=== PATIENT | female | born 1965 | race Caucasian/White ===

== ENCOUNTER 2017-03-14 16:16 | Emergency (ER) | payer MEDICAID ==
[2017-03-14 16:21] VITALS: BP 149/85; PULSE 74; RESP 20; TEMP 97.7
[2017-03-14] MEDS ORDERED: ORPHENADRINE 30 MG/ML 2 ML VIAL IM STA (16:26)
[2017-03-14] MEDS ORDERED: KETOROLAC 60 MG/2 ML VIAL IM STA (16:27)
[2017-03-14] MEDS ORDERED: HYDROcodone/APAP 10-325MG 1 EACH TAB PO ONE (16:28)
--- NOTE | 2017-03-14 16:48 | ED ---
Neck Injury/Pain HPI - General Chief Complaint: Neck Pain/Injury Stated Complaint: NECK AND ARM PAIN Time Seen by Provider: 03/14/17 16:18 Source: RN notes reviewed, old records reviewed Mode of arrival: ambulatory Limitations: no limitations - History of Present Illness Initial Comments: This is a pleasant 51-year-old female with chief complaint of neck and arm pain for the past 2 days. She denies any chest pain or shortness of breath. Patient reports that she has a history of surgical repair of C3 through C5 Dr. Oseguera. She reports that she called them 2 days ago and does have an appointment tomorrow. Patient reports that she was at work that she's having severe muscle spasm and is unable to continue to work at this time. Patient reports that the pain starts in the upper part of her neck and radiates down to her left arm. Patient reports that she is very tender to palpation over her trapezius muscle. Patient states that she's been taking Motrin and muscle relaxers without any relief of her pain. Patient states that she does not take any narcotic. She reports that this symptom happened 2 months ago she was placed on a steroid taper by her neurologist. Patient reports that she was told by her neurologist to hold off on the steroid taper, because she is recently had one. - Related Data Home Medications Medication Instructions Recorded Confirmed Furosemide [Lasix] 40 mg PO DAILY PRN 03/30/14 05/19/14 Omeprazole [PriLOSEC] 20 mg PO DAILY 03/30/14 05/19/14 Potassium Chloride [K-Tab ER] 10 meq PO DAILY PRN 03/30/14 05/19/14 Hydrocodone/Acetaminophen 1 each PO QID PRN 05/13/14 05/19/14 [Hydrocodone/Acetaminophen 5-325] Ibuprofen [Motrin] 800 mg PO Q6HR PRN 05/13/14 05/19/14 Previous Rx's Medication Instructions Recorded HYDROcodone/APAP 5-325MG [Divide 1 - 2 each PO Q6HR PRN #90 tab 05/20/14 5-325] Diazepam [Valium] 5 mg PO TID #10 tab 03/14/17 HYDROcodone/APAP 5-325MG [Divide 1 tab PO Q6HR PRN #10 tab 03/14/17 5-325] Allergies Allergy/AdvReac Type Severity Reaction Status Date / Time codeine Allergy Chest Pain Verified 05/13/14 15:25 BEE STINGS Allergy Anaphylaxis Uncoded 05/13/14 15:25 Review of Systems ROS Statement: Those systems with pertinent positive or pertinent negative responses have been documented in the HPI. ROS Other: All systems not noted in ROS Statement are negative. Past Medical History Past Medical History: Chest Pain / Angina, GERD/Reflux, Musculoskeletal Disorder , Osteoarthritis (OA), Thyroid Disorder Additional Past Medical History / Comment(s): GLASSES,CAPS CROWNS,MISSING UPPER TOOTH,HYPERTHYROID,ANXIERTY-CHEST PAIN,EARS AND BELLY BUTTON PIERCED, REFLUX, BACK PAIN-NECK History of Any Multi-Drug Resistant Organisms: C-DIFF Date of last positivie culture/infection: 2009 MDRO Source:: stool Past Surgical History: Cholecystectomy, Heart Catheterization, Orthopedic Surgery Additional Past Surgical History / Comment(s): NODULES REMOVED FROM VOCAL CORDS, HEART CATH 06/06, pain clinic procedures, anterior cervical decompression and fusion C4-5, C5-6 on 05/19/[address] Oseguera Past Anesthesia/Blood Transfusion Reactions: Motion Sickness, Postoperative Nausea & Vomiting (PONV) Past Psychological History: Anxiety Smoking Status: Former smoker Past Alcohol Use History: Occasional Past Drug Use History: None Reported - Past Family History Father Family Medical History: Musculoskeletal Disorder General Exam - General Exam Comments Initial Comments: Pleasant 51-year-old female. No acute distress. Limitations: no limitations General appearance: alert, in no apparent distress Head exam: Present: atraumatic, normocephalic, normal inspection Eye exam: Present: normal appearance, PERRL, EOMI. Absent: scleral icterus, conjunctival injection, periorbital swelling ENT exam: Present: normal exam, normal oropharynx, mucous membranes moist Neck exam: Present: normal inspection, other (Patient is tender to palpation over the right side of the posterior neck. Tender scapula radiating towards her right shoulder. Patient thinks that she pinched a nerve. ). Absent: tenderness, meningismus, lymphadenopathy Respiratory exam: Present: normal lung sounds bilaterally. Absent: respiratory distress, wheezes, rales, rhonchi, stridor Cardiovascular Exam: Present: regular rate, normal rhythm, normal heart sounds. Absent: systolic murmur, diastolic murmur, rubs, gallop, clicks GI/Abdominal exam: Present: soft, normal bowel sounds. Absent: distended, tenderness, guarding, rebound, rigid Extremities exam: Present: normal inspection, full ROM, normal capillary refill. Absent: tenderness, pedal edema, joint swelling, calf tenderness Back exam: Present: normal inspection Neurological exam: Present: alert, oriented X3, CN II-XII intact Psychiatric exam: Present: normal affect, normal mood Skin exam: Present: warm, dry, intact, normal color. Absent: rash Course Vital Signs 03/14/17 16:19 Temperature 97.7 F Pulse Rate 74 Respiratory 20 Rate Blood Pressure 149/85 O2 Sat by Pulse 99 Oximetry Medical Decision Making - Medical Decision Making Is a 51-year-old female presents emergency department with neck and arm pain for the past 2 days. Patient reports she is extremely tender over the ear. She 's had a history of surgical repair of C3 C3 through C5. She reports that 2 days that she she moved and pinched nerve and is not helped. Patient isn't taking Motrin Tylenol and muscle relaxers with little relief. Cervical and thoracic spine were completed today. Patient given IM Toradol and Norflex. Patient's x-rays reviewed. Negative for any significant acute process. Evidence of previous surgical repair. Patient reports some improvement with the IM injections. Patient will also be given one Divide to take when she goes home with. Patient will be written off of work for today and tomorrow. Discussed following up tomorrow with her neurologist appointment. Patient agrees with treatment plan will comply. Return parameters were discussed. She also be discharged with a prescription for Divide and Valium. Discussed case with Dr. Garcia. - Radiology Data Radiology results: report reviewed Present denies any for any acute process. No fracture and no malalignment. Gentle reversal of normal lordotic curvature noted. Anterior C4 through 6 fusion hardware intact. No focal bony findings. No incisional soft tissue findings. Mild C5-C6 and bilateral neural foraminal bony narrowing noted. Neural foramen are otherwise unremarkable. No acute process. Disposition Clinical Impression: Muscle spasms of neck Disposition: HOME SELF-CARE Condition: Good Instructions: Cervical Strain (ED), Muscle Spasm (ED) Additional Instructions: Patient advised to apply heat and ice over the area. Take anti-inflammatory medications as she previously had been taking. Follow-up tomorrow with your orthopedic physician. Return to emergency department if any alarming signs or symptoms occur. Prescriptions: Diazepam [Valium] 5 mg PO TID #10 tab HYDROcodone/APAP 5-325MG [Divide 5-325] 1 tab PO Q6HR PRN #10 tab PRN Reason: Pain Referrals: Zahira Gage MD [Primary Care Provider] - 1-2 days Time of Disposition: 16:55
--- NOTE | 2017-03-14 17:19 | XR ---
EXAMINATION TYPE: XR cervical spine comp 5 views DATE OF EXAM: 03/14/2017 5:16 PM COMPARISON: 05/19/2014 HISTORY: Pain, shooting pain down left arm TECHNIQUE: 5 views FINDINGS: There is no fracture and no malalignment. Gentle reversal of the normal lordotic curvature noted. Anterior C4-C6 fusion hardware is intact. No focal bony findings. No incidental soft tissue fi ndings. Mild C5-6 and bilateral neural foraminal bony narrowing noted. The neuroforamen are otherwise unremarkable. IMPRESSION: NO ACUTE PROCESS.
--- NOTE | 2017-03-14 17:22 | XR ---
EXAMINATION TYPE: XR thoracic spine complete 4 views DATE OF EXAM: 03/14/2017 5:16 PM COMPARISON: NONE HISTORY: Pain TECHNIQUE: 4 views FINDINGS: There is no spinal malalignment. No evident fracture. No focal bony finding or incidental p araspinal soft tissue findings. IMPRESSION: NO ACUTE PROCESS.
== END 2017-03-14 17:40 | disposition home or self-care (01) ==
LOC: EC 16:16
DX: M99.71 Connective tissue and disc stenosis of intervertebral foramina of cervical region (principal); M79.602 Pain in left arm; K21.9 Gastro-esophageal reflux disease without esophagitis; Z87.891 Personal history of nicotine dependence; Z79.899 Other long term (current) drug therapy; Z88.5 Allergy status to narcotic agent; Z91.030 Bee allergy status; Z98.1 Arthrodesis status
CPT/HCPCS: 72072; 72050; 99284; 96372 ×2; J2360; J1885

== ENCOUNTER → 2017-03-29 | Outpatient (CLI) | payer MEDICAID ==
--- NOTE | 2017-03-30 10:00 | MR ---
EXAMINATION TYPE: MR cervical spine wo/w con DATE OF EXAM: 03/29/2017 10:37 PM COMPARISON: The operative study of 05/13/2013 HISTORY: Cervical and lt arm pain CONTRAST: The patient was injected with 19 mL intravenous MultiHance gadolinium contrast. Multiplanar MultiSpin echo imaging of the cervical spine was performed. C2-C3: No evidence for degenerative disc disease. No disc bulge/herniation or protrusion. No Canal stenosis. Degenerative change cervical apophyseal joints. Moderate narrowing of the left neural valeria en at this level. C3-C4: No evidence for degenerative disc disease. No disc bulge/herniation or protrusion. No Canal stenosis. Foramina are patent bilaterally. C4-C5: Interval changes of ACDF. There is solid fusion with anterior fixation plate. Alignment is zhang tomic. Posterior hypertrophic changes effaces the ventral thecal sac with minimal ventral CORD contac t to the right of midline. No central stenosis. Increased signal within the cervical spinal cord at t his level may reflect a degree of myelopathy. Foramina are patent bilaterally. Enhancing granulation tissue noted. C5-C6: Interval changes of ACDF. There is solid fusion with anterior fixation plate. Alignment is zhang tomic. Posterior hypertrophic changes effaces the ventral thecal sac with minimal ventral CORD contac t to the right of midline. No central stenosis. Increased signal within the cervical spinal cord at t his level may reflect a degree of myelopathy. Foramina are patent bilaterally. Enhancing granulation tissue noted. C6-C7: There is mild disc desiccation. Posterocentral disc bulge with minimal effacement ventral thec al sac. No evidence for herniation, stenosis or spinal cord contact. Foramina are patent. C7-T1: No evidence for degenerative disc disease. No disc bulge/herniation or protrusion. No Canal stenosis. Foramina are patent bilaterally. No cervical spine fracture. Anatomic postoperative alignment. Cervical spinal cord is of normal signa l. Craniovertebral junction relationships are within normal limits. No pathologic enhancement. IMPRESSION: 1. Changes of ACDF at C4-5 and C5-6 with a normal alignment. As noted there is posterior hypertrophic change with enhancing granulation tissue and spinal cord contact to the right of midline H level. In creased signal within the cervical spinal cord may reflect myelopathy. No definite central stenosis a t this time. 2. Left foraminal encroachment at C2-3. 3. Disc bulging at C6-7
== END | disposition home or self-care (01) ==
LOC: RADMRIMAIN 21:45
PROVIDERS: ATTEND Orthopaedic Surgery Orthopaedic Surgery of the Spine
DX: M50.123 Cervical disc disorder at C6-C7 level with radiculopathy (principal)
CPT/HCPCS: 72156; A9577

== ENCOUNTER → 2017-05-01 | Outpatient (CLI) | payer MEDICAID ==
[2017-04-29 13:48] VITALS: BMI 29.5
[2017-05-01 11:54] VITALS: BP 113/75; PULSE 71; RESP 16; TEMP 98.5
--- NOTE | 2017-05-01 12:32 | P.HPIM ---
History of Present Illness H&P Date: 05/01/17 Chief Complaint: neck pain and left arm pain This is a 51-year-old patient referred by Dr. Oseguera for chronic pain in neck and left arm; patient underwent MARTHA x 3 with our facility in 2013 and then underwent ACDF with Dr. Oseguera which helped her significantly and she was off all medications. Recently, she tripped and she felt a pop in her neck and began to have pain going down her left arm to her fingers, and is now having radiation of throbbing pain down to her left forearm but not into the hand. Patient has been taking medications from primary care physician including Bethel and Neurontin with some relief. Patient denies adverse drug effects from medications. Patient also denies new-onset weakness, bowel/bladder incontinence , or any other signs or symptoms of cauda equina syndrome. There are no signs of acute intoxication, and no indications of medication diversion or overuse. Patient notes that pain worsens significantly with sitting and driving, and improves with rest, muscle relaxants, opioids, and ice. Patient has used several types of medications for pain, including NSAIDS, OPIOIDS, TRAMADOL. Patient HAS had surgery (ACDF). Patient HAS had injections previously (CESIs). Patient HAS NOT had physical therapy recently but Dr. Oseguera has ordered it for her. In addition to above, 13-point review of systems is also negative for chest pain , shortness of breath, changes in vision, changes in hearing, new onset weakness , abdominal pain, diarrhea, extreme fatigue, malaise, fever, skin changes, homicidal or suicidal ideation, or bowel or bladder incontinence. Vital Signs: Reviewed in EMR Gen: WDWN, AAOx3, NAD HEENT: NCAT, EOMI, hearing grossly normal Pulm: resp unlabored Abd: soft, NT, ND Neck: supple, trachea midline ROM in flexion cervical spine: reduced ROM in extension cervical spine: severely reduced Cervical paravertebral tenderness: + L side Cervical Facet tenderness: + L side Spurling's: + LUE Upper extremity: decreased bolt threader strength LUE 4/5 Neuro: CN II-XII grossly intact, muscle strength lower extremities PRESERVED Past Medical History Past Medical History: Chest Pain / Angina, GERD/Reflux, Musculoskeletal Disorder , Osteoarthritis (OA), Thyroid Disorder Additional Past Medical History / Comment(s): HYPERTHYROID. REFLUX RESOLVED. BACK, NECK PAIN; OCC NT IN LT ARM & RADIATES UP TO CHIN. History of Any Multi-Drug Resistant Organisms: C-DIFF Date of last positivie culture/infection: 2009 MDRO Source:: stool Past Surgical History: Cholecystectomy, Heart Catheterization, Orthopedic Surgery Additional Past Surgical History / Comment(s): NODULES REMOVED FROM VOCAL CORDS , HEART CATH 06/06, Pain clinic procedures, Anterior Cervical Decompression and Fusion C4-5, C5-6 on 05/19/[address] Oseguera. PLANTAR FASCITIS SURG STONE. Past Anesthesia/Blood Transfusion Reactions: Motion Sickness, Postoperative Nausea & Vomiting (PONV) Past Psychological History: Anxiety Additional Psychological History / Comment(s): MINOR Smoking Status: Former smoker Past Alcohol Use History: Daily Past Drug Use History: None Reported - Past Family History Father Family Medical History: Musculoskeletal Disorder Medications and Allergies Home Medications Medication Instructions Recorded Confirmed Type Potassium Chloride [K-Tab ER] 10 meq PO DAILY PRN 03/30/14 05/01/17 History Ibuprofen [Motrin] 800 mg PO Q6HR PRN 05/13/14 05/01/17 History Cyclobenzaprine [Flexeril] 10 mg PO TID 04/29/17 05/01/17 History Diazepam [Valium] 5 mg PO TID PRN 04/29/17 05/01/17 History Furosemide [Lasix] 40 mg PO DAILY PRN 04/29/17 05/01/17 History Gabapentin [Neurontin] 300 mg PO TID 04/29/17 05/01/17 History HYDROcodone/APAP 5-325MG [Bethel 1 tab PO Q8HR PRN 04/29/17 05/01/17 History 5-325] Methimazole [Methimazole] 10 mg PO BID 04/29/17 05/01/17 History Multivit with Calcium,Iron,Min 1 each PO DAILY 04/29/17 05/01/17 History [Women's Multivitamin] Vitamin C/Biotin [Hair, Skin and 1 tab PO DAILY 04/29/17 05/01/17 History Nails] Allergies Allergy/AdvReac Type Severity Reaction Status Date / Time codeine Allergy Chest Pain Verified 05/01/17 11:40 BEE STINGS Allergy Anaphylaxis Uncoded 05/01/17 11:40 Physical Exam Vitals: Vital Signs Temp Pulse Resp BP Pulse Ox 05/01/17 11:45 98.5 F 71 16 113/75 100 Results Comments: MRI cervical spine dated 03/29/2017 demonstrates ACDF changes of the C4-C5 and C5- C6 level with a normal alignment. There is posterior hypertrophic facet changes with enhancing granulation tissue and spinal cord contact to the right of the midline at each level. There is increased signal within the cervical spinal cord that may possibly reflect myelopathy. There is no definite central canal stenosis at this time. There is also disc bulging the C6-C7 level with foraminal encroachment at C2-C3. Assessment and Plan (1) Cervical postlaminectomy syndrome Status: Chronic (2) Cervical spondylosis without myelopathy Status: Chronic (3) Chronic pain syndrome Status: Chronic Plan: 1. Explanation: Opioid and psychological risk scores were reviewed. Diagnoses , prognoses, and multiple treatment options including but not limited to physical therapy, interventional therapies, adjuvant medical therapies, narcotic medication therapies, and surgery were discussed with the patient and all questions were answered to the patient's satisfaction. 2. Opioid agreement: no opioids prescribed today 3. Counseling: The patient was counseled extensively on BODY MASS INDEX, EXERCISE. Specifically, the patient was instructed regarding the importance of weight control and exercise in the context of both chronic pain and overall health. 4. Procedures: MARTHA series starting in six weeks after PT 5. Consultations: none 6. Investigations: none 7. Medications: none prescribed, advised pt to take Neurontin 300 mg QPM and 600 mg QHS 8. Disposition: f/u for procedure as scheduled; if pain is significantly improved by PT, patient can cancel procedure PQRS measures: 1-Patient's medications are documented in the chart. 2-Tobacco use is negative, counseling given 3-Patient has not had a pneumococcal vaccine. 4-Advanced care planning discussed, patient unable to give. 5-Opioid contract signed with the patient. 6-Pain positive, follow-up visit or procedure scheduled 7-Patient's blood pressure measured and documented, and WNL. 8-Patient's weight was measured, and body mass index ABOVE the normal limits, and counseling was done. Patient instructed to follow up with PCP. 9-Patient WAS NOT identified as an unhealthy alcohol user. Time with Patient: Greater than 30
== END | disposition home or self-care (01) ==
LOC: PNWHC3 11:35
PROVIDERS: ATTEND Anesthesiology
DX: M47.812 Spondylosis without myelopathy or radiculopathy, cervical region (principal); M96.1 Postlaminectomy syndrome, not elsewhere classified; G89.4 Chronic pain syndrome
CPT/HCPCS: 99211

== ENCOUNTER 2017-05-30 06:38 | Day surgery (SDC) | payer MEDICAID ==
[2017-05-27 15:51] VITALS: BMI 31.0
[2017-05-30] MEDS ORDERED: LACTATED RINGERS 1,000 ML IV SCH (07:30)
[2017-05-30 07:32] VITALS: RESP 16; TEMP 98
[2017-05-30] MEDS ORDERED: LIDOCAINE 1% 20 ML VIAL (10MG/ML) FOR IV START INTRADERMA ONE (07:46)
[2017-05-30] MEDS ORDERED: LACTATED RINGERS 1,000 ML IV ONE (07:49)
--- NOTE | 2017-05-30 08:09 | P.PCN ---
Date of Procedure: 05/30/17 Preoperative Diagnosis: Postoperative Diagnosis: Procedure(s) Performed: Implants: Surgeon: Kirill Hurtado Pathology: none sent Condition: stable Disposition: PACU Indications for Procedure: Operative Findings: Description of Procedure: PREOPERATIVE DIAGNOSIS: Cervical radiculopathy. POSTOPERATIVE DIAGNOSIS: Cervical radiculopathy. PROCEDURE 1. Cervical epidural steroid injection under fluoroscopic guidance, C7-T1 level. 2. Cervical epidurogram. ANESTHESIA: Local anesthesia with 1% lidocaine and IV sedation with versed/ fentanyl. EBL: Minimal PROCEDURE INDICATION: The patient with neck pain and radiculitis unresponsive to conservative treatment consents for procedure. No use of blood thinners. PROCEDURE DESCRIPTION / TECHNIQUE: The patient was seen and identified in the preoperative area. Risks, benefits, complications, and alternatives were discussed with the patient (including but not limited to incomplete pain relief, bleeding, infection, nerve damage, and allergies to medications), the patient agreed to proceed with the procedure and signed the consent after all questions were answered. Patient was taken to the OR and time out was completed to verify proper patient , position, laterality of pain, and allergies. Pt was placed in the prone position. A pillow was placed under the patients chest to increase the cervical interlaminar space. The cervical area was prepped and draped in the usual sterile fashion. Critical pause was taken. Vital signs were closely monitored during the procedure. Conscious sedation was used during the procedure to decrease patients anxiety. Using anterior-posterior fluoroscopy, the C7-T1 interlaminar space was identified and the skin over this site was marked and then infiltrated with 1% lidocaine subcutaneously in a paramedian fashion. Subsequently, a 20-gauge 3-1/2 -inch Tuohy epidural needle was inserted and advanced toward the epidural space by means of the loss of resistance technique and guided by AP and lateral fluoroscopy. After negative aspiration for blood or CSF and in the absence of paresthesias, the correct needle position in the epidural space was verified with the injection of 1 mL of the water soluble contrast dye Omnipaque-180 and observing an excellent epidurogram with the epidural spread of the dye, after negative aspiration for blood and CSF and in the absence of paresthesias. Again after negative aspiration, a 4 ml mixture containing 20 mg of Decadron and 2 ml of preservative free Normal Saline solution was injected and a washout of epidurogram was seen. Needle was withdrawn intact, skin was cleansed, and bandages were applied. COMPLICATIONS: None COMMENTS: DISPOSITION / PLANS: The patient was placed in a supine position and transferred to the recovery area in a stable condition for observation. There was no evidence of upper extremity motor or sensory deficit after the procedure. Patient was discharged from the recovery room after meeting discharge criteria. Home discharge instructions were given to the patient by the staff. The patient was reexamined prior to discharge and had no numbness/ tingling feeling in her left arm as she had when she came in prior to the procedure. The patient will schedule a repeat MARTHA in 4-6 weeks.
[2017-05-30] MEDS ORDERED: IV FLUID CONTINUATION 1,000 ML IV ONE (08:11)
--- NOTE | 2017-05-30 08:28 | FL ---
Fluoroscopy HISTORY: Pain 11 seconds fluoroscopy time supplied to the referring clinician. 3 intraoperative C-arm images docum ent the procedure. See dictated report from anesthesia.
[2017-05-30 08:36] VITALS: BP 117/72; PULSE 80
[2017-05-30] MEDS ORDERED: ONDANSETRON 4 MG/2 ML VIAL IVP STA (08:40)
== END 2017-05-30 09:19 | disposition home or self-care (01) ==
LOC: ORPAIN 06:38
PROVIDERS: ATTEND Anesthesiology
DX: G89.4 Chronic pain syndrome (principal); M47.22 Other spondylosis with radiculopathy, cervical region; M96.1 Postlaminectomy syndrome, not elsewhere classified; M19.90 Unspecified osteoarthritis, unspecified site; E05.90 Thyrotoxicosis, unspecified without thyrotoxic crisis or storm; Z88.5 Allergy status to narcotic agent; Z91.030 Bee allergy status; Z79.899 Other long term (current) drug therapy; Z87.891 Personal history of nicotine dependence; Z98.1 Arthrodesis status
CPT/HCPCS: 62321; 81025; J2250; J1100; Q9965; J2405; J3010; 99152

== ENCOUNTER 2017-06-13 10:34 | Day surgery (SDC) | payer MEDICAID ==
[~2017-06-13 10:34] MED LIST: LACTATED RINGERS 1,000 ML IV SCH
[2017-06-13 10:44] VITALS: RESP 16; TEMP 98.3
[2017-06-13] MEDS ORDERED: LIDOCAINE 1% 20 ML VIAL (10MG/ML) FOR IV START INTRADERMA ONE (11:02)
[2017-06-13] MEDS ORDERED: ONDANSETRON 4 MG/2 ML VIAL IVP ONE (11:02)
--- NOTE | 2017-06-13 11:27 | P.PCN ---
Date of Procedure: 06/13/17 Preoperative Diagnosis: Cervical radiculopathy Postoperative Diagnosis: Same as above Procedure(s) Performed: Cervical epidural steroid injection under fluoroscopic guidance Implants: Anesthesia: other (Moderate conscious sedation with IV fentanyl and Versed) Surgeon: Ronel Hurd Pathology: none sent Condition: stable Disposition: PACU Indications for Procedure: Operative Findings: Description of Procedure: The patient was seen in preop holding area consent was obtained then she was brought into the procedure room and placed in prone position. Skin was prepped with ChloraPrep and draped in a sterile manner. Lidocaine 1% was used to numb the skin up at the target point that was at the C7-T1 level in the left paramedian approach. I used 22-gauge 3-1/2 inch Touhy epidural needle with loss -of-resistance to air to identify the epidural space. First the needle tip contacted the lamina of T1 and then it walked off the bone and into the epidural space between C7 and T1. Was positive [id number] to air negative aspiration for any CSF or blood and negative paresthesia I then injected 1 mL of Omnipaque which showed typical epidurogram on the AP view of fluoroscopy after that I injected 20 mg of dexamethasone with 3 MLS of preservative free normal saline to a total volume of 5 MLS in the epidural space. Muscle strength exam and the upper extremities supposed procedure showed no changes from baseline. Patient denies any new paresthesia post procedure. Patient tolerated procedure well.
[2017-06-13] MEDS ORDERED: IV FLUID CONTINUATION 1,000 ML IV ONE (11:35)
[2017-06-13 11:48] VITALS: BP 113/76; PULSE 72
--- NOTE | 2017-06-13 11:55 | FL ---
EXAMINATION TYPE: FL guided pain mgmt statistic DATE OF EXAM: 06/13/2017 COMPARISON: NONE HISTORY: Cervical epidural injection TECHNIQUE: Fluoroscopy. FINDINGS/IMPRESSION: Fluoroscopic guidance was provided during procedure performed by Dr. Hurd. A total of 5 seconds of fluoroscopic time was utilized during the procedure and 1 spot images was acq uired.
== END 2017-06-13 12:21 | disposition home or self-care (01) ==
LOC: ORPAIN 10:34
PROVIDERS: ATTEND Anesthesiology
DX: M54.12 Radiculopathy, cervical region (principal); Z88.5 Allergy status to narcotic agent
CPT/HCPCS: 81025; 62321; J2250; J1100; Q9965; J2405; J3010; 99152

== ENCOUNTER 2017-07-16 07:43 | Day surgery (SDC) | payer MEDICAID ==
[2017-07-12 15:45] VITALS: BMI 28.0
[~2017-07-16 07:43] MED LIST changes: +LIDOCAINE 1% 20 ML VIAL (10MG/ML) FOR IV START INTRADERMA PRN
[2017-07-16 08:00] VITALS: TEMP 97.9
[2017-07-16] MEDS ORDERED: LACTATED RINGERS 1,000 ML IV ONE (08:15)
[2017-07-16] MEDS ORDERED: PROPOFOL 10 MG/ML 20 ML VIAL IV ONE (08:29)
[2017-07-16 09:42] VITALS: BP 132/64; PULSE 70; RESP 18
--- NOTE | 2017-07-16 21:01 | P.PCN ---
Date of Procedure: 07/16/17 Procedure(s) Performed: Procedure: Total colonoscopy. Preoperative diagnosis: Screening for neoplasia. Postoperative diagnosis: Diverticulosis with no evidence of acute diverticulitis , strictures, polyps or cancer. Preparation: HalfLytely prep. Sedation: Was provided by anesthesia. Brief clinical history: The patient is a 51-year-old female who is scheduled for this evaluation for screening for neoplasia. She had a prior exam back in December 2009 at the time of the an episode of C. difficile colitis. She has been doing well since. Procedure: With the patient on her left lateral decubitus position and after informed consent and adequate sedation, the perianal area was inspected and it did not show any fissures or fistulas. There were no masses felt on digital rectal examination. The Olympus CFQ 160L was used and was inserted in the rectum in the usual fashion and advanced. There was significant diverticular disease in the sigmoid that prompted me to exchange the endoscope and restart the exam using the pediatric scope. The Olympus PCFQ 180AL videocolonoscope was used and was advanced without difficulty to the cecum. There was multiple diverticular orifices seen scattered in the sigmoid and left side with no evidence of acute diverticulitis or strictures. There was a rare diverticular orifice around the hepatic flexure. The mucosa appeared healthy. No polyps or tumors were seen. I retroflexed the endoscope in the rectum before the endoscope was withdrawn. The patient tolerated the procedure well. Plan: The patient was reassured. Discussed dietary measures. She will follow- up with you as planned and I recommended repeat exam in 10 years.
== END 2017-07-16 09:56 | disposition home or self-care (01) ==
LOC: ORWHC2ENDO 07:43
DX: Z12.11 Encounter for screening for malignant neoplasm of colon (principal); K57.30 Diverticulosis of large intestine without perforation or abscess without bleeding; Z88.5 Allergy status to narcotic agent; E05.90 Thyrotoxicosis, unspecified without thyrotoxic crisis or storm; Z79.899 Other long term (current) drug therapy
CPT/HCPCS: 81025; J2704; G0121

== ENCOUNTER 2017-07-23 09:30 | Day surgery (SDC) | payer MEDICAID ==
[2017-07-23] MEDS ORDERED: LACTATED RINGERS 1,000 ML IV SCH (10:00)
[2017-07-23] MEDS ORDERED: LIDOCAINE 1% 20 ML VIAL (10MG/ML) FOR IV START INTRADERMA ONE (10:32)
[2017-07-23 10:34] VITALS: RESP 16; TEMP 98.3
--- NOTE | 2017-07-23 11:32 | P.PCN ---
Date of Procedure: 07/23/17 Procedure(s) Performed: . PROCEDURE 1. Cervical epidural steroid injection under fluoroscopic guidance, C7-T1 2. Cervical epidurogram. PREOPERATIVE DIAGNOSIS: 1- Cervical radiculopathy., POSTOPERATIVE DIAGNOSIS: : 1- Cervical radiculopathy. ANESTHESIA: Local anesthesia with 1% lidocaine and IV sedation with Versed 2 mg and Fentanyl 100 mcg. EBL 0 PROCEDURE INDICATION: The patient with neck pain and radiculitis unresponsive to conservative treatment consents for procedure. PROCEDURE DESCRIPTION / TECHNIQUE: The patient was seen and identified in the preoperative area. Risks, benefits, complications, including but not limited to infections ,bleeding , allergic reactions to the medications ,and not complete pain releife, and alternatives were discussed with the patient, the patient agreed to proceed with the procedure and signed the consent. Patient was taken to the OR and time out was completed. The patient was placed in the prone position on the procedure table. A pillow was placed under the patients chest to increase the cervical interlaminar space. The cervical area was prepped and draped in the usual sterile fashion. Vital signs were closely monitored during the procedure. Conscious sedation was used during the procedure to decrease patients anxiety. Using anterior-posterior fluoroscopy, the C7-T1 interlaminar space was identified and the skin over this site was marked and then infiltrated with 1% lidocaine subcutaneously. Subsequently, a 20-gauge 3-1/2-inch Tuohy epidural needle was inserted and advanced toward the epidural space by means of the `` hanging-drop technique and guided by AP and lateral fluoroscopy. The correct needle position in the epidural space was verified with the injection of 2 mL of the water soluble contrast dye Isovue-180 and observing an excellent epidurogram with the epidural spread of the dye, after negative aspiration for blood and CSF and in the absence of paresthesias. Again after negative aspiration, mixture containing 20 mg Dexamethasone and 2 ml of preservative- free normal saline injected and a washout of epidurogram was seen. Needle was withdrawn intact, skin was cleansed, and bandages were applied. Complications= none. Disposition= patient was placed in supine position and transferred to the recovery room area in stable condition and there was no evidence of upper or lower extremity motor or sensory deficit after the procedure patient was discharged from recovery room after discharge criteria met and home discharge instructions was given by the staff and patient will follow with the pain clinic in 2-4 weeks
[2017-07-23] MEDS ORDERED: IV FLUID CONTINUATION 500 ML IV ONE (11:38)
--- NOTE | 2017-07-23 11:58 | FL ---
EXAMINATION TYPE: FL guided pain mgmt statistic DATE OF EXAM: 07/23/2017 HISTORY: Flouroscopy time 2 seconds of fluoroscopy provided. IMPRESSION: 1. Fluoroscopy time.
[2017-07-23 12:03] VITALS: BP 135/71; PULSE 68
== END 2017-07-23 12:16 | disposition home or self-care (01) ==
LOC: ORPAIN 09:30
PROVIDERS: ATTEND Specialist
DX: M54.12 Radiculopathy, cervical region (principal); K21.9 Gastro-esophageal reflux disease without esophagitis; E03.9 Hypothyroidism, unspecified; Z88.5 Allergy status to narcotic agent
CPT/HCPCS: 81025; 62321; J2250; J1100; Q9965; J3010

== ENCOUNTER → 2017-08-01 | Outpatient (CLI) | payer MEDICAID ==
[2017-08-01 12:56] LABS: Basophils % (A) 0 %; CH 30.5; CHCM 33.4; Eosinophils # (A) 0.1 k/uL (0-0.7); Eosinophils % (A) 1 %; HCT 40.2 % (34.0-46.0); HDW 2.68; HGB 13.7 gm/dL (11.4-16.0); Luc # (Auto) 0.13; Luc % (Auto) 3; Lymphocytes # (A) 1.6 k/uL (1.0-4.8); Lymphocytes % (A) 35 %; MCH 31.2 pg (25.0-35.0); MCHC 34.1 g/dL (31.0-37.0); MCV 91.6 fL (80.0-100.0); Mean Platelet Volume 7.4; Monocytes # (A) 0.4 k/uL (0-1.0); Monocytes % (A) 10 %; Neutrophils # (A) 2.3 k/uL (1.3-7.7); Neutrophils % (A) 51 %; RBC 4.39 m/uL (3.80-5.40); RDW 12.6 % (11.5-15.5); WBC 4.5 k/uL (3.8-10.6); WBC (Perox) 4.54
[2017-08-01 13:10] LABS: ALT 30 U/L (9-52); AST 15 U/L (14-36); Alkaline Phosphatase 65 U/L (38-126); Anion Gap 9 mmol/L; Blood Urea Nitrogen 14 mg/dL (7-17); Calcium 9.5 mg/dL (8.4-10.2); Carbon Dioxide 26 mmol/L (22-30); Chloride 105 mmol/L (98-107); Cholesterol 157 mg/dL (<200); Creatine Kinase 38 U/L (30-135); Glucose 82 mg/dL (74-99); HDL Cholesterol 72 mg/dL (40-60); Non-African American GFR(MDRD) >60 (>60 ml/min/1.73 sqM); Sodium 140 mmol/L (137-145); Total Bilirubin 0.9 mg/dL (0.2-1.3); Total Protein 6.5 g/dL (6.3-8.2); Uric Acid 3.9 mg/dL (3.7-7.4)
[2017-08-01 19:02] LABS: Erythrocyte Sedimentation Rate 7 mm/hr (0-20)
== END | disposition home or self-care (01) ==
LOC: LABWHC1 11:59
PROVIDERS: ATTEND Internal Medicine
DX: E05.90 Thyrotoxicosis, unspecified without thyrotoxic crisis or storm (principal); M47.12 Other spondylosis with myelopathy, cervical region
CPT/HCPCS: 36415; 80053; 80061; 82306; 82550; 83036; 84439; 84443; 84550; 85025; 85652

== ENCOUNTER → 2017-11-20 | Outpatient (CLI) | payer MEDICAID ==
--- NOTE | 2017-11-20 21:00 | MR ---
EXAMINATION TYPE: MR lumbar spine wo con DATE OF EXAM: 11/20/2017 5:52 PM COMPARISON: NONE HISTORY: Pain Multiplanar, MultiSpin echo imaging of the lumbar spine was performed. L1-L2: Normal disc appearance without desiccation. No herniation, protrusion or disc bulging. No ca nal stenosis is present. Foramina are patent bilaterally. L2-L3: Normal disc appearance without desiccation. No herniation, protrusion or disc bulging. No ca nal stenosis is present. Foramina are patent bilaterally. L3-L4: Moderate disc desiccation. Circumferential disc bulge greatest posteriorly with effacement of the ventral thecal sac. Left lateral recess stenosis. No central stenosis at this time. Facet joint a rthropathy resulting in mild left foraminal encroachment. Grade 1 anterolisthesis of L3 and L4-3 mill imeters. L4-L5: Mild disc desiccation. Mild posterocentral disc bulge. Mild effacement ventral thecal sac. No evidence for herniation or central stenosis. No foraminal encroachment. L5-S1: Moderate to severe disc desiccation with vacuum changes noted. Mild circumferential disc bulge with minimal effacement ventral thecal sac. No herniation central stenosis or foraminal encroachmen t. Lumbar segments are intact. Scattered vertebral body hemangiomas. No paraspinal masses are identifie d. Conus medullaris has a normal appearance. IMPRESSION: 1. Generative disc disease as discussed. 2. Disc bulging with left lateral recess stenosis at L3-4. Grade 1 anterolisthesis at this level as w ell. See above.
== END | disposition home or self-care (01) ==
LOC: RADMRIMAIN 17:16
PROVIDERS: ATTEND Anesthesiology
DX: M48.061 Spinal stenosis, lumbar region without neurogenic claudication (principal); M51.26 Other intervertebral disc displacement, lumbar region
CPT/HCPCS: 72148

== ENCOUNTER → 2017-11-27 | Outpatient (CLI) | payer MEDICAID ==
[2017-11-27 12:03] VITALS: BP 116/72; PULSE 77; RESP 18; TEMP 98.3
--- NOTE | 2017-11-27 12:26 | P.PN ---
Progress Note - Text Progress Note Date: 11/27/17 Patient returns for followup for chronic neck and back pain with radiation to arms and bilateral hips, but no pain radiating past the back of the knee. Patient recently underwent MARTHA x 3 with "significant" improvement per patient and has had lumbar MRI done, results below. Patient continues on [place] medications for pain from other providers with some relief. Patient denies adverse drug effects from medications. Today, pt denies new-onset weakness, bowel/bladder incontinence, or any other signs or symptoms of cauda equina syndrome. There are no signs of acute intoxication, and no indications of medication diversion or overuse. In addition to above, 13-point review of systems is also negative for chest pain , shortness of breath, changes in vision, changes in hearing, new onset weakness , abdominal pain, diarrhea, extreme fatigue, malaise, fever, skin changes, homicidal or suicidal ideation, or bowel or bladder incontinence. Vital Signs: Reviewed in EMR Gen: WDWN, AAOx3, NAD HEENT: NCAT, EOMI, hearing grossly normal Pulm: resp unlabored Abd: soft, NT, ND Neck: supple, trachea midline ROM in flexion lumbar spine: reduced ROM in extension lumbar spine: reduced Lumbar paravertebral tenderness: + Facet loading: + L > R SI joint tenderness: neg Thee's test: neg Straight leg raise: neg Neuro: CN II-XII grossly intact, muscle strength lower extremities PRESERVED Imaging: MRI lumbar spine dated 11/20/2017 demonstrates moderate disc desiccation at the L3-L4 level with a circumferential disc bulge greatest posteriorly with effacement of the ventral thecal sac. There is no central canal stenosis here. There is facet joint arthropathy resulting in mild left foraminal encroachment at the left lateral recess. At the L4-L5 level there is mild disc desiccation with a posterior central disc bulge causing mild effacement of the ventral thecal sac. At the L5-S1 level there is moderate to severe disc desiccation with vacuum changes noted. There is also mild circumferential disc bulge with minimal effacement of the ventral thecal sac with no herniation, central canal stenosis, or foraminal encroachment. Assessment: 1. cervical PLPS 2. lumbar spondylosis 3. chronic pain syndrome Plan: 1. Explanation: Opioid and psychological risk scores were reviewed. Diagnoses , prognoses, and multiple treatment options including but not limited to physical therapy, interventional therapies, adjuvant medical therapies, narcotic medication therapies, and surgery were discussed with the patient and all questions were answered to the patient's satisfaction. 2. Opioid agreement: no opioids prescribed today 3. Counseling: The patient was counseled extensively on BODY MASS INDEX, EXERCISE. Specifically, the patient was instructed regarding the importance of weight control, and exercise in the context of both chronic pain and overall health. 4. Procedures: bilateral LMBB L3-S1 8 weeks after patient does physical therapy and then returns from vacation 5. Consultations: None 6. Investigations: none for now 7. Medications: none 8. Disposition: f/u for procedure as scheduled PQRS measures: 1-Patient's medications are documented in the chart. 2-Tobacco use is negative 3-Patient has not had a pneumococcal vaccine. 4-Advanced care planning discussed, patient unable to give. 5-Opioid contract NOT signed with the patient. 6-Pain positive, follow-up visit or procedure scheduled 7-Patient's blood pressure measured and documented, and WNL. 8-Patient's weight was measured, and body mass index ABOVE the normal limits, and counseling was done. Patient instructed to follow up with PCP. 9-Patient WAS NOT identified as an unhealthy alcohol user.
== END | disposition home or self-care (01) ==
LOC: PNWHC3 11:47
PROVIDERS: ATTEND Anesthesiology
DX: G89.4 Chronic pain syndrome (principal); M54.2 Cervicalgia; M54.9 Dorsalgia, unspecified; M96.1 Postlaminectomy syndrome, not elsewhere classified; M47.816 Spondylosis without myelopathy or radiculopathy, lumbar region; Z79.891 Long term (current) use of opiate analgesic
CPT/HCPCS: 99211

== ENCOUNTER → 2018-01-02 | Outpatient (CLI) | payer MEDICAID ==
--- NOTE | 2018-01-02 10:57 | US ---
EXAMINATION TYPE: US thyroid st tissue head/neck DATE OF EXAM: 01/02/2018 COMPARISON: NONE CLINICAL HISTORY: E05.90 Thyrotoxicosis. GLAND SIZE: Right Lobe: 5.3 x 1.8 x 2.4 cm Overall Parenchyma: heterogenous Left Lobe: 5.0 x 1.8 x 2.3 cm Overall Parenchyma: heterogeneous Isthmus Thickness: 0.4 cm NODULES RIGHT: # of nodules measured on right: 1 1. 0.6 X 0.4 x 0.5 cm hypoechoic solid nodule at the mid pole with well-defined margins. This nodu le is wider than tall and shows no intranodular vascularity. No prior LEFT: # of nodules measured on left: 0 ISTHMUS: # of nodules measured in the isthmus: 0 Bilateral neck scanned, no evidence of lymphadenopathy. IMPRESSION: Heterogeneous parenchyma of the thyroid, correlate for thyroiditis
[2018-01-02 11:36] LABS: T4, Free (Free Thyroxine) 0.63 ng/dL (0.78-2.19)
== END | disposition home or self-care (01) ==
LOC: RADUSWWP 10:20
PROVIDERS: ATTEND Internal Medicine Endocrinology, Diabetes & Metabolism
DX: E07.89 Other specified disorders of thyroid (principal); E05.90 Thyrotoxicosis, unspecified without thyrotoxic crisis or storm
CPT/HCPCS: 36415; 76536; 84439; 84443; 84445; 84480

== ENCOUNTER 2018-01-24 12:32 | Emergency (ER) | payer MEDICAID ==
[2018-01-24 12:35] VITALS: RESP 18
[2018-01-24] MEDS ORDERED: METOCLOPRAMIDE 5 MG/ML 2 ML VIAL IVP STA (13:06)
[2018-01-24] MEDS ORDERED: MECLIZINE 12.5 MG TAB PO STA (13:06)
[2018-01-24] MEDS ORDERED: SODIUM CHLORIDE 0.9% 1,000 ML IV STA (13:06)
[2018-01-24] MEDS ORDERED: SODIUM CHLORIDE 0.9% 500 ML IV STA (13:06)
--- NOTE | 2018-01-24 13:38 | ED ---
Dizziness HPI - General Chief Complaint: Dizziness Stated Complaint: Nauseated, DIzzy Time Seen by Provider: 01/24/18 12:58 Source: patient, RN notes reviewed Mode of arrival: ambulatory Limitations: no limitations - History of Present Illness Initial Comments: This a 52-year-old female presents emergency Department chief complaint of nausea and dizziness. Patient states his symptoms have been present last 3 days worsening. She states she's been tolerating but he had to appointment work today that she felt nauseated and very dizzy. She describes it as feeling slightly lightheaded though the room slightly spends and she feels dizzy when she walks or with quick movements. Patient denies any recent URI symptoms though she did state that last week she had a dental infection she was on antibiotics. Patient denies chest pain, shortness breath, focal weakness denies any actual vomiting, severe nausea. She has had slight diarrhea but only a few episodes. Patient denies any dysuria hematuria. She denies any back pain. Patient has no severe headache at this time. No blurred vision - Related Data Home Medications Medication Instructions Recorded Confirmed Potassium Chloride [K-Tab ER] 10 meq PO DAILY PRN 03/30/14 01/24/18 Ibuprofen [Motrin] 800 mg PO Q6HR PRN 05/13/14 01/24/18 Cyclobenzaprine [Flexeril] 10 mg PO TID PRN 04/29/17 01/24/18 Furosemide [Lasix] 40 mg PO DAILY PRN 04/29/17 01/24/18 Gabapentin [Neurontin] 300 mg PO TID 04/29/17 01/24/18 HYDROcodone/APAP 5-325MG [[place] 1 tab PO Q8HR PRN 04/29/17 01/24/18 5-325] Methimazole [Methimazole] 10 mg PO BID 04/29/17 01/24/18 Multivit with Calcium,Iron,Min 1 tab PO DAILY 04/29/17 01/24/18 [Women's Multivitamin] Vitamin C/Biotin [Hair, Skin and 1 tab PO DAILY 04/29/17 01/24/18 Nails] Previous Rx's Medication Instructions Recorded Meclizine [Antivert] 25 mg PO TID PRN #15 tab 01/24/18 Ondansetron Odt [Zofran Odt] 4 mg PO Q8HR PRN #10 tab 01/24/18 Allergies Allergy/AdvReac Type Severity Reaction Status Date / Time codeine Allergy Chest Pain Verified 01/24/18 13:03 BEE STINGS Allergy Anaphylaxis Uncoded 01/24/18 13:03 Review of Systems ROS Statement: Those systems with pertinent positive or pertinent negative responses have been documented in the HPI. ROS Other: All systems not noted in ROS Statement are negative. Past Medical History Past Medical History: Chest Pain / Angina, GERD/Reflux, Osteoarthritis (OA), Thyroid Disorder Additional Past Medical History / Comment(s): HYPERTHYROID, BACK, NECK PAIN. History of Any Multi-Drug Resistant Organisms: C-DIFF Date of last positivie culture/infection: 2009 MDRO Source:: stool Past Surgical History: Cholecystectomy, Heart Catheterization, Orthopedic Surgery Additional Past Surgical History / Comment(s): NODULES REMOVED FROM VOCAL CORDS , HEART CATH 06/06, Pain clinic procedures, Anterior Cervical Decompression and Fusion C4-5, C5-6 on 05/19/[address] Oseguera. PLANTAR FASCITIS SURG STONE. Past Anesthesia/Blood Transfusion Reactions: Motion Sickness, Postoperative Nausea & Vomiting (PONV) Past Psychological History: Anxiety Smoking Status: Former smoker Past Alcohol Use History: Daily Past Drug Use History: None Reported - Past Family History Father Family Medical History: Musculoskeletal Disorder Mother Family Medical History: Cancer General Exam Limitations: no limitations General appearance: alert, in no apparent distress Head exam: Present: atraumatic, normocephalic, normal inspection Eye exam: Present: normal appearance, PERRL, EOMI. Absent: scleral icterus, conjunctival injection, periorbital swelling ENT exam: Present: normal exam, normal oropharynx, mucous membranes moist, TM's normal bilaterally, normal external ear exam Neck exam: Present: normal inspection, full ROM. Absent: tenderness, meningismus, lymphadenopathy Respiratory exam: Present: normal lung sounds bilaterally. Absent: respiratory distress, wheezes, rales, rhonchi, stridor Cardiovascular Exam: Present: regular rate, normal rhythm, normal heart sounds. Absent: systolic murmur, diastolic murmur, rubs, gallop, clicks GI/Abdominal exam: Present: soft, normal bowel sounds. Absent: distended, tenderness, guarding, rebound, rigid Extremities exam: Present: normal inspection, full ROM, normal capillary refill. Absent: tenderness, pedal edema, joint swelling, calf tenderness Neurological exam: Present: alert, oriented X3, CN II-XII intact, reflexes normal. Absent: motor sensory deficit Skin exam: Present: warm, dry, intact, normal color. Absent: rash Course Vital Signs 01/24/18 12:34 Temperature 96.8 F L Pulse Rate 88 Respiratory 18 Rate Blood Pressure 124/78 O2 Sat by Pulse 100 Oximetry EKG Findings - EKG Comments: EKG Findings:: EKG performed at 12:42 normal sinus rhythm with a rate of 77 IL interval 118 QRS 90 QT/QTC 370/418 Medical Decision Making - Medical Decision Making 52-year-old female presented emergency department for nausea and dizziness. Patient was hydrated, given Reglan and Antivert. She states she feels 100% better this time. We did review lab work, EKG which is unremarkable. Patient does not provide urine at this time states that she's having no symptoms. This most likely is related to vertigo. Patient is requesting discharge at this time will be discharged with Zofran, Antivert. - Lab Data Result diagrams: 01/24/18 13:32 01/24/18 13:32 Lab Results 01/24/18 01/24/18 01/24/18 Range/Units 13:32 13:32 13:32 WBC 5.3 (3.8-10.6) k/uL RBC 4.61 (3.80-5.40) m/uL Hgb 14.2 (11.4-16.0) gm/dL Hct 39.4 (34.0-46.0) % MCV 85.4 (80.0-100.0) fL MCH 30.7 (25.0-35.0) pg MCHC 36.0 (31.0-37.0) g/dL RDW 13.0 (11.5-15.5) % Plt Count 211 (150-450) k/uL Neutrophils % 70 % Lymphocytes % 20 % Monocytes % 6 % Eosinophils % 2 % Basophils % 0 % Neutrophils # 3.7 (1.3-7.7) k/uL Lymphocytes # 1.1 (1.0-4.8) k/uL Monocytes # 0.3 (0-1.0) k/uL Eosinophils # 0.1 (0-0.7) k/uL Basophils # 0.0 (0-0.2) k/uL Sodium 141 (137-145) mmol/L Potassium 3.8 (3.5-5.1) mmol/L Chloride 103 (98-107) mmol/L Carbon Dioxide 25 (22-30) mmol/L Anion Gap 13 mmol/L BUN 17 (7-17) mg/dL Creatinine 0.70 (0.52-1.04) mg/dL Est GFR (CKD-EPI)AfAm >90 (>60 ml/min/1.73 sqM) Est GFR (CKD-EPI)NonAf >90 (>60 ml/min/1.73 sqM) Glucose 90 (74-99) mg/dL Calcium 9.7 (8.4-10.2) mg/dL Total Bilirubin 1.1 (0.2-1.3) mg/dL AST 19 (14-36) U/L ALT 21 (9-52) U/L Alkaline Phosphatase 54 (38-126) U/L Troponin I <0.012 (0.000-0.034) ng/mL Total Protein 6.6 (6.3-8.2) g/dL Albumin 4.0 (3.5-5.0) g/dL Disposition Clinical Impression: Dizziness Disposition: HOME SELF-CARE Condition: Stable Instructions: Dizziness (ED) Additional Instructions: Please return to the Emergency Department if symptoms worsen or any other concerns. Prescriptions: Meclizine [Antivert] 25 mg PO TID PRN #15 tab PRN Reason: Vertigo Ondansetron Odt [Zofran Odt] 4 mg PO Q8HR PRN #10 tab PRN Reason: Nausea Referrals: Zahira Gage MD [Primary Care Provider] - 1-2 days Time of Disposition: 14:35
[2018-01-24 13:39] LABS: Basophils % (A) 0 %; Eosinophils # (A) 0.1 k/uL (0-0.7); Eosinophils % (A) 2 %; HCT 39.4 % (34.0-46.0); HGB 14.2 gm/dL (11.4-16.0); Lymphocytes # (A) 1.1 k/uL (1.0-4.8); Lymphocytes % (A) 20 %; MCH 30.7 pg (25.0-35.0); MCV 85.4 fL (80.0-100.0); Mean Platelet Volume 7.4; Monocytes # (A) 0.3 k/uL (0-1.0); Monocytes % (A) 6 %; Neutrophils # (A) 3.7 k/uL (1.3-7.7); Neutrophils % (A) 70 %; Platelet Count 211 k/uL (150-450); RBC 4.61 m/uL (3.80-5.40); WBC 5.3 k/uL (3.8-10.6)
[2018-01-24 14:05] LABS: ALT 21 U/L (9-52); AST 19 U/L (14-36); Alkaline Phosphatase 54 U/L (38-126); Anion Gap 13 mmol/L; Blood Urea Nitrogen 17 mg/dL (7-17); Calcium 9.7 mg/dL (8.4-10.2); Carbon Dioxide 25 mmol/L (22-30); Chloride 103 mmol/L (98-107); Glucose 90 mg/dL (74-99); Potassium 3.8 mmol/L (3.5-5.1); Sodium 141 mmol/L (137-145); Total Bilirubin 1.1 mg/dL (0.2-1.3); Total Protein 6.6 g/dL (6.3-8.2)
[2018-01-24] MEDS ORDERED: ONDANSETRON 4 MG ODT STARTER PACK 2 TAB BTL PO STA (14:35)
[2018-01-24 14:50] VITALS: BP 116/76; PULSE 74; TEMP 97.6
== END 2018-01-24 14:48 | disposition home or self-care (01) ==
LOC: EC 12:32
DX: R42 Dizziness and giddiness (principal); R11.0 Nausea; F41.9 Anxiety disorder, unspecified; E05.90 Thyrotoxicosis, unspecified without thyrotoxic crisis or storm; M19.90 Unspecified osteoarthritis, unspecified site; Z90.49 Acquired absence of other specified parts of digestive tract; Z95.5 Presence of coronary angioplasty implant and graft; Z88.5 Allergy status to narcotic agent; Z91.030 Bee allergy status; Z79.899 Other long term (current) drug therapy; Z87.891 Personal history of nicotine dependence
CPT/HCPCS: 99284; 96374; 96361; 36415; 93005; 80053; 84484; 85025; J2765; S0119

== ENCOUNTER → 2018-02-26 | Outpatient (CLI) | payer MEDICAID ==
--- NOTE | 2018-02-27 10:30 | NM ---
EXAMINATION TYPE: NM thyroid image w uptake DATE OF EXAM: 02/27/2018 COMPARISON: Thyroid ultrasound dated 01/02/2018 HISTORY: Thyrotoxicosis TECHNIQUE: Thyroid iodine uptake is calculated and images performed after the oral administration of 300 uCi 1-123 Capsule. FINDINGS: The 4 hour iodine uptake is calculated at 42.6% (normal range 8-14%). The 24-hour iodine up take is calculated at 71.5% (normal range 15-35%). Heterogeneity of radiopharmaceutical uptake within the thyroid gland is noted. IMPRESSION: Findings suggest thyroiditis.
== END | disposition home or self-care (01) ==
LOC: RADNMMAIN 09:48
PROVIDERS: ATTEND Internal Medicine Endocrinology, Diabetes & Metabolism
DX: E05.90 Thyrotoxicosis, unspecified without thyrotoxic crisis or storm (principal)
CPT/HCPCS: 78014; A9516

== ENCOUNTER → 2018-03-05 | Outpatient (CLI) | payer MEDICAID ==
[2018-03-05 16:06] LABS: HCG,Qualitative Serum Not Detected
[2018-03-05 16:25] LABS: T4, Free (Free Thyroxine) 1.58 ng/dL (0.78-2.19)
== END | disposition home or self-care (01) ==
LOC: LABWHC1 14:56
PROVIDERS: ATTEND Internal Medicine Endocrinology, Diabetes & Metabolism
DX: E05.90 Thyrotoxicosis, unspecified without thyrotoxic crisis or storm (principal); E04.1 Nontoxic single thyroid nodule
CPT/HCPCS: 36415; 84432; 84439; 84443; 84703

== ENCOUNTER → 2018-03-06 | Day surgery (SDC) | payer MEDICAID ==
--- NOTE | 2018-03-06 15:18 | NM ---
RADIOTRACER: 8.94 mCi I-131. TECHNIQUE: Oral iodine therapy for hyperthyroidism. Patient is on a low iodine diet. Dose was prescribed (written directive) by an Authorized User in conjunction with treatment request rayray Dumont. Risks, benefits, and potential complications of radioactive I-131 therapy were discussed in detail wi th the patient by myself and the supervisor liquefaction. Verbal and written informed consent wer e obtained. Written instructions were given for radiation safety precautions to be observed for 4 day s outpatient. The patient specific exposure calculations were done by RSO to ensure estimated max dose to any indiv idual exposed to the patient was less than 5 mSv. The patient was specifically advised to avoid close contact with children, women, and other members of public. Dose was verified in dose caliber and patient was given oral I-131 pill under the supervision of me otto rodriguez the supervisor liquefaction. There were no immediate complications. IMPRESSION: Outpatient 8.94 mCi mCi I-131 oral therapy capsule for hyperthyroidism. The patient will follow-up with Dr. Dumont as to making arrangements for post ablation whole body scan as clinically ivanna mayitoed.
== END ==
LOC: RADNMMAIN 13:54
PROVIDERS: ATTEND Internal Medicine Endocrinology, Diabetes & Metabolism
DX: E05.90 Thyrotoxicosis, unspecified without thyrotoxic crisis or storm (principal); E04.1 Nontoxic single thyroid nodule
CPT/HCPCS: 79005; A9517

== ENCOUNTER → 2018-04-04 | Outpatient (CLI) | payer MEDICAID ==
[2018-04-04 15:02] LABS: T4, Free (Free Thyroxine) 1.02 ng/dL (0.78-2.19)
== END | disposition home or self-care (01) ==
LOC: LABWHC1 13:53
PROVIDERS: ATTEND Internal Medicine Endocrinology, Diabetes & Metabolism
DX: E05.90 Thyrotoxicosis, unspecified without thyrotoxic crisis or storm (principal)
CPT/HCPCS: 36415; 84439; 84443; 84481

== ENCOUNTER 2018-05-14 09:40 | Emergency (ER) | payer MEDICAID ==
[2018-05-14 09:47] VITALS: RESP 18; TEMP 97.5
[2018-05-14] MEDS ORDERED: SODIUM CHLORIDE 0.9% 1,000 ML IV STA ×2 (09:53)
--- NOTE | 2018-05-14 09:58 | ED ---
Chest Pain HPI - General Chief Complaint: Chest Pain Stated Complaint: Chest Pain Time Seen by Provider: 05/14/18 09:46 Source: patient, RN notes reviewed, old records reviewed Mode of arrival: ambulatory Limitations: no limitations - History of Present Illness Initial Comments: This patient's a 52-year-old female presents emergency Department chief complaint of chest pain diaphoresis and left arm paresthesias onset 30 minutes prior to arrival. She does have a strong history of anxiety. She states that she initially thought her pains were discussed related to anxiety. 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 She reports that upon arriving in she started to feel somewhat better. Patient states that she has had a history of thyroid disease. Recent radioactive iodine treatments including's ago. Patient states that she reports that her pain diminish upon arrival states is a 1 out of 10. She states that during the initial episode she was having radiate up into her jaw. She reports that she had a cardiac cath a few years ago and reports that came back clear. - Related Data Home Medications Medication Instructions Recorded Confirmed Furosemide [Lasix] 40 mg PO DAILY PRN 04/29/17 05/14/18 HYDROcodone/APAP 5-325MG [[place] 1 tab PO Q8HR PRN 04/29/17 05/14/18 5-325] ALPRAZolam [Xanax] 0.25 mg PO BID PRN 05/14/18 05/14/18 Cholecalciferol [Vitamin D3] 1,000 unit PO DAILY 05/14/18 05/14/18 Escitalopram [Lexapro] 5 mg PO DAILY 05/14/18 05/14/18 Gabapentin [Neurontin] 300 mg PO QAM 05/14/18 05/14/18 Gabapentin [Neurontin] 600 mg PO HS 05/14/18 05/14/18 Potassium Chloride [Klor-Con 20] 20 meq PO DAILY PRN 05/14/18 05/14/18 predniSONE 20 mg PO DIRECTED 05/14/18 05/14/18 Allergies Allergy/AdvReac Type Severity Reaction Status Date / Time codeine Allergy Chest Pain Verified 05/14/18 10:15 venom-honey bee Allergy Anaphylaxis Verified 05/14/18 10:15 Review of Systems ROS Statement: Those systems with pertinent positive or pertinent negative responses have been documented in the HPI. ROS Other: All systems not noted in ROS Statement are negative. EKG Findings - EKG Comments: EKG Findings:: Asians EKG shows sinus rhythm with no acute. Return to 60 bpm. Pulse 116 no seconds. QRS duration 90 ms. QT QTc is 366/389 milliseconds. Past Medical History Past Medical History: Chest Pain / Angina, GERD/Reflux, Osteoarthritis (OA), Thyroid Disorder Additional Past Medical History / Comment(s): HYPERTHYROID, BACK, NECK PAIN. History of Any Multi-Drug Resistant Organisms: C-DIFF Date of last positivie culture/infection: 2009 MDRO Source:: stool Past Surgical History: Cholecystectomy, Heart Catheterization, Orthopedic Surgery Additional Past Surgical History / Comment(s): NODULES REMOVED FROM VOCAL CORDS , HEART CATH 06/06, Pain clinic procedures, Anterior Cervical Decompression and Fusion C4-5, C5-6 on 05/19/[address] Oseguera. PLANTAR FASCITIS SURG STONE. radioactive iodine tx for thyroid Past Anesthesia/Blood Transfusion Reactions: Motion Sickness, Postoperative Nausea & Vomiting (PONV) Past Psychological History: Anxiety Smoking Status: Former smoker Past Alcohol Use History: Daily Past Drug Use History: None Reported - Past Family History Father Family Medical History: Musculoskeletal Disorder Mother Family Medical History: Cancer General Exam - General Exam Comments Initial Comments: This is a 52-year-old female. Alert and oriented. Limitations: no limitations General appearance: alert, in no apparent distress Head exam: Present: atraumatic, normocephalic, normal inspection Eye exam: Present: normal appearance, PERRL, EOMI. Absent: scleral icterus, conjunctival injection, periorbital swelling ENT exam: Present: normal exam, mucous membranes moist Neck exam: Present: normal inspection. Absent: tenderness, meningismus, lymphadenopathy Respiratory exam: Present: normal lung sounds bilaterally. Absent: respiratory distress, wheezes, rales, rhonchi, stridor Cardiovascular Exam: Present: regular rate, normal rhythm, normal heart sounds. Absent: systolic murmur, diastolic murmur, rubs, gallop, clicks GI/Abdominal exam: Present: soft, normal bowel sounds. Absent: distended, tenderness, guarding, rebound, rigid Extremities exam: Present: normal inspection, full ROM, normal capillary refill. Absent: tenderness, pedal edema, joint swelling, calf tenderness Back exam: Present: normal inspection Neurological exam: Present: alert, oriented X3, CN II-XII intact Psychiatric exam: Present: normal mood, anxious. Absent: normal affect Skin exam: Present: warm, dry, intact, normal color. Absent: rash Course Vital Signs 05/14/18 05/14/18 09:43 13:05 Temperature 97.5 F L Pulse Rate 67 67 Respiratory 18 18 Rate Blood Pressure 151/78 106/67 O2 Sat by Pulse 100 98 Oximetry Chest Pain MDM - MDM 52-year-old female presents today with onset of chest pain, sweating, and feeling lightheaded. Patient's initial EKG was normal. Patient's lab work was reviewed and normal. We did repeat a troponin level which was negative 2. Chest x-ray was reviewed and normal. Patient does have better after the Ativan and Zofran. I discussed with her recent thyroid ablation her TSH is low at this time. She will follow up with her primary care provider regards to this. Patient does feel somewhat better after receiving the Ativan. States she has no chest pain this time. Patient was offered admission and further evaluation from cardiology however states she would like to go home. Disposition Clinical Impression: Chest pain, Anxiety Disposition: HOME SELF-CARE Condition: Good Instructions: Chest Pain (ED) Additional Instructions: Patient has a very close follow-up with primary care physician and cardiology. Return to emergency department if the pain returns research have any dizziness or short of breath. Is patient prescribed a controlled substance at d/c from ED?: No When asked, does pt state using other controlled substances?: No If prescribed controlled substance>3 days was MAPS reviewed?: No If opioid is for acute pain is fill amount 7 days or less?: No If Rx opioid, was Start Talking consent form obtained?: No Referrals: Zahira Gage MD [Primary Care Provider] - 1-2 days Time of Disposition: 14:16
[2018-05-14 10:21] LABS: Basophils % (A) 0 %; Eosinophils # (A) 0.1 k/uL (0-0.7); Eosinophils % (A) 1 %; HGB 13.1 gm/dL (11.4-16.0); Lymphocytes # (A) 2.5 k/uL (1.0-4.8); Lymphocytes % (A) 41 %; MCH 29.8 pg (25.0-35.0); MCHC 33.6 g/dL (31.0-37.0); MCV 88.8 fL (80.0-100.0); Mean Platelet Volume 7.3; Monocytes # (A) 0.5 k/uL (0-1.0); Monocytes % (A) 8 %; Neutrophils # (A) 2.9 k/uL (1.3-7.7); Neutrophils % (A) 48 %; Platelet Count 209 k/uL (150-450); RBC 4.39 m/uL (3.80-5.40); RDW 13.1 % (11.5-15.5)
[2018-05-14 10:32] LABS: ALT 27 U/L (9-52); AST 17 U/L (14-36); Albumin 4.3 g/dL (3.5-5.0); Alkaline Phosphatase 57 U/L (38-126); Anion Gap 9 mmol/L; Blood Urea Nitrogen 15 mg/dL (7-17); Calcium 9.2 mg/dL (8.4-10.2); Carbon Dioxide 26 mmol/L (22-30); Chloride 105 mmol/L (98-107); Glucose 79 mg/dL (74-99); Magnesium 1.9 mg/dL (1.6-2.3); Potassium 3.8 mmol/L (3.5-5.1); Sodium 140 mmol/L (137-145); Total Bilirubin 0.7 mg/dL (0.2-1.3); Total Protein 6.7 g/dL (6.3-8.2)
[2018-05-14] MEDS ORDERED: ONDANSETRON 4 MG/2 ML VIAL IVP STA (10:32)
[2018-05-14] MEDS ORDERED: LORazepam 1 MG TAB PO STA (10:32)
[2018-05-14 10:38] LABS: Prothrombin Time 9.8 sec (9.0-12.0)
[2018-05-14 10:39] LABS: Creatine Kinase 30 U/L (30-135)
--- NOTE | 2018-05-14 10:41 | XR ---
EXAMINATION TYPE: XR chest 2V DATE OF EXAM: 05/14/2018 COMPARISON: Chest x-ray May 13, 2014 HISTORY: Left-sided chest pain. TECHNIQUE: Frontal and lateral views of the chest are obtained. FINDINGS: There is no focal air space opacity, pleural effusion, or pneumothorax seen. The cardiac silhouette size is upper limits of normal. The osseous structures are intact. Cholecystectomy clips are noted on lateral view. IMPRESSION: No acute cardiopulmonary process. No significant change from prior.
[2018-05-14 10:52] LABS: Partial Thromboplastin Time 21.9 sec (22.0-30.0)
[2018-05-14 10:53] LABS: Creatine Kinase MB 0.4 ng/mL (0.0-2.4); Troponin I <0.012 ng/mL (0.000-0.034)
[2018-05-14 11:45] LABS: T4, Free (Free Thyroxine) 1.25 ng/dL (0.78-2.19)
[2018-05-14 14:48] VITALS: BP 98/55; PULSE 84
== END 2018-05-14 15:03 | disposition home or self-care (01) ==
LOC: EC 09:40
DX: F41.9 Anxiety disorder, unspecified (principal); R07.9 Chest pain, unspecified; K21.9 Gastro-esophageal reflux disease without esophagitis; E05.90 Thyrotoxicosis, unspecified without thyrotoxic crisis or storm; Z95.818 Presence of other cardiac implants and grafts; Z87.891 Personal history of nicotine dependence; Z79.52 Long term (current) use of systemic steroids; Z79.899 Other long term (current) drug therapy; Z88.5 Allergy status to narcotic agent; Z91.030 Bee allergy status
CPT/HCPCS: 36415; 93005; 84439; 80053; 84443; 82550; 82553; 83735; 84484; 85025; 85610; 85730; 71046; 99285; 96374; 96361 ×4; J2405

== ENCOUNTER → 2018-06-20 | Outpatient (CLI) | payer MEDICAID ==
[2018-06-20 13:57] LABS: Basophils % (A) 0 %; Eosinophils % (A) 1 %; HCT 38.1 % (34.0-46.0); HGB 12.7 gm/dL (11.4-16.0); Lymphocytes # (A) 1.3 k/uL (1.0-4.8); Lymphocytes % (A) 32 %; MCH 29.4 pg (25.0-35.0); MCHC 33.2 g/dL (31.0-37.0); MCV 88.6 fL (80.0-100.0); Mean Platelet Volume 7.6; Monocytes # (A) 0.4 k/uL (0-1.0); Monocytes % (A) 10 %; Neutrophils # (A) 2.2 k/uL (1.3-7.7); Neutrophils % (A) 54 %; Platelet Count 188 k/uL (150-450); RBC 4.31 m/uL (3.80-5.40); RDW 13.1 % (11.5-15.5)
[2018-06-20 14:04] LABS: ALT 29 U/L (9-52); AST 22 U/L (14-36); Albumin 3.9 g/dL (3.5-5.0); Alkaline Phosphatase 58 U/L (38-126); Anion Gap 7 mmol/L; Blood Urea Nitrogen 14 mg/dL (7-17); Calcium 9.2 mg/dL (8.4-10.2); Carbon Dioxide 26 mmol/L (22-30); Chloride 106 mmol/L (98-107); Cholesterol 159 mg/dL (<200); Creatine Kinase 35 U/L (30-135); Glucose 83 mg/dL (74-99); HDL Cholesterol 79 mg/dL (40-60); LDL Cholesterol,Calculated 68 mg/dL (0-99); Magnesium 1.7 mg/dL (1.6-2.3); Potassium 4.2 mmol/L (3.5-5.1); Sodium 139 mmol/L (137-145); Total Bilirubin 0.7 mg/dL (0.2-1.3); Total Protein 6.5 g/dL (6.3-8.2); Triglycerides 58 mg/dL (<150); Uric Acid 3.6 mg/dL (3.7-7.4)
[2018-06-20 14:20] LABS: T4, Free (Free Thyroxine) 1.77 ng/dL (0.78-2.19)
== END | disposition home or self-care (01) ==
LOC: LABWHC1 13:27
PROVIDERS: ATTEND Internal Medicine
DX: G47.30 Sleep apnea, unspecified (principal); K21.9 Gastro-esophageal reflux disease without esophagitis; R60.9 Edema, unspecified; F41.9 Anxiety disorder, unspecified; E05.90 Thyrotoxicosis, unspecified without thyrotoxic crisis or storm; M47.12 Other spondylosis with myelopathy, cervical region
CPT/HCPCS: 36415; 80053; 80061; 82306; 82550; 83036; 83735; 84439; 84443; 84480; 84550; 85025

== ENCOUNTER → 2018-07-23 | Outpatient (CLI) | payer MEDICAID ==
--- NOTE | 2018-07-24 07:41 | P.PAINPG ---
Subjective Progress Note Date: 07/23/18 This is a follow-up visit for this 52 years old female with a chronic history of severe low back pain and severe neck pain, patient had the cervical fusion surgery done 2 years ago , currently she is complaining of severe neck pain with radiation to the upper extremity associated with numbness and tingling sensation, also patient complaining of severe low back pain with radiation to the lower extremity bilaterally, she had no motor or sensory deficit, she continued to work, she denies any fever or night sweats and she denies any change in the bowel movement or urination, she is currently on Neurontin 300 mg every morning and 600 mg every afternoon, and she takes [place] 5/325 for breakthrough pain, he denies any side effect of the medication, and she appropriate the current medication helping her to function and do activities of daily livings, intensity of the pain especially the low back pain increased over the last few weeks, and is more intense in the low back area Objective - Exam Physical Examinations : 1-Constitutiona : Cooperative , not in acute distress . 2-HEENT : nech ; supple , no Lymphadenopathy , normal thyroid size . eyes : no ptosis , no icterus , no photophobia . ENT : normal of hearing , normal oropharynx , no Thrush . 3- Respiratory : Chest clear to auscultations Bilaterally , no wheezing , no Rhonchi . 4- Cardiovascular : regular rate and rhythem , S1 , S2 , no S3 , no S4. 5- Gastrointestinal : abdomen soft no tenderness , bowel sounds , no organomegally . 6- Genitourinary : Defferred . 7- neurologic : Cranial nerve II to XII intact , no focal neurological deffecit . 8-psychatric : alert , oriented X 3 , appropriate affect , intact judgment and insight . 9-Lymphatic : no Lymphadenopathy . 10- musculoskeltal : Cervical Spine motor stregnth in the deltoid and biceps, normal right side , normal Left side motor stregnth biceps and the wrist extensors normal right side ,normal left side . motor stregnth in the triceps muscle . normal Right side , normal Left side deep tendon reflexes normal at the biceps , normal at Brachioradialis , normal at triceps. positive cervical facet loading test . Lumber spine moter stegnth lower extremities ,thigh and legs 5/5 Right side , 5/5 Left side deep tendon reflexes : normal Knee Jerk, normal ankle Jerk negative lumber facet Loading Test Range of motion of the lumbar spine Flexion 30 degrees, extension 10 degrees strait leg raising test , positive at 30 degree Fabere test positive RT and positive LT . Diagnostic studies MRI of the lumbar spine L3/L4 5/L5-S1 disc desiccation and facet arthropathy Assessment and Plan Plan: Assessment and plan= lumbar radiculopathy , lumbar disc degeneration, lumbar spondylosis with lumbar facet arthropathy Postlaminectomy pain syndrome and cervical area Patient will be scheduled to have lumbar epidural steroid injections under fluoroscopy guidance Time with Patient: Less than 30 PQRS Measure Charge Sheet Measure #130: Documentation of Current Meds in Medical Chart: Patient's medications documented in chart Measure #226: Tobacco Use: Screen & Cessation Intervention: Pt not a tobacco user Measure #111: Pneumonia Vaccination: Pneumococcal vaccine administered or previously received Measure #47: Advance Care Plan: Advance care planning discussed & documented, pt chose/unable to give Measure #412: Opioid Treatment Agreement: No documentation of signed opioid treatment agreement Measure #408: Opioid Therapy Follow-up Evaluation: Patient had NO f/u eval minimum every 3 months during opioid therapy Measure #317: Preventitive Care & Scrn High Bld Press & F/U: Normal blood pressure, f/u not required Measure #128: Body Mass Index (BMI) Screening & Follow-up: BMI documented ABOVE normal parameters - f/u documented Measure #131: Pain Assessment & Follow-up: Pain positive & plan documented, Follow-up scheduled Measure #431: Unhealthy Alcohol Use Preventative Care & Scrn: Patient not identified as an unhealthy alcohol user PQRS Narrative: Smoking Status Former smoker Hx Alcohol Use (MH) Yes: 1 q day Home Medications: Ambulatory Orders Furosemide [Lasix] 40 mg PO DAILY PRN 04/29/17 HYDROcodone/APAP 5-325MG [[place] 5-325] 1 tab PO Q8HR PRN 04/29/17 ALPRAZolam [Xanax] 0.25 mg PO BID PRN 05/14/18 Cholecalciferol [Vitamin D3] 1,000 unit PO DAILY 05/14/18 Escitalopram [Lexapro] 5 mg PO DAILY 05/14/18 Gabapentin [Neurontin] 300 mg PO QAM 05/14/18 Gabapentin [Neurontin] 600 mg PO HS 05/14/18 Potassium Chloride [Klor-Con 20] 20 meq PO DAILY PRN 05/14/18 Controlled Substance Measures - Controlled Substance Measures Is patient prescribed a controlled substance at discharge?: No When asked, does pt state using other controlled substances?: No If prescribed controlled substance>3 days was MAPS reviewed?: No If Rx opioid, was Start Talking consent form obtained?: No If opioid is for acute pain is fill amount 7 days or less?: No Was information provided regarding opioid addiction?: No
--- NOTE | 2018-07-24 09:37 | MM ---
Reason for exam: follow-up at short interval from prior study. Last mammogram was performed 11 months ago. History: Family history of breast cancer in mother and breast cancer in paternal grandmother. Benign left mammotome panel of the left breast, March 25, 2013. Excisional biopsy of the left breast. Took hormonal contraceptives for 2 years. Physical Findings: Nurse did not find any significant physical abnormalities on exam. MG 3D Diag Mammo W/Cad STONE Bilateral CC and MLO view(s) were taken. Prior study comparison: August 26, 2017, bilateral MG 3d screening mammo w/cad. January 11, 2016, bilateral MG 3d screening mammo w/cad. The breast tissue is heterogeneously dense. This may lower the sensitivity of mammography. Previous mammotome biopsy in the left breast. The previously seen areas of mammographic nodularity are no longer apparent. We note ultrasound demonstrated dense tissue. These results were verbally communicated with the patient and result sheet given to the patient on 07/23/18. ASSESSMENT: Negative, BI-RAD 1 RECOMMENDATION: Routine screening mammogram of both breasts in 1 year.
== END | disposition home or self-care (01) ==
LOC: RADMAMWWP 15:37
PROVIDERS: ATTEND Obstetrics & Gynecology
DX: Z12.31 Encounter for screening mammogram for malignant neoplasm of breast (principal)
CPT/HCPCS: 77062; 77066

== ENCOUNTER 2018-07-28 08:39 | Day surgery (SDC) | payer MEDICAID ==
[2018-07-25 10:30] VITALS: BMI 29.5
[~2018-07-28 08:39] MED LIST changes: -LIDOCAINE 1% 20 ML VIAL (10MG/ML) FOR IV START INTRADERMA PRN
[2018-07-28 09:12] VITALS: TEMP 97.8
[2018-07-28] MEDS ORDERED: LIDOCAINE 1% 20 ML VIAL (10MG/ML) FOR IV START INTRADERMA ONE (09:12)
--- NOTE | 2018-07-28 09:48 | P.PCN ---
Date of Procedure: 07/28/18 Procedure(s) Performed: PREOPERATIVE DIAGNOSIS: 1- Lumbar Degenerative Disc Diseases 2-Lumbar spondylosis with Facet arthropathy without myelopathy. 3-lumbar radiculopathy. POSTOPERATIVE DIAGNOSIS: 1-Lumber Degenerative Disc Diseases 2-Lumbar spondylosis with Facet arthropathy without myelopathy. 3-lumbar radiculopathy. PROCEDURE 1. Lumbar epidural steroid injection under fluoroscopic guidance at the L5-S1 level. 2. Lumbar epidurogram. ANESTHESIA: Local with 1% lidocaine 3 ml and , moderate sedation with intravenous Versed 2 mg ,and fentanyle 100 Mcg EBL: Minimal PROCEDURE INDICATION: The patient with low back pain and radiculitis symptoms unresponsive to conservative treatment. Fluoroscopy was used to optimize visualization of the needle placement and to maximize safety. PROCEDURE DESCRIPTION / TECHNIQUE: The patient was seen and identified in the preoperative area. Risks, benefits , complications including but not limited to infections ,bleeding ,allergic reaction to the medications ,nerve damage and not complete pain releife , and alternatives were discussed with the patient. The patient agreed to proceed with the procedure and signed the consent. IV was started, and vital signs were stable. Patient was taken to the OR and time out was completed. The patient was placed in the prone position on procedure table and a pillow was placed under the abdomen to reduce lumbar lordosis. The lumbosacral area was prepped and draped in the usual sterile fashion.ere closely monitored during the procedure. Conscious sedation was used during the procedure to decrease patients anxiety. Vital signs was monitered during the entire procedure. Using anterior-posterior fluoroscopy, the L5-S1 interlaminar space was identified and the skin over this site was marked and then infiltrated with 1% lidocaine subcutaneously. Subsequently, a 20-gauge Tuohy epidural needle was inserted and advanced toward the epidural space using the ``Loss of resistance technique and guided by AP and lateral fluoroscopy. The correct needle position in the epidural space was verified with the injection of 2 mL of the water soluble contrast dye Isovue 200 contrast and observing an excellent epidurogram with the epidural spread of the dye, after negative aspiration for blood and CSF and in the absence of paresthesias. Again after negative aspiration, a 6 ml mixture containing 80 mg of Depomedrole, and 2 ml of preservative free Normal Saline, and 2 ml of preservative free lidocaine 1% solution was injected and a washout of epidurogram was seen. Needle was withdrawn intact, skin was cleansed, and bandages were applied. COMPLICATIONS: None DISPOSITION / PLANS: The patient was placed in a supine position and transferred to the recovery area in a stable condition for observation. There was no evidence of lower extremity motor or sensory deficit after the procedure. Patient was discharged from the recovery room after meeting discharge criteria. Home discharge instructions were given to the patient by the staff. The patient was reexamined prior to discharge. The patient will schedule a follow up in the clinic in 2-4 weeks.
[2018-07-28] MEDS ORDERED: IV FLUID CONTINUATION 1,000 ML IV ONE (09:53)
--- NOTE | 2018-07-28 09:58 | FL ---
EXAMINATION TYPE: FL guided pain mgmt statistic DATE OF EXAM: 07/28/2018 HISTORY: Flouroscopy time 1 seconds of fluoroscopy provided. IMPRESSION: 1. Fluoroscopy time.
[2018-07-28 10:11] VITALS: BP 113/63; PULSE 86; RESP 16
[2018-07-28] MEDS ORDERED: KETOROLAC 30 MG/ML 1 ML VIAL IVP STA (10:42)
[2018-07-28] MEDS ORDERED: KETOROLAC 30 MG/ML 1 ML VIAL IM ONE (10:55)
== END 2018-07-28 11:00 | disposition home or self-care (01) ==
LOC: ORPAIN 08:39
PROVIDERS: ATTEND Anesthesiology
DX: M51.16 Intervertebral disc disorders with radiculopathy, lumbar region (principal); M47.26 Other spondylosis with radiculopathy, lumbar region; M96.1 Postlaminectomy syndrome, not elsewhere classified; Z98.1 Arthrodesis status; Z87.891 Personal history of nicotine dependence; Z79.899 Other long term (current) drug therapy; Z88.5 Allergy status to narcotic agent
CPT/HCPCS: 62323; J2250; J1030; J3301; J1885; Q9966

== ENCOUNTER → 2018-08-18 | Day surgery (SDC) | payer MEDICAID ==
[2018-08-12 10:34] VITALS: BMI 31.0
[~2018-08-18] MED LIST changes: -LACTATED RINGERS 1,000 ML IV SCH; +ONDANSETRON 4 MG/2 ML VIAL IVP STA; +SODIUM CHLORIDE 0.9% 500 ML 500 ML IV SCH
[2018-08-18 09:58] VITALS: RESP 18; TEMP 98.2
--- NOTE | 2018-08-18 10:44 | P.PCN ---
Date of Procedure: 08/18/18 Procedure(s) Performed: PREOPERATIVE DIAGNOSIS: 1- Lumbar Degenerative Disc Diseases 2-Lumbar spondylosis with Facet arthropathy without myelopathy. 3-lumbar radiculopathy POSTOPERATIVE DIAGNOSIS: Same as preop diagnosis. PROCEDURE 1. Lumbar epidural steroid injection under fluoroscopic guidance at the L5-S1 level. 2. Lumbar epidurogram. ANESTHESIA: Local with 1% lidocaine 3 ml and , moderate sedation with intravenous Versed 2 mg ,and fentanyle 100 Mcg EBL: Minimal PROCEDURE INDICATION: The patient with low back pain and radiculitis symptoms unresponsive to conservative treatment. Fluoroscopy was used to optimize visualization of the needle placement and to maximize safety. PROCEDURE DESCRIPTION / TECHNIQUE: The patient was seen and identified in the preoperative area. Risks, benefits , complications including but not limited to infections ,bleeding ,allergic reaction to the medications ,nerve damage and not complete pain releife , and alternatives were discussed with the patient. The patient agreed to proceed with the procedure and signed the consent. IV was started, and vital signs were stable. Patient was taken to the OR and time out was completed. The patient was placed in the prone position on procedure table and a pillow was placed under the abdomen to reduce lumbar lordosis. The lumbosacral area was prepped and draped in the usual sterile fashion.ere closely monitored during the procedure. Conscious sedation was used during the procedure to decrease patients anxiety. Vital signs was monitered during the entire procedure. Using anterior-posterior fluoroscopy, the L5-S1 interlaminar space was identified and the skin over this site was marked and then infiltrated with 1% lidocaine subcutaneously. Subsequently, a 20-gauge Tuohy epidural needle was inserted and advanced toward the epidural space using the ``Loss of resistance technique and guided by AP and lateral fluoroscopy. The correct needle position in the epidural space was verified with the injection of 2 mL of the water soluble contrast dye Isovue 200 contrast and observing an excellent epidurogram with the epidural spread of the dye, after negative aspiration for blood and CSF and in the absence of paresthesias. Again after negative aspiration, a 6 ml mixture containing 80 mg of Depo-medrol and 2 ml of preservative free Normal Saline, and 2 ml of preservative free lidocaine 1% solution was injected and a washout of epidurogram was seen. Needle was withdrawn intact, skin was cleansed, and bandages were applied. COMPLICATIONS: None DISPOSITION / PLANS: The patient was placed in a supine position and transferred to the recovery area in a stable condition for observation. There was no evidence of lower extremity motor or sensory deficit after the procedure. Patient was discharged from the recovery room after meeting discharge criteria. Home discharge instructions were given to the patient by the staff. The patient was reexamined prior to discharge. The patient will schedule a follow up in the clinic in 2-4 weeks.
--- NOTE | 2018-08-18 10:53 | FL ---
EXAMINATION TYPE: FL guided pain mgmt statistic DATE OF EXAM: 08/18/2018 HISTORY: Flouroscopy time 4 seconds of fluoroscopy provided. IMPRESSION: 1. Fluoroscopy time.
[2018-08-18 11:02] VITALS: BP 130/81
[2018-08-18 11:05] VITALS: PULSE 86
== END ==
LOC: ORPAIN 09:33
PROVIDERS: ATTEND Specialist
DX: M47.26 Other spondylosis with radiculopathy, lumbar region (principal); M51.16 Intervertebral disc disorders with radiculopathy, lumbar region; Z88.5 Allergy status to narcotic agent; Z91.030 Bee allergy status
CPT/HCPCS: 81025; 62323; J2250; J3301; J3010; Q9966

== ENCOUNTER → 2018-08-20 | Outpatient (CLI) | payer MEDICAID | END | disposition home or self-care (01) | LOC: LABWHC1 10:07 | PROVIDERS: ATTEND Internal Medicine Endocrinology, Diabetes & Metabolism | DX: E05.90 Thyrotoxicosis, unspecified without thyrotoxic crisis or storm (principal) | CPT/HCPCS: 36415; 84439; 84443; 84480 ==

== ENCOUNTER → 2018-11-12 | Outpatient (CLI) | payer MEDICAID ==
--- NOTE | 2018-11-12 14:33 | US ---
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 No thyroid meds. No biopsy. Hx of radioactive iodine therapy. GLAND SIZE: Right Lobe: 4.1 x 1.2 x 1.5 cm Overall Parenchyma: heterogenous Left Lobe: 3.3 x 1.5 x 1.2 cm Overall Parenchyma: heterogeneous Isthmus Thickness: 0.2 cm NODULES RIGHT: # of nodules measured on right: 0 LEFT: # of nodules measured on left: 0 ISTHMUS: # of nodules measured in the isthmus: 0 Bilateral neck scanned, no evidence of lymphadenopathy. Right previous nodule not visualized IMPRESSION: 1. No suspicious nodules.
== END | disposition home or self-care (01) ==
LOC: RADUSWWP 12:25
PROVIDERS: ATTEND Internal Medicine Endocrinology, Diabetes & Metabolism
DX: E05.00 Thyrotoxicosis with diffuse goiter without thyrotoxic crisis or storm (principal)
CPT/HCPCS: 76536

== ENCOUNTER → 2018-11-25 | Outpatient (CLI) | payer MEDICAID | END | disposition home or self-care (01) | LOC: LABWHC1 11:37 | PROVIDERS: ATTEND Internal Medicine Endocrinology, Diabetes & Metabolism | DX: E05.00 Thyrotoxicosis with diffuse goiter without thyrotoxic crisis or storm (principal) | CPT/HCPCS: 36415; 84439; 84443; 84480 ==

== ENCOUNTER 2018-12-08 08:39 | Day surgery (SDC) | payer MEDICAID ==
[2018-12-04 10:57] VITALS: BMI 29.5
[~2018-12-08 08:39] MED LIST changes: -ONDANSETRON 4 MG/2 ML VIAL IVP STA
[2018-12-08 09:14] VITALS: RESP 16; TEMP 98
--- NOTE | 2018-12-08 09:35 | P.GSHP ---
History of Present Illness H&P Date: 12/08/18 53-year-old female presenting for epidural steroid injection with fluoroscopy. Radicular pain bilateral lower extremities, no overt weakness. Some sensory deficits on L4 and L5 nerve roots. VAS today is a 6 out of 10 in severity. Physical Exam : CVS: Regular rate and rhythm, no peripheral edema Pulmonary: Nonlabored, no wheezing Plan: Lumbar epidural steroid injection L4-L5. Past Medical History Past Medical History: Chest Pain / Angina, GERD/Reflux, Osteoarthritis (OA), Thyroid Disorder Additional Past Medical History / Comment(s): HYPERTHYROID, BACK AND NECK PAIN. History of Any Multi-Drug Resistant Organisms: C-DIFF Date of last positivie culture/infection: 2009 MDRO Source:: stool Past Surgical History: Cholecystectomy, Heart Catheterization, Orthopedic Surgery, Tubal Ligation Additional Past Surgical History / Comment(s): NODULES REMOVED FROM VOCAL CORDS , HEART CATH 06/06, Pain clinic procedures, Anterior Cervical Decompression and Fusion C4-5, C5-6 on 05/19/[address] Oseguera. PLANTAR FASCITIS SURG STONE. Radioactive iodine tx for thyroid. Past Anesthesia/Blood Transfusion Reactions: Motion Sickness, Postoperative Nausea & Vomiting (PONV) Past Psychological History: Anxiety Additional Psychological History / Comment(s): Minor anxiety. Smoking Status: Former smoker Past Alcohol Use History: Occasional Additional Past Alcohol Use History / Comment(s): SMOKED 20 YEARS, 1/4 PPD AVG, QUIT 2006. Past Drug Use History: None Reported - Past Family History Father Family Medical History: Musculoskeletal Disorder Mother Family Medical History: Cancer Additional Family Medical History / Comment(s): Breast cancer. Medications and Allergies Home Medications Medication Instructions Recorded Confirmed Type Furosemide [Lasix] 40 mg PO DAILY PRN 04/29/17 12/04/18 History HYDROcodone/APAP 5-325MG [[place] 1 tab PO Q8HR PRN 04/29/17 12/04/18 History 5-325] ALPRAZolam [Xanax] 0.25 mg PO BID PRN 05/14/18 12/04/18 History Cholecalciferol [Vitamin D3] 1,000 unit PO DAILY 05/14/18 12/04/18 History Escitalopram [Lexapro] 5 mg PO DAILY 05/14/18 12/04/18 History Gabapentin [Neurontin] 300 mg PO QAM 05/14/18 12/04/18 History Gabapentin [Neurontin] 600 mg PO HS 05/14/18 12/04/18 History Potassium Chloride [Klor-Con 20] 20 meq PO DAILY PRN 05/14/18 12/04/18 History Cyclobenzaprine [Flexeril] 10 mg PO HS 08/12/18 12/04/18 History Ibuprofen [Motrin Ib] 800 mg PO BID PRN 08/12/18 12/04/18 History L.acidoph,Paracasei, B.lactis 1 each PO DAILY 08/12/18 12/04/18 History [Probiotic] Mirabegron [Myrbetriq] 25 mg PO DAILY 08/12/18 12/04/18 History Allergies Allergy/AdvReac Type Severity Reaction Status Date / Time codeine Allergy Chest Pain Verified 12/08/18 08:58 venom-honey bee Allergy Anaphylaxis Verified 12/08/18 08:58 Surgical - Exam Vital Signs Temp Pulse Resp BP Pulse Ox 98 F 77 16 145/61 100 12/08/18 09:13 12/08/18 09:13 12/08/18 09:13 12/08/18 09:13 12/08/18 09:13
--- NOTE | 2018-12-08 09:37 | P.PCN ---
Date of Procedure: 12/08/18 Description of Procedure: PREOPERATIVE DIAGNOSIS: 1- Lumbar Degenerative Disc Diseases 2-Lumbar spondylosis with Facet arthropathy without myelopathy. 3-lumbar radiculopathy POSTOPERATIVE DIAGNOSIS: Same as preop diagnosis. PROCEDURE 1. Lumbar epidural steroid injection under fluoroscopic guidance at the L5-S1 level. 2. Lumbar epidurogram. ANESTHESIA: Local with 1% lidocaine 3 ml and , moderate sedation with intravenous Versed 2 mg ,and fentanyle 100 Mcg PROCEDURE INDICATION: 2 previous epidural steroid injections provided relief greater than 60%. PROCEDURE DESCRIPTION / TECHNIQUE: The patient was seen and identified in the preoperative area. Risks, benefits , complications including but not limited to infections ,bleeding ,allergic reaction to the medications ,nerve damage and not complete pain relief , and alternatives were discussed with the patient. The patient agreed to proceed with the procedure and signed the consent. IV was started, and vital signs were stable. Patient was taken to the OR and time out was completed. The patient was placed in the prone position on procedure table and a pillow was placed under the abdomen to reduce lumbar lordosis. The lumbosacral area was prepped and draped in the usual sterile fashion.ere closely monitored during the procedure. Conscious sedation was used during the procedure to decrease patients anxiety. Vital signs was monitered during the entire procedure. Using anterior-posterior fluoroscopy, the L5-S1 interlaminar space was identified and the skin over this site was marked and then infiltrated with 1% lidocaine subcutaneously. Subsequently, a 20-gauge Tuohy epidural needle was inserted and advanced toward the epidural space using the ``Loss of resistance technique and guided by AP and lateral fluoroscopy. The correct needle position in the epidural space was verified with the injection of 2 mL of the water soluble contrast dye Isovue 200 contrast and observing an excellent epidurogram with the epidural spread of the dye, after negative aspiration for blood and CSF and in the absence of paresthesias. Again after negative aspiration, a 6 ml mixture containing 80 mg of Depo-medrol and 4 ml of preservative free Normal Saline, was injected and a washout of epidurogram was seen. Needle was withdrawn intact, skin was cleansed, and bandages were applied. COMPLICATIONS: None DISPOSITION / PLANS: The patient was placed in a supine position and transferred to the recovery area in a stable condition for observation. There was no evidence of lower extremity motor or sensory deficit after the procedure. Patient was discharged from the recovery room after meeting discharge criteria. Home discharge instructions were given to the patient by the staff. The patient was reexamined prior to discharge. The patient will schedule a follow up in the clinic in 4-8 weeks
[2018-12-08] MEDS ORDERED: LACTATED RINGERS 1,000 ML IV ONE (10:03)
[2018-12-08 10:23] VITALS: BP 117/74; PULSE 79
--- NOTE | 2018-12-08 10:48 | FL ---
Fluoroscopy HISTORY: Pain 8 seconds fluoroscopy time supplied to the referring clinician. 1 intraoperative C-arm images docume nt the procedure. See dictated report from anesthesia.
== END 2018-12-08 10:42 | disposition home or self-care (01) ==
LOC: ORPAIN 08:39
PROVIDERS: ATTEND Anesthesiology
DX: M51.16 Intervertebral disc disorders with radiculopathy, lumbar region (principal); M47.26 Other spondylosis with radiculopathy, lumbar region; K21.9 Gastro-esophageal reflux disease without esophagitis; M19.90 Unspecified osteoarthritis, unspecified site; E05.90 Thyrotoxicosis, unspecified without thyrotoxic crisis or storm; F41.9 Anxiety disorder, unspecified; Z79.899 Other long term (current) drug therapy; Z98.1 Arthrodesis status; Z98.51 Tubal ligation status; Z90.49 Acquired absence of other specified parts of digestive tract; Z88.5 Allergy status to narcotic agent; Z91.030 Bee allergy status; Z87.891 Personal history of nicotine dependence
CPT/HCPCS: 81025; 62323; J2250; J1030; J3010; Q9966

== ENCOUNTER 2019-01-12 07:02 | Day surgery (SDC) | payer MEDICAID ==
[2019-01-06 11:39] VITALS: BMI 29.5
--- NOTE | 2019-01-12 07:04 | P.PCN ---
Date of Procedure: 01/12/19 Description of Procedure: Description of Procedure: PREOPERATIVE DIAGNOSIS: 1- Lumbar Degenerative Disc Diseases 2-Lumbar spondylosis with Facet arthropathy without myelopathy. 3-lumbar radiculopathy POSTOPERATIVE DIAGNOSIS: Same as preop diagnosis. PROCEDURE 1. Lumbar epidural steroid injection under fluoroscopic guidance at the L5-S1 level. 2. Lumbar epidurogram. ANESTHESIA: Local with 1% lidocaine 3 ml and , moderate sedation with intravenous Versed 2 mg ,and fentanyle 100 Mcg PROCEDURE INDICATION: 2 previous epidural steroid injections provided relief greater than 60%. PROCEDURE DESCRIPTION / TECHNIQUE: The patient was seen and identified in the preoperative area. Risks, benefits, complications including but not limited to infections ,bleeding ,allergic reaction to the medications ,nerve damage and not complete pain relief , and alternatives were discussed with the patient. The patient agreed to proceed with the procedure and signed the consent. IV was started, and vital signs were stable. Patient was taken to the OR and time out was completed. The patient was placed in the prone position on procedure table and a pillow was placed under the abdomen to reduce lumbar lordosis. The lumbosacral area was prepped and draped in the usual sterile fashion.ere closely monitored during the procedure. Conscious sedation was used during the procedure to decrease patients anxiety. Vital signs was monitered during the entire procedure. Using anterior-posterior fluoroscopy, the L5-S1 interlaminar space was identified and the skin over this site was marked and then infiltrated with 1% lidocaine subcutaneously. Subsequently, a 20-gauge Tuohy epidural needle was inserted and advanced toward the epidural space using the ``Loss of resistance technique and guided by AP and lateral fluoroscopy. The correct needle position in the epidural space was verified with the injection of 2 mL of the water soluble contrast dye Isovue 200 contrast and observing an excellent epidurogram with the epidural spread of the dye, after negative aspiration for blood and CSF and in the absence of paresthesias. Again after negative aspiration, a 6 ml mixture containing 80 mg of Depo-medrol and 4 ml of preservative free Normal Saline, was injected and a washout of epidurogram was seen. Needle was withdrawn intact, skin was cleansed, and bandages were applied. COMPLICATIONS: None DISPOSITION / PLANS: The patient was placed in a supine position and transferred to the recovery area in a stable condition for observation. There was no evidence of lower extremity motor or sensory deficit after the procedure. Patient was discharged from the recovery room after meeting discharge criteria. Home discharge instructions were given to the patient by the staff. The patient was reexamined prior to discharge. The patient will schedule a follow up in the clinic in 4-8 weeks
--- NOTE | 2019-01-12 07:05 | P.GSHP ---
History of Present Illness H&P Date: 01/12/19 53-year-old female presenting for epidural steroid injection with fluoroscopy. Radicular pain bilateral lower extremities, no overt weakness. Some sensory deficits on L4 and L5 nerve roots. VAS today is a 4 out of 10 in severity. Physical Exam : CVS: Regular rate and rhythm, no peripheral edema Pulmonary: Nonlabored, no wheezing Plan: Lumbar epidural steroid injection L4-L5. Past Medical History Past Medical History: Chest Pain / Angina, GERD/Reflux, Osteoarthritis (OA), Thyroid Disorder Additional Past Medical History / Comment(s): HYPERTHYROID, BACK, NECK PAIN. History of Any Multi-Drug Resistant Organisms: C-DIFF Date of last positivie culture/infection: 2009 MDRO Source:: stool Past Surgical History: Cholecystectomy, Heart Catheterization, Orthopedic Surgery, Tubal Ligation Additional Past Surgical History / Comment(s): NODULES REMOVED FROM VOCAL CORDS, HEART CATH 06/06, Pain clinic procedures, Anterior Cervical Decompression and Fusion C4-5, C5-6 on 05/19/[address] Oseguera. PLANTAR FASCITIS SURG STONE. radioactive iodine tx for thyroid Past Anesthesia/Blood Transfusion Reactions: Motion Sickness, Postoperative Nausea & Vomiting (PONV) Smoking Status: Former smoker - Past Family History Father Family Medical History: Musculoskeletal Disorder Mother Family Medical History: Cancer Medications and Allergies Home Medications Medication Instructions Recorded Confirmed Type Furosemide [Lasix] 40 mg PO DAILY PRN 04/29/17 01/06/19 History HYDROcodone/APAP 5-325MG [[place] 1 tab PO Q8HR PRN 04/29/17 01/06/19 History 5-325] ALPRAZolam [Xanax] 0.25 mg PO BID PRN 05/14/18 01/06/19 History Cholecalciferol [Vitamin D3] 1,000 unit PO DAILY 05/14/18 01/06/19 History Escitalopram [Lexapro] 5 mg PO DAILY 05/14/18 01/06/19 History Gabapentin [Neurontin] 300 mg PO QAM 05/14/18 01/06/19 History Gabapentin [Neurontin] 600 mg PO HS 05/14/18 01/06/19 History Potassium Chloride [Klor-Con 20] 20 meq PO DAILY PRN 05/14/18 01/06/19 History Cyclobenzaprine [Flexeril] 10 mg PO HS 08/12/18 01/06/19 History Ibuprofen [Motrin Ib] 800 mg PO BID PRN 08/12/18 01/06/19 History L.acidoph,Paracasei, B.lactis 1 each PO DAILY 08/12/18 01/06/19 History [Probiotic] Mirabegron [Myrbetriq] 25 mg PO DAILY 08/12/18 01/06/19 History Allergies Allergy/AdvReac Type Severity Reaction Status Date / Time codeine Allergy Chest Pain Verified 12/08/18 08:58 venom-honey bee Allergy Anaphylaxis Verified 12/08/18 08:58
[2019-01-12] MEDS ORDERED: SODIUM CHLORIDE 0.9% 500 ML 500 ML IV SCH (07:15)
[2019-01-12 07:18] VITALS: RESP 16; TEMP 98.4
[2019-01-12] MEDS ORDERED: LACTATED RINGERS 1,000 ML IV ONE (07:21)
[2019-01-12] MEDS ORDERED: LIDOCAINE 1% 20 ML VIAL (10MG/ML) FOR IV START INTRADERMA ONE (07:22)
[2019-01-12] MEDS ORDERED: ONDANSETRON 4 MG/2 ML VIAL IVP ONE (07:23)
[2019-01-12] MEDS ORDERED: IV FLUID CONTINUATION 1,000 ML IV ONE (07:48)
[2019-01-12 07:59] VITALS: PULSE 76
[2019-01-12 08:05] VITALS: BP 113/70
--- NOTE | 2019-01-12 09:41 | FL ---
Fluoroscopy HISTORY: Pain 5 seconds fluoroscopy time supplied to the referring clinician. 1 intraoperative C-arm images doc ument the procedure. See dictated report from anesthesia.
== END 2019-01-12 08:19 | disposition home or self-care (01) ==
LOC: ORPAIN 07:02
PROVIDERS: ATTEND Anesthesiology
DX: M51.16 Intervertebral disc disorders with radiculopathy, lumbar region (principal); M47.26 Other spondylosis with radiculopathy, lumbar region; K21.9 Gastro-esophageal reflux disease without esophagitis; M19.90 Unspecified osteoarthritis, unspecified site; E05.90 Thyrotoxicosis, unspecified without thyrotoxic crisis or storm; Z87.891 Personal history of nicotine dependence; Z86.19 Personal history of other infectious and parasitic diseases; Z79.899 Other long term (current) drug therapy; Z88.5 Allergy status to narcotic agent; Z91.030 Bee allergy status
CPT/HCPCS: 81025; 62323; J2250; J1030; J2405; J3010; Q9966

== ENCOUNTER → 2019-03-16 | Outpatient (CLI) | payer MEDICAID ==
[2019-03-16 15:20] LABS: Basophils % (A) 1 %; Eosinophils # (A) 0.1 k/uL (0-0.7); Eosinophils % (A) 2 %; HCT 40.2 % (34.0-46.0); HGB 13.3 gm/dL (11.4-16.0); Lymphocytes # (A) 1.5 k/uL (1.0-4.8); Lymphocytes % (A) 29 %; MCH 29.5 pg (25.0-35.0); MCHC 32.9 g/dL (31.0-37.0); MCV 89.5 fL (80.0-100.0); Mean Platelet Volume 7.7; Monocytes # (A) 0.3 k/uL (0-1.0); Monocytes % (A) 6 %; Neutrophils # (A) 3.1 k/uL (1.3-7.7); Neutrophils % (A) 61 %; Platelet Count 207 k/uL (150-450); RBC 4.49 m/uL (3.80-5.40); RDW 13.7 % (11.5-15.5); WBC 5.1 k/uL (3.8-10.6)
[2019-03-16 18:58] LABS: Albumin 4.3 g/dL (3.80-4.90); Albumin/Globulin Ratio 2.26 (1.60-3.17); Anion Gap 10.4 mmol/L (4.00-12.00); Calcium 9.2 mg/dL (8.7-10.3); Carbon Dioxide 24.6 mmol/L (21.6-31.8); Globulin 1.9 g/dL (1.6-3.3); LDL Cholesterol,Calculated 107.6 mg/dL (0.0-131.0); Potassium 3.9 mmol/L (3.5-5.5); Total Bilirubin 0.6 mg/dL (0.2-1.2); Total Protein 6.2 g/dL (6.2-8.2); VLDL Calculation 11.4 mg/dL (5.00-40.00)
[2019-03-16 19:07] LABS: T4, Free (Free Thyroxine) 0.8 ng/dL (0.80-1.80)
[2019-03-16 20:20] LABS: Hemoglobin A1C 5.2 % (4.0-6.0)
== END | disposition home or self-care (01) ==
LOC: LABWHC1 13:21
PROVIDERS: ATTEND Internal Medicine
DX: M47.12 Other spondylosis with myelopathy, cervical region (principal); F41.9 Anxiety disorder, unspecified; E05.90 Thyrotoxicosis, unspecified without thyrotoxic crisis or storm
CPT/HCPCS: 36415; 80053; 80061; 82550; 83036; 84439; 84443; 84480; 85025

== ENCOUNTER 2019-03-26 17:47 | Observation (INO) | payer MEDICAID ==
[2019-03-26] MEDS ORDERED: ASPIRIN 81 MG PO STA (18:08)
[2019-03-26] MEDS ORDERED: NITROGLYCERIN OINT 1 INCH/GM PACKET TOPICAL STA (18:08)
--- NOTE | 2019-03-26 18:10 | ED ---
General Adult HPI - General Chief complaint: Chest Pain Stated complaint: chest pain Time Seen by Provider: 03/26/19 17:55 Source: patient, RN notes reviewed Mode of arrival: ambulatory Limitations: no limitations - History of Present Illness Initial comments: Patient is a pleasant 53-year-old female presenting to the emergency Department with complaints of chest discomfort. Symptoms have been waxing and waning over the past 3 hours. Discomfort is mostly severe on Saturday. Patient has minimal ache at this time. Patient does get associated dyspnea and diaphoresis. Patient has been nauseated and did vomit one time. Patient feels lightheaded as sociated with this. Patient did have similar symptoms several years ago associated with stress. Patient does admit to having increased stress recently. - Related Data Home Medications Medication Instructions Recorded Confirmed Furosemide [Lasix] 40 mg PO DAILY PRN 04/29/17 03/26/19 HYDROcodone/APAP 5-325MG [[place] 1 tab PO Q8HR PRN 04/29/17 03/26/19 5-325] ALPRAZolam [Xanax] 0.25 mg PO BID PRN 05/14/18 03/26/19 Cholecalciferol [Vitamin D3] 1,000 unit PO DAILY 05/14/18 03/26/19 Escitalopram [Lexapro] 5 mg PO DAILY 05/14/18 03/26/19 Potassium Chloride [Klor-Con 20] 20 meq PO DAILY PRN 05/14/18 03/26/19 Cyclobenzaprine [Flexeril] 10 mg PO HS 08/12/18 03/26/19 Ibuprofen [Motrin Ib] 800 mg PO BID PRN 08/12/18 03/26/19 L.acidoph,Paracasei, B.lactis 1 each PO DAILY 08/12/18 03/26/19 [Probiotic] Mirabegron [Myrbetriq] 25 mg PO DAILY 08/12/18 03/26/19 Gabapentin [Neurontin] 300 mg PO TID 03/26/19 03/26/19 LORazepam [Ativan] 0.5 mg PO BID 03/26/19 03/26/19 Methimazole [Tapazole] 2.5 mg PO DAILY 03/26/19 03/26/19 Omeprazole [PriLOSEC] 20 mg PO DAILY 03/26/19 03/26/19 Allergies Allergy/AdvReac Type Severity Reaction Status Date / Time codeine Allergy Chest Pain Verified 03/26/19 18:29 venom-honey bee Allergy Anaphylaxis Verified 03/26/19 18:29 Review of Systems ROS Statement: Those systems with pertinent positive or pertinent negative responses have been documented in the HPI. ROS Other: All systems not noted in ROS Statement are negative. Constitutional: Denies: fever Eyes: Denies: eye pain ENT: Denies: ear pain Respiratory: Reports: as per HPI. Denies: cough, dyspnea Cardiovascular: Reports: as per HPI, chest pain Endocrine: Denies: fatigue Gastrointestinal: Reports: as per HPI, nausea, vomiting. Denies: abdominal pain Genitourinary: Denies: dysuria Musculoskeletal: Denies: back pain Skin: Denies: rash Neurological: Denies: weakness Past Medical History Past Medical History: Chest Pain / Angina, GERD/Reflux, Osteoarthritis (OA), Thyroid Disorder Additional Past Medical History / Comment(s): HYPERTHYROID, BACK, NECK PAIN. History of Any Multi-Drug Resistant Organisms: C-DIFF Date of last positivie culture/infection: 2009 MDRO Source:: stool Past Surgical History: Cholecystectomy, Heart Catheterization, Orthopedic Surgery, Tubal Ligation Additional Past Surgical History / Comment(s): NODULES REMOVED FROM VOCAL CORDS, HEART CATH 06/06, Pain clinic procedures, Anterior Cervical Decompression and Fusion C4-5, C5-6 on 05/19/[address] Oseguera. PLANTAR FASCITIS SURG STONE. radioactive iodine tx for thyroid Past Anesthesia/Blood Transfusion Reactions: Motion Sickness, Postoperative Nausea & Vomiting (PONV) Past Psychological History: Anxiety Smoking Status: Former smoker Past Alcohol Use History: None Reported Past Drug Use History: None Reported - Past Family History Father Family Medical History: Musculoskeletal Disorder Mother Family Medical History: Cancer General Exam Limitations: no limitations General appearance: alert, in no apparent distress Head exam: Present: atraumatic Eye exam: Present: normal appearance, PERRL ENT exam: Present: normal oropharynx Neck exam: Present: normal inspection Respiratory exam: Present: normal lung sounds bilaterally. Absent: chest wall tenderness Cardiovascular Exam: Present: regular rate, normal rhythm Expanded Peripheral pulses: 2+: Radial (R), Radial (L), Dorsalis Pedis (R), Dorsalis Pedis (L) GI/Abdominal exam: Present: soft. Absent: tenderness Extremities exam: Present: normal inspection. Absent: pedal edema, calf tenderness Neurological exam: Present: alert Psychiatric exam: Present: normal affect, normal mood Skin exam: Present: normal color Course Vital Signs 03/26/19 17:52 Temperature 98.5 F Pulse Rate 90 Respiratory 18 Rate Blood Pressure 119/78 O2 Sat by Pulse 98 Oximetry EKG Findings - EKG Comments: EKG Findings:: Normal sinus rhythm at 70. OK 134. QRS 86. QT 390. QTC 421. Normal axis. Normal QRS. No acute ST change. Medical Decision Making - Medical Decision Making Patient reevaluated and resting comfortably in bed. Patient is updated on results and plan. Case was discussed in detail with Dr. Gage, who will admit his patient with cardiology consult. - Lab Data Result diagrams: 03/26/19 18:45 03/26/19 18:45 Lab Results 03/26/19 03/26/19 03/26/19 Range/Units 18:45 18:45 18:45 WBC 5.5 (3.8-10.6) k/uL RBC 4.59 (3.80-5.40) m/uL Hgb 13.7 (11.4-16.0) gm/dL Hct 40.1 (34.0-46.0) % MCV 87.3 (80.0-100.0) fL MCH 29.8 (25.0-35.0) pg MCHC 34.2 (31.0-37.0) g/dL RDW 13.4 (11.5-15.5) % Plt Count 219 (150-450) k/uL Neutrophils % 60 % Lymphocytes % 27 % Monocytes % 7 % Eosinophils % 3 % Basophils % 1 % Neutrophils # 3.3 (1.3-7.7) k/uL Lymphocytes # 1.5 (1.0-4.8) k/uL Monocytes # 0.4 (0-1.0) k/uL Eosinophils # 0.2 (0-0.7) k/uL Basophils # 0.0 (0-0.2) k/uL PT 10.3 (9.0-12.0) sec INR 1.0 (<1.2) APTT 24.5 (22.0-30.0) sec D-Dimer 0.42 (<0.60) mg/L FEU Sodium 138 (137-145) mmol/L Potassium 3.9 (3.5-5.1) mmol/L Chloride 106 (98-107) mmol/L Carbon Dioxide 25 (22-30) mmol/L Anion Gap 7 mmol/L BUN 19 H (7-17) mg/dL Creatinine 0.90 (0.52-1.04) mg/dL Est GFR (CKD-EPI)AfAm 84 (>60 ml/min/1.73 sqM) Est GFR (CKD-EPI)NonAf 73 (>60 ml/min/1.73 sqM) Glucose 82 (74-99) mg/dL Calcium 9.5 (8.4-10.2) mg/dL Magnesium 1.9 (1.6-2.3) mg/dL Total Bilirubin 0.8 (0.2-1.3) mg/dL AST 23 (14-36) U/L ALT 14 (9-52) U/L Alkaline Phosphatase 65 (38-126) U/L Troponin I (0.000-0.034) ng/mL Total Protein 7.0 (6.3-8.2) g/dL Albumin 4.3 (3.5-5.0) g/dL 03/26/19 Range/Units 18:45 WBC (3.8-10.6) k/uL RBC (3.80-5.40) m/uL Hgb (11.4-16.0) gm/dL Hct (34.0-46.0) % MCV (80.0-100.0) fL MCH (25.0-35.0) pg MCHC (31.0-37.0) g/dL RDW (11.5-15.5) % Plt Count (150-450) k/uL Neutrophils % % Lymphocytes % % Monocytes % % Eosinophils % % Basophils % % Neutrophils # (1.3-7.7) k/uL Lymphocytes # (1.0-4.8) k/uL Monocytes # (0-1.0) k/uL Eosinophils # (0-0.7) k/uL Basophils # (0-0.2) k/uL PT (9.0-12.0) sec INR (<1.2) APTT (22.0-30.0) sec D-Dimer (<0.60) mg/L FEU Sodium (137-145) mmol/L Potassium (3.5-5.1) mmol/L Chloride (98-107) mmol/L Carbon Dioxide (22-30) mmol/L Anion Gap mmol/L BUN (7-17) mg/dL Creatinine (0.52-1.04) mg/dL Est GFR (CKD-EPI)AfAm (>60 ml/min/1.73 sqM) Est GFR (CKD-EPI)NonAf (>60 ml/min/1.73 sqM) Glucose (74-99) mg/dL Calcium (8.4-10.2) mg/dL Magnesium (1.6-2.3) mg/dL Total Bilirubin (0.2-1.3) mg/dL AST (14-36) U/L ALT (9-52) U/L Alkaline Phosphatase (38-126) U/L Troponin I <0.012 (0.000-0.034) ng/mL Total Protein (6.3-8.2) g/dL Albumin (3.5-5.0) g/dL - Radiology Data Radiology results: image reviewed (Chest x-ray shows no acute process) Disposition Clinical Impression: Chest pain Disposition: ADMITTED IP TO THIS HOSP Is patient prescribed a controlled substance at d/c from ED?: No Referrals: Zahira Gage MD [Primary Care Provider] - 1-2 days Decision Time: 19:59
[2019-03-26 19:00] LABS: Basophils % (A) 1 %; Eosinophils # (A) 0.2 k/uL (0-0.7); Eosinophils % (A) 3 %; HCT 40.1 % (34.0-46.0); HGB 13.7 gm/dL (11.4-16.0); Lymphocytes # (A) 1.5 k/uL (1.0-4.8); Lymphocytes % (A) 27 %; MCH 29.8 pg (25.0-35.0); MCHC 34.2 g/dL (31.0-37.0); MCV 87.3 fL (80.0-100.0); Mean Platelet Volume 7.4; Monocytes # (A) 0.4 k/uL (0-1.0); Monocytes % (A) 7 %; Neutrophils # (A) 3.3 k/uL (1.3-7.7); Neutrophils % (A) 60 %; Platelet Count 219 k/uL (150-450); RBC 4.59 m/uL (3.80-5.40); RDW 13.4 % (11.5-15.5); WBC 5.5 k/uL (3.8-10.6)
--- NOTE | 2019-03-26 19:10 | XR ---
EXAMINATION TYPE: XR chest 2V DATE OF EXAM: 03/26/2019 COMPARISON: 05/14/2018 HISTORY: Chest pain TECHNIQUE: Frontal and lateral views of the chest are obtained. FINDINGS: Heart and mediastinum are normal. Lungs are clear. Diaphragm is normal. Bony thorax is int act. There are chest leads. IMPRESSION: Normal chest. No change.
[2019-03-26 19:11] LABS: Albumin 4.3 g/dL (3.5-5.0); Calcium 9.5 mg/dL (8.4-10.2); Magnesium 1.9 mg/dL (1.6-2.3); Potassium 3.9 mmol/L (3.5-5.1); Total Bilirubin 0.8 mg/dL (0.2-1.3)
[2019-03-26 19:16] LABS: D-Dimer 0.42 mg/L FEU (<0.60); Partial Thromboplastin Time 24.5 sec (22.0-30.0); Prothrombin Time 10.3 sec (9.0-12.0)
[2019-03-26] MEDS ORDERED: NITROGLYCERIN SL TABS 0.4 MG TAB SUBLINGUAL PRN (20:00)
[2019-03-26] MEDS ORDERED: FUROSEMIDE 40 MG TAB PO PRN (20:01)
[2019-03-26] MEDS ORDERED: HYDROcodone/APAP 5-325MG 1 EACH TAB PO PRN (20:01)
[2019-03-26] MEDS ORDERED: ALPRAZolam 0.25 MG TAB PO PRN (20:01)
[2019-03-26] MEDS ORDERED: POTASSIUM CHLORIDE ER 20 MEQ TAB.ER PO PRN (20:01)
[2019-03-26 20:37] VITALS: RESP 16
[2019-03-26] MEDS ORDERED: CYCLOBENZAPRINE 10 MG TAB PO SCH (21:00)
[2019-03-26] MEDS: GABAPENTIN 300 MG CAP PO SCH (22:21)
[2019-03-26] MEDS: NITROGLYCERIN OINT 1 INCH/GM PACKET TOPICAL SCH (23:44)
[2019-03-27] MEDS: NITROGLYCERIN OINT 1 INCH/GM PACKET TOPICAL SCH ×2 (05:42→12:00)
[2019-03-27 06:49] LABS: Cholesterol 159 mg/dL (<200); HDL Cholesterol 72 mg/dL (40-60); LDL Cholesterol,Calculated 75 mg/dL (0-99); Triglycerides 59 mg/dL (<150)
[2019-03-27] MEDS ORDERED: DOBUTamine DRIP for NUC MED 500 MG in DEXTROSE/WATER 1 250ML.BAG IV ONE (07:19)
[2019-03-27] MEDS ORDERED: PANTOPRAZOLE 40 MG TABLET PO SCH (07:30)
--- NOTE | 2019-03-27 07:35 | P.CRDCN ---
History of Present Illness Consult date: 03/27/19 Chief complaint: Chest discomfort History of present illness: This is a pleasant 53-year-old female patient with no past medical history of diabetes or hypertension or dyslipidemia presented to the emergency room complaining of chest discomfort. The symptoms started this past Saturday. She was sitting at home when she started experiencing discomfort in the mid of the chest, as a pressure, without radiation, and without any associated symptoms of shortness of breath, sweating, dizziness, heart racing, or syncope. Since Saturday, she has been experiencing intermittent episodes of chest discomfort of variable duration. The patient does not have any risk factors for CAD like diabetes or hypertension or dyslipidemia. She is not a smoker as well. And there is no family history of coronary artery disease. The EKG showed sinus rhythm without any ischemic ST or T-wave abnormalities. The chest x-ray showed no acute abnormalities. The cardiac enzymes were checked and came in to be unremarkable. I am going to perform a stress test as well as an echocardiogram and follow-up with her. The probability of coronary artery disease for her is very low based on the clinical scenario as well as the cardiac testing. We'll continue follow ing up with the patient after the stress test and echocardiogram. Past Medical History Past Medical History: Chest Pain / Angina, GERD/Reflux, Osteoarthritis (OA), Thyroid Disorder Additional Past Medical History / Comment(s): HYPERTHYROID, BACK, NECK PAIN. History of Any Multi-Drug Resistant Organisms: C-DIFF Date of last positivie culture/infection: 2009 MDRO Source:: stool Past Surgical History: Cholecystectomy, Heart Catheterization, Orthopedic Surgery, Tubal Ligation Additional Past Surgical History / Comment(s): NODULES REMOVED FROM VOCAL CORDS, HEART CATH 06/06, Pain clinic procedures, Anterior Cervical Decompression and Fusion C4-5, C5-6 on 05/19/[address] Oseguera. PLANTAR FASCITIS SURG STONE. radioactive iodine tx for thyroid Past Anesthesia/Blood Transfusion Reactions: Motion Sickness, Postoperative Nausea & Vomiting (PONV) Past Psychological History: Anxiety Additional Psychological History / Comment(s): MINOR Smoking Status: Former smoker Past Alcohol Use History: None Reported Additional Past Alcohol Use History / Comment(s): SMOKED 20 YEARS, 1/4 PPD AVG, QUIT 2006. Past Drug Use History: None Reported - Past Family History Father Family Medical History: Musculoskeletal Disorder Mother Family Medical History: Cancer Medications and Allergies Home Medications Medication Instructions Recorded Confirmed Type Furosemide [Lasix] 40 mg PO DAILY PRN 04/29/17 03/26/19 History HYDROcodone/APAP 5-325MG [[place] 1 tab PO Q8HR PRN 04/29/17 03/26/19 History 5-325] ALPRAZolam [Xanax] 0.25 mg PO BID PRN 05/14/18 03/26/19 History Cholecalciferol [Vitamin D3] 1,000 unit PO DAILY 05/14/18 03/26/19 History Escitalopram [Lexapro] 5 mg PO DAILY 05/14/18 03/26/19 History Potassium Chloride [Klor-Con 20] 20 meq PO DAILY PRN 05/14/18 03/26/19 History Cyclobenzaprine [Flexeril] 10 mg PO HS 08/12/18 03/26/19 History Ibuprofen [Motrin Ib] 800 mg PO BID PRN 08/12/18 03/26/19 History L.acidoph,Paracasei, B.lactis 1 each PO DAILY 08/12/18 03/26/19 History [Probiotic] Mirabegron [Myrbetriq] 25 mg PO DAILY 08/12/18 03/26/19 History Gabapentin [Neurontin] 300 mg PO TID 03/26/19 03/26/19 History LORazepam [Ativan] 0.5 mg PO BID 03/26/19 03/26/19 History Methimazole [Tapazole] 2.5 mg PO DAILY 03/26/19 03/26/19 History Omeprazole [PriLOSEC] 20 mg PO DAILY 03/26/19 03/26/19 History Allergies Allergy/AdvReac Type Severity Reaction Status Date / Time codeine Allergy Chest Pain Verified 03/26/19 18:29 venom-honey bee Allergy Anaphylaxis Verified 03/26/19 18:29 Physical Exam Vitals: Vital Signs Temp Pulse Pulse Resp BP BP Pulse Ox 03/27/19 03:45 16 03/27/19 03:31 98.5 F 97 16 131/72 99 03/27/19 00:00 16 03/26/19 23:28 98.5 F 86 16 146/80 96 03/26/19 22:00 16 03/26/19 20:57 100 03/26/19 20:46 98.2 F 75 16 146/77 100 03/26/19 20:35 87 16 99 03/26/19 17:52 98.5 F 90 18 119/78 98 Intake and Output 03/26/19 03/27/19 03/27/19 22:59 06:59 14:59 Other: Voiding Method Toilet Toilet # Voids 1 1 Weight 90.718 kg - Constitutional General appearance: no acute distress - Respiratory Respiratory: bilateral: CTA - Cardiovascular Rhythm: regular Heart sounds: normal: S1, S2 Results 03/26/19 18:45 03/26/19 18:45 Cardiac Enzymes 03/26/19 03/26/19 03/27/19 Range/Units 18:45 18:45 00:40 AST 23 (14-36) U/L Troponin I <0.012 <0.012 (0.000-0.034) ng/mL 03/27/19 Range/Units 06:16 AST (14-36) U/L Troponin I <0.012 (0.000-0.034) ng/mL Coagulation 03/26/19 Range/Units 18:45 PT 10.3 (9.0-12.0) sec APTT 24.5 (22.0-30.0) sec Lipids 03/27/19 Range/Units 06:16 Triglycerides 59 (<150) mg/dL Cholesterol 159 (<200) mg/dL HDL Cholesterol 72 H (40-60) mg/dL CBC 03/26/19 Range/Units 18:45 WBC 5.5 (3.8-10.6) k/uL RBC 4.59 (3.80-5.40) m/uL Hgb 13.7 (11.4-16.0) gm/dL Hct 40.1 (34.0-46.0) % Plt Count 219 (150-450) k/uL Comprehensive Metabolic Panel 03/26/19 Range/Units 18:45 Sodium 138 (137-145) mmol/L Potassium 3.9 (3.5-5.1) mmol/L Chloride 106 (98-107) mmol/L Carbon Dioxide 25 (22-30) mmol/L BUN 19 H (7-17) mg/dL Creatinine 0.90 (0.52-1.04) mg/dL Glucose 82 (74-99) mg/dL Calcium 9.5 (8.4-10.2) mg/dL AST 23 (14-36) U/L ALT 14 (9-52) U/L Alkaline Phosphatase 65 (38-126) U/L Total Protein 7.0 (6.3-8.2) g/dL Albumin 4.3 (3.5-5.0) g/dL Current Medications Generic Name Dose Route Start Last Admin Trade Name Freq PRN Reason Stop Dose Admin Hydrocodone Bitart/Acetaminophen 1 each 03/26/19 20:01 [place] 5-325 PO Q8HR PRN Moderate Pain Alprazolam 0.25 mg 03/26/19 20:01 Xanax PO BID PRN Anxiety Aspirin 325 mg 03/27/19 09:00 Aspirin PO DAILY [facility] Cholecalciferol 1,000 unit 03/27/19 09:00 Vitamin D3 (25 Mcg = 1000 Iu) PO DAILY [facility] Cyclobenzaprine HCl 10 mg 03/26/19 21:00 03/26/19 22:21 Flexeril PO 10 mg HS [facility] Administration Escitalopram Oxalate 5 mg 03/27/19 09:00 Lexapro PO DAILY [facility] Furosemide 40 mg 03/26/19 20:01 Lasix PO DAILY PRN Edema Gabapentin 300 mg 03/26/19 22:00 03/26/19 22:21 Neurontin PO 300 mg TID [facility] Administration Dobutamine HCl/Dextrose 500 mg 250 mls @ 27.215 mls/hr 03/27/19 07:19 / IV Solution IV 03/27/19 16:30 .Q9H12M ONE Protocol 10 MCG/KG/MIN Methimazole 2.5 mg 03/27/19 09:00 Tapazole PO DAILY [facility] Nitroglycerin 1 inch 03/27/19 00:00 03/27/19 05:42 Nitro-Bid Oint TOPICAL Not Given Q6HR [facility] Nitroglycerin 0.4 mg 03/26/19 20:00 Nitrostat SUBLINGUAL Q5M PRN Chest Pain Mirabegron [ 25 mg 03/27/19 09:00 Myrbetriq] 25 Mg PO DAILY [facility] Pantoprazole Sodium 40 mg 03/27/19 07:30 Protonix PO AC-BRKFST [facility] Potassium Chloride 20 meq 03/26/19 20:01 K-Dur 20 PO DAILY PRN WITH LASIX Sodium Chloride 10 ml 03/26/19 21:00 03/26/19 22:21 Saline Flush IV 10 ml BID [id number] Administration Intake and Output 03/26/19 03/27/19 03/27/19 22:59 06:59 14:59 Other: Voiding Method Toilet Toilet # Voids 1 1 Weight 90.718 kg 03/26/19 18:45 03/26/19 18:45 Assessment and Plan Assessment: Assessment #1 atypical chest discomfort Plan #1 acute coronary event was ruled out #2 I would perform a stress test #3 an echocardiogram #4 follow-up with the patient Thank you for allowing us participate in the patient's care
[2019-03-27 08:10] VITALS: TEMP 97.7
[2019-03-27] MEDS ORDERED: ESCITALOPRAM 5 MG TAB PO SCH (09:00)
[2019-03-27] MEDS ORDERED: Mirabegron [Myrbetriq] 25 MG PO SCH (09:00)
[2019-03-27] MEDS ORDERED: ASPIRIN 325 MG TAB PO SCH (09:00)
[2019-03-27] MEDS ORDERED: METHIMAZOLE 5 MG TAB PO SCH (09:00)
[2019-03-27] MEDS ORDERED: CHOLECALCIFEROL 1,000 UNIT TAB PO SCH (09:00)
[2019-03-27 11:00] VITALS: BP 110/64; PULSE 72
[2019-03-27] MEDS: GABAPENTIN 300 MG CAP PO SCH (12:04)
--- NOTE | 2019-03-27 13:19 | P.HPIM ---
History of Present Illness H&P Date: 03/27/19 Chief Complaint: Chest pain HISTORY AND PHYSICAL AND DISCHARGE SUMMARY: This is a 53-year-old female patient of Dr. Gage with past medical history of gastroesophageal reflux disease, hyperthyroidism, osteoarthritis, chronic neck pain status post anterior cervical decompression and fusion C4 5 and C5 6. Patient has remote history of tobacco use and quit in 2006. Patient states that she was sitting at home at a computer on Saturday and developed chest pain came up into her chest and to her jaw felt like pressure. She started fee ling dizzy and lightheaded and also diaphoretic. She went in the other room to get her phone and then this resolved for about 5-10 minutes and she had a second episode and has had intermittent heaviness since that has been occurring on and off. She came into [facility] emergency center for evaluation. She states that the nitroglycerin and oxygen relieved her discomfort. Patient does relate that she is an under a lot of stress at home and at work. Patient states that she has been suffering more GERD symptoms recently. She is currently trying to lose weight. Patient was placed on the observation unit and consult placed with Dr. Brown. He has ordered a stress test and echocardiogram. Troponins have been negative on 3 draws. Triglycerides 59, cholesterol 159, LDL 75, HDL 72. Dobutamine stress echo came back negative and patient is cleared for cardiology for discharge home. No medication changes have been made. Review of Systems Constitutional: Reports weight loss, Denies anorexia, Denies chills, Denies fatigue, Denies fever, Denies poor appetite, Denies weakness Ears, nose, mouth and throat: Reports vertigo, Denies dysphagia, Denies nasal congestion, Denies nasal discharge Cardiovascular: Reports chest pain, Reports lightheadedness, Denies decreased exercise tolerance, Denies dyspnea on exertion, Denies edema, Denies leg edema, Denies palpitations, Denies shortness of breath, Denies syncope Respiratory: Denies cough, Denies cough with sputum, Denies dyspnea, Denies excessive sputum, Denies hemoptysis, Denies home oxygen, Denies wheezing Gastrointestinal: Denies abdominal pain, Denies diarrhea, Denies loss of appetite, Denies nausea, Denies vomiting Genitourinary: Denies dysuria, Denies hematuria, Denies urgency, Denies urinary frequency Musculoskeletal: Denies gait dysfunction, Denies muscle weakness, Denies myalgias Integumentary: Denies pruritus, Denies rash, Denies wounds Neurological: Denies aphasia, Denies change in mentation, Denies change in speech, Denies headaches, Denies seizures Psychiatric: Denies anxiety, Denies depression Endocrine: Denies fatigue, Denies weight change Past Medical History Past Medical History: Chest Pain / Angina, GERD/Reflux, Osteoarthritis (OA), Thyroid Disorder Additional Past Medical History / Comment(s): HYPERTHYROID, BACK, NECK PAIN. History of Any Multi-Drug Resistant Organisms: C-DIFF Date of last positivie culture/infection: 2009 MDRO Source:: stool Past Surgical History: Cholecystectomy, Heart Catheterization, Orthopedic Surgery, Tubal Ligation Additional Past Surgical History / Comment(s): NODULES REMOVED FROM VOCAL CORDS, HEART CATH 06/06, Pain clinic procedures, Anterior Cervical Decompression and Fusion C4-5, C5-6 on 05/19/[address] Oseguera. PLANTAR FASCITIS SURG STONE. radioactive iodine tx for thyroid Past Anesthesia/Blood Transfusion Reactions: Motion Sickness, Postoperative Nausea & Vomiting (PONV) Past Psychological History: Anxiety Additional Psychological History / Comment(s): MINOR Smoking Status: Former smoker Past Alcohol Use History: None Reported Additional Past Alcohol Use History / Comment(s): SMOKED 20 YEARS, 1/4 PPD AVG, QUIT 2006. She drinks alcohol occasionally. Past Drug Use History: None Reported - Past Family History Father Family Medical History: Musculoskeletal Disorder Additional Family Medical History / Comment(s): Father at age 74 from sepsis with history of COPD and peripheral vascular disease. Mother Family Medical History: Cancer Additional Family Medical History / Comment(s): Mother is alive at age 74 with history of breast cancer and hypertension. Patient's 1 sister with no major medical problems. No brothers. Patient has 2 daughters and one has anxiety. Medications and Allergies Home Medications Medication Instructions Recorded Confirmed Type Furosemide [Lasix] 40 mg PO DAILY PRN 04/29/17 03/26/19 History HYDROcodone/APAP 5-325MG [[place] 1 tab PO Q8HR PRN 04/29/17 03/26/19 History 5-325] ALPRAZolam [Xanax] 0.25 mg PO BID PRN 05/14/18 03/26/19 History Cholecalciferol [Vitamin D3] 1,000 unit PO DAILY 05/14/18 03/26/19 History Escitalopram [Lexapro] 5 mg PO DAILY 05/14/18 03/26/19 History Potassium Chloride [Klor-Con 20] 20 meq PO DAILY PRN 05/14/18 03/26/19 History Cyclobenzaprine [Flexeril] 10 mg PO HS 08/12/18 03/26/19 History Ibuprofen [Motrin Ib] 800 mg PO BID PRN 08/12/18 03/26/19 History L.acidoph,Paracasei, B.lactis 1 each PO DAILY 08/12/18 03/26/19 History [Probiotic] Mirabegron [Myrbetriq] 25 mg PO DAILY 08/12/18 03/26/19 History Gabapentin [Neurontin] 300 mg PO TID 03/26/19 03/26/19 History LORazepam [Ativan] 0.5 mg PO BID 03/26/19 03/26/19 History Methimazole [Tapazole] 2.5 mg PO DAILY 03/26/19 03/26/19 History Omeprazole [PriLOSEC] 20 mg PO DAILY 03/26/19 03/26/19 History Allergies Allergy/AdvReac Type Severity Reaction Status Date / Time codeine Allergy Chest Pain Verified 03/26/19 18:29 venom-honey bee Allergy Anaphylaxis Verified 03/26/19 18:29 Physical Exam Vitals: Vital Signs Temp Pulse Pulse Resp BP BP Pulse Ox 03/27/19 08:00 97.7 F 73 16 119/70 98 03/27/19 03:45 16 03/27/19 03:31 98.5 F 97 16 131/72 99 03/27/19 00:00 16 03/26/19 23:28 98.5 F 86 16 146/80 96 03/26/19 22:00 16 03/26/19 20:57 100 03/26/19 20:46 98.2 F 75 16 146/77 100 03/26/19 20:35 87 16 99 03/26/19 17:52 98.5 F 90 18 119/78 98 Intake and Output 03/26/19 03/27/19 03/27/19 22:59 06:59 14:59 Other: Voiding Method Toilet Toilet Toilet # Voids 1 1 1 Weight 90.718 kg Gen: This is a 53-year-old female. She is resting that appears to be comfortable. She is currently pain-free and symptom-free. HEENT: Head is atraumatic, normocephalic. Pupils equal, round. Sclerae is anicteric. NECK: Supple. No JVD. No lymphadenopathy. No thyromegaly. LUNGS: Clear to auscultation. No wheezes or rhonchi. No intercostal retractions. HEART: Regular rate and rhythm. No murmur. ABDOMEN: Soft. Bowel sounds are present. No masses. No tenderness. EXTREMITIES: No pedal edema. No calf tenderness. NEUROLOGICAL: Patient is awake, alert and oriented x3. Cranial nerves 2 through 12 are grossly intact. Results CBC & Chem 7: 03/26/19 18:45 03/26/19 18:45 Labs: Abnormal Lab Results - Last 24 Hours (Table) 03/26/19 03/27/19 Range/Units 18:45 06:16 BUN 19 H (7-17) mg/dL HDL Cholesterol 72 H (40-60) mg/dL Thrombosis Risk Factor Assmnt - Choose All That Apply Any of the Below Risk Factors Present?: Yes Each Factor Represents 1 point: Age 41-60 years, Obesity (BMI >25) Other Risk Factors: No Thrombosis Risk Factor Assessment Total Risk Factor Score: 2 Thrombosis Risk Factor Assessment Level: Low Risk Assessment and Plan Plan: 1. Chest pain with negative troponins. Possibly related to anxiety or worsening GERD. 2. Gastroesophageal reflux disease. 3. Hyperthyroidism. 4. Generalized anxiety disorder. 5. Chronic cervical pain. 6. Lower extremity edema. Patient placed on the observation unit. Discharge plan: home Impression and plan of care have been directed as dictated by the signing physician. Kimberly Pineda nurse practitioner acting as scribe for signing physician.
--- NOTE | 2019-03-27 13:25 | ECHOF ---
Referral Reason:cp MEASUREMENTS -------- HEIGHT: 175.3 cm WEIGHT: 90.7 kg BP: 131/66 RVIDd: 2.6 cm (< 3.3) IVSd: 1.1 cm (0.6 - 1.1) LVIDd: 5.1 cm (3.9 - 5.3) LVPWd: 1.2 cm (0.6 - 1.1) IVSs: 1.3 cm LVIDs: 3.6 cm LVPWs: 1.7 cm LAESV Index (A-L): 27.18 ml/m Ao Diam: 2.9 cm (2.0 - 3.7) AV Cusp: 2.0 cm (1.5 - 2.6) LA Diam: 3.5 cm (2.7 - 3.8) EPSS: 1.2 cm MV E Montrell: 0.77 m/s MV DecT: 251 ms MV A Montrell: 0.80 m/s MV E/A Ratio: 0.96 AR PHT: 425 ms RAP: 5.00 mmHg RVSP: 27.57 mmHg MV EF SLOPE: 97.63 mm/s (70 - 150) MV EXCURSION: 1.82 cm (> 18.000) FINDINGS -------- Sinus rhythm. This was a technically adequate study. The left ventricular size is normal. There is mild concentric left ventricular hypertrophy. Overa ll left ventricular systolic function is normal with, an EF between 55 - 60 %. The right ventricle is normal in size. The left atrial size is normal. Left atrium is normal size by volume. The right atrium is normal in size and function. Interatrial and interventricular septum intact. The aortic valve is trileaflet and appears structurally normal. Trace amount of aortic regurgitatio n. The mitral valve leaflets are mildly thickened. Mild mitral regurgitation is present. Mild tricuspid regurgitation present. Right ventricular systolic pressure is normal at < 35 mmHg. There is no evidence of pulmonary hypertension. The right ventricular systolic pressure, as measur ed by Doppler, is 27.57mmHg. The pulmonic valve is normal. The aortic root size is normal. The inferior vena cava is mildly dilated. Echo free space may represent effusion or a pericardial fat pad. CONCLUSIONS -------- 1. Sinus rhythm. 2. This was a technically adequate study. 3. The left ventricular size is normal. 4. There is mild concentric left ventricular hypertrophy. 5. Overall left ventricular systolic function is normal with, an EF between 55 - 60 %. 6. The right ventricle is normal in size. 7. The left atrial size is normal. 8. Left atrium is normal size by volume. 9. The right atrium is normal in size and function. 10. Interatrial and interventricular septum intact. 11. The aortic valve is trileaflet and appears structurally normal. 12. Trace amount of aortic regurgitation. 13. The mitral valve leaflets are mildly thickened. 14. Mild mitral regurgitation is present. 15. Mild tricuspid regurgitation present. 16. Right ventricular systolic pressure is normal at < 35 mmHg. 17. There is no evidence of pulmonary hypertension. 18. The right ventricular systolic pressure, as measured by Doppler, is 27.57mmHg. 19. The pulmonic valve is normal. 20. The aortic root size is normal. 21. The inferior vena cava is mildly dilated. 22. Echo free space may represent effusion or a pericardial fat pad. FIELD REVIEWER: Nely Kuo RDCS
--- NOTE | 2019-03-27 15:48 | ECHOS ---
STRESS ECHOCARDIOGRAM DATE OF STUDY: 03/27/2019 INDICATIONS: Chest pain. MEDICATIONS: BASELINE HEART RATE: 75 BASELINE BLOOD PRESSURE: 121/70 MAXIMUM HEART RATE: 143 MAXIMUM BLOOD PRESSURE: 133/47 85% MPHR: 141 100% MPHR: 166 METS: MAXIMUM STAGE REACHED: 3 mcg/kg per minute TOTAL EXERCISE TIME: 8:30 CLINICAL INFORMATION: STRESS DATA: Heart rate 75. Pressure 121/70 mmHg. Baseline EKG showed sinus mechanism. Dobutamine infusion at a dose of 10 mcg/kg per minute was initiated and increased to 50 mcg/kg per minute. The maximum heart rate was 143, which is about 86% of maximum predicted heart rate. Maximum blood pressure was 138/47 mmHg. Clinically the patient did not have any symptoms of chest pain or discomfort. The EKG did not show any significant ST or T-wave abnormalities concerning for ischemia. ECHOCARDIOGRAM IMAGES: Echocardiogram images from parasternal long-axis view, parasternal short-axis view, apical 4-chamber and apical 2-chamber views were obtained as baseline images at low-dose dobutamine infusion, at peak heart rate as well as on recovery. The echocardiogram images showed overall good augmentation in the left ventricular systolic function without any evidence of wall motion abnormalities concerning for ischemia. CONCLUSION: 1. Normal EKG in response to dobutamine. 2. Normal echocardiogram in response to dobutamine. MMODL / IJN: [id number] /
== END 2019-03-27 14:04 | disposition home or self-care (01) ==
LOC: EC 17:47 → 1SOBS 20:00
PROVIDERS: ADMIT Internal Medicine; ATTEND Internal Medicine
DX: R07.89 Other chest pain (principal); K21.9 Gastro-esophageal reflux disease without esophagitis; E05.90 Thyrotoxicosis, unspecified without thyrotoxic crisis or storm; F41.1 Generalized anxiety disorder; G89.29 Other chronic pain; M54.2 Cervicalgia; R60.9 Edema, unspecified; R06.00 Dyspnea, unspecified; R61 Generalized hyperhidrosis; R11.2 Nausea with vomiting, unspecified; R42 Dizziness and giddiness; M19.90 Unspecified osteoarthritis, unspecified site; M54.9 Dorsalgia, unspecified; E66.9 Obesity, unspecified; Z68.29 Body mass index [BMI] 29.0-29.9, adult; Z79.899 Other long term (current) drug therapy; Z79.891 Long term (current) use of opiate analgesic; Z79.1 Long term (current) use of non-steroidal anti-inflammatories (NSAID); Z88.5 Allergy status to narcotic agent; Z91.030 Bee allergy status; Z90.49 Acquired absence of other specified parts of digestive tract; Z16.24 Resistance to multiple antibiotics; Z98.1 Arthrodesis status; Z87.891 Personal history of nicotine dependence; Z82.5 Family history of asthma and other chronic lower respiratory diseases; Z82.49 Family history of ischemic heart disease and other diseases of the circulatory system; Z80.3 Family history of malignant neoplasm of breast; Z83.1 Family history of other infectious and parasitic diseases
CPT/HCPCS: 99285; 36415; 94760; 93005; 93306; 93351; 85379; 80061; 80053; 83735; 84484 ×2; 85025; 85610; 85730; 71046; G0378 ×2; J1250

== ENCOUNTER → 2019-09-11 | Outpatient (CLI) | payer MEDICAID | END | disposition home or self-care (01) | LOC: LABWHC1 09:03 | PROVIDERS: ATTEND Internal Medicine Endocrinology, Diabetes & Metabolism | DX: E05.00 Thyrotoxicosis with diffuse goiter without thyrotoxic crisis or storm (principal) | CPT/HCPCS: 36415; 84439; 84443; 84481 ==

== ENCOUNTER 2019-09-25 09:47 | Emergency (ER) | payer MEDICAID ==
--- NOTE | 2019-09-25 10:19 | ED ---
Fall HPI - General Chief Complaint: Fall Stated Complaint: Fell off porch/back pain Time Seen by Provider: 09/25/19 10:03 Source: patient Mode of arrival: wheelchair - History of Present Illness Initial Comments: Patient is a 53-year-old female presenting to the emergency Department with complaints of neck and back pain after falling off her porch this morning. Patient states she had all of her bags on her shoulders and was walking out to her car when she tripped and fell backwards landing mostly on her lower back. Patient states her bags fell behind her which prevented her from hitting the back of her head. Patient states she has been having ongoing issues with her lower back and has also had surgery of her neck. Patient also has an MRI scheduled of her lumbar spine today. Patient states she is having a hard time walking secondary to this pain. Patient denies any numbness and tingling into the lower extremities or upper extremities, denies saddle paresthesias or trouble with urination. Patient denies any other injuries from this fall. Patient states the port is about 2 steps in height. Patient has no other complaints at this time. Patient denies fever, chills, nausea, vomiting. Upon arrival to the ER, vital signs are stable. - Related Data Home Medications Medication Instructions Recorded Confirmed Furosemide [Lasix] 40 mg PO DAILY PRN 04/29/17 03/26/19 HYDROcodone/APAP 5-325MG [[place] 1 tab PO Q8HR PRN 04/29/17 03/26/19 5-325] ALPRAZolam [Xanax] 0.25 mg PO BID PRN 05/14/18 03/26/19 Cholecalciferol [Vitamin D3] 1,000 unit PO DAILY 05/14/18 03/26/19 Escitalopram [Lexapro] 5 mg PO DAILY 05/14/18 03/26/19 Potassium Chloride [Klor-Con 20] 20 meq PO DAILY PRN 05/14/18 03/26/19 Cyclobenzaprine [Flexeril] 10 mg PO HS 08/12/18 03/26/19 Ibuprofen [Motrin Ib] 800 mg PO BID PRN 08/12/18 03/26/19 L.acidoph,Paracasei, B.lactis 1 each PO DAILY 08/12/18 03/26/19 [Probiotic] Mirabegron [Myrbetriq] 25 mg PO DAILY 08/12/18 03/26/19 Gabapentin [Neurontin] 300 mg PO TID 03/26/19 03/26/19 LORazepam [Ativan] 0.5 mg PO BID 03/26/19 03/26/19 Methimazole [Tapazole] 2.5 mg PO DAILY 03/26/19 03/26/19 Omeprazole [PriLOSEC] 20 mg PO DAILY 03/26/19 03/26/19 Previous Rx's Medication Instructions Recorded Cyclobenzaprine [Flexeril] 5 mg PO BID #10 tablet 09/25/19 Allergies Allergy/AdvReac Type Severity Reaction Status Date / Time codeine Allergy Chest Pain Verified 09/25/19 09:59 venom-honey bee Allergy Anaphylaxis Verified 09/25/19 09:59 Review of Systems ROS Statement: Those systems with pertinent positive or pertinent negative responses have been documented in the HPI. ROS Other: All systems not noted in ROS Statement are negative. Past Medical History Past Medical History: Chest Pain / Angina, GERD/Reflux, Osteoarthritis (OA), Thyroid Disorder Additional Past Medical History / Comment(s): HYPERTHYROID, BACK, NECK PAIN. History of Any Multi-Drug Resistant Organisms: C-DIFF Date of last positivie culture/infection: 2009 MDRO Source:: stool Past Surgical History: Cholecystectomy, Heart Catheterization, Orthopedic Surgery, Tubal Ligation Additional Past Surgical History / Comment(s): NODULES REMOVED FROM VOCAL CORDS, HEART CATH 06/06, Pain clinic procedures, Anterior Cervical Decompression and Fusion C4-5, C5-6 on 05/19/[address] Oseguera. PLANTAR FASCITIS SURG STONE. radioactive iodine tx for thyroid Past Anesthesia/Blood Transfusion Reactions: Motion Sickness, Postoperative Nausea & Vomiting (PONV) Past Psychological History: Anxiety Smoking Status: Former smoker Past Alcohol Use History: Occasional Past Drug Use History: None Reported - Past Family History Father Family Medical History: Musculoskeletal Disorder Additional Family Medical History / Comment(s): Father at age 74 from sepsis with history of COPD and peripheral vascular disease. Mother Family Medical History: Cancer Additional Family Medical History / Comment(s): Mother is alive at age 74 with h istory of breast cancer and hypertension. Patient's 1 sister with no major medical problems. No brothers. Patient has 2 daughters and one has anxiety. General Exam - General Exam Comments Initial Comments: GENERAL: Well-appearing, well-nourished and in no acute distress, but appears uncomfortable. HEAD: Atraumatic, normocephalic. EYES: Pupils equal round and reactive to light, extraocular movements intact, sclera anicteric, conjunctiva are normal. ENT: TMs normal, nares patent, oropharynx clear without exudates. Moist mucous membranes. NECK: Tender to palpation of the cervical spine, cervical paraspinals. Full range of motion although painful at the end range. Supple without lymphadenopathy or JVD. LUNGS: Breath sounds clear to auscultation bilaterally and equal. No wheezes rales or rhonchi. HEART: Regular rate and rhythm without murmurs, rubs or gallops. ABDOMEN: Soft, nontender, normoactive bowel sounds. No guarding, no rebound. No masses appreciated. EXTREMITIES: Normal range of motion, no pitting or edema. No clubbing or cyanosis. Pain with palpation of the lumbar spine and lumbar paraspinals. Painful trunk range of motion. Sensation is equal in bilateral lower extremities. 5 out of 5 strength in the lower and upper extremities. NEUROLOGICAL: Cranial nerves II through XII grossly intact. Normal speech. PSYCH: Normal mood, normal affect. SKIN: Warm, Dry, normal turgor, no rashes or lesions noted. Limitations: no limitations Course Vital Signs 09/25/19 09:57 Temperature 98.2 F Pulse Rate 77 Respiratory 16 Rate Blood Pressure 129/74 O2 Sat by Pulse 98 Oximetry Medical Decision Making - Medical Decision Making Patient is a 53-year-old female here for neck and low back pain after falling backwards 2 steps off her porch this morning. Patient has history of back issues as well as a cervical spine fusion. Patient is having a lumbar MRI today. X-rays of the cervical spine and lumbar spine reveal no acute fractures dislocations. Patient was given Toradol and reports some improvement in her symptoms. Patient will be given a prescription for Flexeril and we discussed continuing with anti-inflammatories. Patient was also given a work note for tomorrow. Patient is stable for discharge at this time and she is in agreement with this plan of care. Patient will follow up with her PCP on Saturday. Return parameters were discussed with the patient she verbalized understanding. Case discussed with Dr. Garner. Disposition Clinical Impression: Fall, Low back pain, Neck pain Disposition: HOME SELF-CARE Condition: Stable Instructions (If sedation given, give patient instructions): Fall Prevention (ED) Additional Instructions: Please return to the Emergency Department if symptoms worsen or any other concerns. Follow-up with your PCP on Saturday. Use heat and/or ice to help with pain relief. Continue with anti-inflammatories. Prescriptions: Cyclobenzaprine [Flexeril] 5 mg PO BID #10 tablet Is patient prescribed a controlled substance at d/c from ED?: No Referrals: Zahira Gage MD [Primary Care Provider] - 1-2 days
[2019-09-25] MEDS ORDERED: KETOROLAC 60 MG/2 ML VIAL IM STA (10:31)
--- NOTE | 2019-09-25 11:03 | XR ---
EXAMINATION TYPE: XR lumbar spine 2 or 3V DATE OF EXAM: 09/25/2019 CLINICAL HISTORY: pain TECHNIQUE: Three views of the lumbar spine are submitted. COMPARISON: 04/07/2013 FINDINGS: There are 5 lumbar type vertebral bodies identified. The lumbar spine shows satisfactory alignment w ithout evidence of acute fracture or dislocation. Vertebral body heights are within normal limits. Moderate to severe degenerative disc space narrowing at all levels. Grade 1 anterolisthesis L3 on L4. Severe facet joint arthropathy noted. The overlying soft tissue appears unremarkable. IMPRESSION: No acute fracture or dislocation is seen in the lumbar spine. ICD 10 NO FRACTURE, INITIAL EVALUATION
--- NOTE | 2019-09-25 11:07 | XR ---
EXAMINATION TYPE: XR cervical spine comp DATE OF EXAM: 09/25/2019 CLINICAL HISTORY: pain COMPARISON: NONE TECHNIQUE: Frontal, lateral, oblique, swimmers, and open mouth view of the cervical spine are obtaine d. FINDINGS: Postoperative changes of ACDF at C4-C6. Alignment is near-anatomic. I do not see evidence f or fracture or dislocation. Foramina are patent bilaterally. IMPRESSION: No acute fracture or dislocation is seen in the cervical spine.ICD 10 NO FRACTURE, INITI AL EVALUATION
[2019-09-25 11:38] VITALS: BP 128/79; PULSE 78; RESP 18; TEMP 97.8
== END 2019-09-25 11:37 | disposition home or self-care (01) ==
LOC: EC 09:47
DX: S39.92XA Unspecified injury of lower back, initial encounter (principal); M54.2 Cervicalgia; F41.9 Anxiety disorder, unspecified; K21.9 Gastro-esophageal reflux disease without esophagitis; E05.90 Thyrotoxicosis, unspecified without thyrotoxic crisis or storm; M19.90 Unspecified osteoarthritis, unspecified site; Z79.899 Other long term (current) drug therapy; Z95.5 Presence of coronary angioplasty implant and graft; Z88.5 Allergy status to narcotic agent; Z98.1 Arthrodesis status; Z87.891 Personal history of nicotine dependence; Z91.030 Bee allergy status; W01.0XXA Fall on same level from slipping, tripping and stumbling without subsequent striking against object, initial encounter; Y93.01 Activity, walking, marching and hiking; Y92.009 Unspecified place in unspecified non-institutional (private) residence as the place of occurrence of the external cause
CPT/HCPCS: 72050; 72100; 96372; 99283

== ENCOUNTER → 2019-09-25 | Outpatient (CLI) | payer MEDICAID ==
--- NOTE | 2019-09-26 00:46 | MR ---
EXAMINATION TYPE: MR cervical spine wo/w con DATE OF EXAM: 09/25/2019 COMPARISON: March 29, 2017 HISTORY: Neck pain, BUE numbnesss/tingling, hx surgery TECHNIQUE: Multiplanar, multisequence images of the cervical spine were acquired utilizing 10 mL intravenous Sai avist gadolinium contrast. Diffusion weighted imaging was performed. Cervical vertebra show mild straightening. There is old anterior fusion surgery at C4 and C5 and C6. There is mild disc space narrowing in the cervical spine. Cervical spinal cord shows no edema. There is some posterior spur formation in the mid cervical spine at the surgery levels with slight decrease d size of the spinal canal to 7.5 mm. There is posterior disc herniation at C6-7 and the spinal canal measures 8 mm. There is no evidence of cord edema. Brainstem appears intact. There is no compression fracture. I see no cervical paraspinal mass. The contrast images show no pathologic enhancement. IMPRESSION: Multilevel anterior fusion surgery. There is posterior osteophyte formation and disc herniation as ab ove with some narrowing of the spinal canal to 7.5 mm at the narrowest point. This appears not signif icantly different than last exam. No cord edema.
--- NOTE | 2019-09-26 01:16 | MR ---
EXAMINATION TYPE: MR lumbar spine wo con DATE OF EXAM: 09/25/2019 COMPARISON: None HISTORY: LBP, BLE radic x months, recent fall TECHNIQUE: Multiplanar, multisequence images of the lumbar spine were acquired. Lumbar vertebra have overall fairly normal alignment. There is a few millimeter anterior subluxation of L3 in relation to L4. There is narrowing of L3-4 disc space. There is mild narrowing at L1-2 and L 5-S1 disc space. There is no compression fracture. There is mild lateral recess stenosis at L3-4 due to facet arthropathy. I see no focal bone destruction. There is no lumbar paraspinal mass. Sacroiliac joints appear intact. There is a small posterior disc herniation at L1-2. There is mild anterior dis c herniation at L1-2. The neural foramina are fairly well-maintained. IMPRESSION: There is multilevel spondylotic changes as above. No fracture seen. Mild lateral recess stenosis at L 3-4.
== END | disposition home or self-care (01) ==
LOC: RADMRIMAIN 19:18
PROVIDERS: ATTEND Orthopaedic Surgery Orthopaedic Surgery of the Spine
DX: M48.02 Spinal stenosis, cervical region (principal); M48.061 Spinal stenosis, lumbar region without neurogenic claudication; M50.123 Cervical disc disorder at C6-C7 level with radiculopathy; M47.26 Other spondylosis with radiculopathy, lumbar region; I10 Essential (primary) hypertension; Z98.1 Arthrodesis status
CPT/HCPCS: 72148; 72156

== ENCOUNTER → 2019-10-01 | Outpatient (CLI) | payer MEDICAID ==
[2019-10-01 11:33] VITALS: BP 144/77; PULSE 75; RESP 20
--- NOTE | 2019-10-02 10:57 | P.PAINPG ---
Subjective Progress Note Date: 10/01/19 This is a follow-up visit for this 52 year old female with a chronic history of severe low back pain and severe neck pain, she was last seen in our clinic in August 2018. At that point, she underwent lumbar epidural steroid injections L4-5 with good benefit. Today she has two primary pain complaints, In neck and low back. Patient had the cervical fusion surgery done ~5 years ago , currently she is complaining of severe neck pain with radiation to the bilateral upper extremity, right worse than leftlateral arms, forearms, and hands, mostly medial 3 fingers and occasionally thumb and index finger, associated with numbness and tingling sensation, as well as dropping objects. She follows with Dr. Oseguera, who she is scheduled to see tomorrow. She is also complaining of severe low back pain with radiation to bilateral buttock as well as bilateral legs, right worse than left. On the right side, pain radiates to posterior thigh and calf, up to ankle. On left side pain radiates to the posterior thigh, not past the knee. She does report tingling in right lower extremity, and same distribution as pain. She also reports unsteady gait and feels weak in her legs. She fell backwards off a porch approximately one year ago, which acutely worsened both her neck and back pain. She has imaging following the fall, results documented below. Review of systems is negative for chest pain, shortness of breath, new onset weakness, numbness/tingling, abdominal pain, malaise, fever, night sweats, chills, homicidal or suicidal ideation, or bowel or bladder incontinence. Objective Physical exam: Vitals: Reviewed in EMR GENERAL: Well appearing, in no acute distress PSYCH: Mood and affect is appropriate. Awake, alert, and oriented SKIN: Skin color, texture, turgor normal, no rashes or lesions HEENT: Normocephalic, atraumatic. EOM intact CV: No pedal edema RESP: Respirations are unlabored, no audible wheezing GI: Abdomen non-distended MUSCULOSKELETAL: Bilateral upper and lower extremity strength is normal and symmetric. No atrophy or tone abnormalities are noted. Neck: Tenderness to palpation over the cervical paraspinous muscles laterally. Spurling negative, Chun's sign negative. Pain limited range of motion of neck. Lumbar spine: Straight leg raising in the sitting position is positive for radicular pain, bilaterally, right greater than left. Tenderness to palpation over the lumbar spine and paraspinous muscles bilaterally. Positive for pain with facet loading and back extension/rotation. Buttocks: Tenderness to palpation over the right PSIS, right sided Evonne test positive, right-sided sacral thrust positive, right Elizabeth's finger positive. Extremities: Peripheral joint ROM is full and pain free without obvious instability or laxity in all four extremities. No edema or skin discolorations noted. Gait: Gait is normal NEUR: Bilateral upper and lower extremity coordination and muscle stretch reflexes are physiologic and symmetric. Negative clonus bilaterally. No loss of sensation is noted. Imaging: MRI lumbar spine done on 09/25/2019 shows multilevel spondylitic changes, mild lateral recess stenosis at L3-4. Mild narrowing at L1-2 and L5-S1 disc spaces. MRI cervical spine done [facility] on 09/25/2019 shows multilevel an terior fusion surgery. Posterior osteophyte formation and disc herniation at C5-6 with spinal cord narrowing. No significant difference from prior exam. 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 If no significant benefit from this, would likely proceed with right SI joint injection and/or lumbar medial branch workup. Patient was also instructed to follow up with Dr. Oseguera regarding her neck pain. In the future, if no contraindications per Dr. Oseguera, we could pursue interventional pain management strategies for her neck pain Objective - Vital Signs Vital signs: Vital Signs Temp Pulse 75 10/01/19 11:26 Resp 20 10/01/19 11:26 BP 144/77 10/01/19 11:26 Pulse Ox 100 10/01/19 11:26 PQRS Measure Charge Sheet Measure #130: Documentation of Current Meds in Medical Chart: Patient's medications documented in chart Measure #226: Tobacco Use: Screen & Cessation Intervention: Pt not a tobacco user Measure #111: Pneumonia Vaccination: Pneumococcal vaccine NOT administered or previously given Measure #47: Advance Care Plan: Advance care planning discussed & documented, pt chose/unable to give Measure #412: Opioid Treatment Agreement: No documentation of signed opioid treatment agreement Measure #317: Preventitive Care & Scrn High Bld Press & F/U: Pre-hypertensive or hypertensive BP documented, pt will f/u with PCP Measure #128: Body Mass Index (BMI) Screening & Follow-up: BMI documented ABOVE normal parameters - f/u documented Measure #131: Pain Assessment & Follow-up: Pain positive & plan documented, Follow-up scheduled Measure #431: Unhealthy Alcohol Use Preventative Care & Scrn: Patient not identified as an unhealthy alcohol user PQRS Narrative: Smoking Status Former smoker Blood Pressure 144/77 Pain Intensity [Lower Back] 5 Pain Intensity [Neck] 5 Scale Used Numeric (1 - 10) Hx Alcohol Use (MH) Yes: 1 q day Home Medications: Ambulatory Orders Furosemide [Lasix] 40 mg PO DAILY PRN 04/29/17 HYDROcodone/APAP 5-325MG [[place] 5-325] 1 tab PO Q8HR PRN 04/29/17 ALPRAZolam [Xanax] 0.25 mg PO BID PRN 05/14/18 Cholecalciferol [Vitamin D3] 1,000 unit PO DAILY 05/14/18 Escitalopram [Lexapro] 5 mg PO DAILY 05/14/18 Potassium Chloride [Klor-Con 20] 20 meq PO DAILY PRN 05/14/18 Cyclobenzaprine [Flexeril] 10 mg PO HS 08/12/18 Ibuprofen [Motrin Ib] 800 mg PO BID PRN 08/12/18 L.acidoph,Paracasei, B.lactis [Probiotic] 1 each PO DAILY 08/12/18 Mirabegron [Myrbetriq] 50 mg PO DAILY 08/12/18 Gabapentin [Neurontin] 300 mg PO TID 03/26/19 LORazepam [Ativan] 0.5 mg PO BID 03/26/19 Methimazole [Tapazole] 2.5 mg PO DAILY 03/26/19 Omeprazole [PriLOSEC] 20 mg PO DAILY 03/26/19 Cyclobenzaprine [Flexeril] 5 mg PO BID #10 tablet 09/25/19 Controlled Substance Measures - Controlled Substance Measures Is patient prescribed a controlled substance at discharge?: No
== END | disposition home or self-care (01) ==
LOC: PNWHC3 11:11
PROVIDERS: ATTEND Anesthesiology
DX: M51.16 Intervertebral disc disorders with radiculopathy, lumbar region (principal); M47.26 Other spondylosis with radiculopathy, lumbar region; M46.96 Unspecified inflammatory spondylopathy, lumbar region; M46.1 Sacroiliitis, not elsewhere classified; M96.1 Postlaminectomy syndrome, not elsewhere classified; Z87.891 Personal history of nicotine dependence; Z79.891 Long term (current) use of opiate analgesic; Z79.1 Long term (current) use of non-steroidal anti-inflammatories (NSAID); Z79.899 Other long term (current) drug therapy
CPT/HCPCS: 99211

== ENCOUNTER 2019-10-12 07:39 | Day surgery (SDC) | payer MEDICAID ==
[2019-10-08 15:15] VITALS: BMI 29.5
[~2019-10-12 07:39] MED LIST changes: +LACTATED RINGERS 1,000 ML IV SCH; -SODIUM CHLORIDE 0.9% 500 ML 500 ML IV SCH
[2019-10-12 08:16] VITALS: TEMP 98.7
[2019-10-12] MEDS ORDERED: ONDANSETRON 4 MG/2 ML VIAL IVP ONE (09:00)
[2019-10-12] MEDS ORDERED: IV FLUID CONTINUATION 1,000 ML IV ONE (09:30)
[2019-10-12 09:47] VITALS: BP 133/75; PULSE 81; RESP 17
--- NOTE | 2019-10-12 09:58 | FL ---
Fluoroscopy HISTORY: Pain 7 seconds fluoroscopy time supplied to the referring clinician. 3 intraoperative C-arm images docume nt the procedure. See dictated report from anesthesia.
--- NOTE | 2019-10-12 15:26 | P.PCN ---
Date of Procedure: 10/12/19 Procedure(s) Performed: PREOPERATIVE DIAGNOSIS: 1- Lumbar radiculopathy, Lumbar Degenerative Disc Diseases 2-Lumbar spondylosis with Facet arthropathy without myelopathy POSTOPERATIVE DIAGNOSIS: 1-Lumber Degenerative Disc Diseases 2-Lumbar spondylosis with Facet arthropathy without myelopathy PROCEDURE 1. Lumbar epidural steroid injection under fluoroscopic guidance at the L5-S1 level using a right paramedian approach 2. Lumbar epidurogram. ANESTHESIA: Local with 1% lidocaine 3 ml, moderate sedation with intravenous Versed and fentanyl, sedation time 13 minutes Fluoroscopy was used for the procedure and images were saved in the radiology portion of the chart. EBL: Minimal PROCEDURE INDICATION: The patient with low back pain and radiculitis symptoms unresponsive to conservative treatment. Fluoroscopy was used to optimize visualization of the needle placement and to maximize safety. PROCEDURE DESCRIPTION / TECHNIQUE: The patient was seen and identified in the preoperative area. Risks, benefits, complications including but not limited to infections ,bleeding ,allergic reaction to the medications ,nerve damage and incomplete pain releif , and alternatives were discussed with the patient. The patient agreed to proceed with the procedure and signed the consent. IV was started, and vital signs were stable. Patient was taken to the OR and time out was completed. The patient was placed in the prone position on procedure table and a pillow was placed under the abdomen to reduce lumbar lordosis. The lumbosacral area was prepped and draped in the usual sterile fashion. Vitals were closely monitored during the procedure. Conscious sedation was used during the procedure to decrease patient?s anxiety. Using anterior-posterior fluoroscopy, the L5-S1 interlaminar space was identified and the skin over this site was marked and then infiltrated with 1% lidocaine subcutaneously. Subsequently, a 20-gauge 3.5" Tuohy epidural needle was inserted and advanced toward the epidural space using the loss of resistance technique and guided by AP and lateral/ oblique fluoroscopy. The correct needle position in the epidural space was verified with the injection of 2 mL of the water soluble contrast dye Isovue 200 contrast under live fluoroscopy, observing an excellent epidurogram. Then, after negative aspiration for blood and CSF and in the absence of paresthesias, a 5 ml mixture containing 80 mg of Depo-medrol , 3 ml of preservative free Normal Saline, and 1 ml of preservative free lidocaine 1% solution was injected and a washout epidurogram was seen. Needle was withdrawn intact, skin was cleansed, and bandages were applied. COMPLICATIONS: None DISPOSITION / PLANS: The patient was placed in a supine position and transferred to the recovery area in a stable condition for observation. There was no evidence of lower extremity motor or sensory deficit after the procedure. Patient was discharged from the recovery room after meeting discharge criteria. Home discharge instructions were given to the patient by the staff. The patient will schedule a follow up in the clinic in 2-4 weeks.
== END 2019-10-12 10:06 | disposition home or self-care (01) ==
LOC: ORPAIN 07:39
PROVIDERS: ATTEND Anesthesiology
DX: G89.29 Other chronic pain (principal); M47.26 Other spondylosis with radiculopathy, lumbar region; M51.16 Intervertebral disc disorders with radiculopathy, lumbar region; M46.1 Sacroiliitis, not elsewhere classified; M96.1 Postlaminectomy syndrome, not elsewhere classified; Z87.891 Personal history of nicotine dependence; Z88.5 Allergy status to narcotic agent; Z79.899 Other long term (current) drug therapy
CPT/HCPCS: 81025; 62323; J2250; J1030; J2405; J3010; Q9966; 99152

== ENCOUNTER → 2019-11-09 | Day surgery (SDC) | payer MEDICAID ==
[2019-11-06 10:43] VITALS: BMI 32.6
[~2019-11-09] MED LIST changes: +DEXAMETHASONE SOD PHOSPHATE 10 MG/ML 1 ML VIAL ONE; +IOPAMIDOL M200 10 ML VIAL ONE; +MIDAZOLAM 2 MG/2 ML VIAL ONE; +fentaNYL (PF) 50 MCG/ML 2 ML AMP ONE
[2019-11-09 07:41] VITALS: TEMP 99.4
--- NOTE | 2019-11-09 08:01 | P.PCN ---
Date of Procedure: 11/09/19 Procedure(s) Performed: . PROCEDURE 1. Cervical epidural steroid injection under fluoroscopic guidance, C7-T1 (fluoroscopy images available in the radiology department ) 2. Cervical epidurogram. PREOPERATIVE DIAGNOSIS: 1- Cervical Degenerative Disc Diseases 2- Cervical radiculopathy. POSTOPERATIVE DIAGNOSIS: : 1- Cervical Degenerative Disc Diseases , 2- Cervical radiculopathy. ANESTHESIA: Local anesthesia with lidocaine 1 % , and moderate sedation, with Versed 1 mg and Fentanyl 50 mcg. EBL 0 PROCEDURE INDICATION: The patient with neck pain and radiculitis unresponsive to conservative treatment consents for procedure. PROCEDURE DESCRIPTION / TECHNIQUE: The patient was seen and identified in the preoperative area. Risks, benefits, complications, including but not limited to infections ,bleeding , allergic reactions to the medications ,and not complete pain releife, and alternatives were discussed with the patient, the patient agreed to proceed with the procedure and signed the consent. Patient was taken to the OR and time out was completed. The patient was placed in the prone position on the procedure table. A pillow was placed under the patients chest to increase the cervical interlaminar space. The cervical area was prepped and draped in the usual sterile fashion. Vital signs were closely monitored during the procedure. Conscious sedation was used during the procedure to decrease patients anxiety. Using anterior-posterior fluoroscopy, the C7-T1 interlaminar space was identified and the skin over this site was marked and then infiltrated with 1% lidocaine subcutaneously. Subsequently, a 20-gauge 3-1/2-inch Tuohy epidural needle was inserted and advanced toward the epidural space by means of the ``hanging-drop technique and guided by AP and lateral fluoroscopy. The correct needle position in the epidural space was verified with the injection of 2 mL of the water soluble contrast dye Isovue-200 and observing an excellent epidurogram with the epidural spread of the dye, after negative aspiration for blood and CSF and in the absence of paresthesias. Again after negative aspiration, mixture containing 20 mg Dexamethasone and 2 ml of preservative- free normal saline injected and a washout of epidurogram was seen. Needle was withdrawn intact, skin was cleansed, and bandages were applied. Complications= none. Disposition= patient was placed in supine position and transferred to the recovery room area in stable condition and there was no evidence of upper or lower extremity motor or sensory deficit after the procedure patient was discharged from recovery room after discharge criteria met and home discharge instructions was given by the staff and patient will follow with the pain clinic in 2-4 weeks
[2019-11-09 08:08] VITALS: RESP 17
[2019-11-09 08:25] VITALS: BP 128/71; PULSE 77
--- NOTE | 2019-11-09 13:32 | FL ---
Fluoroscopy HISTORY: Pain 4 seconds fluoroscopy time supplied to the referring clinician. 1 intraoperative C-arm images docume nt the procedure. See dictated report from anesthesia.
== END ==
LOC: ORPAIN 07:14
PROVIDERS: ATTEND Specialist
DX: M50.10 Cervical disc disorder with radiculopathy, unspecified cervical region (principal); Z88.5 Allergy status to narcotic agent; Z98.1 Arthrodesis status
CPT/HCPCS: 81025; 62321; J2250; J1100; J3010; Q9966

== ENCOUNTER → 2019-11-25 | Outpatient (CLI) | payer MEDICAID ==
[2019-11-25 14:02] VITALS: BP 123/80; PULSE 80; RESP 16
--- NOTE | 2019-11-25 21:14 | P.PAINPG ---
Subjective Progress Note Date: 11/25/19 This is a follow-up visit for this 54 years old female with a chronic history of severe low back pain and severe neck pain, patient had the cervical fusion surgery done 2 years ago , and she had cervical epidural steroid injection done a few weeks ago she had excellent pain relief, and patient also complaining of severe low back pain and she's been diagnosed with lumbar degenerative disc disease and lumbar spondylosis and lumbar facet arthropathy, she had no motor or sensory deficit, she continued to work, she denies any fever or night sweats and she denies any change in the bowel movement or urination, she continued to use Neurontin 300 mg 3 times a day and Flexeril 10 mg daily at bedtime she denies any side effect of the medication and she is getting prescription refills from her primary care, she reported that her low back pain is constant localized mainly on the right side and radiated to the posterior aspect of her right lower extremity Objective - Vital Signs Vital signs: Vital Signs Temp Pulse 80 11/25/19 13:45 Resp 16 11/25/19 13:45 BP 123/80 11/25/19 13:45 Pulse Ox 97 11/25/19 13:45 Intake & Output 11/25/19 11/25/19 11/26/19 06:59 18:59 06:59 Weight 99.79 kg - Exam Physical Examinations : -Constitutiona : Cooperative , not in acute distress . -HEENT : nech : supple , no Lymphadenopathy , normal thyroid size . : eyes : no ptosis , no icterus, no photophobia . - neurologic : Cranial nerve II to XII intact , no focal neurological deffecit . -psychatric : alert , oriented X 3 , appropriate affect , intact judgment and insight . -Lymphatic : no Lymphadenopathy . - musculoskeltal : Cervical Spine motor stregnth in the deltoid and biceps, normal right side , normal Left side motor stregnth biceps and the wrist extensors normal right side ,normal left side . motor stregnth in the triceps muscle . normal Right side , normal Left side deep tendon reflexes normal at the biceps , normal at Brachioradialis , normal at triceps Lumber spine moter stegnth lower extremities ,thigh and legs 5/5 Right side , 5/5 Left side deep tendon reflexes : normal Knee Jerk , normal ankle Jerk lumber facet Loading Test =positive Right , positive Left Range of motion of the lumbar spine Flexion 60 degrees, extension 10 degrees strait leg raising test = positive at 60 degree Fabere test= negative Right , and negative LT . 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 Lumbar degenerative disc disease Patient will be good candidate to have diagnostic Right medial branch block lumbar area L2 ,L3, L4 ,L5 (Right side only Eackles patient had pain mainly on the right side ) Time with Patient: Less than 30 PQRS Measure Charge Sheet Measure #130: Documentation of Current Meds in Medical Chart: Patient's medications documented in chart Measure #226: Tobacco Use: Screen & Cessation Intervention: Pt not a tobacco user Measure #111: Pneumonia Vaccination: Pneumococcal vaccine administered or previously received Measure #47: Advance Care Plan: Advance care planning discussed & documented, pt chose/unable to give Measure #412: Opioid Treatment Agreement: No documentation of signed opioid treatment agreement Measure #408: Opioid Therapy Follow-up Evaluation: Patient had NO f/u eval minimum every 3 months during opioid therapy Measure #317: Preventitive Care & Scrn High Bld Press & F/U: Normal blood pressure, f/u not required Measure #128: Body Mass Index (BMI) Screening & Follow-up: BMI documented ABOVE normal parameters - f/u documented Measure #131: Pain Assessment & Follow-up: Pain positive & plan documented, Follow-up scheduled Measure #431: Unhealthy Alcohol Use Preventative Care & Scrn: Patient not identified as an unhealthy alcohol user PQRS Narrative: Smoking Status Former smoker Blood Pressure 123/80 Pain Intensity [Neck] 1 Pain Intensity [Right Lower 4 Medial Back] Scale Used Numeric (1 - 10) Hx Alcohol Use (MH) Yes: 1 q day Home Medications: Ambulatory Orders Furosemide [Lasix] 40 mg PO DAILY PRN 04/29/17 ALPRAZolam [Xanax] 0.25 mg PO BID PRN 05/14/18 Cholecalciferol [Vitamin D3] 1,000 unit PO DAILY 05/14/18 Escitalopram [Lexapro] 5 mg PO DAILY 05/14/18 Potassium Chloride [Klor-Con 20] 20 meq PO DAILY PRN 05/14/18 Cyclobenzaprine [Flexeril] 10 mg PO HS 08/12/18 Ibuprofen [Motrin Ib] 800 mg PO BID PRN 08/12/18 L.acidoph,Paracasei, B.lactis [Probiotic] 1 each PO DAILY 08/12/18 Mirabegron [Myrbetriq] 50 mg PO DAILY 08/12/18 Gabapentin [Neurontin] 300 mg PO TID 03/26/19 LORazepam [Ativan] 0.5 mg PO BID 03/26/19 Methimazole [Tapazole] 2.5 mg PO DAILY 03/26/19 Omeprazole [PriLOSEC] 20 mg PO DAILY 03/26/19 Cyclobenzaprine [Flexeril] 5 mg PO BID #10 tablet 09/25/19 Biotin 5 mg PO DAILY 10/08/19 Controlled Substance Measures - Controlled Substance Measures Is patient prescribed a controlled substance at discharge?: No
== END ==
LOC: PNWHC3 13:21
PROVIDERS: ATTEND Specialist
DX: M50.30 Other cervical disc degeneration, unspecified cervical region (principal); M47.816 Spondylosis without myelopathy or radiculopathy, lumbar region; M51.36 Other intervertebral disc degeneration, lumbar region; M96.1 Postlaminectomy syndrome, not elsewhere classified; Z87.891 Personal history of nicotine dependence; Z79.899 Other long term (current) drug therapy; Z79.1 Long term (current) use of non-steroidal anti-inflammatories (NSAID)
CPT/HCPCS: 99211

== ENCOUNTER → 2019-12-29 | Day surgery (SDC) | payer BC, MEDICAID ==
[2019-12-28 09:40] VITALS: BMI 32.6
[~2019-12-29] MED LIST changes: -DEXAMETHASONE SOD PHOSPHATE 10 MG/ML 1 ML VIAL ONE; -IOPAMIDOL M200 10 ML VIAL ONE; +IV FLUID CONTINUATION 1,000 ML IV ONE; +LIDOCAINE 1% (10MG/ML) FOR IV START INTRADERMA ONE; +ONDANSETRON 4 MG/2 ML VIAL IVP ONE; +ROPIVACAINE 5MG/ML 20ML VIAL ONE; +methylPREDNISolone ACETATE 40 MG/ML 1 ML VIAL ONE
--- NOTE | 2019-12-29 08:25 | P.GSHP ---
History of Present Illness H&P Date: 12/29/19 This is 54 years old female with a chronic history of severe low back pain, she is diagnosed with lumbar degenerative disc disease, lumbar spondylosis with lumbar facet arthropathy, is here today to have diagnostic medial branch block lumbar area at L2, L3, L4, L5 Past Medical History Past Medical History: Chest Pain / Angina, GERD/Reflux, Osteoarthritis (OA), Thyroid Disorder Additional Past Medical History / Comment(s): HYPERTHYROID, BACK, NECK PAIN. History of Any Multi-Drug Resistant Organisms: C-DIFF Date of last positivie culture/infection: 2009 MDRO Source:: stool Past Surgical History: Cholecystectomy, Heart Catheterization, Orthopedic Surgery, Tubal Ligation Additional Past Surgical History / Comment(s): NODULES REMOVED FROM VOCAL CORDS, HEART CATH 06/06, Pain clinic procedures, Anterior Cervical Decompression and Fusion C4-5, C5-6 on 05/19/[address] Oseguera. PLANTAR FASCITIS SURG STONE. r adioactive iodine tx for thyroid Past Anesthesia/Blood Transfusion Reactions: Motion Sickness, Postoperative Nausea & Vomiting (PONV) Smoking Status: Former smoker - Past Family History Father Family Medical History: Musculoskeletal Disorder Additional Family Medical History / Comment(s): Father at age 74 from sepsis with history of COPD and peripheral vascular disease. Mother Family Medical History: Cancer Additional Family Medical History / Comment(s): Mother is alive at age 74 with history of breast cancer and hypertension. Patient's 1 sister with no major medical problems. No brothers. Patient has 2 daughters and one has anxiety. Medications and Allergies Home Medications Medication Instructions Recorded Confirmed Type Furosemide [Lasix] 40 mg PO DAILY PRN 04/29/17 12/29/19 History ALPRAZolam [Xanax] 0.25 mg PO BID PRN 05/14/18 12/29/19 History Cholecalciferol [Vitamin D3] 1,000 unit PO DAILY 05/14/18 12/29/19 History Escitalopram [Lexapro] 5 mg PO DAILY 05/14/18 12/29/19 History Potassium Chloride [Klor-Con 20] 20 meq PO DAILY PRN 05/14/18 12/29/19 History Cyclobenzaprine [Flexeril] 10 mg PO HS 08/12/18 12/29/19 History Ibuprofen [Motrin Ib] 800 mg PO BID PRN 08/12/18 12/29/19 History L.acidoph,Paracasei, B.lactis 1 each PO DAILY 08/12/18 12/29/19 History [Probiotic] Mirabegron [Myrbetriq] 50 mg PO DAILY 08/12/18 12/29/19 History Gabapentin [Neurontin] 300 mg PO TID 03/26/19 12/29/19 History LORazepam [Ativan] 0.5 mg PO BID 03/26/19 12/29/19 History Methimazole [Tapazole] 2.5 mg PO DAILY 03/26/19 12/29/19 History Omeprazole [PriLOSEC] 20 mg PO DAILY 03/26/19 12/29/19 History Cyclobenzaprine [Flexeril] 5 mg PO BID #10 tablet 09/25/19 12/29/19 Rx Biotin 5 mg PO DAILY 10/08/19 12/29/19 History Allergies Allergy/AdvReac Type Severity Reaction Status Date / Time codeine Allergy Chest Pain Verified 12/28/19 09:36 venom-honey bee Allergy Anaphylaxis Verified 12/28/19 09:36 Surgical - Exam Physical Examinations : -Constitutiona : Cooperative , not in acute distress . -HEENT : nech : supple , no Lymphadenopathy , normal thyroid size . : eyes : no ptosis , no icterus, no photophobia . . - neurologic : Cranial nerve II to XII intact , no focal neurological deffecit . -psychatric : alert , oriented X 3 , appropriate affect , intact judgment and insight . -Lymphatic : no Lymphadenopathy . - musculoskeltal : Lumber spine moter stegnth lower extremities ,thigh and legs 5/5 Right side , 5/5 Left side deep tendon reflexes : normal Knee Jerk , normal ankle Jerk lumber facet Loading Test =positive Right , positive Left Range of motion of the lumbar spine Flexion 30 degrees, extension 10 degrees strait leg raising test = positive. Fabere test= positive Right , and positive LT . Assessment and Plan Plan: Assessment and plan= chronic low back pain secondary to lumbar degenerative disc disease , lumbar spondylosis with lumbar facet arthropathy . we do right side diagnostic medial branch block at L2, L3 , L4 , L5 under fluoroscopy guidance Time with Patient: Less than 30
[2019-12-29 08:27] VITALS: RESP 16; TEMP 96.8
--- NOTE | 2019-12-29 08:54 | P.PCN ---
Date of Procedure: 12/29/19 Procedure(s) Performed: PREOPERATIVE DIAGNOSIS : 1- Lumbar spondylosis with Facet Arthropathy without myelopathy . 2- Lumber degenerative disc disease POSTOPERATIVE DIAGNOSIS: 1- Lumbar spondylosis with Facet Arthropathy without myelopathy . 2- Lumber degenerative disc disease PROCEDURE: Diagnostic Right L2 , L3 , L4 , and L5 medial branch block under fluoroscopy guidance(fluoroscopy images available in the radiology Department ) ( To target the facet joint between L3-4 , L4-5 , and L5-S1 ) ANESTHESIA: moderate sedation with intravenous Versed 2 mg and Fentanyl 50 mcg. EBL: Minimal COMPLICATION: None. IV FLUIDS: 100 mL of normal saline. PROCEDURE INDICATION: Chronic low back pain secondary to Facet arthropathy unresponsive to conservative treatment. PROCEDURE DESCRIPTION: the patient was seen and identified in the preop holding area , risks and benefits and possible complications of the procedure and alternative were discussed with the patient, and the patient agreed to proceed with the procedure and signed the consent IV was started and vital signs monitored during the procedure and fluoroscopy was used to maximize the benefit and accuracy of the needle placement, and sedation was given to decrease patient anxiety, patient was taken to the procedure room and placed in prone position vital signs monitored in the back prepped with chlorhexidine X3 then under strict sterile technique using a right oblique fluoroscopy ,the junction of the transverse process and the superior articulating process of the right L2 , L3 , L4 , and L5 vertebra which corresponding to the fluoroscopy image of the eye of the Ken dog on the block side for the medial branches and subsequently , after local infiltration of skin and subcu tissuies with Ropivacaine 0.5 % , one mL at each level ,then 22-gauge Quincke-type needles , 4 needle was used , each one of them placed at the junction of the base of the transverse process and the superior articular process at the appropriate level, and the needle was advanced until the periosteum contacted, needle placement confirmed with AP oblique and lateral view and after appropriate needle placement confirmed, and after negative aspiration for heme and CSF and there was no paresthesia 2 mL of Ropivacaine 0.5% mixed with 40 mg Depo-Medrol , then half mL injected at each level after negative aspiration the needle subsequently removed intact. At the end of the procedure and the needles removed and a bandage applied after the skin was cleaned the cleaning solution patient taken to recovery room in stable condition and monitors in the recovery room for 20-30 minutes and discharged home in stable condition after discharge criteria met and patient will follow up with the pain clinic in 2-4 weeks
[2019-12-29 09:10] VITALS: BP 125/72; PULSE 72
--- NOTE | 2019-12-29 09:16 | FL ---
EXAMINATION TYPE: FL guided pain mgmt statistic DATE OF EXAM: 12/29/2019 HISTORY: Fluoroscopy time 5 seconds of fluoroscopy provided. IMPRESSION: 1. Fluoroscopy time.
== END ==
LOC: ORPAIN 08:09
PROVIDERS: ATTEND Specialist
DX: G89.29 Other chronic pain (principal); M47.816 Spondylosis without myelopathy or radiculopathy, lumbar region; M51.36 Other intervertebral disc degeneration, lumbar region; K21.9 Gastro-esophageal reflux disease without esophagitis; M19.90 Unspecified osteoarthritis, unspecified site; E89.0 Postprocedural hypothyroidism; Z90.49 Acquired absence of other specified parts of digestive tract; Z98.890 Other specified postprocedural states; Z79.51 Long term (current) use of inhaled steroids; Z98.1 Arthrodesis status; Z92.3 Personal history of irradiation; Z83.6 Family history of other diseases of the respiratory system; Z80.3 Family history of malignant neoplasm of breast; Z82.49 Family history of ischemic heart disease and other diseases of the circulatory system; Z79.1 Long term (current) use of non-steroidal anti-inflammatories (NSAID); Z79.899 Other long term (current) drug therapy; Z88.5 Allergy status to narcotic agent; Z91.030 Bee allergy status; Z87.891 Personal history of nicotine dependence
CPT/HCPCS: 81025; 64493; 64494; 64495; J2250; J1030; J2405; J3010; J2795; 99152

== ENCOUNTER → 2020-03-09 | Outpatient (CLI) | payer BC | END | disposition home or self-care (01) | LOC: LABWHC1 08:30 | PROVIDERS: ATTEND Internal Medicine | DX: R50.9 Fever, unspecified (principal); R52 Pain, unspecified; Z20.828 Contact with and (suspected) exposure to other viral communicable diseases | CPT/HCPCS: 87635 ==

== ENCOUNTER → 2020-03-11 | Outpatient (CLI) | payer BC | END | disposition home or self-care (01) | LOC: LABWHC1 11:05 | PROVIDERS: ATTEND Internal Medicine | DX: Z20.828 Contact with and (suspected) exposure to other viral communicable diseases (principal); R50.9 Fever, unspecified; M79.10 Myalgia, unspecified site | CPT/HCPCS: 87635 ==

== ENCOUNTER → 2020-03-22 | Outpatient (CLI) | payer BC | END | disposition home or self-care (01) | LOC: LABWHC1 08:15 | PROVIDERS: ATTEND Internal Medicine Endocrinology, Diabetes & Metabolism | DX: E05.00 Thyrotoxicosis with diffuse goiter without thyrotoxic crisis or storm (principal) | CPT/HCPCS: 36415; 84439; 84443; 84480 ==

== ENCOUNTER → 2020-03-22 | Outpatient (CLI) | payer BC | END | disposition home or self-care (01) | LOC: LABWHC1 08:13 | PROVIDERS: ATTEND Internal Medicine | DX: E05.00 Thyrotoxicosis with diffuse goiter without thyrotoxic crisis or storm (principal) | CPT/HCPCS: 87635 ==

== ENCOUNTER 2020-03-24 08:34 | Day surgery (SDC) | payer BC ==
[2020-03-23 13:50] VITALS: BMI 31.0
[~2020-03-24 08:34] MED LIST changes: -IV FLUID CONTINUATION 1,000 ML IV ONE; -LIDOCAINE 1% (10MG/ML) FOR IV START INTRADERMA ONE; -MIDAZOLAM 2 MG/2 ML VIAL ONE; -ONDANSETRON 4 MG/2 ML VIAL IVP ONE; -ROPIVACAINE 5MG/ML 20ML VIAL ONE; -fentaNYL (PF) 50 MCG/ML 2 ML AMP ONE; -methylPREDNISolone ACETATE 40 MG/ML 1 ML VIAL ONE
[2020-03-24 08:55] VITALS: TEMP 97.3
[2020-03-24] MEDS ORDERED: LIDOCAINE 1% (10MG/ML) FOR IV START INTRADERMA ONE (08:55)
[2020-03-24] MEDS ORDERED: ONDANSETRON 4 MG/2 ML VIAL IVP ONE (09:05)
[2020-03-24] MEDS ORDERED: IOPAMIDOL M200 10 ML VIAL ONE (09:46)
[2020-03-24] MEDS ORDERED: LIDOCAINE 4% (PF) 5 ML AMP ONE (09:46)
[2020-03-24] MEDS ORDERED: MIDAZOLAM 2 MG/2 ML VIAL ONE (09:46)
[2020-03-24] MEDS ORDERED: IV FLUID CONTINUATION 1,000 ML IV ONE (10:07)
--- NOTE | 2020-03-24 10:19 | FL ---
EXAMINATION TYPE: FL guided pain mgmt statistic DATE OF EXAM: 03/24/2020 FLUOROSCOPY Fluoroscopy time of 4 seconds was used during pain management, lumbar facet block. 2 image/s documen t/s the procedure.
[2020-03-24 10:25] VITALS: RESP 20
[2020-03-24 10:26] VITALS: BP 119/77; PULSE 79
--- NOTE | 2020-03-24 10:30 | P.PCN ---
Date of Procedure: 03/24/20 Procedure(s) Performed: PREOPERATIVE DIAGNOSIS : Lumbar spondylosis with Facet Arthropathy without myelopathy POSTOPERATIVE DIAGNOSIS: same PROCEDURE: Second Diagnostic lumbar medial branch block with fluoroscopy at L2, L3, L4, L5 right side which covers facets L3-4, L4-5 and L5-S1 ANESTHESIA: Local anesthetic; moderate IV sedation with Versed 1 mg, sedation time 10 minutes Fluoroscopy was used for the procedure and images were saved in the radiology portion of the chart. Surgeon: Radha Vance MD PROCEDURE INDICATION: Lumbar back pain without radiculopathy, not responsive to conservative management. PROCEDURE DESCRIPTION: the patient was seen and identified in the preop holding area , risks and benefits and possible complications of the procedure and alternatives were discussed with the patient, and the patient agreed to proceed with the procedure and signed the consent . IV was started , vital signs were monitored during the procedure and fluoroscopy was used to maximize the benefit and accuracy of the needle placement, and sedation was given to decrease patient anxiety. Patient was taken to the procedure room and placed in prone position. The lumbar region was prepped using chlorhexidineX-2. Under strict sterile technique using AP fluoroscopy the bilateral sacral ala were identified and using ipsilateral oblique fluoroscopy ,the junction of the transverse process and the superior articulating process of the L3, L4, L5 vertebra which corresponds to the fluoroscopy image of the eye of the Ken dog for the medial branches were identified. Subsequently, after local infiltration of skin with lidocaine 1% 0.2 mL at each level , a 22-gauge 5 inch Quincke-type needle was placed at the junction of the base of the transverse process and the superior articular process at the appropriate level as well as the sacral ala, and the needle was advanced until the periosteum contacted, needle placement confirmed with AP and oblique fluoroscopy, 0.2 mL of Isovue 200 per level was injected which revealed no vascular uptake and after negative aspiration, 0.5 mL of [lidocaine 4%] was injected at each level and the needle subsequently removed . At the end of the procedure and the needles were removed and a bandage applied after the skin was cleaned. The patient was taken to recovery room in stable condition and monitors in the recovery room for 20-30 minutes and discharged home in stable condition after discharge criteria met and patient will follow up in clinic in 2 weeks EBL: Minimal COMPLICATION: None.
== END 2020-03-24 10:43 | disposition home or self-care (01) ==
LOC: ORPAIN 08:34
PROVIDERS: ATTEND Anesthesiology
DX: M47.816 Spondylosis without myelopathy or radiculopathy, lumbar region (principal); Z88.5 Allergy status to narcotic agent
CPT/HCPCS: 81025; 64493; 64494; 64495; J2001; J2250; J2405; Q9966; 99152

== ENCOUNTER → 2020-04-06 | Outpatient (CLI) | payer BC ==
--- NOTE | 2020-04-06 10:54 | P.PN ---
Progress Note - Text Progress Note Date: 04/06/20 Progress Note - Text 54-year-old female presents for follow-up after 2 successful diagnostic lumbar medial branch blocks on the right L3-L4, L4-L5, L5-S1. She reported greater than 85% relief with both. She noticed significant improvement of ADLs improve walking, improved mood. She is requesting radiofrequency ablation. She is also requesting a repeat cervical epidural steroid injection. She's had previous anterior cervical disc fusion and has had epidural injections after the fusion with excellent relief of radicular pain in her right hand. She's had a return of painful radicular symptoms into her first and second digits and along her forearm. She has chronic weakness stemming prior to her fusion. She denies any gait abnormalities or bowel or bladder incontinence. VAS today is a 6 out of 10 in her right low back worse with flexion and extension. Denies any radicular symptoms into her lower extremities. In addition to above, 13-point review of systems is also negative for chest pain, shortness of breath, changes in vision, changes in hearing, new onset weakness, abdominal pain, diarrhea, extreme fatigue, malaise, fever, skin changes, homicidal or suicidal ideation, or bowel or bladder incontinence. Vital Signs: Reviewed in EMR Gen: WDWN, AAOx3, NAD HEENT: NCAT, EOMI, hearing grossly normal Pulm: resp unlabored Abd: soft, NT, ND Neck: supple, trachea midline ROM in flexion cervical spine: Normal ROM in extension cervical spine: Normal Cervical paravertebral tenderness: Slight tenderness to palpation Cervical Facet tenderness: + Bilateral Spurling's: + On the right with compression along C6 dermatome. ROM in flexion lumbar spine: Pain with flexion at 45 ROM in extension lumbar spine:Pain with extension of -10 Lumbar paravertebral tenderness: Mild tenderness along the right lumbar paraspinal muscles Facet loading: + Right SI joint tenderness: Negative Thee's test: Negative Straight leg raise: Negative Neuro 5 out of 5 strength in lower extremities bilaterally quadricep, gastrocnemius, hip flexors. Patellar reflexes preserved 2 out of 2. Left upper extremity bicep, tricep, deltoid, and radialis muscle preserved. On the right diminished pincer 4 out of 5. Slightly diminished tricep 4+ out of 5. Reflexes intact bilaterally at biceps and brachioradialis. Negative Chun, negative myoclonus. Psychiatric: Mood and affect appropriate, negative would L signs. Gait: Normal gait, patient transitions okay, no assist device required. Imaging: Reviewed in EMR Assessment: 1. Lumbar spondylosis without myelopathy 2. Cervical radiculopathy right C6 3. Cervical degenerative disc disease 4. Lumbar degenerative disc disease Plan: 1. Explanation: Opioid and psychological risk scores were reviewed. Diagnoses, prognoses, and multiple treatment options including but not limited to physical therapy, interventional therapies, adjuvant medical therapies, narcotic medication therapies, and surgery were discussed with the patient and all questions were answered to the patient's satisfaction. 2. Opioid agreement: Not required 3. Counseling: The patient was counseled extensively on BODY MASS INDEX, EXERCISE. Specifically, the patient was instructed regarding the importance of exercise in the context of both chronic pain and overall health. 4. Procedures: We'll schedule patient for right lumbar radio frequency ablation of the L3-L4, L4-L5, L5-S1 facet joints. 5. Consultations: None 6. Investigations Maps reviewed and appropriate. 7. Medications: None 8. Disposition: f/u for procedure as scheduled. The risks and benefits of the procedure were discussed in detail.
[2020-04-06 13:23] VITALS: BP 119/80; PULSE 84; RESP 16
== END | disposition home or self-care (01) ==
LOC: PNWHC3 10:18
PROVIDERS: ATTEND Anesthesiology
DX: M51.36 Other intervertebral disc degeneration, lumbar region (principal); M50.10 Cervical disc disorder with radiculopathy, unspecified cervical region; M47.816 Spondylosis without myelopathy or radiculopathy, lumbar region
CPT/HCPCS: 99211

== ENCOUNTER 2020-04-21 09:37 | Day surgery (SDC) | payer BC ==
[2020-04-20 10:49] VITALS: BMI 30.2
[2020-04-21 10:00] VITALS: TEMP 97.1
[2020-04-21] MEDS ORDERED: ONDANSETRON 4 MG/2 ML VIAL ONE (10:03)
[2020-04-21] MEDS ORDERED: ONDANSETRON 4 MG/2 ML VIAL IVP ONE (10:06)
[2020-04-21] MEDS ORDERED: MIDAZOLAM 2 MG/2 ML VIAL ONE (10:19)
[2020-04-21] MEDS ORDERED: fentaNYL (PF) 50 MCG/ML 2 ML AMP ONE (10:19)
[2020-04-21] MEDS ORDERED: methylPREDNISolone ACETATE 40 MG/ML 1 ML VIAL ONE (10:19)
[2020-04-21] MEDS ORDERED: ROPIVACAINE 5MG/ML 20ML VIAL ONE (10:19)
--- NOTE | 2020-04-21 10:46 | P.PCN ---
Date of Procedure: 04/21/20 Procedure(s) Performed: PREOPERATIVE DIAGNOSIS: 1-Lumbar Spondylosis with Facet Arthropathy without myelopathy. 2- Lumber degenerative disc disease POSTOPERATIVE DIAGNOSIS: 1- Lumbar Spondylosis with Facet Arthropathy without myelopathy. 2- Lumber degenerative disc disease PROCEDURES : Right side Radiofrequency thermocoagulation, L2 , L3 , L4 , and L5 medial branch, with fluoroscopic guidance (fluoroscopy images available in the radiology department) ( to denervate the facet joint at Right L3-4 ,L4-5 ,and L5-S1 levels ) ANESTHESIA: Moderate sedation with intravenous versed 2 mg and fentaneyl 100 mcg, and local infiltration with Ropivacaine 0.5 % . EBL: Minimal PROCEDURE INDICATION: The patient with low back pain secondary to lumbar facet arthropathy who had more than 50% relief of her pain with previous diagnostic lumbar medial branch block with bupivacaine. PROCEDURE DESCRIPTION / TECHNIQUE: The patient was seen and identified in the preoperative area. Risks, benefits, complications, including but not limited to risk of infection ,bleeding , allergic reactions to the medications and no complete pain releife , and alternatives were discussed with the patient, the patient agreed to proceed with the procedure and signed the consent. IV was started. Vital signs remained stable throughout the procedure. Patient was taken to the OR and time out was completed. The patient was placed in the prone position on the procedure table. The lumber area was prepped and draped in the usual sterile fashion. . Vital signs were closely monitored during the procedure .IV sedation was used during the procedure to decrease patients anxiety. Using AP and then oblique fluoroscopy, the ``eye of the Ken dog corresponding to the connection between the superior and transverse articular processes of right L2 , L3, L4, and L5 were identified, marked, and localized with 1% lidocaine. Subsequently, a 18 guage VENOM 100-mm radiofrequency cannula with a 10-mm active tip was advanced guided by fluoroscopy to each of the``eyes of the Ken dog at right L2 , L3, L4, and L5. Each site then underwent sensory testing at 50 Hz and 0 to 1 volt and motor testing at 2.5 Hz and 0 to 3 volt with local stimulation, but no radicular symptoms down the legs. Thereafter each sites underwent radiofrequency thermocoagulation at 80 degrees celsius for 90 seconds after injecting 0.5 ml of PF Ropivacaine 1ml, then after the thermocoagulation done , 1 ml of the block solution containing Depo-Medrol 40 mg and 4 ml of Ropivacaine 0.5% was injected at the right L2 ,L3 , L4 , and L5 , levels after negative aspiration of CSF and blood and with no paresthesias. Cannulas were retracted while injecting lidocaine 1% until the needle is out. At the end of the procedure, the skin was cleansed and bandages were applied. COMPLICATIONS: No acute complications. DISPOSITION / PLANS: The patient was placed in a supine position and transferred to the recovery area in a stable condition for observation and was discharged from the recovery room after meeting discharge criteria. Home discharge instructions given to the patient by the staff. The patient was reexamined prior to discharge. The patient will schedule a follow up in the clinic in 2-4 weeks.
[2020-04-21] MEDS ORDERED: IV FLUID CONTINUATION 800 ML IV ONE (10:50)
[2020-04-21 10:53] VITALS: RESP 18
--- NOTE | 2020-04-21 10:55 | FL ---
EXAMINATION TYPE: FL guided pain mgmt statistic DATE OF EXAM: 04/21/2020 HISTORY: Fluoroscopy time 15 seconds of fluoroscopy provided. IMPRESSION: 1. Fluoroscopy time.
[2020-04-21 11:06] VITALS: BP 109/70; PULSE 74
== END 2020-04-21 11:22 | disposition home or self-care (01) ==
LOC: ORPAIN 09:37
PROVIDERS: ATTEND Specialist
DX: M47.816 Spondylosis without myelopathy or radiculopathy, lumbar region (principal); M51.36 Other intervertebral disc degeneration, lumbar region; I25.10 Atherosclerotic heart disease of native coronary artery without angina pectoris; E05.90 Thyrotoxicosis, unspecified without thyrotoxic crisis or storm; Z91.048 Other nonmedicinal substance allergy status; Z88.5 Allergy status to narcotic agent
CPT/HCPCS: 64635; 64636 ×2; J2250; J1030; J2405; J3010; J2795; 99152

== ENCOUNTER → 2020-05-10 | Outpatient (CLI) | payer BC ==
[2020-05-10 14:21] VITALS: BP 122/75; PULSE 93; RESP 16
--- NOTE | 2020-05-10 15:03 | P.PAINPG ---
Subjective Progress Note Date: 05/10/20 This is a follow-up visit for this 54 years old female with a chronic history of severe low back pain and severe neck pain, patient had the cervical fusion surgery done 2 years ago , and patient diagnosed with lumbar spondylosis with lumbar facet arthropathy, and lumbar degenerative disc disease, last months we have done a right-sided radiofrequency thermocoagulation of the median branch lumbar area, currently she is complaining of severe low back pain mainly on the right side localized above the right buttock area, and also she is complaining of severe neck pain with radiation to the upper extremity bilaterally associated with numbness and tingling sensation, she had no motor or sensory deficit, she continued to work, she denies any fever or night sweats and she denies any change in the bowel movement or urination, she continued to use Neurontin 300 mg 3 times a day and Flexeril 10 mg daily at bedtime she denies any side effect of the medication and she is getting prescription refills from her primary care. Objective - Vital Signs Vital signs: Vital Signs Temp Pulse 93 05/10/20 14:09 Resp 16 05/10/20 14:09 BP 122/75 05/10/20 14:09 Pulse Ox 96 05/10/20 14:09 Intake & Output 05/09/20 05/10/20 05/10/20 18:59 06:59 18:59 Weight 95.254 kg - Exam Physical Examinations : -Constitutiona : Cooperative , not in acute distress . -HEENT : nech : supple , no Lymphadenopathy , normal thyroid size . : eyes : no ptosis , no icterus, no photophobia . - neurologic : Cranial nerve II to XII intact , no focal neurological deffecit . -psychatric : alert , oriented X 3 , appropriate affect , intact judgment and insight . -Lymphatic : no Lymphadenopathy . - musculoskeltal : Cervical Spine motor stregnth in the deltoid and biceps, normal right side , normal Left side motor stregnth biceps and the wrist extensors normal right side ,normal left side . motor stregnth in the triceps muscle . normal Right side , normal Left side deep tendon reflexes normal at the biceps , normal at Brachioradialis , normal at triceps. cervical facet loading test= Positive Bilaterally Spurling test= positive bilaterally. Neck distraction test= positive bilaterally. Brenda sign= positive bilaterally. Lumber spine moter stegnth lower extremities ,thigh and legs 5/5 Right side , 5/5 Left side deep tendon reflexes : normal Knee Jerk , normal ankle Jerk lumber facet Loading Test =positive Right , positive Left Range of motion of the lumbar spine Flexion 30 degrees, extension 10 degrees strait leg raising test = negative bilaterally. Sever tenderness over the right iliolumbar ligament . Assessment and Plan Assessment: Assessment and plan=1-cervical radiculopathy. 2-cervical degenerative disc disease. 3-failed Back surgery syndrome cervical area. 4-lumbar spondylosis with lumbar facet arthropathy. 5-right iliolumbar ligament neuralgia Patient could benefit from cervical epidural steroid injections under fluoroscopy guidance at C7-T1 Patient could benefit from right side iliolumbar ligament injection under fluoroscopy guidance which can be done at the same time Patient could benefit from physical therapy evaluation and treatment Patient could benefit from Richard and neck gel seat percent to be applied to the right-sided low back area twice a day Time with Patient: Less than 30 PQRS Measure Charge Sheet Measure #130: Documentation of Current Meds in Medical Chart: Patient's medications documented in chart Measure #226: Tobacco Use: Screen & Cessation Intervention: Pt not a tobacco user Measure #111: Pneumonia Vaccination: Pneumococcal vaccine administered or previously received Measure #47: Advance Care Plan: Advance care planning discussed & documented, pt chose/unable to give Measure #412: Opioid Treatment Agreement: No documentation of signed opioid treatment agreement Measure #408: Opioid Therapy Follow-up Evaluation: Patient had NO f/u eval minimum every 3 months during opioid therapy Measure #317: Preventitive Care & Scrn High Bld Press & F/U: Normal blood pressure, f/u not required Measure #128: Body Mass Index (BMI) Screening & Follow-up: BMI documented ABOVE normal parameters - f/u documented Measure #131: Pain Assessment & Follow-up: Pain positive & plan documented, Follow-up scheduled Measure #431: Unhealthy Alcohol Use Preventative Care & Scrn: Patient not identified as an unhealthy alcohol user PQRS Narrative: Smoking Status Former smoker Blood Pressure 122/75 Pain Intensity [Medial Neck] 5 Scale Used Numeric (1 - 10) Hx Alcohol Use (MH) Yes: 1 q day Home Medications: Ambulatory Orders Furosemide [Lasix] 40 mg PO DAILY PRN 04/29/17 ALPRAZolam [Xanax] 0.25 mg PO BID PRN 05/14/18 Cholecalciferol [Vitamin D3] 1,000 unit PO DAILY 05/14/18 Escitalopram [Lexapro] 5 mg PO DAILY 05/14/18 Potassium Chloride [Klor-Con 20] 20 meq PO DAILY PRN 05/14/18 Cyclobenzaprine [Flexeril] 10 mg PO BID 08/12/18 Ibuprofen [Motrin Ib] 800 mg PO BID PRN 08/12/18 L.acidoph,Paracasei, B.lactis [Probiotic] 1 each PO DAILY 08/12/18 Mirabegron [Myrbetriq] 50 mg PO DAILY 08/12/18 Gabapentin [Neurontin] 300 mg PO TID 03/26/19 LORazepam [Ativan] 0.5 mg PO BID 03/26/19 Omeprazole [PriLOSEC] 20 mg PO DAILY 03/26/19 Biotin 5 mg PO DAILY 10/08/19 Controlled Substance Measures - Controlled Substance Measures Is patient prescribed a controlled substance at discharge?: No
== END | disposition home or self-care (01) ==
LOC: PNWHC3 14:03
PROVIDERS: ATTEND Specialist
DX: M50.10 Cervical disc disorder with radiculopathy, unspecified cervical region (principal); M47.816 Spondylosis without myelopathy or radiculopathy, lumbar region; M96.1 Postlaminectomy syndrome, not elsewhere classified; G58.8 Other specified mononeuropathies; Z87.891 Personal history of nicotine dependence; Z79.899 Other long term (current) drug therapy
CPT/HCPCS: 99211

== ENCOUNTER 2020-06-07 07:00 | Day surgery (SDC) | payer BC ==
[2020-06-07 07:24] VITALS: TEMP 98.5
[2020-06-07] MEDS ORDERED: LACTATED RINGERS 1,000 ML IV ONE ×2 (07:40)
[2020-06-07] MEDS ORDERED: ONDANSETRON 4 MG/2 ML VIAL ONE (07:42)
[2020-06-07] MEDS ORDERED: ONDANSETRON 4 MG/2 ML VIAL IVP ONE (07:44)
[2020-06-07] MEDS ORDERED: IOPAMIDOL M200 10 ML VIAL ONE (07:48)
[2020-06-07] MEDS ORDERED: DEXAMETHASONE SOD PHOSPHATE 10 MG/ML 1 ML VIAL ONE (07:48)
[2020-06-07] MEDS ORDERED: MIDAZOLAM 2 MG/2 ML VIAL ONE (07:48)
[2020-06-07] MEDS ORDERED: ROPIVACAINE 5MG/ML 20ML VIAL ONE (07:48)
[2020-06-07] MEDS ORDERED: fentaNYL (PF) 50 MCG/ML 2 ML AMP ONE (07:48)
--- NOTE | 2020-06-07 08:11 | P.PCN ---
Date of Procedure: 06/07/20 Procedure(s) Performed: . PROCEDURE 1. Cervical epidural steroid injection under fluoroscopic guidance, C7-T1 (fluoroscopy images available in the radiology department ) 2. Cervical epidurogram. 3. Right iliolumbar ligament steroid injections under fluoroscopy guidance PREOPERATIVE DIAGNOSIS: 1- Cervical Degenerative Disc Diseases 2- Cervical radiculopathy., 3-failed back surgery syndrome ,cervical area 4-right iliolumbar ligament neuralgia POSTOPERATIVE DIAGNOSIS: : 1- Cervical Degenerative Disc Diseases , 2- Cervical radiculopathy. 3-failed back surgery syndrome , cervical area. 4-right iliolumbar ligament steroid injections under fluoroscopy guidance ANESTHESIA: Local anesthesia with lidocaine 1 % , and moderate sedation, with Versed 2 mg and Fentanyl 50 mcg. EBL 0 PROCEDURE INDICATION: The patient with neck pain and radiculitis unresponsive to conservative treatment consents for procedure. PROCEDURE DESCRIPTION / TECHNIQUE: The patient was seen and identified in the preoperative area. Risks, benefits, complications, including but not limited to infections ,bleeding , allergic reactions to the medications ,and not complete pain releife, and alternatives were discussed with the patient, the patient agreed to proceed with the procedure and signed the consent. Patient was taken to the OR and time out was completed. The patient was placed in the prone position on the procedure table. A pillow was placed under the patients chest to increase the cervical interlaminar space. The cervical area was prepped and draped in the usual sterile fashion. Vital signs were closely monitored during the procedure. Conscious sedation was used during the procedure to decrease patients anxiety. Using anterior-posterior fluoroscopy, the C7-T1 interlaminar space was identified and the skin over this site was marked and then infiltrated with 1% lidocaine subcutaneously. Subsequently, a 20-gauge 3-1/2-inch Tuohy epidural needle was inserted and advanced toward the epidural space by means of the ``hanging-drop technique and guided by AP and lateral fluoroscopy. The correct needle position in the epidural space was verified with the injection of 2 mL of the water soluble contrast dye Isovue-200 and observing an excellent epidurogram with the epidural spread of the dye, after negative aspiration for blood and CSF and in the absence of paresthesias. Again after negative as piration, mixture containing 15 mg Dexamethasone and 2 ml of preservative- free normal saline injected and a washout of epidurogram was seen. Needle was withdrawn intact, skin was cleansed, and bandages were applied. Then the right side and iliolumbar ligament done under sterile technique the right lumbar area prepped with Betadine 3 and then under fluoroscopy guidance local infiltration of the skin and subcutaneous tissue with lidocaine 1% 3 mL a 22-gauge Quincke Needle advanced slowly under fluoroscopy and placed under the transverse process of the right side L5 vertebra, and the location of the right iliolumbar ligament total of ropivacaine 0.5% 5 ML and 5 mg of dexamethasone injected after negative aspiration patient tolerated the procedure well without any condition Complications= none. Disposition= patient was placed in supine position and transferred to the recovery room area in stable condition and there was no evidence of upper or lower extremity motor or sensory deficit after the procedure patient was discharged from recovery room after discharge criteria met and home discharge instructions was given by the staff and patient will follow with the pain clinic in 2-4 weeks
[2020-06-07 08:20] VITALS: BP 113/65; PULSE 69; RESP 17
--- NOTE | 2020-06-07 08:42 | FL ---
Fluoroscopy HISTORY: Pain 4 seconds fluoroscopy time supplied to the referring clinician. 2 intraoperative C-arm images docume nt the procedure. See dictated report from anesthesia.
== END 2020-06-07 08:47 | disposition home or self-care (01) ==
LOC: ORPAIN 07:00
PROVIDERS: ATTEND Specialist
DX: M50.10 Cervical disc disorder with radiculopathy, unspecified cervical region (principal); M96.1 Postlaminectomy syndrome, not elsewhere classified; G58.8 Other specified mononeuropathies; M47.816 Spondylosis without myelopathy or radiculopathy, lumbar region; Z88.5 Allergy status to narcotic agent; Z91.030 Bee allergy status
CPT/HCPCS: 62321; 20550; J2250; J1100; J2405; J3010; Q9966; J2795

== ENCOUNTER → 2020-06-22 | Outpatient (CLI) | payer BC | END | disposition home or self-care (01) | LOC: RADXRMAIN 13:52 | PROVIDERS: ATTEND Internal Medicine | DX: Z53.9 Procedure and treatment not carried out, unspecified reason (principal) ==

== ENCOUNTER → 2020-06-22 | Outpatient (CLI) | payer BC ==
--- NOTE | 2020-06-22 14:30 | XR ---
EXAMINATION TYPE: XR knee limited bilateral DATE OF EXAM: 06/22/2020 CLINICAL HISTORY: Bilateral knee pain for 2 months. No known injury. TECHNIQUE: AP and lateral views of the bilateral knees obtained. COMPARISON: 11/22/2010 bilateral knee radiograph FINDINGS: There is no acute fracture/dislocation evident in the bilateral knees. There is tricompar tmental degenerative spurring bilaterally. There is joint space narrowing of the left medial compartm ent with sclerosis. Right suprapatellar joint effusion. Normal osseous mineralization. The overlying soft tissue appears unremarkable. IMPRESSION: 1. No acute fracture or dislocation of the bilateral knees. 2. Tricompartmental osteoarthritis bilaterally, significantly increased versus 2010 comparison. Left medial compartment joint space narrowing.
== END | disposition home or self-care (01) ==
LOC: RADXRMAIN 13:42
PROVIDERS: ATTEND Internal Medicine
DX: M17.0 Bilateral primary osteoarthritis of knee (principal); M25.862 Other specified joint disorders, left knee

== ENCOUNTER → 2020-09-07 | Outpatient (CLI) | payer BC ==
[2020-09-07 14:28] VITALS: BP 122/77; PULSE 80; RESP 16; TEMP 98.1
--- NOTE | 2020-09-07 15:02 | P.PN ---
Subjective Progress Note Date: 09/07/20 This is a follow-up visit for this 54 years old female with a chronic history of severe low back pain and severe neck pain, patient had the cervical fusion surgery done 2 years ago , and patient diagnosed with lumbar spondylosis with lumbar facet arthropathy, and lumbar degenerative disc disease, currently she is complaining of severe neck pain with radiation to the right upper extremity associated with numbness and tingling sensation, she had no motor or sensory deficit, she continued to work, she denies any fever or night sweats and she denies any change in the bowel movement or urination, she continued to use Neurontin 300 mg 3 times a day and Flexeril 10 mg daily at bedtime she denies any side effect of the medication and she is getting prescription refills from her primary care. Objective - Vital Signs Vital signs: Vital Signs Temp 98.1 F 09/07/20 14:19 Pulse 80 09/07/20 14:19 Resp 16 09/07/20 14:19 BP 122/77 09/07/20 14:19 Pulse Ox 97 09/07/20 14:19 Intake & Output 09/06/20 09/07/20 09/07/20 18:59 06:59 18:59 Weight 93.894 kg - Exam Physical Examinations : -Constitutiona : Cooperative , not in acute distress . -HEENT : nech : supple , no Lymphadenopathy , normal thyroid size . : eyes : no ptosis , no icterus, no photophobia . - neurologic : Cranial nerve II to XII intact , no focal neurological deffecit . -psychatric : alert , oriented X 3 , appropriate affect , intact judgment and insight . -Lymphatic : no Lymphadenopathy . - musculoskeltal : Cervical Spine motor stregnth in the deltoid and biceps, normal right side , normal Left side motor stregnth biceps and the wrist extensors normal right side ,normal left side . motor stregnth in the triceps muscle . normal Right side , normal Left side deep tendon reflexes normal at the biceps , normal at Brachioradialis , normal at triceps. cervical facet loading test= Positive Bilaterally Spurling test= positive bilaterally. Neck distraction test= positive bilaterally. Brenda sign= positive bilaterally. Lumber spine moter stegnth lower extremities ,thigh and legs 5/5 Right side , 5/5 Left side deep tendon reflexes : normal Knee Jerk , normal ankle Jerk lumber facet Loading Test =positive Right , positive Left Range of motion of the lumbar spine Flexion 30 degrees, extension 10 degrees strait leg raising test = negative bilaterally. . Assessment and Plan Plan: Assessment and plan=1-cervical radiculopathy. 2-cervical degenerative disc disease. 3-failed Back surgery syndrome cervical area. 4-lumbar spondylosis with lumbar facet arthropathy. Patient could benefit from cervical epidural steroid injections under fluoroscopy guidance at C7-T1 ( right paramedian approach ) Time with Patient: Less than 30 PQRS Measure Charge Sheet Measure #130: Documentation of Current Meds in Medical Chart: Patient's medications documented in chart Measure #226: Tobacco Use: Screen & Cessation Intervention: Pt not a tobacco user Measure #111: Pneumonia Vaccination: Pneumococcal vaccine administered or previously received Measure #47: Advance Care Plan: Advance care planning discussed & documented, pt chose/unable to give Measure #412: Opioid Treatment Agreement: No documentation of signed opioid treatment agreement Measure #408: Opioid Therapy Follow-up Evaluation: Patient had NO f/u eval minimum every 3 months during opioid therapy Measure #317: Preventitive Care & Scrn High Bld Press & F/U: Normal blood pressure, f/u not required Measure #128: Body Mass Index (BMI) Screening & Follow-up: BMI documented ABOVE normal parameters - f/u documented Measure #131: Pain Assessment & Follow-up: Pain positive & plan documented, Follow-up scheduled Measure #431: Unhealthy Alcohol Use Preventative Care & Scrn: Patient not identified as an unhealthy alcohol user PQRS Narrative: Time with Patient: Less than 30
== END | disposition home or self-care (01) ==
LOC: PNWHC3 13:58
PROVIDERS: ATTEND Specialist
DX: M50.10 Cervical disc disorder with radiculopathy, unspecified cervical region (principal); M96.1 Postlaminectomy syndrome, not elsewhere classified; M47.816 Spondylosis without myelopathy or radiculopathy, lumbar region
CPT/HCPCS: 99211

== ENCOUNTER → 2020-09-21 | Day surgery (SDC) | payer BC ==
[2020-09-19 14:57] VITALS: BMI 31.3
[~2020-09-21] MED LIST changes: +LIDOCAINE 1% (10MG/ML) FOR IV START INTRADERMA ONE; +LIDOCAINE 1% INJ 10MG/ML (20 ML MDV) ONE; +ONDANSETRON 4 MG/2 ML VIAL IVP ONE; +ONDANSETRON 4 MG/2 ML VIAL IVP PRN; +ONDANSETRON 4 MG/2 ML VIAL ONE; +PROPOFOL 10 MG/ML 20 ML VIAL IV ONE
[2020-09-21 07:53] VITALS: RESP 16; TEMP 98.4
--- NOTE | 2020-09-21 08:18 | P.PCN ---
Date of Procedure: 09/21/20 Procedure(s) Performed: BRIEF HISTORY: Patient is a 54-year-old pleasant white female scheduled for an elective colonoscopy as a part of screening for colorectal neoplasia. PROCEDURE PERFORMED: Colonoscopy. PREOPERATIVE DIAGNOSIS: Screening for colon cancer. IV sedation per Anesthesia. PROCEDURE: After informed consent was obtained, the patient, was brought into the endoscopy unit. IV sedation was administered by Anesthesia under continuous monitoring. Digital rectal examination was normal. Initially the Olympus CF-160 flexible video colonoscope was then inserted in the rectum, gradually advanced into the cecum without any difficulty. Careful examination was performed as the scope was gradually being withdrawn. Ileocecal valve and the appendiceal orifice were visualized and appeared normal. Prep was excellent. Mucosa of the cecum, ascending colon, transverse colon, descending colon, sigmoid colon, and rectum appeared normal. Scattered sigmoid diverticulosis. Retroflexion was performed in the rectum and no lesions were seen. The patient tolerated the procedure well. IMPRESSION: Normal-appearing colon from rectum to cecum with no evidence of colorectal neoplasia . Scattered sigmoid diverticulosis. RECOMMENDATIONS: Findings of this examination were discussed with the patient well as her family. She was advised to have a repeat screening colonoscopy in 10 years.
[2020-09-21 08:40] VITALS: BP 124/60; PULSE 70
== END ==
LOC: ORWHC2ENDO 07:12
PROVIDERS: ATTEND Internal Medicine Gastroenterology
DX: Z12.11 Encounter for screening for malignant neoplasm of colon (principal); K57.30 Diverticulosis of large intestine without perforation or abscess without bleeding; E07.9 Disorder of thyroid, unspecified; K21.9 Gastro-esophageal reflux disease without esophagitis; Z88.5 Allergy status to narcotic agent; Z98.51 Tubal ligation status; Z79.899 Other long term (current) drug therapy
CPT/HCPCS: 81025; J2405; J2001; J2704; G0121

== ENCOUNTER → 2020-09-23 | Outpatient (CLI) | payer BC ==
--- NOTE | 2020-09-26 08:25 | MM ---
Reason for exam: screening (asymptomatic). Last mammogram was performed 2 years and 2 months ago. History: Patient is postmenopausal. Family history of breast cancer in mother and breast cancer in paternal grandmother. Benign left mammotome panel of the left breast, March 25, 2013. Excisional biopsy of the left breast. Took hormonal contraceptives for 2 years. Physical Findings: A clinical breast exam by your physician is recommended on an annual basis and results should be correlated with mammographic findings. MG 3D Screening Mammo W/Cad Bilateral CC and MLO view(s) were taken. Prior study comparison: July 23, 2018, bilateral MG 3d diag mammo w/cad [facility]. August 26, 2017, bilateral MG 3d screening mammo w/cad. The breast tissue is extremely dense which could obscure a lesion on mammography. Finding: There are stable round, grouped/clustered calcifications in the 12 o'clock upper quadrant, middle position, 6cm from the nipple. Previous mammotome biopsy in the left breast. No significant changes in finding since July 23, 2018 and August 26, 2017. ASSESSMENT: Benign, BI-RAD 2 RECOMMENDATION: Routine screening mammogram of both breasts in 1 year.
== END | disposition home or self-care (01) ==
LOC: RADMAMWWP 09:43
PROVIDERS: ATTEND Obstetrics & Gynecology
DX: Z12.31 Encounter for screening mammogram for malignant neoplasm of breast (principal)
CPT/HCPCS: 77063; 77067

== ENCOUNTER → 2020-09-23 | Outpatient (CLI) | payer BC ==
[2020-09-23 19:14] LABS: Uric Acid 3.9 mg/dL (2.9-7.7)
[2020-09-23 20:18] LABS: Cyclic Citrull Pep IgG Unit 0.6 U/mL; Cyclic Citrullinated Pep IgG NEGATIVE (NEGATIVE)
== END | disposition home or self-care (01) ==
LOC: LABWHC1 10:23
PROVIDERS: ATTEND Internal Medicine
DX: M19.90 Unspecified osteoarthritis, unspecified site (principal)
CPT/HCPCS: 36415; 84550; 85652; 86038; 86200; 86431

== ENCOUNTER → 2020-10-06 | Day surgery (SDC) | payer BC ==
[2020-10-05 12:06] VITALS: BMI 31.1
[~2020-10-06] MED LIST changes: +DEXAMETHASONE SOD PHOSPHATE 10 MG/ML 1 ML VIAL ONE; +IOPAMIDOL M200 10 ML VIAL ONE; +IV FLUID CONTINUATION 1,000 ML IV ONE; -LIDOCAINE 1% INJ 10MG/ML (20 ML MDV) ONE; +MIDAZOLAM 2 MG/2 ML VIAL ONE; -ONDANSETRON 4 MG/2 ML VIAL IVP ONE; -ONDANSETRON 4 MG/2 ML VIAL IVP PRN; -PROPOFOL 10 MG/ML 20 ML VIAL IV ONE; +fentaNYL (PF) 50 MCG/ML 2 ML AMP ONE
[2020-10-06 07:54] VITALS: RESP 16; TEMP 97.7
--- NOTE | 2020-10-06 08:43 | P.PCN ---
Date of Procedure: 10/06/20 Procedure(s) Performed: PROCEDURE 1. Cervical epidural steroid injection under fluoroscopic guidance, C7-T1 (fluoroscopy images available in the radiology department ) 2. Cervical epidurogram. PREOPERATIVE DIAGNOSIS: 1- Cervical Degenerative Disc Diseases 2- Cervical radiculopathy., 3-failed back surgery syndrome ,cervical are POSTOPERATIVE DIAGNOSIS: : 1- Cervical Degenerative Disc Diseases , 2- Cervical radiculopathy. 3-failed back surgery syndrome , cervical area. ANESTHESIA: Local anesthesia with lidocaine 1 % , and moderate sedation, with Versed 2 mg and Fentanyl 50 mcg. EBL= 0 PROCEDURE INDICATION: The patient with neck pain and radiculitis unresponsive to conservative treatment consents for procedure. PROCEDURE DESCRIPTION / TECHNIQUE: The patient was seen and identified in the preoperative area. Risks, benefits, complications, including but not limited to infections ,bleeding , allergic reactions to the medications ,and not complete pain releife, and alternatives were discussed with the patient, the patient agreed to proceed with the procedure and signed the consent. Patient was taken to the OR and time out was completed. The patient was placed in the prone position on the procedure table. A pillow was placed under the patients chest to increase the cervical interlaminar space. The cervical area was prepped and draped in the usual sterile fashion. Vital signs were closely monitored during the procedure. Conscious sedation was used during the procedure to decrease patients anxiety. Using anterior-posterior fluoroscopy, the C7-T1 interlaminar space was identified and the skin over this site was marked and then infiltrated with 1% lidocaine subcutaneously. Subsequently, a 20-gauge 3-1/2-inch Tuohy epidural needle was inserted and advanced toward the epidural space by means of the ``hanging-drop technique and guided by AP and lateral fluoroscopy. The correct needle position in the epidural space was verified with the injection of 2 mL of the water soluble contrast dye Isovue-200 and observing an excellent epidurogram with the epidural spread of the dye, after negative aspiration for blood and CSF and in the absence of paresthesias. Again after negative aspiration, mixture containing 20 mg Dexamethasone and 2 ml of preservative- free normal saline injected and a washout of epidurogram was seen. Needle was withdrawn intact, skin was cleansed, and bandages were applied. Complications= none. Disposition= patient was placed in supine position and transferred to the recovery room area in stable condition and there was no evidence of upper or lower extremity motor or sensory deficit after the procedure patient was discharged from recovery room after discharge criteria met and home discharge instructions was given by the staff and patient will follow with the pain clinic in 2-4 weeks
[2020-10-06 09:14] VITALS: BP 129/77; PULSE 70
--- NOTE | 2020-10-06 10:24 | FL ---
EXAMINATION TYPE: FL guided pain mgmt statistic DATE OF EXAM: 10/06/2020 HISTORY: Fluoroscopy time 5 seconds of fluoroscopy provided. IMPRESSION: 1. Fluoroscopy time.
== END ==
LOC: ORPAIN 07:32
PROVIDERS: ATTEND Specialist
DX: M96.1 Postlaminectomy syndrome, not elsewhere classified (principal); Z88.5 Allergy status to narcotic agent; Z91.030 Bee allergy status
CPT/HCPCS: 81025; 62321; J2250; J1100; J3010; Q9966

== ENCOUNTER → 2020-11-30 | Outpatient (CLI) | payer BC ==
[2020-11-30 14:31] VITALS: BP 116/74; PULSE 79; RESP 18; TEMP 98.5
--- NOTE | 2020-11-30 15:36 | P.PN ---
Subjective Progress Note Date: 11/30/20 This is a follow-up visit for this 55 years old female with a chronic history of severe low back pain, and severe neck pain, patient had the cervical fusion surgery done 2 years ago , and patient diagnosed with lumbar spondylosis with lumbar facet arthropathy, and lumbar degenerative disc disease, recently limited cervical epidural steroid injection which helped her neck pain significantly currently she is complaining of increased low back pain, last year we have been RFA of the medial branch in the lumbar area on the right side, currently she is complaining of increased low back pain which is bilateral, with radiation to the buttock area bilaterally, she denies any motor or sensory deficits and she reported that intensity of the pain is interfering with her quality of life and ability to do activities of daily livings or ability to walk, the pain is constant increased with any activity, she denies any motor or sensory deficit she denies any fever or night sweats, intensity of the pain in the low back area increased from 6/10-10 over 10 with activity, also patient complained of severe knee pain and she is scheduled to have bilateral knee replacement in January 2021 Objective - Vital Signs Vital signs: Vital Signs Temp 98.5 F 11/30/20 14:28 Pulse 79 11/30/20 14:28 Resp 18 11/30/20 14:28 BP 116/74 11/30/20 14:28 Pulse Ox 97 11/30/20 14:28 - Exam Physical Examinations : -Constitutiona : Cooperative , not in acute distress . -HEENT : nech : supple , no Lymphadenopathy , normal thyroid size . : eyes : no ptosis , no icterus, no photophobia . - neurologic : Cranial nerve II to XII intact , no focal neurological deffecit . -psychatric : alert , oriented X 3 , appropriate affect , intact judgment and insight . -Lymphatic : no Lymphadenopathy . - musculoskeltal : Lumber spine moter stegnth lower extremities ,thigh and legs 5/5 Right side , 5/5 Left side deep tendon reflexes : normal Knee Jerk , normal ankle Jerk lumber facet Loading Test =positive Right , posiutive Left Range of motion of the lumbar spine Flexion 30 degrees, extension 10 degrees strait leg raising test = positive at 30 degree Fabere test= positive Right , and positive LT . tenderness over the Sacroiliac joint on the Right , and Left sides . Assessment and Plan Plan: MRI of the lumbar spine done in August 2019 showed multilevel lumbar degenerative disc disease and lumbar spondylosis with lumbar facet arthropathy Assessment and plan= neck pain secondary to cervical degenerative disc disease and failed back surgery syndrome and cervical area Neck pain improved after cervical epidural steroid injections Low back pain secondary to lumbar spondylosis with lumbar facet arthropathy without myelopathy. Lumbar degenerative disc disease Patient currently complaining of low back pain bilaterally, last year we did RFA of the medial branch on the right side only We will schedule patient to have bilateral medial branch block lumbar area L3,L4,L5 ( L4-5, L5-S1 ) Time with Patient: Less than 30 PQRS Measure Charge Sheet Measure #130: Documentation of Current Meds in Medical Chart: Patient's medications documented in chart Measure #226: Tobacco Use: Screen & Cessation Intervention: Pt not a tobacco user Measure #111: Pneumonia Vaccination: Pneumococcal vaccine administered or previously received Measure #47: Advance Care Plan: Advance care planning discussed & documented, pt chose/unable to give Measure #412: Opioid Treatment Agreement: No documentation of signed opioid treatment agreement Measure #408: Opioid Therapy Follow-up Evaluation: Patient had NO f/u eval minimum every 3 months during opioid therapy Measure #317: Preventitive Care & Scrn High Bld Press & F/U: Normal blood pressure, f/u not required Measure #128: Body Mass Index (BMI) Screening & Follow-up: BMI documented ABOVE normal parameters - f/u documented Measure #131: Pain Assessment & Follow-up: Pain positive & plan documented, Fo llow-up scheduled Measure #431: Unhealthy Alcohol Use Preventative Care & Scrn: Patient not identified as an unhealthy alcohol user PQRS Narrative: Time with Patient: Less than 30
== END | disposition home or self-care (01) ==
LOC: PNWHC3 14:18
PROVIDERS: ATTEND Specialist
DX: M50.30 Other cervical disc degeneration, unspecified cervical region (principal); M51.36 Other intervertebral disc degeneration, lumbar region; M47.816 Spondylosis without myelopathy or radiculopathy, lumbar region; M96.1 Postlaminectomy syndrome, not elsewhere classified
CPT/HCPCS: 99211

== ENCOUNTER 2021-01-06 07:13 | Day surgery (SDC) | payer BC ==
[2021-01-04 13:00] VITALS: BMI 30.4
[~2021-01-06 07:13] MED LIST changes: -DEXAMETHASONE SOD PHOSPHATE 10 MG/ML 1 ML VIAL ONE; -IOPAMIDOL M200 10 ML VIAL ONE; -IV FLUID CONTINUATION 1,000 ML IV ONE; -LIDOCAINE 1% (10MG/ML) FOR IV START INTRADERMA ONE; -MIDAZOLAM 2 MG/2 ML VIAL ONE; -ONDANSETRON 4 MG/2 ML VIAL ONE; -fentaNYL (PF) 50 MCG/ML 2 ML AMP ONE
[2021-01-06] MEDS ORDERED: ONDANSETRON 4 MG/2 ML VIAL ONE (07:44)
[2021-01-06] MEDS ORDERED: LIDOCAINE 1% (10MG/ML) FOR IV START INTRADERMA ONE (07:45)
[2021-01-06 07:51] VITALS: RESP 16; TEMP 97.5
[2021-01-06] MEDS ORDERED: methylPREDNISolone ACETATE 40 MG/ML 1 ML VIAL ONE (08:05)
[2021-01-06] MEDS ORDERED: MIDAZOLAM 2 MG/2 ML VIAL ONE (08:05)
[2021-01-06] MEDS ORDERED: ROPIVACAINE 5MG/ML 20ML VIAL ONE (08:05)
[2021-01-06] MEDS ORDERED: fentaNYL (PF) 50 MCG/ML 2 ML AMP ONE (08:05)
--- NOTE | 2021-01-06 08:29 | P.PCN ---
Date of Procedure: 01/06/21 Procedure(s) Performed: PREOPERATIVE DIAGNOSIS : 1- Lumbar spondylosis with Facet Arthropathy without myelopathy . 2- Lumber degenerative disc disease POSTOPERATIVE DIAGNOSIS: 1- Lumbar spondylosis with Facet Arthropathy without myelopathy . 2- Lumber degenerative disc disease PROCEDURE: Diagnostic bilateral L3 , L4 , and L5 medial branch block under fluoroscopy guidance(fluoroscopy images available in the radiology Department ) ( To target the facet joint between L4-5 , and L5-S1 ) ANESTHESIA:, Monitored anesthesia care as per anesthesia department. EBL: Minimal COMPLICATION: None PROCEDURE INDICATION: Chronic low back pain secondary to Facet arthropathy unresponsive to conservative treatment. PROCEDURE DESCRIPTION: the patient was seen and identified in the preop holding area , risks and benefits and possible complications of the procedure and alternative were discussed with the patient, and the patient agreed to proceed with the procedure and signed the consent and vital signs monitored during the procedure and fluoroscopy was used to maximize the benefit and accuracy of the needle placement, and sedation was given to decrease patient anxiety, patient was taken to the procedure room and placed in prone position vital signs monitored in the back prepped with chlorhexidine X3 then under strict sterile technique using a right oblique fluoroscopy ,the junction of the transverse process and the superior articulating process of the right L3 , L4 , and L5 vertebra which corresponding to the fluoroscopy image of the eye of the Ken dog on the block side for the medial branches and subsequently , after local infiltration of skin and subcu tissuies with Ropivacaine 0.5 % , one mL at each level ,then 22-gauge Quincke-type needles , 3 needle was used , each one of them placed at the junction of the base of the transverse process and the superior articular process at the appropriate level, and the needle was advanced until the periosteum contacted, needle placement confirmed with AP oblique and lateral view and after appropriate needle placement confirmed, and after negative aspiration for heme and CSF and there was no paresthesia 1-1/2 mL of Ropivacaine 0.5% mixed with 20 mg Depo-Medrol , then half mL injected at each level after negative aspiration the needle subsequently removed and the same procedure repeated for the left side at left side at L3 , L4 and L5 levels. At the end of the procedure and the needles removed and a bandage applied after the skin was cleaned the cleaning solution patient taken to recovery room in stable condition and monitors in the recovery room for 20-30 minutes and discharged home in stable condition after discharge criteria met and patient will follow up with the pain clinic in 2-4 weeks note = patient had 6 lumbar vertebra, with sacralization of the L6 vertebral
[2021-01-06] MEDS ORDERED: IV FLUID CONTINUATION 1,000 ML IV ONE (08:32)
[2021-01-06] MEDS ORDERED: METOCLOPRAMIDE 5 MG/ML 2 ML VIAL ONE (08:56)
[2021-01-06] MEDS ORDERED: METOCLOPRAMIDE 5 MG/ML 2 ML VIAL IVP ONE (08:59)
[2021-01-06 09:09] VITALS: BP 127/74; PULSE 80
--- NOTE | 2021-01-06 10:29 | FL ---
Fluoroscopy HISTORY: Pain 13 seconds fluoroscopy time supplied to the referring clinician. 4 intraoperative C-arm images docum ent the procedure. See dictated report from anesthesia.
== END 2021-01-06 09:25 | disposition home or self-care (01) ==
LOC: ORPAIN 07:13
PROVIDERS: ATTEND Specialist
DX: G89.29 Other chronic pain (principal); M47.816 Spondylosis without myelopathy or radiculopathy, lumbar region; M51.36 Other intervertebral disc degeneration, lumbar region; Z88.5 Allergy status to narcotic agent; Z91.030 Bee allergy status; Z79.899 Other long term (current) drug therapy; Z79.1 Long term (current) use of non-steroidal anti-inflammatories (NSAID); Z91.89 Other specified personal risk factors, not elsewhere classified
CPT/HCPCS: 64493; 64494; J2250; J1030; J2765; J2405; J3010; J2795; 64495

== ENCOUNTER 2021-02-07 07:03 | Day surgery (SDC) | payer BC ==
[2021-02-06 09:39] VITALS: BMI 30.5
[2021-02-07 07:28] VITALS: RESP 16; TEMP 99.3
[2021-02-07] MEDS ORDERED: ROPIVACAINE 5MG/ML 20ML VIAL ONE (07:30)
[2021-02-07] MEDS ORDERED: TRIAMCINOLONE ACETONIDE 40 MG/ML 1 ML VIAL ONE (07:30)
[2021-02-07] MEDS ORDERED: LACTATED RINGERS 1,000 ML IV SCH (08:00)
[2021-02-07 08:30] VITALS: BP 117/75; PULSE 69
--- NOTE | 2021-02-07 08:42 | FL ---
EXAMINATION TYPE: FL guided pain mgmt statistic DATE OF EXAM: 02/07/2021 HISTORY: Fluoroscopy time 6 seconds of fluoroscopy provided. IMPRESSION: 1. Fluoroscopy time.
--- NOTE | 2021-02-07 09:43 | P.PCN ---
Date of Procedure: 02/07/21 Description of Procedure: Pre- and Post-operative Diagnosis: Lumbar facet arthropathy, and lumbar spondylosis without myelopathy. Procedure: #2 Diagnostic Medial Branch Block at bilateral Lumbar 4/5 and #2 diagnostic dorsal ramus block at Lumbar 5/ sacral ala levels (total 4 levels) Surgeon: Tresa Li Anesthesia: Local: 1% Lidocaine, IV sedation : None Complications: None EBL: None Specimen removed: None Fluoroscopic image: Saved to patient electronic medical records. Indications for Procedure: The patient is well known to pain clinic for his chronic low back pain management. The lumbar facet loading test was positive with a clinical diagnosis of lumbar facet arthropathy. Failed with conservative therapy. Patient had a great pain relief with the previous lumbar medial branch block. Came here for interventional help for better pain relief. Procedure and Findings: The patient was seen and examined. The written informed consent was obtained after explaining the risks, benefits and alternatives of the procedure to the patient. The patient was brought to the procedure room and was placed in the prone position on the operating table table. A pillow was placed under the abdomen to reduce lumbar lordosis. Standard anesthesia monitoring was done through out the procedure. The skin preparation was done with ChloraPrep, and draping was done in usual sterile fashion. Sterile technique was observed throughout the procedure. Under fluoroscopic guidance, Right the Lumbar 4, 5 and Sacral ala levels were identified in the AP view. For lumbar L4, and L5 levels the targeting area of superior articular process, and close to the most medial and superior aspect of transverse process identified, marked. 1ml of 1% Lidocaine was used with a 25 gauge needle to achieve adequate local anesthesia of the skin and subcutaneous tissue at each level. A 22 gauge 3.5 inch spinal needle was placed and advanced targeting area which was close to the most medial and superior aspect of the transverse process. For Lumbar 5/ sacral ala level, fluoroscope was used in the anteroposterior view, and the needle tip was placed at the superior and most medial part of sacral ala close to the superior articular process. A bony contact was obtained and needle tip position was confirmed at anteroposterior view. No paresthesia was noted. A negative aspiration was confirmed. 1 ml solution per level was injected, the block solution containing 5 ml of 0.5% ropivacaine preservative-free solution mixed with 40 MG of Kenalog. The needles were removed intact. Entire procedure repeated on the left side. Lumbar area was cleaned and bandages were applied. Disposition : The patient tolerated the procedure very well. The patient was transferred to the recovery room and remained stable until discharged home. The patient was given detailed discharge instructions for infection, bleeding, and increased pain at the injection site, and was advised to seek immediate medical attention should significant side effects develop. The patient will be scheduled with Pain Clinic within 4 weeks for lumbar radiofrequency ablation if it's helpful.
== END 2021-02-07 08:36 | disposition home or self-care (01) ==
LOC: ORPAIN 07:03
DX: G89.29 Other chronic pain (principal); M47.816 Spondylosis without myelopathy or radiculopathy, lumbar region; Z88.5 Allergy status to narcotic agent; Z79.1 Long term (current) use of non-steroidal anti-inflammatories (NSAID); Z79.899 Other long term (current) drug therapy; E03.9 Hypothyroidism, unspecified; M19.90 Unspecified osteoarthritis, unspecified site
CPT/HCPCS: 64493; 64494; J3301; J2795

== ENCOUNTER → 2021-02-13 | Outpatient (CLI) | payer BC ==
[2021-02-13 08:28] VITALS: BP 127/63; PULSE 68; RESP 18; TEMP 97.5
--- NOTE | 2021-02-13 08:37 | P.PN ---
Subjective Progress Note Date: 02/13/21 This is follow-up visit for this 55 years old female with a chronic history of severe low back pain, diagnosed with lumbar spondylosis with lumbar facet arthropathy, status post diagnostic medial branch block lumbar area at L3, L4, L5, bilaterally, she reported that she gets more than 90% improvement of her pain level after each diagnostic medial branch block, and she is able to function and move better after each block, she denies any motor or sensory deficit she denies any fever or night sweats Objective - Vital Signs Vital signs: Vital Signs Temp 97.5 F L 02/13/21 08:22 Pulse 68 02/13/21 08:22 Resp 18 02/13/21 08:22 BP 127/63 02/13/21 08:22 Pulse Ox 99 02/13/21 08:22 - Exam -Constitutiona : Cooperative , not in acute distress . -HEENT : nech : supple , no Lymphadenopathy , normal thyroid size . : eyes : no ptosis , no icterus, no photophobia . - neurologic : Cranial nerve II to XII intact , no focal neurological deffecit . -psychatric : alert , oriented X 3 , appropriate affect , intact judgment and insight . -Lymphatic : no Lymphadenopathy . - musculoskeltal : Lumber spine moter stegnth lower extremities ,thigh and legs 5/5 Right side , 5/5 Left side deep tendon reflexes : normal Knee Jerk , normal ankle Jerk lumber facet Loading Test =positive Right , positive Left Range of motion of the lumbar spine Flexion 30 degrees, extension 10 degrees strait leg raising test = positive at 30 degree Fabere test= positive Right , and positive LT . tenderness over the Sacroiliac joint on the Right , and Left side Assessment and Plan Plan: Assessment and plan=1-lumbar spondylosis with lumbar facet arthropathy without myelopathy. 2-lumbar degenerative disc disease. Patient had more than 90% improvement of low back pain after diagnostic medial branch block, she will be good candidate to RFA Of the medial branch at L3, L4 , L5 bilaterally . RFA will be scheduled in 2 months because patient already scheduled for total knee replacement, we will schedule it in March 2021. - PQRS measures = - Patient's medications are documented in the chart. -Tobacco use is negative and counseling.Given. -Patient's has not received pneumococcal vaccine. -Advanced care planning discussed, patient not eligible. -Opiate contract not signed. -Pain positive and follow-up visit/procedure is scheduled. -Patient's blood pressure measured [ 127/63 ] , and documented in the record ,and patient will follow up with the primary care. -Patient's weight was measured and body mass index [ 31.6] above the normal limits and counseling was done. and patient instructed to follow-up with the primary care physician. -Patient was not identified as an unhealthy alcohol user Time with Patient: Less than 30
== END ==
LOC: PNWHC3 08:14
PROVIDERS: ATTEND Specialist
DX: M47.816 Spondylosis without myelopathy or radiculopathy, lumbar region (principal); M51.36 Other intervertebral disc degeneration, lumbar region; Z87.891 Personal history of nicotine dependence
CPT/HCPCS: 99211

== ENCOUNTER → 2021-02-13 | Outpatient (CLI) | payer BC ==
[2021-02-13 10:07] LABS: HCT 37.2 % (34.0-46.0); HGB 13.1 gm/dL (11.4-16.0); MCH 31.1 pg (25.0-35.0); MCHC 35.1 g/dL (31.0-37.0); MCV 88.6 fL (80.0-100.0); Mean Platelet Volume 7.4; Platelet Count 192 k/uL (150-450); RDW 12.7 % (11.5-15.5); WBC 4.1 k/uL (3.8-10.6)
[2021-02-13 10:28] LABS: Appearance,Urine Cloudy (Clear); Bilirubin,Urine Negative (Negative); Blood,Urine Negative (Negative); Color,Urine Yellow; Glucose,Urine (UA) Negative (Negative); INR 0.9 (<1.2); Ketones,Urine Negative (Negative); Leukocyte Esterase,Urine Negative (Negative); Mucus,Urine Rare /hpf; Nitrite,Urine Negative (Negative); Partial Thromboplastin Time 22.8 sec (22.0-30.0); Protein,Urine Negative (Negative); RBC,Urine <1 /hpf (0-5); Specific Gravity,Urine 1.015 (1.001-1.035); Squamous Epithelial Cell,Urine 1 /hpf (0-4); Urobilinogen,Urine <2.0 mg/dL (<2.0); WBC,Urine 1 /hpf (0-5)
[2021-02-13 10:36] LABS: ALT 12 U/L (4-34); AST 19 U/L (14-36); African American GFR (CKD) >90 (>60 ml/min/1.73 sqM); Alkaline Phosphatase 68 U/L (38-126); Anion Gap 5 mmol/L; Blood Urea Nitrogen 17 mg/dL (7-17); Calcium 9.6 mg/dL (8.4-10.2); Carbon Dioxide 29 mmol/L (22-30); Chloride 103 mmol/L (98-107); Glucose 88 mg/dL (74-99); Non-African American GFR(CKD) >90 (>60 ml/min/1.73 sqM); Potassium 4.4 mmol/L (3.5-5.1); Sodium 137 mmol/L (137-145); Total Bilirubin 0.7 mg/dL (0.2-1.3); Total Protein 6.7 g/dL (6.3-8.2)
== END | disposition home or self-care (01) ==
LOC: LABPAT 08:55
PROVIDERS: ATTEND Orthopaedic Surgery Sports Medicine
DX: Z01.812 Encounter for preprocedural laboratory examination (principal)
CPT/HCPCS: 36415; 80053; 81001; 85027; 85610; 85730; 87070; 93005

== ENCOUNTER 2021-03-02 06:29 | Observation (INO) | payer BC ==
[2021-02-28 09:55] VITALS: BMI 31.1
[~2021-03-02 06:29] MED LIST changes: +ACETAMINOPHEN TAB 500 MG TAB PO PRN; +DEXAMETHASONE SOD PHOSPHATE 4 MG/ML 1 ML VIAL IV ONE; +GABAPENTIN 300 MG CAP PO PRN; -LACTATED RINGERS 1,000 ML IV SCH; +LIDOCAINE 1% (10MG/ML) FOR IV START INTRADERMA PRN; +MELOXICAM 7.5 MG TAB PO PRN; +MIDAZOLAM 2 MG/2 ML VIAL IV PRN; +ONDANSETRON 4 MG/2 ML VIAL IVP PRN; +ROPIVACAINE/EPI/CLONIDINE/KET 50 ML SYRINGE MISCELLANE PRN; +TRANEXAMIC ACID 1,000 MG in SODIUM CHLORIDE 0.9% 100 ML IVPB PRN
[2021-03-02] MEDS ORDERED: fentaNYL (PF) 50 MCG/ML 2 ML AMP IVP PRN (07:00)
[2021-03-02] MEDS: LACTATED RINGERS 1,000 ML IV SCH ×4 (07:15→23:26)
[2021-03-02] MEDS ORDERED: SCOPOLAMINE 1.5MG/72HR PATCH TRANSDERM ONE (07:28)
[2021-03-02] MEDS ORDERED: PROPOFOL 10 MG/ML 20 ML VIAL IV ONE (08:00)
[2021-03-02] MEDS ORDERED: DEXAMETHASONE SOD PHOSPHATE 4 MG/ML 1 ML VIAL ONE (08:00)
[2021-03-02] MEDS ORDERED: SODIUM CHLORIDE 0.9% 100 ML BAG ONE (08:00)
[2021-03-02] MEDS ORDERED: TRANEXAMIC ACID 1,000 MG/10 ML VIAL ONE (08:00)
[2021-03-02] MEDS ORDERED: ROPIVACAINE 5 MG/ML 30 ML VIAL ONE (08:00)
[2021-03-02] MEDS ORDERED: MIDAZOLAM 2 MG/2 ML VIAL ONE (08:00)
[2021-03-02] MEDS ORDERED: fentaNYL (PF) 50 MCG/ML 2 ML AMP ONE (08:00)
[2021-03-02] MEDS ORDERED: ceFAZolin 3,000 MG in SODIUM CHLORIDE 0.9% IRRIGATIO 3,000 ML IRRIGATION ONE (08:30)
[2021-03-02] MEDS ORDERED: LACTATED RINGERS 1,000 ML IV ONE ×2 (08:52→08:53)
[2021-03-02] MEDS ORDERED: ROPIVACAINE 0.2%-NS ON-Q PUMP 1,090 MG, EMPTY PAIN BALL 1 EACH MISCELLANE PRN (10:19)
--- NOTE | 2021-03-02 10:47 | OP ---
OPERATIVE REPORT DATE OF PROCEDURE: 03/02/2021. SURGEON: Carlos Mckeon MD. ELECTRICIAN RADIO: Khadar CUNHA. PREOPERATIVE DIAGNOSIS: Left knee osteoarthrosis. POSTOPERATIVE DIAGNOSIS: Left knee osteoarthrosis. OPERATION: Left total knee arthroplasty. ANESTHESIA: Spinal sedation. ESTIMATED BLOOD LOSS: 100 mL. TOURNIQUET: 55 minutes at 250 mmHg. COMPLICATIONS: None apparent. DRAINS: None. DISPOSITION: Postanesthesia care unit. INDICATIONS: Felicia is a very pleasant 55-year-old female with longstanding history of left knee pain. History and physical examination is consist with advanced left knee osteoarthrosis. She has been through significant nonoperative management up to this point. Further treatment options were discussed and she has decided to go forward with the left total knee arthroplasty. The risks of procedure were discussed with her in detail. These risks include, but are not limited to risk of infection, nerve damage, bleeding, pain, and a small risk of deep vein thrombosis which could lead to fatal pulmonary embolism. There is also risk of loosening of the implant which could require revision operation. The patient understands these risks. All of her questions were answered to her satisfaction. Appropriate informed consent was obtained. DESCRIPTION OF PROCEDURE: The patient was identified in preoperative holding area. Surgical sites marked by both the patient and myself. She was given 2 grams of Ancef IV for prophylactic purposes. She was then transferred to the operative suite. She was placed supine on the operating room table. A spinal anesthetic was then administered and dosed per the anesthesia department without apparent complication. Examination under anesthesia was then performed. She was 2-3 degrees shy of full extension. She had 95 degrees of flexion and the medial collateral ligament, lateral collateral ligament, posterior cruciate ligaments were stable. Tourniquet was then placed high on the left upper thigh well-padded in preparation for surgery. The patient's left lower extremity was then prepped and draped in usual sterile fashion. A standard surgical pause was undertaken to ensure that we were operating the correct site and that appropriate preoperative antibiotics had been given. All staff in the room were in agreement and we proceeded. The outlines of the patella were marked with surgical pen. A planned 12 cm vertical incision centered over the patella was marked with surgical pen and the leg was then exsanguinated an Esmarch dressing. The knee was then flexed and the tourniquet was inflated to 250 mmHg. The total tourniquet time for the procedure was 55 minutes. Incision was then made with a 10 blade scalpel. Dissection was carried down sharply to the overlying fascia. Great care was taken to minimize the skin flaps. The knee was then exposed using a standard medial parapatellar approach. A small cuff of quadriceps tendon was then left for suturing. She was in quite a bit of varus preoperatively. A standard medial release was then made. The superficial medial collateral ligament was dissected off of the bone around to the posterior aspect of the proximal tibia. The medial meniscus was then excised as well. The lateral meniscus was also released anteriorly. The leg was then externally rotated. The patella was everted. The knee was flexed. The retractor was then placed to protect the collateral ligaments. I then proceeded to remove the infrapatellar fat pad. This was excised sharply tangentially with the fibers of the patellar tendon. I then proceeded to remove peripheral osteophytes. This was done with a rongeur. I then proceeded with the distal femoral resection. She did have near full extension. A planned 9 mm resection was then done. The femoral canal was then entered in midline of the femur approximately 10 mm anterior to the origin of the posterior cruciate ligament. The edilson was then advanced down the center of the femur and placed intramedullary. Based on the preoperative radiographs, the angle between the anatomic and mechanical axis of the femur was approximately 4-5 degrees. The valgus angle of distal femoral cutting guide was then set at 4 degrees for the left knee. Distal femoral cutting guide was then advanced over the intramedullary edilson. This was seated firmly against the femur. I then as mentioned planned to take 9 mm off the distal femur. The cutting block was then secured onto the femur with pins. The jig was then removed. The distal femoral cut was made through the slot of the block. The pins were then removed. Then the distal femoral cutting block was removed. The accuracy of the distal femoral cuts was checked with 2 flat bars. I then proceeded with femoral sizing. The posterior referencing sizing guide was held firmly against the resected distal surface of the femur. The posterior condyles were resting on the posterior plane of the guide. The sizing stylus then placed on the anterior femur. The size was measured as a size 8. I then assessed for femoral rotation. The plan was to treat for 3 degrees of external rotation. Three degrees of external rotation was placed onto the jig. These holes were then marked. I then confirmed the rotation by 3 separate methods. This was done using epicondylar axis as well as Whitesides line and posterior referencing. It was deemed that the external rotation was proper. I then went forward placing the femoral cutting block. This was placed over the previously placed pin holes. The Avelino wing was then placed on the anterior slots to make sure that we would not notch the anterior femur at the anterior femoral cut. I then proceeded with the anterior femoral cut. This was flush with the anterior cortex of the femur. The posterior cuts were then made followed by the anterior chamfer cut, then the posterior chamfer cut. The cutting block was then removed. Throughout the resection, the collateral ligaments were protected with retractors. I then placed a trial size 8 femur. It was slightly wide, but the narrow fit very nice medial-lateral and fit flush with the distal end of the femur. The drill holes. The drill holes were then made. I then proceeded with the tibial cutter. I planned for cruciate retaining knee. The guide was placed in separate varus, valgus and for slope. The height was set for approximate 2 mm resection from the medial tibial plateau which was the lower side. I was happy with the alignment and amount of resection. The cutting block was then pinned to the proximal tibia. The alignment edilson was removed. The proximal tibia was resected with a reciprocating saw. Again, this was done with retractors protecting the collateral ligaments as well as the posterior cruciate ligament. I then proceeded to evaluate the flexion and extension gaps. A 10 mm block was then placed. The flexion and extension gaps were equal. I then proceeded with resection of posterior osteophytes. She had very extensive posterior osteophytes. This was done using a curved osteotome. This resected the posterior osteophytes and posterior capsule stripping was done off the posterior aspect of the femur at this time. The osteophytes were then removed. I then proceeded with resection of the patella. The thickness of patella was measured using the caliper. The thickness was 22 mm. The thickness of the anticipated patellar dome was taken into account. Resection was then performed and confirmed to be equal in 4 quadrants using a caliper. Approximately 14 mm of bone remained after resection. A 29 x 8 standard patellar trial was then placed. The holes were drilled. The trial was then placed. I then proceeded with sizing tibial plate. A size D tibial plate fit very nicely. I then placed the trial femur, the tibial tray and the patellar button. A 10 mm trial tibial insert was also placed. The components fit very nicely. She had full extension and flexion. The extension and flexion gaps were equal and stable to both varus and valgus stress. The patella tracked appropriately. The tibial tray rotation was then marked with a Bovie. This was externally rotated properly. I then proceeded with tibial preparation. First drilled the femoral holes, removed femoral component. The tibial tray was then set for proper external rotation as well as mediolateral placement onto the tibia. It was then pinned into place. I then proceeded punching the keel. I then decided to proceed with cementing of all of our components. The knee was thoroughly irrigated with sterile saline solution via pulse lavage. The lateral geniculate artery was identified and cauterized. All blood was removed from the bone of the tibia, femur and patella with pulse lavage. I then proceeded with cementing. Two packs of antibiotic bone cement prepared on the back table by the eeg tech. I then proceeded with cementing of the tibia first. The cement was impacted in the keel as well as deeply seated in the bone. A second coat of cement was then placed. The tibia was then impacted into place. Excess cement was removed with Arelis's and jokers. I then proceeded with cementing of the femoral component. The femoral component was also cemented using standard technique. Excess cement was removed. A 10 mm trial insert was then placed into the knee. It was brought in full extension with a constant axial load placed until the cement had hardened. The patellar component was then cemented. This was held firmly with a compressive device until the cement had dried. When the cement had dried, the knee was taken out of extension. All excess cement was removed from around the prosthesis. I then trialed the knee with a 10 mm insert. Flexion and extension gaps were appropriate. The knee was stable. It came into full extension. I decided to go forward with a 10 mm medial congruent cross-linked cruciate- retaining tibial insert. Polyethylene was then placed on the tibial tray and locked into place. The knee was then reduced. The knee was again further irrigated with sterile saline solution with antibiotic added. The tourniquet was then deflated. Total tourniquet time for the procedure was 55 minutes at 250 mmHg. Final components were Jose Persona size 8 narrow cruciate-retaining femoral component, a size D tibial tray, a 10 mm medial congruent cruciate-retaining polyethylene insert, and a 29 x 8 mm patella. I then proceeded with closure. Again, the knee was thoroughly irrigated. The quadriceps tendon and the medial retinaculum were reapproximated with #2 Ethibond suture. The extensor mechanism was then closed with a running #2 Quill suture. Subcutaneous tissues were closed with 2-0 Vicryl interrupted suture. The skin was closed with a running 3-0 Quill suture. Dermabond was applied to the incision. Sterile compressive dressings were applied. All sponge and needle counts were deemed correct prior to closure. The patient tolerated the procedure without apparent complication. She was transferred to the recovery room in stable condition. MMODL / IJN: [id number] /
[2021-03-02] MEDS ORDERED: MAGNESIUM HYDROXIDE 2,400 MG/10 ML CUP PO PRN (11:03)
[2021-03-02] MEDS ORDERED: ACETAMINOPHEN TAB 325 MG TAB PO PRN (11:03)
[2021-03-02] MEDS ORDERED: HYDROmorphone 0.5 MG/0.5 ML SYRINGE IVP PRN ×3 (11:03)
[2021-03-02] MEDS ORDERED: NA PHOS,M-B/NA PHOS,DI-BA 133 ML ENEMA RECTAL PRN (11:03)
[2021-03-02] MEDS ORDERED: NALOXONE 0.4 MG/ML 1 ML VIAL IV PRN (11:03)
[2021-03-02] MEDS ORDERED: ONDANSETRON 4 MG/2 ML VIAL IVP PRN (11:03)
[2021-03-02] MEDS ORDERED: bisacodyL 10 MG SUPP RECTAL PRN (11:03)
--- NOTE | 2021-03-02 11:48 | XR ---
EXAMINATION TYPE: XR knee limited LT DATE OF EXAM: 03/02/2021 COMPARISON: NONE TECHNIQUE: Two views submitted HISTORY: Post op FINDINGS: There is a prosthetic knee in near anatomic alignment. There is soft tissue edema and emphysema. IMPRESSION: 1. Postoperative change. Appears in near-anatomic alignment
[2021-03-02] MEDS: traMADol 50 MG TAB PO PRN ×2 (12:36→21:51)
[2021-03-02] MEDS: hydrOXYzine pamoate 25 MG CAP PO PRN ×2 (13:05→22:28)
--- NOTE | 2021-03-02 18:43 | P.ANPRN ---
Procedure Note - Anesthesia - Nerve Block Performed Left Adductor Canal Infusion Time Out Performed: Yes Date of Procedure: 03/02/21 Procedure Start Time: : Procedure Stop Time: :28 Location of Patient: PreOp Indication: Acute Post-Operative Pain, Requested by Surgeon Sedation Type: Sedate with meaningful contact maintained Preparation: Sterile Prep, Sterile Dressing Position: Supine Catheter: Indwelling Needle Types: Pajunk Needle Gauge: 21 Ultrasound used to visualize needle placement: Yes Ultrasound used to observe medication spread: Yes Blood Aspirated: No Pain Paresthesia on Injection Noted: No Resistance on Injection: Normal Image Stored and Saved: Yes Events: Uneventful and Well Tolerated (ropi .5% 20cc with dexamethasone 4mg)
--- NOTE | 2021-03-02 18:45 | P.ANPRN ---
Procedure Note - Anesthesia - Nerve Block Performed Left Gogo Single Date of Procedure: 03/02/21 Procedure Start Time: 07:29 Procedure Stop Time: 07:33 Location of Patient: PreOp Indication: Acute Post-Operative Pain, Requested by Surgeon Sedation Type: Sedate with meaningful contact maintained Preparation: Sterile Prep Position: Supine Needle Types: Pajunk Needle Gauge: 21 Ultrasound used to visualize needle placement: Yes Ultrasound used to observe medication spread: Yes Blood Aspirated: No Pain Paresthesia on Injection Noted: No Resistance on Injection: Normal Image Stored and Saved: Yes Events: Uneventful and Well Tolerated (ropi .5% 20cc)
[2021-03-02] MEDS ORDERED: ESCITALOPRAM 5 MG TAB PO SCH (21:00)
[2021-03-02] MEDS ORDERED: SENNOSIDES-DOCUSATE SODIUM 1 EACH TAB PO SCH (21:00)
[2021-03-02] MEDS: ASPIRIN 81 MG PO SCH (21:34)
[2021-03-02] MEDS: GABAPENTIN 300 MG CAP PO SCH (21:35)
[2021-03-02 21:44] VITALS: RESP 20
[2021-03-03] MEDS: traMADol 50 MG TAB PO PRN (04:18)
[2021-03-03 05:57] VITALS: BP 121/71; TEMP 97.4
[2021-03-03 06:20] LABS: Basophils % (A) 0 %; Eosinophils # (A) 0.1 k/uL (0-0.7); Eosinophils % (A) 1 %; HCT 27.7 % (34.0-46.0); Lymphocytes # (A) 1.1 k/uL (1.0-4.8); Lymphocytes % (A) 28 %; MCH 31.3 pg (25.0-35.0); MCHC 34.6 g/dL (31.0-37.0); MCV 90.4 fL (80.0-100.0); Mean Platelet Volume 7.5; Monocytes # (A) 0.3 k/uL (0-1.0); Monocytes % (A) 9 %; Neutrophils # (A) 2.2 k/uL (1.3-7.7); Neutrophils % (A) 60 %; Platelet Count 170 k/uL (150-450); RBC 3.07 m/uL (3.80-5.40); RDW 12.6 % (11.5-15.5); WBC 3.8 k/uL (3.8-10.6)
[2021-03-03 06:34] LABS: HGB 9.6 gm/dL (11.4-16.0)
[2021-03-03] MEDS: LACTATED RINGERS 1,000 ML IV SCH (07:22)
[2021-03-03] MEDS ORDERED: PANTOPRAZOLE 40 MG TABLET PO SCH (07:30)
[2021-03-03] MEDS: ASPIRIN 81 MG PO SCH (08:07)
[2021-03-03] MEDS: GABAPENTIN 300 MG CAP PO SCH (08:07)
[2021-03-03] MEDS ORDERED: CHOLECALCIFEROL 25 MCG (1000 IU) TABLET PO SCH (09:00)
[2021-03-03] MEDS ORDERED: NON FORMULARY DRUG (Biotin [Biotin] 5 MG Capsule) PO SCH (09:00)
[2021-03-03] MEDS ORDERED: NON FORMULARY DRUG (L.Acidoph,Paracasei, B.Lactis [Probiotic] 1 EACH Capsule) PO SCH (09:00)
[2021-03-03 09:03] VITALS: PULSE 74
[2021-03-03] MEDS ORDERED: HYDROcodone/APAP 7.5-325MG 1 EACH TAB PO PRN ×2 (09:59)
[2021-03-03 10:30] LABS: African American GFR (CKD) 118.1 (60.0-200.0); Albumin 3.3 g/dL (3.80-4.90); Albumin/Globulin Ratio 2.2 (1.60-3.17); Anion Gap 5.6 mmol/L (4.00-12.00); BUN/Creat Ratio 21.67 Ratio (12.00-20.00); Carbon Dioxide 26.4 mmol/L (21.6-31.8); Globulin 1.5 g/dL (1.6-3.3); Non-African American GFR(CKD) 101.9 (60.0-200.0); Potassium 3.6 mmol/L (3.5-5.5); Total Bilirubin 0.4 mg/dL (0.3-1.2); Total Protein 4.8 g/dL (6.2-8.2)
--- NOTE | 2021-03-03 11:16 | P.PN ---
Progress Note - Text 03/03/21 649am 55-year-old female status post total knee replacement by Dr. Mckeon. Patient has an On-Q pump for postop pain control with the solution running at 8 mL an hour with a VAS of 2 at rest. Dressing clean dry and intact her pain is located posteriorly plan to continue On-Q pump infusion
[2021-03-03] MEDS ORDERED: MULTIVITAMINS, THERA 1 EACH TAB PO SCH (12:00)
--- NOTE | 2021-03-03 14:49 | P.DS ---
Providers Date of admission: 03/03/21 10:02 Expected date of discharge: 03/03/21 Attending physician: Carlos Mckeon Consults: 03/02/21 11:03 Consult Physician Routine Consulting Provider: Zahira Gage Consult Reason/Comments: post op medical management Do you want consulting provider notified?: Yes Primary care physician: Zahira Merari - Discharge Diagnosis(es) (1) Osteoarthritis of left knee Patient was admitted to the OR on 03/02/21 to undergo a left total knee arthroplasty. She had failed conservative measures as an outpatient and desired to proceed with elective surgery after given informed consent. She underwent the above procedure which she tolerated well without complication. Postoperative hospital course has remained without complication. On day of discharge she is afebrile, vital signs stable, labs within acceptable ranges, tolerating by mouth meds and diet, voiding without difficulty, positive flatus, denies abdominal pain or calf pain, pain is controlled on oral pain medication and has no new complaints. Wound is benign, neurovascular status is intact, calf is soft and nontender, abdomen soft and nontender. Review of systems is negative for numbness, tingling, fever, chills, chest pain, shortness of breath, nausea, vomiting, dizziness, headaches, slurred speech or other. Status: Acute Priority: Medium Procedures: Left TKA Patient Condition at Discharge: Good Plan - Discharge Summary Discharge Rx Participant: No New Discharge Prescriptions: New Docusate [Colace] 100 mg PO BID #60 capsule Aspirin [Adult Low Dose Aspirin EC] 81 mg PO BID #60 tablet. HYDROcodone/APAP 7.5-325MG [[place] 7.5-325] 1 - 2 each PO Q6HR PRN #42 tab PRN Reason: Pain No Action Furosemide [Lasix] 40 mg PO DAILY PRN PRN Reason: Edema Potassium Chloride [Klor-Con 20] 20 meq PO DAILY PRN PRN Reason: LASIX Escitalopram [Lexapro] 5 mg PO HS Cholecalciferol [Vitamin D3] 1,000 unit PO DAILY Mirabegron [Myrbetriq] 50 mg PO DAILY Cyclobenzaprine [Flexeril] 10 mg PO BID L.acidoph,Paracasei, B.lactis [Probiotic] 1 each PO DAILY Ibuprofen [Motrin Ib] 800 mg PO BID PRN PRN Reason: Pain Omeprazole [PriLOSEC] 20 mg PO DAILY Gabapentin [Neurontin] 300 mg PO TID LORazepam [Ativan] 0.5 mg PO BID Biotin 5 mg PO DAILY Diazepam [Valium] 10 mg PO DIRECTED PRN PRN Reason: pre-op MRI HYDROcodone/APAP 5-325MG [[place] 5-325] 1 tab PO TID PRN PRN Reason: Pain Discharge Medication List Furosemide [Lasix] 40 mg PO DAILY PRN 04/29/17 [History] Cholecalciferol [Vitamin D3] 1,000 unit PO DAILY 05/14/18 [History] Escitalopram [Lexapro] 5 mg PO HS 05/14/18 [History] Potassium Chloride [Klor-Con 20] 20 meq PO DAILY PRN 05/14/18 [History] Cyclobenzaprine [Flexeril] 10 mg PO BID 08/12/18 [History] Ibuprofen [Motrin Ib] 800 mg PO BID PRN 08/12/18 [History] L.acidoph,Paracasei, B.lactis [Probiotic] 1 each PO DAILY 08/12/18 [History] Mirabegron [Myrbetriq] 50 mg PO DAILY 08/12/18 [History] Gabapentin [Neurontin] 300 mg PO TID 03/26/19 [History] LORazepam [Ativan] 0.5 mg PO BID 03/26/19 [History] Omeprazole [PriLOSEC] 20 mg PO DAILY 03/26/19 [History] Biotin 5 mg PO DAILY 10/08/19 [History] Diazepam [Valium] 10 mg PO DIRECTED PRN 02/28/21 [History] HYDROcodone/APAP 5-325MG [D[place]mond 5-325] 1 tab PO TID PRN 02/28/21 [History] Aspirin [Adult Low Dose Aspirin EC] 81 mg PO BID #60 tablet.dr 03/03/21 [Rx] Docusate [Colace] 100 mg PO BID #60 capsule 03/03/21 [Rx] HYDROcodone/APAP 7.5-325MG [Drummond 7.5-325] 1 - 2 each PO Q6HR PRN #42 tab 03/03/21 [Rx] Follow up Appointment(s)/Referral(s): [facility], [NON-STAFF] - 1 Week Carlos Mckeon MD [STAFF PHYSICIAN] - 03/15/21 8:30 am Patient Instructions/Handouts: *Surgery [facility] - On-Q Pain Pump Discharge Instructions Activity/Diet/Wound Care/Special Instructions: WBAT Take meds as directed F/U in office Keep wound clean and dry Discharge Disposition: HOME WITH HOME HEALTH SERVICES
--- NOTE | 2021-03-05 12:27 | P.CONS ---
History of Present Illness - Reason for Consult Consult date: 03/02/21 Medical Management Requesting physician: Carlos Mckeon - Chief Complaint Left Total knee Arthroplasty - History of Present Illness HISTORY OF PRESENT ILLNESS: This is a 55-year-old female in my patient with a previous medical history significant for gastroesophageal reflux disease, history of significant osteoarthritis of both knees, spondylosis of the cervical spine as well as lumbar spine, history of bilateral venous stasis with significant lymphedema both lower extremities, patient had struggled with her osteoarthritis of both knees for quite sometimes, finally she was seen by Dr. Mckeon and he was recommended for the patient to go for left total knee arthroplasty that was done successfully and we were asked to see the patient for postoperative medical management. Patient is sitting at edge of the bed she is feeling better she denies any chest pain or any shortness breath, she has no abdominal pain, she stated that her pain is well-controlled with tramadol 100 mg orally every 6 hours as needed, she denies any complaints. REVIEW OF SYSTEMS: Constitutional: No documented fever, no chills, no night sweats. No weight change. No weakness, fatigue or lethargy. No daytime sleepiness. HEENT: No headache. No blurred vision or double vision, no loss of vision. No loss of Hearing, no ringing in the ears, no dizziness. No nasal drainage or c ongestion. No epistaxis. No sore throat. Lungs: No shortness of breath, no cough, no sputum production. No wheezing. Reports dyspnea with activity. Cardiovascular: No chest pain, no lower extremity edema. No palpitations. No paroxysmal nocturnal dyspnea. No orthopnea. No lightheadedness or dizziness. No syncopal episodes. Abdominal: Reports no abdominal pain. No nausea, vomiting. No diarrhea. No constipation. No bloody or tarry stools reports no loss of appetite. Genitourinary: No dysuria, increased frequency, urgency. No urinary retention. Musculoskeletal: No myalgias. No muscle weakness, no gait dysfunction, no frequent falls. No back pain. No neck pain. Integumentary: No wounds, no lesions. No rash or pruritus. No unusual bruising. No change in hair or nails. Neurologic: No aphasia. No facial droop. No change in mentation. No head injury. No headache. No paralysis. No paresthesia. Psychiatric: No depression. No anxiety. No mood swings. Endocrine: No abnormal blood sugars. No weight change. PAST MEDICAL HISTORY: GERD. Bilateral venous stasis with lymphedema. Spondylosis of the cervical spine and the lumbar spine. Osteoarthritis of both knees. Hyperthyroidism status post radioactive iodine. Anxiety. Obesity. Overactive bladder. PAST SURGICAL HISTORY: Tubal ligation. Vocal cord nodules. Anterior cervical discectomy with fusion C4 C5 C5 and 6 Left heart catheterization 2009. Cholecystectomy. Radioactive iodine ablation for hyperthyroidism. SOCIAL HISTORY: Patient smoked about quarter a pack every day for about 20 years, and quit in 2006, she drinks occasionally, she denies any drug use or abuse. FAMILY HISTORY: Father at the age of 79 from sepsis he had a significant history of spondylosis of the cervical spine the lumbar spine with a chronic pain syndrome, mother is still alive with a history of hypertension, hyperlipidemia, history of irritable bowel syndrome, anxiety and depressive disorder, patient has one sister with fibromyalgia significant lymphedema both lower extremities, patient has 2 daughters no major medical problems one with SVT post-ablation therapy. PHYSICAL EXAMINATION: General: 55-year-old female laying down in bed in no apparent distress 3 HEENT: Head is atraumatic, normocephalic, pupils were equal round reactive to light and recommendation, extraocular muscle movement were intact, sclera n onicteric, conjunctivae were pale, mucous membranes of the mouth are somewhat dry. Neck: Supple, no JVP, normal carotid upstroke bilaterally, no lymphadenopathy. Chest: Decreased breath sounds at the bases, few rhonchi, no expiratory wheezes, no chest wall tenderness, no intercostal retractions. Heart: First heart sound is normal, second heart sounds normal ,There is no gallop or murmur. Abdomen: Soft, nontender, nondistended, positive bowel sounds. Extremities: There is no edema no calf tenderness DP +2 bilaterally, left knee is wrapped with Juan wrap, there is a On-Q pump in place. Neurologic examination: Patient is awake alert and oriented X 3, cranial nerves II-12 appear grossly intact, muscle power were 5 out of 5 in upper extremities and 5 out of 5 in bilateral lower extremities, deep tendon reflexes normal bilaterally. ASSESSMENT AND PLAN: 1. Post operative day #0 status post left total knee arthroplasty. Patient was instructed to use the incentive spirometer to reduce the incidence of atelectasis and hospital associated pneumonia, patient also was instructed to ambulate with a walker, continue current pain management as outlined by orthopedic surgery continue DVT prophylaxis with aspirin 81 mg orally twice every day, patient likely would be discharged home tomorrow morning. 2. History of GERD. Continue patient on Protonix 40 mg orally once every day. 3. History of hyperparathyroidism status post radioactive iodine. Monitor the patient TSH and free T4 as an outpatient. 4. Overactive bladder. Continue patient on Myrbetriq 50 mg orally once every day. 5. Bilateral lower extremity lymphedema. Continue bilateral knee-high LASHA hose, use Lasix and potassium supplement on as needed basis. 6. Anxiety disorder. Continue Lexapro 5 mg orally once every day, continue lorazepam 0.5 mg orally twice every day as needed. 7. Spondylosis of the cervical spine post anterior cervical discectomy with fusion. Stable. Continue current pain management. 8. Spondylosis of the lumbar spine status post epidural injection. 9. Thank you Dr. Mckeon for allowing me to participate in the care of your patient we will follow the patient along with you. Past Medical History Past Medical History: Chest Pain / Angina, GERD/Reflux, Musculoskeletal Disorder, Osteoarthritis (OA), Thyroid Disorder Additional Past Medical History / Comment(s): Past hx of Hyperthyroid. Chronic BACK, NECK PAIN; pain Rt shoulder currently. Edema BLE. History of Any Multi-Drug Resistant Organisms: C-DIFF Year Discovered:: 2009 MDRO Source:: stool Past Surgical History: Cholecystectomy, Heart Catheterization, Orthopedic Surgery, Tubal Ligation Additional Past Surgical History / Comment(s): NODULES REMOVED FROM VOCAL CORDS, HEART CATH 06/06, Pain clinic procedures, Anterior Cervical Decompression and Fusion C4-5, C5-6 on 05/19/[address] Oseguera. PLANTAR FASCITIS SURG STONE. Radioactive iodine tx for thyroid Past Anesthesia/Blood Transfusion Reactions: Motion Sickness, Postoperative Nausea & Vomiting (PONV) Past Psychological History: Anxiety Additional Psychological History / Comment(s): Minor, Claustrophobia Smoking Status: Former smoker Past Alcohol Use History: Occasional Additional Past Alcohol Use History / Comment(s): SMOKED 20 YEARS, 1/4 PPD AVG, QUIT 2006. Past Drug Use History: None Reported Additional Drug Use History / Comment(s): hemp oil use for pain, inflammation in tea - Past Family History Father Family Medical History: Musculoskeletal Disorder Additional Family Medical History / Comment(s): Father at age 74 from sepsis with history of COPD and peripheral vascular disease. Mother Family Medical History: Cancer Additional Family Medical History / Comment(s): breast cancer Medications and Allergies Home Medications Medication Instructions Recorded Confirmed Type Furosemide [Lasix] 40 mg PO DAILY PRN 04/29/17 02/28/21 History Cholecalciferol [Vitamin D3] 1,000 unit PO DAILY 05/14/18 02/28/21 History Escitalopram [Lexapro] 5 mg PO HS 05/14/18 02/28/21 History Potassium Chloride [Klor-Con 20] 20 meq PO DAILY PRN 05/14/18 02/28/21 History Cyclobenzaprine [Flexeril] 10 mg PO BID 08/12/18 02/28/21 History Ibuprofen [Motrin Ib] 800 mg PO BID PRN 08/12/18 02/28/21 History L.acidoph,Paracasei, B.lactis 1 each PO DAILY 08/12/18 02/28/21 History [Probiotic] Mirabegron [Myrbetriq] 50 mg PO DAILY 08/12/18 02/28/21 History Gabapentin [Neurontin] 300 mg PO TID 03/26/19 02/28/21 History LORazepam [Ativan] 0.5 mg PO BID 03/26/19 02/28/21 History Omeprazole [PriLOSEC] 20 mg PO DAILY 03/26/19 02/28/21 History Biotin 5 mg PO DAILY 10/08/19 02/28/21 History Diazepam [Valium] 10 mg PO DIRECTED PRN 02/28/21 02/28/21 History HYDROcodone/APAP 5-325MG [[place] 1 tab PO TID PRN 02/28/21 02/28/21 History 5-325] Aspirin [Adult Low Dose Aspirin EC] 81 mg PO BID #60 tablet.dr 03/03/21 Rx Docusate [Colace] 100 mg PO BID #60 capsule 03/03/21 Rx HYDROcodone/APAP 7.5-325MG [[place] 1 - 2 each PO Q6HR PRN #42 tab 03/03/21 Rx 7.5-325] Allergies Allergy/AdvReac Type Severity Reaction Status Date / Time codeine Allergy Chest Pain Verified 02/28/21 09:20 venom-honey bee Allergy Anaphylaxis Verified 02/28/21 09:20 Physical Exam Vitals: Vital Signs Temp Pulse Pulse Resp BP BP Pulse Ox 03/02/21 12:05 88 113/67 03/02/21 11:56 74 16 03/02/21 11:35 74 17 118/66 99 03/02/21 11:02 66 16 111/66 96 03/02/21 10:47 57 L 16 111/65 96 03/02/21 10:31 68 16 111/65 96 03/02/21 10:15 70 16 110/60 96 03/02/21 10:01 96.9 F L 81 16 109/62 96 03/02/21 07:15 97 F L 82 20 125/70 100 Intake and Output 03/02/21 03/02/21 03/02/21 06:59 14:59 22:59 Intake Total 1831 1220 Output Total 100 Balance 1731 1220 Intake: IV 1351 Intake, IV Titration 600 Amount Lactated Ringers 1,000 ml 500 @ 100 mls/hr IV .Q10H SARBJIT Rx#:[id number] ceFAZolin 2 gm In Sodium 100 Chloride 0.9% 50 ml @ 100 mls/hr IVPB Q8HR SARBJIT Rx# :[id number] Oral 480 620 Output: Estimated Blood Loss 100 Other: # Voids 4 Weight 97.4 kg 97.4 kg Results CBC & Chem 7: 03/03/21 05:42 03/03/21 05:42
== END 2021-03-03 13:10 | disposition home health service (06) ==
LOC: OR 06:29 → 5NMEDONC 10:01 → OR 03-03 10:02 → 5NMEDONC 03-03 10:02
PROVIDERS: ADMIT Orthopaedic Surgery Sports Medicine; ATTEND Orthopaedic Surgery Sports Medicine
DX: M17.0 Bilateral primary osteoarthritis of knee (principal); K21.9 Gastro-esophageal reflux disease without esophagitis; M47.812 Spondylosis without myelopathy or radiculopathy, cervical region; M47.816 Spondylosis without myelopathy or radiculopathy, lumbar region; I10 Essential (primary) hypertension; I87.8 Other specified disorders of veins; I89.0 Lymphedema, not elsewhere classified; E05.90 Thyrotoxicosis, unspecified without thyrotoxic crisis or storm; E21.3 Hyperparathyroidism, unspecified; F41.9 Anxiety disorder, unspecified; R32 Unspecified urinary incontinence; E66.9 Obesity, unspecified; Z68.31 Body mass index [BMI] 31.0-31.9, adult; M19.90 Unspecified osteoarthritis, unspecified site; N32.81 Overactive bladder; G89.29 Other chronic pain; M25.511 Pain in right shoulder; M54.2 Cervicalgia; R60.9 Edema, unspecified; F40.240 Claustrophobia; Z87.891 Personal history of nicotine dependence; Z98.1 Arthrodesis status; Z90.49 Acquired absence of other specified parts of digestive tract; Z16.24 Resistance to multiple antibiotics; Z88.5 Allergy status to narcotic agent; Z91.030 Bee allergy status; Z79.899 Other long term (current) drug therapy; Z79.82 Long term (current) use of aspirin; Z80.3 Family history of malignant neoplasm of breast; Z82.49 Family history of ischemic heart disease and other diseases of the circulatory system; Z82.5 Family history of asthma and other chronic lower respiratory diseases; Z83.1 Family history of other infectious and parasitic diseases; Z82.69 Family history of other diseases of the musculoskeletal system and connective tissue; Z83.79 Family history of other diseases of the digestive system; Z81.8 Family history of other mental and behavioral disorders; Z20.822 Contact with and (suspected) exposure to COVID-19
CPT/HCPCS: 27447; 97116; 97110; 97161; 64999; 64448; 76942; 80053; 85025; 88300; 87635; 73560; G0378; C1776; C1713; J2250; J1100; J0690 ×2; J2405 ×2; J3010; J2795 ×2; J2704; J1170

== ENCOUNTER → 2021-04-13 | Outpatient (CLI) | payer BC ==
[2021-04-13 11:23] LABS: HCT 37.7 % (34.0-46.0); MCH 30.7 pg (25.0-35.0); MCHC 34.1 g/dL (31.0-37.0); Mean Platelet Volume 7.4; Platelet Count 240 k/uL (150-450); RBC 4.19 m/uL (3.80-5.40); RDW 12.9 % (11.5-15.5); WBC 4.8 k/uL (3.8-10.6)
[2021-04-13 11:25] LABS: ALT 18 U/L (4-34); AST 24 U/L (14-36); African American GFR (CKD) >90 (>60 ml/min/1.73 sqM); Albumin 4.4 g/dL (3.5-5.0); Alkaline Phosphatase 104 U/L (38-126); Anion Gap 7 mmol/L; Blood Urea Nitrogen 17 mg/dL (7-17); Calcium 9.8 mg/dL (8.4-10.2); Carbon Dioxide 30 mmol/L (22-30); Chloride 103 mmol/L (98-107); Glucose 81 mg/dL (74-99); Non-African American GFR(CKD) >90 (>60 ml/min/1.73 sqM); Potassium 4.3 mmol/L (3.5-5.1); Sodium 140 mmol/L (137-145); Total Bilirubin 0.5 mg/dL (0.2-1.3); Total Protein 6.9 g/dL (6.3-8.2)
[2021-04-13 11:28] LABS: INR 0.9 (<1.2); Prothrombin Time 9.8 sec (9.0-12.0)
[2021-04-13 11:29] LABS: HGB 12.9 gm/dL (11.4-16.0)
[2021-04-13 11:56] LABS: Appearance,Urine Clear (Clear); Bilirubin,Urine Negative (Negative); Blood,Urine Negative (Negative); Color,Urine Yellow; Glucose,Urine (UA) Negative (Negative); Ketones,Urine Negative (Negative); Leukocyte Esterase,Urine Negative (Negative); Nitrite,Urine Negative (Negative); PH, Urine 6.5 (5.0-8.0); Protein,Urine Negative (Negative); Specific Gravity,Urine 1.013 (1.001-1.035); Urobilinogen,Urine <2.0 mg/dL (<2.0)
== END | disposition home or self-care (01) ==
LOC: LABPAT 10:27
PROVIDERS: ATTEND Orthopaedic Surgery Sports Medicine
DX: Z01.812 Encounter for preprocedural laboratory examination (principal); M17.11 Unilateral primary osteoarthritis, right knee
CPT/HCPCS: 36415; 80053; 81003; 85027; 85610; 85730; 87070

== ENCOUNTER 2021-04-20 05:36 | Day surgery (SDC) | payer BC ==
[2021-04-19 10:50] VITALS: BMI 30.5
[~2021-04-20 05:36] MED LIST changes: -LIDOCAINE 1% (10MG/ML) FOR IV START INTRADERMA PRN; +ONDANSETRON 4 MG/2 ML VIAL IVP ONE
[2021-04-20] MEDS: LACTATED RINGERS 1,000 ML IV SCH ×4 (06:13→23:20)
[2021-04-20] MEDS ORDERED: MIDAZOLAM 2 MG/2 ML VIAL IV ONE (06:41)
[2021-04-20] MEDS ORDERED: fentaNYL (PF) 50 MCG/ML 2 ML AMP IV ONE (06:41)
[2021-04-20] MEDS ORDERED: fentaNYL (PF) 50 MCG/ML 2 ML AMP ONE (07:03)
[2021-04-20] MEDS ORDERED: PROPOFOL 10 MG/ML 20 ML VIAL IV ONE (07:03)
[2021-04-20] MEDS ORDERED: ROPIVACAINE 5 MG/ML 30 ML VIAL ONE (07:03)
[2021-04-20] MEDS ORDERED: SODIUM CHLORIDE 0.9% 100 ML BAG ONE (07:03)
[2021-04-20] MEDS ORDERED: MIDAZOLAM 2 MG/2 ML VIAL ONE (07:03)
[2021-04-20] MEDS ORDERED: TRANEXAMIC ACID 1,000 MG/10 ML VIAL ONE (07:03)
[2021-04-20] MEDS ORDERED: ROPIVACAINE 0.2%-NS ON-Q PUMP 1,090 MG, EMPTY PAIN BALL 1 EACH MISCELLANE PRN (07:38)
[2021-04-20] MEDS ORDERED: ceFAZolin 3,000 MG in SODIUM CHLORIDE 0.9% IRRIGATIO 3,000 ML IRRIGATION ONE (07:39)
--- NOTE | 2021-04-20 07:40 | P.ANPRN ---
Procedure Note - Anesthesia - Nerve Block Performed Right Adductor Canal Infusion Time Out Performed: Yes Date of Procedure: 04/20/21 Procedure Start Time: 06:41 Procedure Stop Time: 06:50 Location of Patient: PreOp Indication: Requested by Surgeon Specifically requested for management of pain by DrRafita: Carlos Mckeon Sedation Type: Sedate with meaningful contact maintained Preparation: Sterile Prep, Sterile Dressing Position: Supine Catheter: Indwelling Needle Types: Pajunk Needle Gauge: 18 Ultrasound used to visualize needle placement: Yes Ultrasound used to observe medication spread: Yes Injectate: 0.5% Ropivacaine (see comment for volume) (15 ml plus 0.9% NS 5 ml) Blood Aspirated: No Pain Paresthesia on Injection Noted: No Resistance on Injection: Normal Image Stored and Saved: Yes Events: Uneventful and Well Tolerated
--- NOTE | 2021-04-20 07:41 | P.ANPRN ---
Procedure Note - Anesthesia - Nerve Block Performed Right iPack Single Time Out Performed: Yes Date of Procedure: 04/20/21 Procedure Start Time: 06:51 Procedure Stop Time: 06:55 Location of Patient: PreOp Indication: Requested by Surgeon Specifically requested for management of pain by DrRafita: Carlos Mckeon Sedation Type: Sedate with meaningful contact maintained Preparation: Sterile Prep Position: Left Lateral Catheter: None Needle Types: Pajunk Needle Gauge: 21 Ultrasound used to visualize needle placement: Yes Ultrasound used to observe medication spread: Yes Injectate: 0.5% Ropivacaine (see comment for volume) (15 ml plus 0.9% NS 5 ml plus Dexamethason 4 mg) Blood Aspirated: No Pain Paresthesia on Injection Noted: No Resistance on Injection: Normal Image Stored and Saved: Yes Events: Uneventful and Well Tolerated
[2021-04-20] MEDS ORDERED: LACTATED RINGERS 1,000 ML IV ONE (08:17)
[2021-04-20] MEDS ORDERED: HYDROmorphone 0.2 MG/1 ML SYRINGE IVP PRN (09:27)
[2021-04-20] MEDS ORDERED: HYDROcodone/APAP 5-325MG 1 EACH TAB PO PRN ×2 (09:27)
[2021-04-20] MEDS ORDERED: NALOXONE 0.4 MG/ML 1 ML VIAL IV PRN (09:27)
[2021-04-20] MEDS ORDERED: ONDANSETRON 4 MG/2 ML VIAL IVP PRN (09:27)
[2021-04-20] MEDS ORDERED: HYDROmorphone 1 MG/ML 1 ML SYRINGE IVP PRN (09:27)
[2021-04-20] MEDS ORDERED: HYDROmorphone 0.5 MG/0.5 ML SYRINGE IVP PRN (09:27)
[2021-04-20] MEDS ORDERED: HYDROcodone/APAP 7.5-325MG 1 EACH TAB PO PRN (09:36)
--- NOTE | 2021-04-20 10:09 | XR ---
Limited right knee HISTORY: Status post right knee arthroplasty 2 views of the right knee Patient is status post right knee arthroplasty. There is lucency in the soft tissues consistent with postop state. Alignment is maintained. Small ossific densities are present about the knee likely post operative. There is soft tissue swelling. IMPRESSION: Orthopedic follow-up.
[2021-04-20] MEDS: HYDROmorphone 0.5 MG/0.5 ML SYRINGE IVP PRN ×2 (10:34→13:32)
[2021-04-20] MEDS: HYDROcodone/APAP 7.5-325MG 1 EACH TAB PO PRN (17:26)
[2021-04-20] MEDS: hydrOXYzine pamoate 25 MG CAP PO PRN (17:26)
--- NOTE | 2021-04-20 19:37 | OP ---
OPERATIVE REPORT DATE OF PROCEDURE: 04/20/2021 SURGEON: Carlos Mckeon MD. MANAGER CAFE: Tash Mckeon. PREOPERATIVE DIAGNOSIS: Right knee osteoarthrosis. POSTOPERATIVE DIAGNOSIS: Same. OPERATION: Right total knee arthroplasty. ANESTHESIA: Spinal with sedation. ESTIMATED BLOOD LOSS: 100 cc. TOURNIQUET: 61 minutes at 250 mmHg. COMPLICATIONS: None apparent. DRAINS: None. DISPOSITION: Postanesthesia care unit. INDICATION: Felicia is a very pleasant 55-year-old female with longstanding history of right knee pain. History and physical examination are consistent with advanced right knee osteoarthrosis. She has been through significant nonoperative management up to this point. Further treatment options were discussed and she decided to go forward with the right total knee arthroplasty. The risks of procedure were discussed with her in detail. These risks include, but are not limited to risk of infection, nerve damage, bleeding, pain, and a small risk of deep vein thrombosis which could lead to fatal pulmonary embolism. There is also risk of loosening of the implant which could require revision operation. The patient understands these risks. All of her questions were answered to her satisfaction. Appropriate informed consent was obtained. DESCRIPTION OF PROCEDURE: The patient was identified in the preoperative holding area. Surgical site was marked by both the patient and myself. She was given 2 grams of Ancef IV for prophylactic purposes. She was then transferred to the operative suite. She was placed supine on the operative table. A spinal anesthetic was then administered, dosed per the anesthesia department without apparent complication. Examination under anesthesia was then performed. The patient was 2-3 degrees shy of full extension. She had 95 degrees of flexion. The medial collateral ligament, lateral collateral ligament and posterior cruciate ligaments were stable. Tourniquet was then placed high on the right upper thigh, well-padded in preparation for surgery. The patient's right lower extremity was then prepped and draped in usual sterile fashion. Standard surgical pause undertaken to ensure that we were operating on the correct site and that appropriate preoperative antibiotics were given. All staff were in agreement and we proceeded. The outlines of the patella marked with a surgical pen. A planned 12 cm vertical incision centered over the patella was marked with a surgical pen. The leg was then exsanguinated with an Esmarch dressing. The knee was then flexed and the tourniquet was inflated to 250 mmHg. The total tourniquet time for the procedure was 61 minutes. Incision was then made with a 10 blade scalpel. Dissection was carried down sharply to the overlying fascia. Great care was taken to minimize the skin flaps. The knee was then exposed using a standard medial parapatellar approach. A small cuff of quadriceps tendon was then left for suturing. She was in quite a bit of varus preoperatively. A standard medial release was then made. The superficial medial collateral ligament was dissected off the bone around the posterior aspect of the proximal tibia. The medial meniscus was then excised as well. The lateral meniscus was also released anteriorly. The leg was then externally rotated. The patella was everted. The knee was flexed. A retractor were then placed to protect the collateral ligaments. I then proceeded to remove the infrapatellar fat pad. This was excised sharply tangentially with fibers of the patellar tendon. I then proceeded to remove the peripheral osteophytes. This was done with a rongeur. I then proceeded with the distal femoral resection. She did have near full extension. A planned 9 mm resection was then done. The femoral canal was then entered in the midline of the femur, approximately 10 mm anterior to the origin of the posterior cruciate ligament. The edilson was then advanced down the center of the femur and placed intramedullary. Based on the preoperative radiographs, the angle between the anatomic and mechanical axis of the femur was approximately 4-5 degrees. The valgus angle of the distal femoral cutting guide was then set at 4 degrees for the right knee. The distal femoral cutting guide was then advanced over the intramedullary edilson. This was seated firmly against the femur. Then, as mentioned, planned to take 9 mm off the distal femur. The cutting block was then secured onto the femur with pins. The jig was then removed. The distal femoral cut was made through the slot of the block. The pins then removed and the distal cutting block was removed. The accuracy of the distal femoral cuts was checked with 2 flat bars. I then proceeded with femoral sizing. The posterior referencing sizing guide was held firmly against the resected surface of the femur. The posterior condyles were resting on the posterior plane of the guide. The sizing stylus was then placed onto the anterior femur. The size was measured as a size 8. I then assessed for femoral rotation. The plan was for 3 degrees of external rotation. Three degrees of external rotation was placed onto the jig. These holes were then marked. I then confirmed the rotation by 3 separate methods. This was done using epicondylar axis, as well as Whitesides line and posterior referencing. It was deemed that the external rotation was proper. I then moved forward placing the femoral cutting block. This was placed over the previously placed pin holes. The Avelino wing was then placed on the anterior slots to ensure that we would not notch the anterior femur with the anterior femoral cut. I then proceeded with the anterior femoral cut. This was flush with the anterior cortex of the femur. The posterior cuts were then made followed by the anterior chamfer cut, then the posterior chamfer cut. The cutting block was then removed. Throughout the resection, the collateral ligaments were recessed were protected with retractors. I then placed a trial size 8 femur. It was slightly wide, but the narrow fit very nicely and medial-lateral and it fit flush with the distal end of the femur. The drill holes were then made. I then proceeded with the tibial cut. I planned for cruciate retaining knee. The guide was placed and set for varus valgus and for slope. The height was set for approximately 2 mm resection from the medial tibial plateau, which was the lower side. I was happy with the alignment and the amount of resection. The cutting block was then pinned to the proximal tibia. The alignment rods were removed. The proximal tibia was resected with the reciprocating saw. Again, this was done with retractors protecting the collateral ligaments as well as the posterior cruciate ligament. I then proceeded to evaluate the flexion extension gaps. A 10 mm block was then placed. The flexion and extension gaps were equal. I then proceed to resection of posterior osteophytes. She had very extensive posterior osteophytes. This was done using a curved osteotome. This resected the posterior osteophytes and posterior capsule stripping was done off the posterior aspect of the femur at this time. The osteophytes were then removed. I then proceeded with resection of the patella. The thickness of the patella was measured using the caliper. The thickness was 22 mm. The thickness of the anticipated patellar dome was taken into account. Resection then performed and confirmed to be equal in 4 quadrants using a caliper. Approximately 14 mm of bone remained after resection. A 29 x 8 standard patellar trial was then placed. The holes were drilled. The trial was then placed. I then proceeded to sizing the tibial plate. A size D tibial plate fit very nicely. I then placed the trial femur, the tibial tray and patellar button. A 10 mm trial tibial insert was also placed. The components fit very nicely. She had full extension and flexion. The extension and flexion gaps were equal and stable to both varus and valgus stress. The patella tracked appropriately. Tibial tray rotation was then marked with a Bovie. This was externally rotated properly. I then proceed with tibial preparation. First drilled the femoral holes, removed femoral component. The tibial tray was then set for proper external rotation, as well as mediolateral placement on the tibia. It was then pinned into place. I then proceeded with punching the keel. I then decided to proceed with cementing of all of our components. The knee was thoroughly irrigated with sterile saline solution via pulse lavage. The lateral geniculate artery was identified and cauterized. All blood was removed from the bone of the tibia, femur and patella with pulse lavage. I then proceed with cementing. Two packs of antibiotic bone cement prepared on the back table by the director surgical. I then proceed with cementing the tibia first. The cement was impacted in the keel, as well as deeply seated in the bone. A second coat of cement was then placed. The tibia was then impacted into place. Excess cement was removed with Arelis's and jokers. I then proceeded with cementing of the femoral component. The femoral component was also cemented using standard technique. Excess cement was removed. A 10 mm trial insert was then placed into the knee. It was brought into full extension with a constant axial load placed until the cement had hardened. The patellar component was then cemented. This held firmly with a compressive device until the cement had dried. When the cement had dried, the knee was taken out of extension. All excess cement was removed from around the prosthesis. I then trialed the knee with a 10 mm insert. The flexion and extension gaps were appropriate. The knee was stable. I then trialed with an 11 mm insert. The flexion-extension gaps were also appropriate and the knee was felt a little better. I decided to go for the 11 mm medial congruent cross-linked cruciate-retaining tibial insert. Polyethylene was then placed on the tibial tray and locked into place. The knee was then reduced. The knee was again further irrigated with sterile saline solution with antibiotic added. The tourniquet was then deflated. Total tourniquet time for the procedure was 61 minutes at 250 mmHg. The final components were Jose Persona size 8 narrow, cruciate-retaining femoral component size D tray, and 11 mm medial congruent cruciate-retaining polyethylene insert and a 29 x 8 mm patella. I then proceeded with closure. Again, the knee was thoroughly irrigated. The quadriceps tendon and the medial retinaculum were reapproximated with #2 Ethibond suture. The extensor mechanism was then closed with a running #2 Quill suture. Subcutaneous tissues were closed with 2-0 Vicryl interrupted suture. The skin was closed with a running 3-0 Quill suture. Dermabond was applied to the incision. Sterile compressive dressings were applied. All sponge and needle counts were deemed correct prior to closure. The patient tolerated the procedure without apparent complication. She was transferred recovery room in stable condition. MMODL / IJN: [id number] /
[2021-04-20] MEDS: LORazepam 0.5 MG TAB PO SCH (20:39)
[2021-04-20] MEDS: CYCLOBENZAPRINE 10 MG TAB PO SCH (20:39)
[2021-04-20] MEDS: ASPIRIN 81 MG PO SCH (20:39)
[2021-04-20] MEDS: GABAPENTIN 300 MG CAP PO SCH (20:40)
[2021-04-20] MEDS: DOCUSATE 100 MG CAP PO SCH (20:45)
[2021-04-20] MEDS ORDERED: ESCITALOPRAM 5 MG TAB PO SCH (21:00)
[2021-04-20] MEDS ORDERED: SENNOSIDES-DOCUSATE SODIUM 1 EACH TAB PO SCH (21:00)
[2021-04-21] MEDS: hydrOXYzine pamoate 25 MG CAP PO PRN ×3 (01:14→11:05)
[2021-04-21] MEDS: HYDROcodone/APAP 7.5-325MG 1 EACH TAB PO PRN ×3 (01:15→11:05)
[2021-04-21] MEDS: LACTATED RINGERS 1,000 ML IV SCH ×2 (06:41→08:31)
--- NOTE | 2021-04-21 06:46 | P.PN ---
Progress Note - Text Progress Note Date: 04/21/21 Patient was seen at bedside at 630 AM. Patient is postop day 1 from right total knee replacement with adductor canal catheter placed for pain . Ropivacaine 0.2% infusion running at 8 ml per hour. VAS score is 2. Patient denies side effects. Lower extremity sensation and motor function is intact. Patient has ambulated. Dressing clean dry and intact over catheter site
[2021-04-21] MEDS ORDERED: PANTOPRAZOLE 40 MG TABLET PO SCH (07:30)
[2021-04-21 07:38] VITALS: BP 128/76; PULSE 81; RESP 18; TEMP 97.7
[2021-04-21] MEDS: ASPIRIN 81 MG PO SCH (08:27)
[2021-04-21] MEDS: LORazepam 0.5 MG TAB PO SCH (08:28)
[2021-04-21] MEDS: DOCUSATE 100 MG CAP PO SCH (08:28)
[2021-04-21] MEDS: GABAPENTIN 300 MG CAP PO SCH (08:28)
[2021-04-21] MEDS: CYCLOBENZAPRINE 10 MG TAB PO SCH (08:28)
--- NOTE | 2021-04-21 08:30 | P.DS ---
Providers Expected date of discharge: 04/21/21 Attending physician: Carlos Mckeon Consults: 04/20/21 09:27 Consult Physician Routine Consulting Provider: Zahira Gage Consult Reason/Comments: medical management Do you want consulting provider notified?: Yes Primary care physician: Zahira Gage - Discharge Diagnosis(es) (1) Osteoarthritis of right knee Current Visit: Yes Status: Acute (2) Status post total right knee replacement Current Visit: Yes Status: Acute Hospital Course: This is a pleasant 55-year-old female last seen in our office with complaints of right knee pain. Patient has known history of degenerative arthritis of the right knee and presented to discuss options. After discussion and consideration, patient elected to proceed with a total knee arthroplasty of the right knee. The patient was seen preoperatively and medically cleared for surgery by her primary care physician. The patient was admitted to [facility] and underwent right total knee arthroplasty on 04/20/[address] Mckeon. The procedure was performed without complications or sequelae. The patient has done well postoperatively. The patient was seen and evaluated at bedside today and denies any new complaints. Pain is reasonably controlled. Dressing is clean dry and intact. Incision looks fine with no erythema or active drainage. Calf is soft and nontender. The patient has full foot and ankle motion without difficulty. Patient's right lower extremity is neurovascular intact. Patient is orthopedically stable for discharge to home today. Patient Condition at Discharge: Stable Plan - Discharge Summary Discharge Rx Participant: Yes New Discharge Prescriptions: New Aspirin 81 mg PO BID #60 chewable HYDROcodone/APAP 7.5-325MG [[place] 7.5-325] 1 tab PO Q4H PRN 7 Days #42 tab PRN Reason: Pain Docusate [Colace] 100 mg PO BID #60 capsule No Action Furosemide [Lasix] 40 mg PO DAILY PRN PRN Reason: Edema Potassium Chloride [Klor-Con 20] 20 meq PO DAILY PRN PRN Reason: LASIX Escitalopram [Lexapro] 5 mg PO HS Cholecalciferol [Vitamin D3] 1,000 unit PO DAILY Mirabegron [Myrbetriq] 50 mg PO DAILY Cyclobenzaprine [Flexeril] 10 mg PO BID L.acidoph,Paracasei, B.lactis [Probiotic] 1 each PO DAILY Ibuprofen [Motrin Ib] 800 mg PO BID PRN PRN Reason: Pain Omeprazole [PriLOSEC] 20 mg PO DAILY Gabapentin [Neurontin] 300 mg PO TID LORazepam [Ativan] 0.5 mg PO BID Biotin 5 mg PO DAILY Docusate [Colace] 100 mg PO BID #60 capsule Aspirin [Adult Low Dose Aspirin EC] 81 mg PO BID #60 tablet. HYDROcodone/APAP 7.5-325MG [[place] 7.5-325] 1 each PO Q4H PRN PRN Reason: Pain Discharge Medication List Furosemide [Lasix] 40 mg PO DAILY PRN 04/29/17 [History] Cholecalciferol [Vitamin D3] 1,000 unit PO DAILY 05/14/18 [History] Escitalopram [Lexapro] 5 mg PO HS 05/14/18 [History] Potassium Chloride [Klor-Con 20] 20 meq PO DAILY PRN 05/14/18 [History] Cyclobenzaprine [Flexeril] 10 mg PO BID 08/12/18 [History] Ibuprofen [Motrin Ib] 800 mg PO BID PRN 08/12/18 [History] L.acidoph,Paracasei, B.lactis [Probiotic] 1 each PO DAILY 08/12/18 [History] Mirabegron [Myrbetriq] 50 mg PO DAILY 08/12/18 [History] Gabapentin [Neurontin] 300 mg PO TID 03/26/19 [History] LORazepam [Ativan] 0.5 mg PO BID 03/26/19 [History] Omeprazole [PriLOSEC] 20 mg PO DAILY 03/26/19 [History] Biotin 5 mg PO DAILY 10/08/19 [History] Aspirin [Adult Low Dose Aspirin EC] 81 mg PO BID #60 tablet. 03/03/21 [Rx] Docusate [Colace] 100 mg PO BID #60 capsule 03/03/21 [Rx] HYDROcodone/APAP 7.5-325MG [[place] 7.5-325] 1 each PO Q4H PRN 04/19/21 [History] Aspirin 81 mg PO BID #60 chewable 04/20/21 [Rx] Docusate [Colace] 100 mg PO BID #60 capsule 04/20/21 [Rx] HYDROcodone/APAP 7.5-325MG [[place] 7.5-325] 1 tab PO Q4H PRN 7 Days #42 tab 04/20/21 [Rx] Follow up Appointment(s)/Referral(s): Carlos Mckeon MD [STAFF PHYSICIAN] - 05/02/21 2:00 pm Patient Instructions/Handouts: *Surgery [facility] - On-Q Pain Pump Discharge Instructions, How to Use an Incentive Spirometer (DC), Precautions after Total J oint Replacement Surgery (DC), Joint Replacement Surgery (DC), Knee Replacement (DC) Activity/Diet/Wound Care/Special Instructions: Weight bear as tolerated on operative leg. Take medications as prescribed. Follow-up with Dr. Mckeon in the office in two weeks. Call the office with any questions or concerns, Discharge Disposition: HOME WITH HOME HEALTH SERVICES
[2021-04-21] MEDS ORDERED: NON FORMULARY DRUG (Mirabegron [Myrbetriq] 25 MG Tab.Er.24h) PO SCH (09:00)
[2021-04-21] MEDS ORDERED: LACTOBACILLUS ACIDOPH & BULGAR 1 EACH PACKET PO SCH (09:00)
[2021-04-21] MEDS ORDERED: NON FORMULARY DRUG (Biotin [Biotin] 5 MG Capsule) PO SCH (09:00)
[2021-04-21] MEDS ORDERED: CHOLECALCIFEROL 25 MCG (1000 IU) TABLET PO SCH (09:00)
[2021-04-21 09:48] LABS: Basophils # (A) 0.02 X 10*3/uL (0.00-0.10); Basophils % (A) 0.4 %; Eosinophils # (A) 0.03 X 10*3/uL (0.04-0.35); Eosinophils % (A) 0.5 %; HCT 30.8 % (37.2-46.3); HGB 10.1 g/dL (12.0-15.0); Lymphocytes # (A) 1.58 X 10*3/uL (0.90-5.00); Lymphocytes % (A) 28.5 %; MCHC 32.8 g/dL (32.0-37.0); MCV 91.4 fL (80.0-97.0); Mean Platelet Volume 10.6 fL (9.5-12.2); Monocytes # (A) 0.55 X 10*3/uL (0.20-1.00); Monocytes % (A) 9.9 %; Neutrophils # (A) 3.35 X 10*3/uL (1.80-7.70); Neutrophils % (A) 60.3 %; Platelet Count 215 X 10*3/uL (140-440); RBC 3.37 X 10*6/uL (4.10-5.20); RDW 12.6 % (11.5-14.5); WBC 5.55 X 10*3/uL (4.50-10.00)
== END 2021-04-21 11:55 | disposition home health service (06) ==
LOC: OR 05:36 → 4SSUR 09:25 → OR 04-21 11:55
PROVIDERS: ATTEND Orthopaedic Surgery Sports Medicine
DX: M17.0 Bilateral primary osteoarthritis of knee (principal); Z79.899 Other long term (current) drug therapy; E03.9 Hypothyroidism, unspecified; Z98.1 Arthrodesis status; Z87.891 Personal history of nicotine dependence; F41.9 Anxiety disorder, unspecified; Z79.82 Long term (current) use of aspirin; Z88.5 Allergy status to narcotic agent; Z91.048 Other nonmedicinal substance allergy status
CPT/HCPCS: 97116; 97161; 64999; 64448; 76942; 85025; 88300; 87635; 73560; 27447; C1776; C1713; J2250; J1100; J0690 ×2; J2405; J3010; J2795 ×2; J2704; J1170

== ENCOUNTER 2021-04-27 15:10 | Emergency (ER) | payer BC ==
[2021-04-27 15:14] VITALS: TEMP 98.1
[2021-04-27] MEDS ORDERED: KETOROLAC 15 MG/ML 1 ML VIAL IVP STA (15:47)
[2021-04-27] MEDS ORDERED: SODIUM CHLORIDE 0.9% 1,000 ML IV STA (15:47)
--- NOTE | 2021-04-27 15:50 | ED ---
Abdominal Pain HPI - General Chief Complaint: Abdominal Pain Stated Complaint: Abd Pain Time Seen by Provider: 04/27/21 15:20 Source: patient, RN notes reviewed Mode of arrival: ambulatory Limitations: no limitations - History of Present Illness Initial Comments: This is a 55-year-old female with a history of recent right knee surgery who states she's been on [place] for pain control but quit taking it 2 days ago because of constipation. She has been having abdominal pain for the past 3 days however generalized with nausea no vomiting she states she did actually had to disimpact herself couple days ago. No dysuria hematuria but there is discharged he did drink she feels very nauseated associated decrease oral intake. The pain sometimes is as severe 8 or 9 minutes currently [id number]. She has had some sweats with the pain. Does not seem to actually change with positional changes at all. She has no prior history of appendicitis or diverticulitis he has had a cholecystectomy in the past. He also states she's been having some reflux like chest discomfort but she states she can taste acid with that. MD Complaint: abdominal pain - Related Data Home Medications Medication Instructions Recorded Confirmed Furosemide [Lasix] 40 mg PO DAILY PRN 04/29/17 04/20/21 Cholecalciferol [Vitamin D3] 1,000 unit PO DAILY 05/14/18 04/20/21 Escitalopram [Lexapro] 5 mg PO HS 05/14/18 04/20/21 Potassium Chloride [Klor-Con 20] 20 meq PO DAILY PRN 05/14/18 04/20/21 Cyclobenzaprine [Flexeril] 10 mg PO BID 08/12/18 04/20/21 Ibuprofen [Motrin Ib] 800 mg PO BID PRN 08/12/18 04/20/21 L.acidoph,Paracasei, B.lactis 1 each PO DAILY 08/12/18 04/20/21 [Probiotic] Mirabegron [Myrbetriq] 50 mg PO DAILY 08/12/18 04/20/21 Gabapentin [Neurontin] 300 mg PO TID 03/26/19 04/20/21 LORazepam [Ativan] 0.5 mg PO BID 03/26/19 04/20/21 Omeprazole [PriLOSEC] 20 mg PO DAILY 03/26/19 04/20/21 Biotin 5 mg PO DAILY 10/08/19 04/20/21 HYDROcodone/APAP 7.5-325MG [[place] 1 each PO Q4H PRN 04/19/21 04/20/21 7.5-325] Previous Rx's Medication Instructions Recorded Aspirin [Adult Low Dose Aspirin EC] 81 mg PO BID #60 tablet. 03/03/21 Docusate [Colace] 100 mg PO BID #60 capsule 03/03/21 Aspirin 81 mg PO BID #60 chewable 04/20/21 Docusate [Colace] 100 mg PO BID #60 capsule 04/20/21 HYDROcodone/APAP 7.5-325MG [[place] 1 tab PO Q4H PRN 7 Days #42 tab 04/20/21 7.5-325] Allergies Allergy/AdvReac Type Severity Reaction Status Date / Time codeine Allergy Chest Pain Verified 04/27/21 15:14 venom-honey bee Allergy Anaphylaxis Verified 04/27/21 15:14 Review of Systems ROS Statement: Those systems with pertinent positive or pertinent negative responses have been documented in the HPI. ROS Other: All systems not noted in ROS Statement are negative. Past Medical History Past Medical History: Chest Pain / Angina, GERD/Reflux, Osteoarthritis (OA), Thyroid Disorder Additional Past Medical History / Comment(s): BACk AND NECK PAIN, radioactive iodine tx for thyroid History of Any Multi-Drug Resistant Organisms: C-DIFF Date of last positivie culture/infection: 2009 MDRO Source:: stool Past Surgical History: Cholecystectomy, Heart Catheterization, Orthopedic Surgery, Tubal Ligation Additional Past Surgical History / Comment(s): NODULES REMOVED FROM VOCAL CORDS, Pain clinic procedures, Anterior Cervical Decompression and Fusion C4-5, C5-6. PLANTAR FASCITIS SURG STONE. Past Anesthesia/Blood Transfusion Reactions: Motion Sickness, Postoperative Nausea & Vomiting (PONV) Past Psychological History: Anxiety Smoking Status: Never smoker Past Alcohol Use History: Occasional Past Drug Use History: None Reported - Past Family History Father Family Medical History: Musculoskeletal Disorder Additional Family Medical History / Comment(s): Father at age 74 from sepsis with history of COPD and peripheral vascular disease. Mother Family Medical History: Cancer Additional Family Medical History / Comment(s): breast cancer General Exam - General Exam Comments Initial Comments: This is a well-developed well-nourished awake alert oriented 3 female Limitations: no limitations General appearance: alert Head exam: Present: atraumatic, normocephalic, normal inspection Eye exam: Present: normal appearance, PERRL, EOMI. Absent: scleral icterus, conjunctival injection, periorbital swelling ENT exam: Present: normal exam, mucous membranes moist Neck exam: Present: normal inspection. Absent: tenderness, meningismus, lymphadenopathy Respiratory exam: Present: normal lung sounds bilaterally. Absent: respiratory distress, wheezes, rales, rhonchi, stridor Cardiovascular Exam: Present: regular rate, normal rhythm, normal heart sounds. Absent: systolic murmur, diastolic murmur, rubs, gallop, clicks GI/Abdominal exam: Present: soft, tenderness (Tenderness to palpation non specific no overt guarding rebound masses or bruits more so over the left lower quadrant of the right), normal bowel sounds. Absent: distended, guarding, rebound, rigid Extremities exam: Present: normal inspection, full ROM, normal capillary refill. Absent: tenderness, pedal edema, joint swelling, calf tenderness Back exam: Present: normal inspection Neurological exam: Present: alert, oriented X3, CN II-XII intact Psychiatric exam: Present: normal affect, normal mood Skin exam: Present: warm, dry, intact, normal color. Absent: rash Course Vital Signs 04/27/21 04/27/21 15:12 17:55 Temperature 98.1 F Pulse Rate 74 82 Respiratory 20 18 Rate Blood Pressure 112/71 117/82 O2 Sat by Pulse 97 100 Oximetry - Reevaluation(s) Reevaluation #1: 04/27/21 16:46 Patient is feeling somewhat better after the IV Toradol and IV fluids. X-rays are nonspecific CAT scan is ordered. Medical Decision Making - Medical Decision Making I did discuss Pfizer the patient and her daughter was present patient will be discharged she is feeling improved. Discharged with magnesium. - Lab Data Result diagrams: 04/27/21 15:54 04/27/21 15:54 Lab Results 04/27/21 04/27/21 04/27/21 Range/Units 15:54 15:54 15:54 WBC 6.2 (3.8-10.6) k/uL RBC 3.72 L (3.80-5.40) m/uL Hgb 11.3 L (11.4-16.0) gm/dL Hct 32.5 L (34.0-46.0) % MCV 87.4 (80.0-100.0) fL MCH 30.5 (25.0-35.0) pg MCHC 34.9 (31.0-37.0) g/dL RDW 12.7 (11.5-15.5) % Plt Count 294 (150-450) k/uL MPV 7.2 Neutrophils % 68 % Lymphocytes % 23 % Monocytes % 6 % Eosinophils % 1 % Basophils % 1 % Neutrophils # 4.2 (1.3-7.7) k/uL Lymphocytes # 1.4 (1.0-4.8) k/uL Monocytes # 0.4 (0-1.0) k/uL Eosinophils # 0.1 (0-0.7) k/uL Basophils # 0.0 (0-0.2) k/uL Sodium 139 (137-145) mmol/L Potassium 3.7 (3.5-5.1) mmol/L Chloride 106 (98-107) mmol/L Carbon Dioxide 26 (22-30) mmol/L Anion Gap 7 mmol/L BUN 14 (7-17) mg/dL Creatinine 0.65 (0.52-1.04) mg/dL Est GFR (CKD-EPI)AfAm >90 (>60 ml/min/1.73 sqM) Est GFR (CKD-EPI)NonAf >90 (>60 ml/min/1.73 sqM) Glucose 97 (74-99) mg/dL Plasma Lactic Acid Aniket (0.7-2.0) mmol/L Calcium 9.3 (8.4-10.2) mg/dL Total Bilirubin 0.9 (0.2-1.3) mg/dL AST 23 (14-36) U/L ALT 23 (4-34) U/L Alkaline Phosphatase 122 (38-126) U/L Creatine Kinase 36 (30-135) U/L Troponin I (0.000-0.034) ng/mL Total Protein 6.5 (6.3-8.2) g/dL Albumin 3.8 (3.5-5.0) g/dL Amylase 38 (30-110) U/L Lipase 21 L (23-300) U/L Urine Color Yellow Urine Appearance Clear (Clear) Urine pH 7.0 (5.0-8.0) Ur Specific [place] >1.050 H (1.001-1.035) Urine Protein 1+ H (Negative) Urine Glucose (UA) Negative (Negative) Urine Ketones 2+ H (Negative) Urine Blood Trace H (Negative) Urine Nitrite Negative (Negative) Urine Bilirubin 1+ H (Negative) Urine Urobilinogen 6.0 (<2.0) mg/dL Ur Leukocyte Esterase Trace H (Negative) Urine RBC 3 (0-5) /hpf Urine WBC 4 (0-5) /hpf Ur Squamous Epith Cells 4 (0-4) /hpf Hyaline Casts 1 (0-2) /lpf Urine Mucus Rare H (None) /hpf 04/27/21 04/27/21 Range/Units 15:54 15:54 WBC (3.8-10.6) k/uL RBC (3.80-5.40) m/uL Hgb (11.4-16.0) gm/dL Hct (34.0-46.0) % MCV (80.0-100.0) fL MCH (25.0-35.0) pg MCHC (31.0-37.0) g/dL RDW (11.5-15.5) % Plt Count (150-450) k/uL MPV Neutrophils % % Lymphocytes % % Monocytes % % Eosinophils % % Basophils % % Neutrophils # (1.3-7.7) k/uL Lymphocytes # (1.0-4.8) k/uL Monocytes # (0-1.0) k/uL Eosinophils # (0-0.7) k/uL Basophils # (0-0.2) k/uL Sodium (137-145) mmol/L Potassium (3.5-5.1) mmol/L Chloride (98-107) mmol/L Carbon Dioxide (22-30) mmol/L Anion Gap mmol/L BUN (7-17) mg/dL Creatinine (0.52-1.04) mg/dL Est GFR (CKD-EPI)AfAm (>60 ml/min/1.73 sqM) Est GFR (CKD-EPI)NonAf (>60 ml/min/1.73 sqM) Glucose (74-99) mg/dL Plasma Lactic Acid Aniket 1.0 (0.7-2.0) mmol/L Calcium (8.4-10.2) mg/dL Total Bilirubin (0.2-1.3) mg/dL AST (14-36) U/L ALT (4-34) U/L Alkaline Phosphatase (38-126) U/L Creatine Kinase (30-135) U/L Troponin I <0.012 (0.000-0.034) ng/mL Total Protein (6.3-8.2) g/dL Albumin (3.5-5.0) g/dL Amylase (30-110) U/L Lipase (23-300) U/L Urine Color Urine Appearance (Clear) Urine pH (5.0-8.0) Ur Specific [place] (1.001-1.035) Urine Protein (Negative) Urine Glucose (UA) (Negative) Urine Ketones (Negative) Urine Blood (Negative) Urine Nitrite (Negative) Urine Bilirubin (Negative) Urine Urobilinogen (<2.0) mg/dL Ur Leukocyte Esterase (Negative) Urine RBC (0-5) /hpf Urine WBC (0-5) /hpf Ur Squamous Epith Cells (0-4) /hpf Hyaline Casts (0-2) /lpf Urine Mucus (None) /hpf - EKG Data -: EKG Interpreted by Nh EKG Comments: Sinus rhythm with short DC interval rate 85. Interval 104 QRS 84 QT since QTC 362/4:30 - Radiology Data Radiology results: report reviewed (Imaging reviewed no acute findings stool burden is noted diverticulosis), image reviewed Disposition Clinical Impression: Spastic colon, Constipation, Abdominal pain Disposition: HOME SELF-CARE Condition: Good Instructions (If sedation given, give patient instructions): Irritable Bowel Syndrome (ED), Constipation (ED), Abdominal Pain (ED) Is patient prescribed a controlled substance at d/c from ED?: No Referrals: Zahira Gage MD [Primary Care Provider] - 1-2 days
[2021-04-27 16:03] LABS: Basophils % (A) 1 %; Eosinophils # (A) 0.1 k/uL (0-0.7); Eosinophils % (A) 1 %; HCT 32.5 % (34.0-46.0); HGB 11.3 gm/dL (11.4-16.0); Lymphocytes # (A) 1.4 k/uL (1.0-4.8); Lymphocytes % (A) 23 %; MCH 30.5 pg (25.0-35.0); MCHC 34.9 g/dL (31.0-37.0); MCV 87.4 fL (80.0-100.0); Mean Platelet Volume 7.2; Monocytes # (A) 0.4 k/uL (0-1.0); Monocytes % (A) 6 %; Neutrophils # (A) 4.2 k/uL (1.3-7.7); Neutrophils % (A) 68 %; Platelet Count 294 k/uL (150-450); RBC 3.72 m/uL (3.80-5.40); RDW 12.7 % (11.5-15.5); WBC 6.2 k/uL (3.8-10.6)
[2021-04-27 16:13] LABS: ALT 23 U/L (4-34); AST 23 U/L (14-36); African American GFR (CKD) >90 (>60 ml/min/1.73 sqM); Albumin 3.8 g/dL (3.5-5.0); Alkaline Phosphatase 122 U/L (38-126); Amylase 38 U/L (30-110); Anion Gap 7 mmol/L; Blood Urea Nitrogen 14 mg/dL (7-17); Calcium 9.3 mg/dL (8.4-10.2); Carbon Dioxide 26 mmol/L (22-30); Chloride 106 mmol/L (98-107); Creatine Kinase 36 U/L (30-135); Glucose 97 mg/dL (74-99); Lipase 21 U/L (23-300); Non-African American GFR(CKD) >90 (>60 ml/min/1.73 sqM); Potassium 3.7 mmol/L (3.5-5.1); Sodium 139 mmol/L (137-145); Total Bilirubin 0.9 mg/dL (0.2-1.3); Total Protein 6.5 g/dL (6.3-8.2)
--- NOTE | 2021-04-27 16:31 | XR ---
EXAMINATION TYPE: XR KUB DATE OF EXAM: 04/27/2021 Comparison: None Clinical History: 55-year-old female abdominal pain Findings: Surgical clips right paramedian mid abdomen. Tubal ligation clips also noted. Lung bases are clear. N o evidence for free intraperitoneal air. No dilated small bowel or air-fluid levels. No significant stool burden. Scattered air seen throughout the colon extending distally to the rectum . No suspicious calcifications seen. Impression: No evidence for free air or bowel obstruction. No significant stool burden.
[2021-04-27 17:39] LABS: Appearance,Urine Clear (Clear); Bilirubin,Urine 1+ (Negative); Blood,Urine Trace (Negative); Color,Urine Yellow; Glucose,Urine (UA) Negative (Negative); Hyaline Casts,Urine 1 /lpf (0-2); Ketones,Urine 2+ (Negative); Leukocyte Esterase,Urine Trace (Negative); Mucus,Urine Rare /hpf; Nitrite,Urine Negative (Negative); Protein,Urine 1+ (Negative); RBC,Urine 3 /hpf (0-5); Squamous Epithelial Cell,Urine 4 /hpf (0-4); WBC,Urine 4 /hpf (0-5)
[2021-04-27 17:41] LABS: Specific Gravity,Urine >1.050 (1.001-1.035)
--- NOTE | 2021-04-27 18:01 | CT ---
EXAMINATION TYPE: CT abdomen pelvis w con DATE OF EXAM: 04/27/2021 HISTORY: 55-year-old female with generalized abdominal pain, nausea, diarrhea, constipation CT DLP: 1262.6mGycm Automated Exposure Control for Dose Reduction was Utilized. CONTRAST: CT scan of the abdomen and pelvis is performed with IV Contrast, patient injected with 100 mL of Isov ue 300. COMPARISON: None FINDINGS: LUNG BASES: No significant abnormality is appreciated. INCLUDED CARDIAC STRUCTURES: Unremarkable LIVER: No significant abnormality is appreciated. GALLBLADDER : Surgically removed BILIARY TREE: Extrahepatic biliary ductal dilatation noted. PANCREAS: No significant abnormality is seen. SPLEEN: No significant abnormality is seen. ADRENALS: No significant abnormality is seen. KIDNEYS AND URETERS: No significant abnormality is seen. URINARY BLADDER: Diffuse urinary bladder wall thickening noted could be related to under distention. ESOPHAGUS: No significant abnormality is seen. STOMACH: No significant abnormality is seen. SMALL BOWEL: Fluid-filled distended small bowel loops. LARGE BOWEL: Large amount of stool noted in the colon. There is distal descending colonic wall thicke pamela and diverticulosis without evidence of complicated diverticulitis. APPENDIX: No significant abnormality is seen. HERNIAS: None seen. UTERUS/ADNEXA: Unremarkable uterus. Post ligation changes in the adnexa. PERITONEUM/MESENTRY: No pneumoperitoneum or ascites. LYMPH NODES: No enlarged retroperitoneal or pelvic lymph nodes are appreciated. MAJOR VASCULAR STRUCTURES: Nonaneurysmal aorta. Unremarkable inferior vena cava. OSSEOUS STRUCTURES: Grade 1 anterior listhesis of L4-5. Severe narrowing of the intervertebral space at L2-3. There is additional mecu-so-vqtxykch narrowing of the intervertebral spaces in the included thoracic and lumbar spine in addition to presence of facet joint arthropathy changes in the lumbar sp ine and evidence of disc herniation at L3-4, L4-5 and L5-S1. Further evaluation with lumbar spine MRI could be of additional benefit. No significant soft tissue abnormality. IMPRESSION: 1. Large amount of stool and fluid-filled distended small bowel loops. Infectious or inflammatory con ditions are in the differential. No evidence of bowel obstruction 2. Extrahepatic biliary ductal dilatation status post cholecystectomy, correlation with bilirubin lev els if clinically indicated. 3. Left colonic diverticulosis with no evidence of complicated or overt acute diverticulitis. 4. Degenerative changes in the lumbar spine.
[2021-04-27] MEDS ORDERED: MAGNESIUM CITRATE 296 ML BOTTLE PO ONE (18:32)
[2021-04-27 18:53] VITALS: BP 123/74; PULSE 74; RESP 16
== END 2021-04-27 18:51 | disposition home or self-care (01) ==
LOC: EC 15:10
DX: K58.1 Irritable bowel syndrome with constipation (principal); K21.9 Gastro-esophageal reflux disease without esophagitis; F41.9 Anxiety disorder, unspecified; M19.90 Unspecified osteoarthritis, unspecified site; Z79.1 Long term (current) use of non-steroidal anti-inflammatories (NSAID); Z79.82 Long term (current) use of aspirin; Z90.49 Acquired absence of other specified parts of digestive tract
CPT/HCPCS: 36415; 93005; 80053; 82150; 82550; 83605; 83690; 84484; 85025; 81001; 87040; 74018; 74177; 99285; 96374; 96361 ×3; J1885; Q9967

== ENCOUNTER 2021-06-30 12:09 | Day surgery (SDC) | payer BC ==
[2021-06-27 12:55] VITALS: BMI 30.5
[~2021-06-30 12:09] MED LIST changes: -ACETAMINOPHEN TAB 500 MG TAB PO PRN; -DEXAMETHASONE SOD PHOSPHATE 4 MG/ML 1 ML VIAL IV ONE; -GABAPENTIN 300 MG CAP PO PRN; +LACTATED RINGERS 1,000 ML IV SCH; -MELOXICAM 7.5 MG TAB PO PRN; -MIDAZOLAM 2 MG/2 ML VIAL IV PRN; -ONDANSETRON 4 MG/2 ML VIAL IVP ONE; -ONDANSETRON 4 MG/2 ML VIAL IVP PRN; -ROPIVACAINE/EPI/CLONIDINE/KET 50 ML SYRINGE MISCELLANE PRN; -TRANEXAMIC ACID 1,000 MG in SODIUM CHLORIDE 0.9% 100 ML IVPB PRN
[2021-06-30] MEDS ORDERED: ONDANSETRON 4 MG/2 ML VIAL ONE (12:33)
[2021-06-30 12:47] VITALS: RESP 16; TEMP 97.7
[2021-06-30] MEDS ORDERED: ROPIVACAINE 5MG/ML 20ML VIAL ONE (12:47)
[2021-06-30] MEDS ORDERED: methylPREDNISolone ACETATE 40 MG/ML 1 ML VIAL ONE (12:47)
[2021-06-30] MEDS ORDERED: MIDAZOLAM 2 MG/2 ML VIAL ONE (12:49)
[2021-06-30] MEDS ORDERED: fentaNYL (PF) 50 MCG/ML 2 ML AMP ONE (12:49)
--- NOTE | 2021-06-30 13:21 | P.PCN ---
Date of Procedure: 06/30/21 Procedure(s) Performed: PREOPERATIVE DIAGNOSIS: 1-Lumbar Spondylosis with Facet Arthropathy without myelopathy. 2- Lumber degenerative disc disease. POSTOPERATIVE DIAGNOSIS: 1- Lumbar Spondylosis with Facet Arthropathy without myelopathy. 2- Lumber degenerative disc disease. PROCEDURES : Bilateral Radiofrequency thermocoagulation, L3 , L4 , and L5 medial branch, with fluoroscopic guidance (fluoroscopy images available in the radiology department) ( to denervate the facet joint at bilateral L4-5 ,and L5-S1 levels ). ANESTHESIA: Monitored anesthesia care, as per anesthesia department . EBL: Minimal PROCEDURE INDICATION: The patient with low back pain secondary to lumbar facet arthropathy who had more than 50% relief of her pain with previous diagnostic lumbar medial branch block with bupivacaine. PROCEDURE DESCRIPTION / TECHNIQUE: The patient was seen and identified in the preoperative area. Risks, benefits, complications, including but not limited to risk of infection ,bleeding , allergic reactions to the medications and no complete pain releife , and alternatives were discussed with the patient, the patient agreed to proceed with the procedure and signed the consent. IV was started. Vital signs remained stable throughout the procedure. Patient was taken to the OR and time out was completed. The patient was placed in the prone position on the procedure table. The lumber area was prepped and draped in the usual sterile fashion. . Vital signs were closely monitored during the procedure .IV sedation was used during the procedure to decrease patients anxiety. Using AP and then oblique fluoroscopy, the ``eye of the Ken dog co rresponding to the connection between the superior and transverse articular processes of right L3, L4, and L5 were identified, marked, and localized with 1% lidocaine. Subsequently, a 18 -zr radiofrequency cannula with a 10- mm active tip was advanced guided by fluoroscopy to each of the``eyes of the Ken dog at right L3, L4, and L5. Each site then underwent sensory testing at 50 Hz and 0 to 1 volt and motor testing at 2.5 Hz and 0 to 3 volt with local stimulation, but no radicular symptoms down the legs. Thereafter each sites underwent radiofrequency thermocoagulation at 80 degrees celsius for 90 seconds after injecting 0.5 ml of PF Ropivacaine 1ml, then after the thermocoagulation done , 1 ml of the block solution containing Depo-Medrol 20 mg and 3 ml of Ropivacaine 0.5% was injected at the right L3 , L4 , and L5 , levels after negative aspiration of CSF and blood and with no paresthesias. Cannulas were retracted while injecting lidocaine 1% until the needle is out. The same procedure was repeated at the level of Left L3, L4, and L5 levels. At the end of the procedure, the skin was cleansed and bandages were applied. COMPLICATIONS: No acute complications. DISPOSITION / PLANS: The patient was placed in a supine position and transferred to the recovery area in a stable condition for observation and was discharged from the recovery room after meeting discharge criteria. Home discharge instructions given to the patient by the staff. The patient was reexamined prior to discharge. The patient will schedule a follow up in the clinic in 2-4 weeks.
[2021-06-30 13:25] VITALS: PULSE 99
[2021-06-30 13:41] VITALS: BP 148/78
[2021-06-30] MEDS ORDERED: IV FLUID CONTINUATION 1,000 ML IV ONE (13:43)
--- NOTE | 2021-06-30 13:48 | FL ---
Fluoroscopy HISTORY: Pain 14 seconds fluoroscopy time supplied to the referring clinician. 6 intraoperative C-arm images docum ent the procedure. See dictated report from anesthesia.
== END 2021-06-30 14:03 | disposition home or self-care (01) ==
LOC: ORPAIN 12:09
PROVIDERS: ATTEND Specialist
DX: M47.816 Spondylosis without myelopathy or radiculopathy, lumbar region (principal); M51.36 Other intervertebral disc degeneration, lumbar region; I20.9 Angina pectoris, unspecified; E07.9 Disorder of thyroid, unspecified; M54.2 Cervicalgia; G89.29 Other chronic pain; K21.9 Gastro-esophageal reflux disease without esophagitis; Z79.82 Long term (current) use of aspirin; Z79.899 Other long term (current) drug therapy
CPT/HCPCS: 64635; 64636; J2250; J1030; J2405; J3010; J2795

== ENCOUNTER → 2021-08-16 | Outpatient (CLI) | payer BC ==
--- NOTE | 2021-08-16 15:01 | P.PN ---
Subjective Progress Note Date: 08/16/21 This is a follow-up visit for this 55 years old female with a chronic history of severe low back pain, and severe neck pain, patient had the cervical fusion surgery done 2-3 years ago , and patient diagnosed with lumbar spondylosis with lumbar facet arthropathy, and lumbar degenerative disc disease, recently we have been RFA of the medial branch lumbar area ,currently she is complaining of severe neck pain with radiation to the shoulder area bilaterally, associated with numbness and tingling sensation, also patient continued to complain of severe localized pain in the low back area above the buttock bilaterally she had no motor or sensory deficit, she continued to work, she denies any fever or nig ht sweats and she denies any change in the bowel movement or urination, she continued to use Neurontin 300 mg 3 times a day and Flexeril 10 mg daily at bedtime she denies any side effect of the medication and she is getting prescription refills from her primary care. Physical Examinations : -Constitutiona : Cooperative , not in acute distress . -HEENT : nech : supple , no Lymphadenopathy , normal thyroid size . : eyes : no ptosis , no icterus, no photophobia . - neurologic : Cranial nerve II to XII intact , no focal neurological deffecit . -psychatric : alert , oriented X 3 , appropriate affect , intact judgment and insight . -Lymphatic : no Lymphadenopathy . - musculoskeltal : Cervical Spine motor stregnth in the deltoid and biceps, normal right side , normal Left side motor stregnth biceps and the wrist extensors normal right side ,normal left side . motor stregnth in the triceps muscle . normal Right side , normal Left side deep tendon reflexes normal at the biceps , normal at Brachioradialis , normal at triceps. cervical facet loading test= Positive Bilaterally Spurling test= positive bilaterally. Neck distraction test= positive bilaterally. Brenda sign= positive bilaterally. Lumber spine moter stegnth lower extremities ,thigh and legs 5/5 Right side , 5/5 Left side deep tendon reflexes : normal Knee Jerk , normal ankle Jerk lumber facet Loading Test =positive Right , positive Left Range of motion of the lumbar spine Flexion 30 degrees, extension 10 degrees strait leg raising test = negative bilaterally. sever Tenderness over the iliolumbar ligaments bilaterally . Assessment and plan=1-cervical radiculopathy. 2-cervical degenerative disc disease. 3-failed Back surgery syndrome cervical area. 4-lumbar spondylosis with lumbar facet arthropathy. 5-iliolumbar ligament neuralgia Patient could benefit from cervical epidural steroid injections under fluoroscopy guidance at C7-T1 ( right paramedian approach ) Patient could benefit from bilateral iliolumbar ligament steroid injection under fluoroscopy guidance Time with Patient: Less than 30 PQRS Measure Charge Sheet Measure #130: Documentation of Current Meds in Medical Chart: Patient's medications documented in chart Measure #226: Tobacco Use: Screen & Cessation Intervention: Pt not a tobacco user Measure #111: Pneumonia Vaccination: Pneumococcal vaccine administered or previously received Measure #47: Advance Care Plan: Advance care planning discussed & documented, pt chose/unable to give Measure #412: Opioid Treatment Agreement: No documentation of signed opioid treatment agreement Measure #408: Opioid Therapy Follow-up Evaluation: Patient had NO f/u eval minimum every 3 months during opioid therapy Measure #317: Preventitive Care & Scrn High Bld Press & F/U: Normal blood pressure, f/u not required Measure #128: Body Mass Index (BMI) Screening & Follow-up: BMI documented ABOVE normal parameters - f/u documented Measure #131: Pain Assessment & Follow-up: Pain positive & plan documented, Follow-up scheduled Measure #431: Unhealthy Alcohol Use Preventative Care & Scrn: Patient not identified as an unhealthy alcohol user PQRS Narrative: Time with Patient: Less than 30
[2021-08-16 15:07] VITALS: BP 133/80; PULSE 73; RESP 18; TEMP 97.9
== END ==
LOC: PNWHC3 14:25
PROVIDERS: ATTEND Specialist
DX: M50.10 Cervical disc disorder with radiculopathy, unspecified cervical region (principal); M96.1 Postlaminectomy syndrome, not elsewhere classified; M47.816 Spondylosis without myelopathy or radiculopathy, lumbar region; G58.8 Other specified mononeuropathies; Z87.891 Personal history of nicotine dependence; Z91.030 Bee allergy status; Z88.5 Allergy status to narcotic agent
CPT/HCPCS: 99211

== ENCOUNTER → 2021-10-17 | Day surgery (SDC) | payer BC ==
[2021-10-16 10:11] VITALS: BMI 31.0
[~2021-10-17] MED LIST changes: +DEXAMETHASONE SOD PHOSPHATE 10 MG/ML 1 ML VIAL ONE; +IOPAMIDOL M200 10 ML VIAL ONE; +IV FLUID CONTINUATION 1,000 ML IV ONE; +LACTATED RINGERS 1,000 ML IV ONE; +LIDOCAINE 1% INJ 10MG/ML (20 ML MDV) ONE; +MIDAZOLAM 2 MG/2 ML VIAL ONE; +ROPIVACAINE 5MG/ML 20ML VIAL ONE; +TRIAMCINOLONE ACETONIDE 40 MG/ML 1 ML VIAL ONE; +fentaNYL (PF) 50 MCG/ML 2 ML AMP ONE
[2021-10-17 07:30] VITALS: TEMP 97.3
--- NOTE | 2021-10-17 07:58 | P.PCN ---
Date of Procedure: 10/17/21 Description of Procedure: Pre- and Post-operative Diagnosis: Cervical radiculopathy Procedure: #1 C7-T1 Inter-Laminar Cervical Epidural Steroid Injection under biplanar fluoroscopy #2 #2 Bilateral iliolumbar ligament injection under fluoroscopic guidance Surgeon: Tresa Li Anesthesia: Local: 1% Lidocaine, IV sedation : Versed, and fentanyl. Complications: None. Estimated blood loss: None Specimens removed: None Fluoroscopic image: saved to electronic medical records. Indications for Procedure: The patient has been suffering from neck pain and pain radiating to the upper extremity . Patient had good pain relief with the previous epidural steroid injection more than 70% relief for 2 month duration , which helped pain radiating to upper extremities. Inadequate pain control with pharmacologic regimen. Repeat inter-laminar approach cervical epidural steroid injection was scheduled for the patient. Procedure and Findings: The patient was seen and examined in the holding area. The written informed consent was obtained after explaining the risks, benefits, alternatives of the procedure to the patient. The patient was brought to the procedure room and was placed in the prone position on the operating table. A pillow was placed under the upper chest. Standard anesthesia monitoring was done through out the procedure. Timeout was completed. The skin preparation was done with ChloraPrep 1 and draping was done in usual sterile fashion. Sterile technique was observed throughout the procedure. Under fluoroscopic guidance, the C7.-T1 inter-laminar space was identified. 3 ml of 1% Lidocaine was injected with a 25 gauge needle to achieve adequate local anesthesia of the skin and subcutaneous tissue. A 20 gauge, 3.5 inch Tuohy type epidural needle was placed and gradually advanced up to the epidural space using loss of resistance technique and fluoroscopic guidance. Lateral, oblique fluoroscopic views confirm the needle position. No paresthesia was noted. A negative aspiration was confirmed and then 1 ml of Isovue-200 was injected. A good dye spread was seen in the epidural space and it was negative for any intrathecal, intraneural or intravascular spread. A total of 6 ml solution containing 10 mg Dexamethasone, and 5 ml preservative-free Normal Saline was injected slowly with intermittent aspiration. The needle was removed intact, area was cleaned and bandage was applied. Preoperative diagnosis: . Bilateral Iliolumbar syndrome Postoperative diagnosis: . Bilateral Iliolumbar syndrome Procedure: Bilateral iliolumbar ligament injection EBL: None Specimen removed: None Fluoroscopic image: Saved to electronic medical records Procedure indication: Patient had a history of chronic low back pain along with sacroiliac joint area, and posterior superior iliac spine area.. Patient tried conservative therapy, scheduled for diagnostic bilateral iliolumbar treatment injection for better pain relief along with cervical epidural steroid injection. Procedure description: Patient was discussed regarding procedure in the preop holding area, risks benefits, complications, alternatives discussed with the patient. Patient agreed to proceed for the procedure after cervical epidural. Using anteroposterior fluoroscopic view that side L5 transverse process, and sacral alae identified. Area of iliolumbar ligament trajectory identified on the left side using fluoroscopy. Then using a 22 G 3.5 inch spinal needle used advance in the trajectory of iliolumbar ligament area then after negative aspiration for blood, paresthesia, any other bodily fluids , after that in a fan-shaped manner 5 mL of block solution injected. The block solution containing 4.5 mL of 0.5% ropivacaine with 20 mg of Kenalog. Needle removed intact. Entire procedure repeated on the left side of iliolumbar ligament area. Skin cleaned, , and Band-Aid applied. Complications: None Disposition : The patient tolerated the procedure very well. The patient was transferred to the recovery room and remained stable until discharged home. The patient was given detailed discharge instructions for bleeding, infection, increased pain at the injection site, and was advised to seek immediate medical attention should significant side effects develop. The patient will be followed up with our Pain Clinic within 4 weeks for follow-up visit.
[2021-10-17 08:06] VITALS: RESP 14
[2021-10-17 08:16] VITALS: BP 125/75; PULSE 85
--- NOTE | 2021-10-17 08:59 | FL ---
EXAMINATION TYPE: FL guided pain mgmt statistic DATE OF EXAM: 10/17/2021 HISTORY: Fluoroscopy time 10 seconds of fluoroscopy provided. IMPRESSION: 1. Fluoroscopy time.
== END ==
LOC: ORPAIN 07:02
DX: M50.30 Other cervical disc degeneration, unspecified cervical region (principal); M54.12 Radiculopathy, cervical region
CPT/HCPCS: 62321; 20550; J2250; J1100; J3301; J2001 ×2; J3010; Q9966; J2795; 99152; 99153

== ENCOUNTER → 2021-11-13 | Outpatient (CLI) | payer BC ==
[2021-11-13 15:18] VITALS: BP 135/85; PULSE 92; RESP 18; TEMP 98.2
--- NOTE | 2021-11-13 15:34 | P.PN ---
Subjective Progress Note Date: 11/13/21 Principal diagnosis: Patient today is a 55 years old female with a chronic history of severe low back pain secondary to lumbar degenerative disc disease and spondylosis with facet arthropathy and severe neck pain s/p cervical fusion surgery 2-3 years ago presents today for evaluation s/p bilateral iliolumbar ligament injections. States her C7-T1 MARTHA has given her 2/10 pain currently which is bearable. Pt stated she experienced 100% pain relief with the procedure, but after 2 weeks, her pain started to return again. States her pain is worst in the morning at 8 /10, dull and achy in the center of her lumbar spine, then improves to a 5/10 with medications and stretching but elevates to 8 /10 throughout the day with excessive standing and lifting. Admits to shooting pain towards the buttock bilaterally. Denies tingling and numbness of the extremities. Neurontin 300 mg 3 times a day and Flexeril 10 mg daily at bedtime she denies any side effect of the medication and she is getting prescription refills from her primary care. ROS: Denies fever, chills, nausea, vomiting, dizziness, headaches, chest pain, difficulty breathing or vision changes. Physical Examinations : -Constitutional : Cooperative , not in acute distress . -HEENT : neck : supple , no Lymphadenopathy , normal thyroid size . : eyes : no ptosis , no icterus, no photophobia . -Neurologic : Cranial nerve II to XII intact , no focal neurological deffecit . -Psychatric : alert , oriented X 3 , appropriate affect , intact judgment and insight . -Lymphatic : no Lymphadenopathy . - Musculoskeletal : Cervical Spine motor stregnth in the deltoid and biceps, normal right side , normal Left side motor stregnth biceps and the wrist extensors normal right side ,normal left side . motor stregnth in the triceps muscle . normal Right side , normal Left side deep tendon reflexes normal at the biceps , normal at Brachioradialis , normal at triceps. cervical facet loading test= Positive Bilaterally Spurling test= positive bilaterally. Neck distraction test= positive bilaterally. Brenda sign= positive bilaterally. Lumbar spine motor strength lower extremities , thigh and legs 5/5 Right side , 5/5 Left side deep tendon reflexes : normal Knee Jerk , normal Ankle Jerk lumbar facet Loading Test: positive Right , positive Left Range of motion of the lumbar spine Flexion 90 degrees, extension 10 degrees Straight leg raising test: negative bilaterally Evonne test positive on the right Severe tenderness over the iliolumbar ligaments bilaterally . Assessment and plan: 1-cervical radiculopathy 2-cervical degenerative disc disease. 3-failed lumbar surgery syndrome . 4-lumbar spondylosis with lumbar facet arthropathy. 5-iliolumbar ligament neuralgia Patient could benefit from 2nd bilateral iliolumbar ligament steroid injection under fluoroscopy guidance Risks/ benefits of procedure discussed and pt verbalized understanding Denies use of aspirin or blood thinners Continue use of medications as directed Time with Patient: Less than 30 Objective - Vital Signs Vital signs: Vital Signs Temp 98.2 F 11/13/21 15:03 Pulse 92 11/13/21 15:03 Resp 18 11/13/21 15:03 BP 135/85 11/13/21 15:03 Pulse Ox 97 11/13/21 15:03 Intake & Output 11/12/21 11/13/21 11/13/21 18:59 06:59 18:59 Weight 98.883 kg PQRS Measure Charge Sheet Mode of Arrival: Ambulatory - Pain Location Bilateral Lower Back Non-Pharmacological Interventions: Heat, Inactivity, Physical Therapy, Position/Reposition Pharmacological Interventions: Epidural, PRN Medication, Topical Medication PQRS Narrative: Smoking Status Former smoker Blood Pressure 135/85 Pain Intensity [Bilateral 5 Lower Back] Scale Used Numeric (1 - 10) Hx Alcohol Use (MH) Yes: 1 q day Home Medications: Ambulatory Orders Furosemide [Lasix] 40 mg PO DAILY PRN 04/29/17 Cholecalciferol [Vitamin D3] 1,000 unit PO DAILY 05/14/18 Escitalopram [Lexapro] 5 mg PO HS 05/14/18 Potassium Chloride [Klor-Con 20] 20 meq PO DAILY PRN 05/14/18 Cyclobenzaprine [Flexeril] 10 mg PO BID 08/12/18 Ibuprofen [Motrin Ib] 800 mg PO BID PRN 08/12/18 L.acidoph,Paracasei, B.lactis [Probiotic] 1 each PO DAILY 08/12/18 Mirabegron [Myrbetriq] 50 mg PO DAILY 08/12/18 Gabapentin [Neurontin] 300 mg PO TID 03/26/19 LORazepam [Ativan] 0.5 mg PO BID 05/30/19 Omeprazole [PriLOSEC] 20 mg PO DAILY 03/26/19 Biotin 5 mg PO DAILY 10/08/19 HYDROcodone/APAP 7.5-325MG [Flushing 7.5-325] 1 tab PO Q4H PRN 7 Days #42 tab 04/20/21 Docusate [Colace] 100 mg PO BID PRN 10/16/21
== END ==
LOC: PNWHC3 14:06
PROVIDERS: ATTEND Physician Assistant Medical
DX: M50.10 Cervical disc disorder with radiculopathy, unspecified cervical region (principal); M96.1 Postlaminectomy syndrome, not elsewhere classified; M47.816 Spondylosis without myelopathy or radiculopathy, lumbar region; G58.8 Other specified mononeuropathies; Z87.891 Personal history of nicotine dependence; Z88.5 Allergy status to narcotic agent; Z91.030 Bee allergy status
CPT/HCPCS: 99211

== ENCOUNTER 2022-01-02 06:59 | Day surgery (SDC) | payer BC ==
[2022-01-02 07:13] VITALS: RESP 18; TEMP 97.4
[2022-01-02] MEDS ORDERED: ONDANSETRON 4 MG/2 ML VIAL ONE (07:16)
[2022-01-02] MEDS ORDERED: LACTATED RINGERS 1,000 ML IV ONE (07:32)
[2022-01-02] MEDS ORDERED: LIDOCAINE 1% (10MG/ML) FOR IV START INTRADERMA ONE (07:32)
[2022-01-02] MEDS ORDERED: ONDANSETRON 4 MG/2 ML VIAL IVP ONE (07:33)
[2022-01-02] MEDS ORDERED: MIDAZOLAM 2 MG/2 ML VIAL ONE (07:49)
[2022-01-02] MEDS ORDERED: ROPIVACAINE 5MG/ML 20ML VIAL ONE (07:49)
[2022-01-02] MEDS ORDERED: fentaNYL (PF) 50 MCG/ML 2 ML AMP ONE (07:49)
[2022-01-02] MEDS ORDERED: TRIAMCINOLONE ACETONIDE 40 MG/ML 1 ML VIAL ONE (07:49)
[2022-01-02] MEDS ORDERED: IV FLUID CONTINUATION 1,000 ML IV ONE (08:23)
[2022-01-02 08:34] VITALS: BP 112/55; PULSE 74
--- NOTE | 2022-01-02 08:40 | FL ---
Fluoroscopy HISTORY: Pain 5 seconds fluoroscopy time supplied to the referring clinician. 2 intraoperative C-arm images docume nt the procedure. See dictated report from anesthesia.
--- NOTE | 2022-01-02 12:29 | P.PCN ---
Date of Procedure: 01/02/22 Description of Procedure: Preoperative diagnosis: . Bilateral Iliolumbar syndrome Postoperative diagnosis: . Bilateral Iliolumbar syndrome Procedure: Bilateral iliolumbar ligament injection EBL: None Specimen removed: None Fluoroscopic image: Saved to electronic medical records Procedure indication: Patient had a history of chronic low back pain along with sacroiliac joint area, and posterior superior iliac spine area.. Patient tried conservative therapy, scheduled for diagnostic bilateral iliolumbar treatment injection for better pain relief along with cervical epidural steroid injection. Procedure description: Patient was discussed regarding procedure in the preop holding area, risks benefits, complications, alternatives discussed with the patient. Patient agreed to proceed for the procedure after cervical epidural. Using anteroposterior fluoroscopic view that side L5 transverse process, and sacral alae identified. Area of iliolumbar ligament trajectory identified on the left side using fluoroscopy. Then using a 22 G 3.5 inch spinal needle used advance in the trajectory of iliolumbar ligament area then after negative aspiration for blood, paresthesia, any other bodily fluids , after that in a fan-shaped manner 5 mL of block solution injected. The block solution co ntaining 4.5 mL of 0.5% ropivacaine with 20 mg of Kenalog. Needle removed intact. Entire procedure repeated on the left side of iliolumbar ligament area. Skin cleaned, , and Band-Aid applied. Complications: None Disposition : The patient tolerated the procedure very well. The patient was transferred to the recovery room and remained stable until discharged home. The patient was given detailed discharge instructions for bleeding, infection, increased pain at the injection site, and was advised to seek immediate medical attention should significant side effects develop. The patient will be followed up with our Pain Clinic within 4 weeks for follow-up visit.
== END 2022-01-02 08:51 | disposition home or self-care (01) ==
LOC: ORPAIN 06:59
PROVIDERS: ATTEND Anesthesiology
DX: M76.32 Iliotibial band syndrome, left leg (principal); M76.31 Iliotibial band syndrome, right leg
CPT/HCPCS: 20550; J2250; J3301; J2405; J3010; J2795; 99152

== ENCOUNTER → 2022-09-11 | Outpatient (CLI) | payer BC ==
--- NOTE | 2022-09-12 08:49 | MM ---
Reason for Exam: Screening (asymptomatic). Last mammogram was performed 2 year(s) and 0 month(s) ago. Patient History: Menarche at age 13. First Full-Term at age 29. Late child-bearing (after 29). Postmenopausal. Patient has history of breast feeding. Patient used Hormonal Contraceptives for 2 years. Excisional Biopsy on the Left side. 03/25/2013, Benign Core Biopsy on the left side. Paternal grandmother had breast cancer. Mother had breast cancer. Risk Values: Ekaterina 5 year model risk: 3.5%. NCI Lifetime model risk: 20.2%. Prior Study Comparison: 08/26/2017 Bilateral Screening Mammogram, [facility]. 07/23/2018 Bilateral Diagnostic Mammogram, [facility]. 09/23/2020 Bilateral Screening Mammogram, [facility]. Tissue Density: The breast tissue is extremely dense which could obscure a lesion on mammography. Findings: Analyzed By CAD. There is no suspicious group of microcalcifications or new suspicious mass in either breast. Overall Assessment: Negative, BI-RAD 1 Management: Screening Mammogram of both breasts in 1 year. A clinical breast exam by your physician is recommended on an annual basis and results should be correlated with mammographic findings. [facility] will attempt to contact patient to return for supplemental views and ultrasound if indicated. Electronically signed and approved by: Damien Reis DO
== END | disposition home or self-care (01) ==
LOC: RADMAMWWP 09-07 17:03
PROVIDERS: ATTEND Obstetrics & Gynecology
DX: Z12.31 Encounter for screening mammogram for malignant neoplasm of breast (principal); Z78.0 Asymptomatic menopausal state; Z80.3 Family history of malignant neoplasm of breast
CPT/HCPCS: 77063; 77067

== ENCOUNTER → 2022-09-11 | Outpatient (CLI) | payer BC ==
--- NOTE | 2022-09-11 17:52 | CT ---
EXAMINATION TYPE: CT shoulder LT wo con CT DLP: 291.80 mGycm, Automated exposure control for dose reduction was used. DATE OF EXAM: 09/11/2022 5:06 PM COMPARISON: None CLINICAL INDICATION:Female, 56 years old with history of M19.011 R osteoarthritis, M25.511 pain right shoulder, Left shoulder osteoarthritis. pre op. TECHNIQUE: Axial images were obtained of the left . Additional coronal and sagittal reformatted imag es and soft tissue and bone window were obtained for review. 3-D reconstruction was created on a MR Presta workstation. Contrast used: None Oral contrast used: None FINDINGS: There is degeneration changes with vacuum phenomenon at the acromioclavicular joint. The gl enoid and humerus demonstrate osteophyte formation with joint space narrowing. Mild sclerosis of the glenoid with subchondral cystic changes noted inferiorly. The anterior glenoid demonstrates bony fragments which could be sequela of prior injury or a degenerative basis.. There is no evidence of significant joint effusion. Muscle volumes appear appropriate. There is calcification within the lung head of the biceps best appreciated on series 4 image 34. IMPRESSION: 1. Moderate to severe left shoulder osteoarthrosis. No evidence of acute fracture. 2. Calcifications in the expected location of the long head of the biceps suspicious for prior injur y. 3. Anterior glenoid osteophytes versus prior injury changes.
== END | disposition home or self-care (01) ==
LOC: RADCTMAIN 16:35
PROVIDERS: ATTEND Orthopaedic Surgery Sports Medicine
DX: M19.012 Primary osteoarthritis, left shoulder (principal)

== ENCOUNTER → 2022-10-04 | Outpatient (CLI) | payer BC ==
[2022-10-04 17:48] LABS: INR 0.9 (<1.2); Partial Thromboplastin Time 24.2 sec (22.0-30.0)
[2022-10-04 22:43] LABS: HCT 38.7 % (37.2-46.3); HGB 12.9 g/dL (12.0-15.0); MCH 30.1 pg (27.0-32.0); MCHC 33.3 g/dL (32.0-37.0); MCV 90.4 fL (80.0-97.0); Mean Platelet Volume 10.8 fL (9.5-12.2); NRBC Per 100 WBC 0 /100 WBCS (0.0-0.0); Platelet Count 215 X 10*3/uL (140-440); RBC 4.28 X 10*6/uL (4.10-5.20); RDW 12.7 % (11.5-14.5); WBC 4.95 X 10*3/uL (4.50-10.00)
[2022-10-04 22:53] LABS: Appearance,Urine Clear (Clear); Bilirubin,Urine Negative (Negative); Blood,Urine Negative (Negative); Color,Urine Yellow (Yellow); Ketones,Urine Trace mg/dL (Negative); Nitrite,Urine Negative (Negative); PH, Urine 5.5 (5.0-8.0); Specific Gravity,Urine 1.029 (1.001-1.030)
[2022-10-04 23:04] LABS: Bacteria,Urine None Seen /HPF (None Seen)
[2022-10-04 23:43] LABS: African American GFR (CKD) 110.5 (60.0-200.0); Albumin 4.4 g/dL (3.8-4.9); Albumin/Globulin Ratio 2.17 (1.60-3.17); Anion Gap 10.9 mmol/L (10.00-18.00); BUN/Creat Ratio 29.65 Ratio (12.00-20.00); Blood Urea Nitrogen 20.9 mg/dL (9.0-27.0); Calcium 9.6 mg/dL (8.7-10.3); Carbon Dioxide 24.2 mmol/L (20.0-27.5); Non-African American GFR(CKD) 95.4 (60.0-200.0); Potassium 4.1 mmol/L (3.5-5.5); Total Bilirubin 0.4 mg/dL (0.30-1.20); Total Protein 6.4 g/dL (6.2-8.2)
== END | disposition home or self-care (01) ==
LOC: LABPAT 16:30
PROVIDERS: ATTEND Orthopaedic Surgery Sports Medicine
DX: Z01.812 Encounter for preprocedural laboratory examination (principal); M19.012 Primary osteoarthritis, left shoulder
CPT/HCPCS: 80053; 81001; 85027; 85610; 85730; 87070

== ENCOUNTER 2022-10-11 07:49 | Day surgery (SDC) | payer BC ==
[2022-10-09 09:42] VITALS: BMI 31.8
[~2022-10-11 07:49] MED LIST changes: +ACETAMINOPHEN TAB 500 MG TAB PO PRN; -DEXAMETHASONE SOD PHOSPHATE 10 MG/ML 1 ML VIAL ONE; +DEXAMETHASONE SOD PHOSPHATE 4 MG/ML 1 ML VIAL IV ONE; +GABAPENTIN 300 MG CAP PO PRN; +HYDROmorphone 0.5 MG/0.5 ML SYRINGE IVP PRN; -IOPAMIDOL M200 10 ML VIAL ONE; -IV FLUID CONTINUATION 1,000 ML IV ONE; -LACTATED RINGERS 1,000 ML IV ONE; -LIDOCAINE 1% INJ 10MG/ML (20 ML MDV) ONE; +MELOXICAM 7.5 MG TAB PO PRN; -MIDAZOLAM 2 MG/2 ML VIAL ONE; +ONDANSETRON 4 MG/2 ML VIAL IVP ONE; +ONDANSETRON 4 MG/2 ML VIAL IVP PRN; -ROPIVACAINE 5MG/ML 20ML VIAL ONE; +TRANEXAMIC ACID IN NACL,ISO-OS 1,000 MG in SALINE 1 100ML.BAG IVPB PRN; -TRIAMCINOLONE ACETONIDE 40 MG/ML 1 ML VIAL ONE; -fentaNYL (PF) 50 MCG/ML 2 ML AMP ONE
[2022-10-11] MEDS ORDERED: LIDOCAINE 1% (10MG/ML) FOR IV START INTRADERMA ONE (08:35)
[2022-10-11] MEDS ORDERED: SCOPOLAMINE 1 MG/72 HR PATCH TRANSDERM ONE (08:43)
[2022-10-11] MEDS ORDERED: MIDAZOLAM 2 MG/2 ML VIAL IV ONE (08:54)
[2022-10-11] MEDS ORDERED: diphenhydrAMINE 25 MG CAP PO PRN (09:01)
[2022-10-11] MEDS ORDERED: ONDANSETRON 4 MG/2 ML VIAL IVP PRN ×2 (09:01→18:57)
[2022-10-11] MEDS ORDERED: HYDROmorphone 1 MG/ML 1 ML SYRINGE IVP PRN (09:01)
[2022-10-11] MEDS ORDERED: METOCLOPRAMIDE 5 MG/ML 2 ML VIAL IVP PRN (09:01)
[2022-10-11] MEDS ORDERED: PROCHLORPERAZINE SUPPOSITORY 25 MG SUPP RECTAL PRN (09:01)
[2022-10-11] MEDS ORDERED: SENNOSIDES-DOCUSATE SODIUM 1 EACH TAB PO PRN (09:01)
[2022-10-11] MEDS ORDERED: HYDROmorphone 0.5 MG/0.5 ML SYRINGE IVP PRN ×2 (09:01)
[2022-10-11] MEDS ORDERED: HYDROcodone/APAP 10-325MG 1 EACH TAB PO PRN (09:07)
[2022-10-11] MEDS ORDERED: TRANEXAMIC ACID IN NACL,ISO-OS 1,000 MG/100 ML BAG ONE (09:21)
[2022-10-11] MEDS ORDERED: LIDOCAINE 2% INJ 20 MG/ML (2 ML VIAL) ONE (09:21)
[2022-10-11] MEDS ORDERED: fentaNYL (PF) 50 MCG/ML 2 ML AMP ONE (09:21)
[2022-10-11] MEDS ORDERED: MIDAZOLAM 2 MG/2 ML VIAL ONE (09:21)
[2022-10-11] MEDS ORDERED: PHENYLEPHRINE-0.9% NACL SYG 1,000 MCG/10 ML SYRINGE ONE (09:21)
[2022-10-11] MEDS ORDERED: ROPIVACAINE 5 MG/ML 30 ML VIAL ONE (09:21)
[2022-10-11] MEDS ORDERED: DEXAMETHASONE SOD PHOSPHATE 4 MG/ML 1 ML VIAL ONE (09:21)
[2022-10-11] MEDS ORDERED: PROPOFOL 10 MG/ML 20 ML VIAL IV ONE (09:21)
[2022-10-11] MEDS ORDERED: HYDROmorphone (PF) 1 MG/ML ONE (09:21)
[2022-10-11] MEDS ORDERED: ePHEDrine 50 MG/ML 1 ML VIAL ONE (09:21)
[2022-10-11] MEDS ORDERED: SUCCINYLCHOLINE CHLORIDE 200 MG/10 ML VIAL IV ONE (09:21)
[2022-10-11] MEDS ORDERED: VANCOMYCIN 1,000 MG VIAL MISCELLANE ONE (09:51)
[2022-10-11] MEDS ORDERED: ceFAZolin 1,000 MG in SODIUM CHLORIDE 0.9% 1,000 ML IRRIGATION ONE (09:52)
[2022-10-11] MEDS ORDERED: LACTATED RINGERS 1,000 ML IV ONE (10:11)
--- NOTE | 2022-10-11 12:17 | XR ---
EXAMINATION TYPE: XR shoulder limited LT DATE OF EXAM: 10/11/2022 COMPARISON: None HISTORY: Post shoulder replacement TECHNIQUE: AP left shoulder FINDINGS: Left shoulder prosthesis has been placed. No acute fracture evident. Postsurgical soft tiss ue changes are present. Acromiohumeral space is preserved. Acromioclavicular junction appears within normal limits. IMPRESSION: 1. No acute osseous abnormality post left shoulder replacement
--- NOTE | 2022-10-11 16:50 | P.CONS ---
History of Present Illness - Reason for Consult Consult date: 10/11/22 - History of Present Illness HISTORY OF PRESENT ILLNESS: This is a 56-year-old female patient with a previous medical history significant for gastroesophageal reflux disease, osteoarthritis of bilateral knees and bilateral shoulder, spondylosis of the cervical spine as well as lumbar spine, history of bilateral venous stasis with significant lymphedema both lower extremities. Patient has been brought in the hospital under the care of Dr. Mckeon status post left total shoulder arthroplasty, postop day 0. Patient is hemodynamically stable. Patient denies any chest pain or any shortness breath, she has no abdominal pain. She is started on Blain or Dilaudid for pain control. REVIEW OF SYSTEMS: Constitutional: No documented fever, no chills, no night sweats. No weight change. No weakness, fatigue or lethargy. No daytime sleepiness. HEENT: No headache. No blurred vision or double vision, no loss of vision. No loss of Hearing, no ringing in the ears, no dizziness. No nasal drainage or congestion. No epistaxis. No sore throat. Lungs: No shortness of breath, no cough, no sputum production. No wheezing. Reports dyspnea with activity. Cardiovascular: No chest pain, no lower extremity edema. No palpitations. No paroxysmal nocturnal dyspnea. No orthopnea. No lightheadedness or dizziness. No syncopal episodes. Abdominal: Reports no abdominal pain. No nausea, vomiting. No diarrhea. No constipation. No bloody or tarry stools reports no loss of appetite. Genitourinary: No dysuria, increased frequency, urgency. No urinary retention. Musculoskeletal: No myalgias. No muscle weakness, no gait dysfunction, no frequent falls. No back pain. No neck pain. Left shoulder discomfort Integumentary: No wounds, no lesions. No rash or pruritus. No unusual bruising. No change in hair or nails. Neurologic: No aphasia. No facial droop. No change in mentation. No head injury. No headache. No paralysis. No paresthesia. Psychiatric: No depression. No anxiety. No mood swings. Endocrine: No abnormal blood sugars. No weight change. PAST MEDICAL HISTORY: GERD. Bilateral venous stasis with lymphedema. Spondylosis of the cervical spine and the lumbar spine. Osteoarthritis of both knees. Hyperthyroidism status post radioactive iodine. Anxiety. Obesity. Overactive bladder. Left total knee arthroplasty PAST SURGICAL HISTORY: Tubal ligation. Vocal cord nodules. Anterior cervical discectomy with fusion C4 C5 C5 and 6 Left heart catheterization 2009. Cholecystectomy. Radioactive iodine ablation for hyperthyroidism. SOCIAL HISTORY: Patient smoked about quarter a pack every day for about 20 years, and quit in 2006, she drinks occasionally, she denies any drug use or abuse. FAMILY HISTORY: Father at the age of 79 from sepsis he had a significant history of spondy losis of the cervical spine the lumbar spine with a chronic pain syndrome, mother is still alive with a history of hypertension, hyperlipidemia, history of irritable bowel syndrome, anxiety and depressive disorder, patient has one sister with fibromyalgia significant lymphedema both lower extremities, patient has 2 daughters no major medical problems one with SVT post-ablation therapy. PHYSICAL EXAMINATION: General: 56-year-old female laying down in bed in no apparent distress HEENT: Head is atraumatic, normocephalic, pupils were equal round reactive to light and recommendation, extraocular muscle movement were intact, sclera nonicteric, conjunctivae were pale, mucous membranes of the mouth are somewhat dry. Neck: Supple, no JVP, normal carotid upstroke bilaterally, no lymphadenopathy. Chest: Decreased breath sounds at the bases, few rhonchi, no expiratory wheezes, no chest wall tenderness, no intercostal retractions. Heart: First heart sound is normal, second heart sounds normal ,There is no gallop or murmur. Abdomen: Soft, nontender, nondistended, positive bowel sounds. Extremities: There is no edema no calf tenderness DP +2 bilaterally, sling and dressing in place of the left shoulder. Neurologic examination: Patient is awake alert and oriented X 3, cranial nerves II-12 appear grossly intact, muscle power were 5 out of 5 in upper extremities and 5 out of 5 in bilateral lower extremities, deep tendon reflexes normal bilaterally. ASSESSMENT AND PLAN: 1. Post operative day #0 status post left shoulder arthroplasty. Patient was instructed to use the incentive spirometer to reduce the incidence of atelectasis and hospital associated pneumonia, continue current pain management as outlined by orthopedic surgery, patient likely would be discharged home tomor row morning. 2. History of GERD. Continue patient on Protonix 40 mg orally once every day. 3. History of hyperparathyroidism status post radioactive iodine. Monitor the patient TSH and free T4 as an outpatient. 4. Overactive bladder. Continue patient on Myrbetriq 50 mg orally once every day. 5. Bilateral lower extremity lymphedema. Continue bilateral knee-high LASHA hose, use Lasix and potassium supplement on as needed basis. 6. Anxiety disorder. Continue Lexapro 5 mg orally once every day, continue lorazepam 0.5 mg orally twice every day as needed. 7. Spondylosis of the cervical spine post anterior cervical discectomy with fusion. Stable. Continue current pain management. 8. Spondylosis of the lumbar spine status post epidural injection. 9. Thank you Dr. Mckeon for allowing me to participate in the care of your patient we will follow the patient along with you. Impression and plan of care have been directed as dictated by the signing physician. Kimberly Pineda nurse practitioner acting as scribe for signing physician. Past Medical History Past Medical History: Chest Pain / Angina, GERD/Reflux, Osteoarthritis (OA), Thyroid Disorder Additional Past Medical History / Comment(s): unbalanced gait at times, recent falls., BACk AND NECK PAIN, radioactive iodine tx for thyroid History of Any Multi-Drug Resistant Organisms: C-DIFF Year Discovered:: 2009 MDRO Source:: stool Past Surgical History: Cholecystectomy, Heart Catheterization, Joint Replacement, Orthopedic Surgery, Tubal Ligation Additional Past Surgical History / Comment(s): NODULES REMOVED FROM VOCAL CORDS, Pain clinic procedures, Anterior Cervical Decompression and Fusion C4-5, C5-6. PLANTAR FASCITIS SURG STONE. TOTAL RIGHT KNEE , TOTAL LEFT KNEE , Past Anesthesia/Blood Transfusion Reactions: Motion Sickness, Postoperative Nausea & Vomiting (PONV) Additional Past Anesthesia/Blood Transfusion Reaction / Comm: no hx blood transfusion Smoking Status: Former smoker - Past Family History Father Family Medical History: Musculoskeletal Disorder Additional Family Medical History / Comment(s): Father at age 74 from sepsis with history of COPD and peripheral vascular disease. Mother Family Medical History: Cancer Additional Family Medical History / Comment(s): breast cancer Medications and Allergies Home Medications Medication Instructions Recorded Confirmed Type Furosemide [Lasix] 40 mg PO DAILY PRN 04/29/17 10/09/22 History Cholecalciferol [Vitamin D3] 1,000 unit PO DAILY 05/14/18 10/09/22 History Escitalopram [Lexapro] 5 mg PO HS 05/14/18 10/09/22 History Potassium Chloride [Klor-Con 20] 20 meq PO DAILY PRN 05/14/18 10/09/22 History Cyclobenzaprine [Flexeril] 10 mg PO BID 08/12/18 10/09/22 History Ibuprofen [Motrin Ib] 800 mg PO BID PRN 08/12/18 10/09/22 History L.acidoph,Paracasei, B.lactis 1 each PO DAILY 08/12/18 10/09/22 History [Probiotic] Mirabegron [Myrbetriq] 50 mg PO QAM 08/12/18 10/09/22 History Gabapentin [Neurontin] 300 mg PO TID 03/26/19 10/09/22 History LORazepam [Ativan] 0.5 mg PO BID 03/26/19 10/09/22 History Omeprazole [PriLOSEC] 20 mg PO QAM 03/26/19 10/09/22 History Biotin 5 mg PO DAILY 10/08/19 10/09/22 History Ondansetron [Zofran] 4 mg PO Q8HR PRN 10/09/22 10/09/22 History traMADol HCL 50 mg PO Q6H PRN 10/09/22 10/09/22 History Allergies Allergy/AdvReac Type Severity Reaction Status Date / Time codeine Allergy Chest Pain Verified 10/11/22 08:13 morphine Allergy Chest Pain Verified 10/11/22 08:13 venom-honey bee Allergy Anaphylaxis Verified 10/11/22 08:13 Physical Exam Vitals: Vital Signs Temp Pulse Pulse Resp BP BP Pulse Ox 10/11/22 12:46 94 16 126/60 95 10/11/22 12:30 98 16 124/62 95 10/11/22 12:16 67 16 125/68 95 10/11/22 12:02 67 16 123/58 95 10/11/22 11:45 68 16 125/59 95 10/11/22 11:30 97.4 F L 99 12 125/59 95 10/11/22 11:17 97.4 F L 98 12 121/56 95 10/11/22 09:12 75 16 124/71 98 10/11/22 08:21 98.1 F 67 16 141/79 98 Intake and Output 10/10/22 10/11/22 10/11/22 22:59 06:59 14:59 Intake Total 1451 Output Total 100 Balance 1351 Intake: IV 1451 Output: Estimated Blood Loss 100 Other: Weight 100.2 kg
[2022-10-11] MEDS: GABAPENTIN 300 MG CAP PO SCH ×2 (16:52→21:09)
--- NOTE | 2022-10-11 18:44 | OP ---
OPERATIVE REPORT PERSONNEL TECHNICIAN: Khadar Chun PA-C PREOPERATIVE DIAGNOSIS: Left shoulder osteoarthrosis. POSTOPERATIVE DIAGNOSIS: Left shoulder osteoarthrosis. OPERATION: Left total shoulder arthroplasty. ANESTHESIA: General endotracheal. ESTIMATED BLOOD LOSS: 100 mL. DRAINS: None. COMPLICATIONS: None apparent. DISPOSITION: Postanesthesia care unit. INDICATIONS: Felicia is a very pleasant 56-year-old female with longstanding left shoulder pain. Workup including x-rays and CT scan revealed advanced osteoarthrosis of the left shoulder. At this point, it was felt she has failed conservative management. She would like to proceed with operative intervention. The risks of procedure were discussed with her in detail. These risks include, but not limited to, risk of infection, nerve damage, bleeding, pain, instability in the shoulder, loosening of the implants, and deep infection. There is also a small risk of deep vein thrombosis, which could lead to fatal pulmonary embolism. The patient understood the risks. All of her questions with regard to the risks of procedure were answered to her satisfaction. Appropriate informed consent was obtained. DESCRIPTION OF PROCEDURE: The patient was identified in the preoperative holding area. Surgical site was marked by both the patient and myself. She was given 2 g of Ancef IV for prophylactic purposes. She was then transported to the operative suite. She was placed supine on the operating room table. General anesthetic was then administered and dosed per the Anesthesia Department without apparent complication. Examination under anesthesia was then performed of the right shoulder. She had elevation to 130 degrees, external rotation to the side was 30 degrees. The patient was then placed in the beach chair position and well-padded in preparation for surgery. Great care was taken to ensure that her cervical spine was in neutral alignment and well-padded and maintained that way throughout the operative procedure. Great care was also taken to ensure that her legs were appropriately padded as well. The patient's left upper extremity was then prepped and draped in usual sterile fashion. Standard surgical pause undertaken to ensure that we were operating the correct site and that appropriate preoperative antibiotics had been given. All staff in the room were in agreement, and we proceeded. The acromion, AC joint, clavicle, and the coracoid were marked with a surgical pen. A planned incision starting at the level of the clavicle and extending distally over the deltopectoral interval approximately 1 cm lateral to the coracoid was marked with a surgical pen. An incision was then made with a 10-blade scalpel. Dissection was carried down sharply to the deltoid fascia. The deltopectoral interval was then identified at the level of the clavicle. A small band retractor was then placed onto the proximal deltoid. Then released the deltoid fascia on the lateral aspect of the cephalic vein. The cephalic vein was protected and left in its bed medially. The cephalic vein was then protected throughout the entire case. I then identified the clavipectoral fascia. This was incised proximally to the level of the coracoacromial ligament. The coracoacromial ligament was left intact. I then used my finger to spread the interval between the conjoint tendon and the subscapularis. I felt for the axillary nerve, which was readily palpable. I then cleared the subacromial and subdeltoid spaces of bursal and scar tissue. I then utilized a Dominguez retractor to hold the deltoid and expose the humeral head. I then proceeded to release the subscapularis in the anterior inferior shoulder capsule. The rotator cuff was inspected. The rotator cuff was found to be intact. The rotator interval was then identified. The course of the biceps tendon was also identified. I then released the rotator interval. It was released at the base of the coracoid and then out laterally. The subscapularis and capsule were then released intratendinously. The subscapularis and capsule released, extended distally in a lazy- S fashion approximately 1 cm medial to the biceps tendon. I then continued to release the capsule along the inferior neck in a vertical fashion to approximately the 6 o'clock position. Great care was taken to ensure the capsule was always visualized as it was being released as to avoid injuring the axillary nerve. I then brought a Lopez green building materials designer with the arm externally rotated and abducted. I continued to release the capsule inferomedially to the 4 o'clock position. The inferior osteophytes were now removed as well. This was done with a rongeur. I then proceeded with the preparation of the humerus. I removed all the goat's chen osteophytes. I then removed the subchondral plate some from the superior aspect of the humeral head utilizing a large rongeur. I then used the starting reamer to gain access to the humeral canal. This was 1 cm medial to the rotator cuff insertion and 1 cm posterior to the bicipital groove. I then prepared the humeral canal with hand reaming. I started with a 6 mm reamer and incrementally increased up to 8 mm until firm resistance was encountered. This was at 8 mm. The reamer handle was then left in place. I then utilizing a humeral resection guide set at 30 degrees of retrotorsion. The cutting block was then set 1 to 2 mm above the insertion of the rotator cuff. I then proceed to osteotomize the head with an oscillating saw. I then removed the resection guide and then completed the osteotomy. I then proceeded with trial stem placement. I started with a 6 mm broach and incrementally increased up to an 8 mm broach. The 8 mm trial broach was then left in place. I then proceeded with trial reduction. I started with a 42 x 18 x 46 head. This seemed to fit very nicely. The head fit opposite to the glenoid. The rotator cuff was not tented. Internal rotation was to 90 degrees, elevation was 150 degrees, and translation was 1/2 of the head in neutral rotation, inferiorly, 1/4 of the head in 15 to 20 degrees of abduction. I then removed the trial head. The stem was left in place to protect the proximal humerus. I then proceeded with exposure of the glenoid. At this point, I did release the biceps tendon. This tenotomized at the level of the superior labrum. A bone hook was then used to pull the humerus out laterally. I then inspected the joint for loose bodies. There were 2 loose bodies in the joint. These were removed. The rotator cuff was again inspected. It was an excellent condition. The Bhattman retractor was then placed onto the posterior glenoid rim. The arm was placed in approximately 80 degrees of abduction and in slight flexion on the Lopez stand. I then proceeded to remove the hypertrophic labrum to definitively identify the actual glenoid. I then selected the size of the glenoid. A size 3 glenoid fit very nicely. I then utilized the starting drill to make the centering hole. I then proceeded to ream the glenoid fossa. This was done with a size 3 reamer. Reaming was taken down to paprika signs. We had a nice bleeding surface. Minimal reaming was done as possible as to preserve as much subchondral bone as possible. I then placed the trial size 3 glenoid and it fit very nicely onto the actual glenoid. I then proceed with cementing. The wound and bone were water picked. The drill hole was then packed with Ray-Speakermix sponges. The cement was then mixed on the back table by the metal forger's assistant. The peripheral drill holes were then packed with cement utilizing a 20 mL syringe. These were packed very tightly. A small amount of cement was then placed on the posterior aspect of the real glenoid component. I then impacted the real glenoid component in place. It was a Biomet size 3 pegged glenoid component with a Regenerex central peg. Excess cement was removed utilizing a Anmoore elevator. Pressure was held onto the glenoid component until the cement had hardened. I then removed the Bhattman retractor. We then proceeded with humeral component trial reduction with the real glenoid. Again, a 42 x 18 x 46 head was then placed back onto the stem. It was taken through a trial. The head fit opposite the glenoid. The rotator cuff was not tented. Elevation was to 150 degrees and internal rotation was 90 degrees and translation was 1/2 of the head in neutral rotation and 1/4 of the head in 15 to 20 degrees of abduction. I then had the telemarketing sales representative to open a 42 x 18 x 46 real head and a size 8 Biomet mini stem. The stem was then impacted in the canal and 30 degrees of retrotorsion. The real head was then impacted on the dried Taylor taper of the stem. The shoulder was then reduced. I then proceeded with closure. The wound was again thoroughly irrigated with sterile saline solution with antibiotic added. The rotator interval was then closed very tightly with 0 Vicryl interrupted suture. The subscapularis was then closed with #2 FiberWire interrupted suture. Again, the wound was thoroughly irrigated. Approximately, 500 mg of vancomycin powder was placed deep. I did feel for the axillary nerve, which was readily palpable and uninjured. The deltopectoral was then reapproximated with 0 Vicryl interrupted suture. Again, the subcutaneous tissue was thoroughly irrigated, and the remaining 500 mg of vancomycin powder was placed. The subcutaneous tissue was closed with 2-0 Vicryl interrupted suture, and the skin was closed with a running 3-0 Quill suture. Dermabond was applied to the incision. Sterile dressing was then applied. The patient's left upper extremity was placed into a standard sling. All sponge and needle counts were deemed correct prior to closure. The patient tolerated the procedure without apparent complication. She was transferred to the recovery room in stable condition. FRANDY / MICHA: [id number] /
--- NOTE | 2022-10-11 20:08 | P.ANPRN ---
Procedure Note - Anesthesia - Nerve Block Performed Left Interscalene Single Time Out Performed: Yes Date of Procedure: 10/11/22 Procedure Start Time: 08:54 Procedure Stop Time: 08:58 Location of Patient: PreOp Indication: Acute Post-Operative Pain, Requested by Surgeon Sedation Type: Sedate with meaningful contact maintained Preparation: Sterile Prep Position: Supine Needle Types: Pajunk Needle Gauge: 21 Ultrasound used to visualize needle placement: Yes Ultrasound used to observe medication spread: Yes Blood Aspirated: No Pain Paresthesia on Injection Noted: No Resistance on Injection: Normal Image Stored and Saved: Yes Events: Uneventful and Well Tolerated (ropi .5% 20cc plus dexamethasone 4mg)
[2022-10-11] MEDS ORDERED: ESCITALOPRAM 5 MG TAB PO SCH (21:00)
[2022-10-11] MEDS: LORazepam 0.5 MG TAB PO SCH (21:09)
[2022-10-11] MEDS: CYCLOBENZAPRINE 10 MG TAB PO SCH (21:09)
[2022-10-12] MEDS: LACTATED RINGERS 1,000 ML IV SCH ×2 (01:50→01:51)
[2022-10-12] MEDS: HYDROcodone/APAP 10-325MG 1 EACH TAB PO PRN ×3 (05:58→13:03)
[2022-10-12] MEDS ORDERED: PANTOPRAZOLE 40 MG TABLET PO SCH (07:30)
[2022-10-12 07:32] VITALS: BP 109/63; PULSE 82; RESP 17; TEMP 97.8
[2022-10-12 08:17] LABS: Basophils % (A) 1 %; Eosinophils % (A) 0 %; HCT 37.5 % (34.0-46.0); HGB 12.6 gm/dL (11.4-16.0); Lymphocytes # (A) 1.6 k/uL (1.0-4.8); Lymphocytes % (A) 27 %; MCH 30.2 pg (25.0-35.0); MCHC 33.7 g/dL (31.0-37.0); MCV 89.7 fL (80.0-100.0); Monocytes # (A) 0.4 k/uL (0-1.0); Monocytes % (A) 6 %; Neutrophils # (A) 3.8 k/uL (1.3-7.7); Neutrophils % (A) 63 %; Platelet Count 167 k/uL (150-450); RBC 4.18 m/uL (3.80-5.40)
[2022-10-12] MEDS: LORazepam 0.5 MG TAB PO SCH (08:25)
[2022-10-12] MEDS: CYCLOBENZAPRINE 10 MG TAB PO SCH (08:25)
[2022-10-12] MEDS: GABAPENTIN 300 MG CAP PO SCH (08:25)
[2022-10-12] MEDS ORDERED: Mirabegron [Myrbetriq] 25 MG Tab.Er.24h PO SCH (09:00)
--- NOTE | 2022-10-12 09:23 | P.PN ---
Subjective Progress Note Date: 10/12/22 HISTORY OF PRESENT ILLNESS: This is a 56-year-old female patient with a previous medical history significant for gastroesophageal reflux disease, osteoarthritis of bilateral knees and bilateral shoulder, spondylosis of the cervical spine as well as lumbar spine, history of bilateral venous stasis with significant lymphedema both lower extremities. Patient has been brought in the hospital under the care of Dr. Mckeon status post left total shoulder arthroplasty, postop day 0. Patient is hemodynamically stable. Patient denies any chest pain or any shortness breath, she has no abdominal pain. She is started on [place] or Dilaudid for pain control. 10/12: Patient has had difficulty with nausea and vomiting. Despite using the scopolamine patch, Zofran and Benadryl was added last night. She does have left her discomfort. She is complaining of right shoulder bothering her more and she is currently off Motrin which we recommended for 2 weeks. She is utilizing incentive spirometry. Patient is anticipating discharge home today. Medication reconciliation has been reviewed. REVIEW OF SYSTEMS: Constitutional: No documented fever, no chills, no night sweats. No weight change. No weakness, fatigue or lethargy. No daytime sleepiness. HEENT: No headache. No blurred vision or double vision, no loss of vision. No loss of Hearing, no ringing in the ears, no dizziness. No nasal drainage or congestion. No epistaxis. No sore throat. Lungs: No shortness of breath, no cough, no sputum production. No wheezing. Reports dyspnea with activity. Cardiovascular: No chest pain, no lower extremity edema. No palpitations. No paroxysmal nocturnal dyspnea. No orthopnea. No lightheadedness or dizziness. No syncopal episodes. Abdominal: Reports no abdominal pain. No nausea, vomiting. No diarrhea. No constipation. No bloody or tarry stools denies no loss of appetite. Genitourinary: No dysuria, increased frequency, urgency. No urinary retention. Musculoskeletal: No myalgias. No muscle weakness, no gait dysfunction, no frequent falls. No back pain. No neck pain. Left shoulder discomfort and right shoulder discomfort Integumentary: No wounds, no lesions. No rash or pruritus. No unusual bruising. No change in hair or nails. Neurologic: No aphasia. No facial droop. No change in mentation. No head injury. No headache. No paralysis. No paresthesia. Psychiatric: No depression. No anxiety. No mood swings. Endocrine: No abnormal blood sugars. No weight change. PHYSICAL EXAMINATION: General: 56-year-old female laying down in bed in no apparent distress HEENT: Head is atraumatic, normocephalic, pupils were equal round, sclera nonicteric, conjunctivae were pale, mucous membranes of the mouth are somewhat dry. Neck: Supple, no JVP, normal carotid upstroke bilaterally, no lymphadenopathy. Chest: Decreased breath sounds at the bases, few rhonchi, no expiratory wheezes, no chest wall tenderness, no intercostal retractions. Heart: First heart sound is normal, second heart sounds normal ,There is no gallop or murmur. Abdomen: Soft, nontender, nondistended, positive bowel sounds. Extremities: There is no edema no calf tenderness DP +2 bilaterally, sling and dressing in place of the left shoulder. Neurologic examination: Patient is awake alert and oriented X 3. ASSESSMENT AND PLAN: 1. Post operative day #0 status post left shoulder arthroplasty. Patient was instructed to use the incentive spirometer to reduce the incidence of atel ectasis and hospital associated pneumonia, continue current pain management as outlined by orthopedic surgery. 2. History of GERD. Continue patient on Protonix 40 mg orally once every day. 3. History of hyperparathyroidism status post radioactive iodine. Monitor the patient TSH and free T4 as an outpatient. 4. Overactive bladder. Continue patient on Myrbetriq 50 mg orally once every day. 5. Bilateral lower extremity lymphedema. Continue bilateral knee-high LASHA hose, use Lasix and potassium supplement on as needed basis. 6. Anxiety disorder. Continue Lexapro 5 mg orally once every day, continue lorazepam 0.5 mg orally twice every day as needed. 7. Spondylosis of the cervical spine post anterior cervical discectomy with fusion. Stable. Continue current pain management. 8. Spondylosis of the lumbar spine status post epidural injection. Impression and plan of care have been directed as dictated by the signing physician. Kimberly Pineda nurse practitioner acting as scribe for signing physician. Objective - Vital Signs Vital signs: Vital Signs Temp 97.8 F 10/12/22 07:31 Pulse 82 10/12/22 07:31 Resp 17 10/12/22 07:31 BP 109/63 10/12/22 07:31 Pulse Ox 96 10/12/22 07:31 FiO2 Intake & Output 10/11/22 10/12/22 10/12/22 18:59 06:59 18:59 Intake Total 1501 500 Output Total 100 Balance 1401 500 Weight 100.2 kg Intake: IV 1451 Intake, IV Titration 50 Amount ceFAZolin 2 gm In Sodium 50 Chloride 0.9% 50 ml @ 100 mls/hr IVPB Q8H [facility] Rx#: [id number] Oral 500 Output: Estimated Blood Loss 100 Other: # Voids 2 - Labs CBC & Chem 7: 10/12/22 06:34
--- NOTE | 2022-10-12 12:16 | P.DS ---
Providers Attending physician: Carlos Mckeon Consults: 10/11/22 09:01 Consult Physician Routine Consulting Provider: Zahira Gage Consult Reason/Comments: post op medical management Do you want consulting provider notified?: Yes Primary care physician: Zhaira Gage - Discharge Diagnosis(es) (1) Status post total replacement of left shoulder Patient was admitted to the OR on 10/11/22 to undergo a left total knee arthropl asty. She had failed conservative measures as an outpatient and desired to proceed with elective surgery after given informed consent. She underwent the above procedure which she tolerated well without complication. Postoperative hospital course has remained without complication. On day of discharge she is afebrile, vital signs stable, labs within acceptable ranges, tolerating by mouth meds and diet, voiding without difficulty, positive flatus, denies abdominal pain or calf pain, pain is controlled on oral pain medication and has no new complaints. Wound is benign, neurovascular status is intact, calves are soft and nontender, abdomen soft and nontender. Review of systems is negative for numbness, tingling, fever, chills, chest pain, shortness of breath, nausea, vomiting, dizziness, headaches, slurred speech or other. Current Visit: Yes Status: Acute Priority: Medium Procedures: Left TSA Patient Condition at Discharge: Good Plan - Discharge Summary Discharge Rx Participant: No New Discharge Prescriptions: New Docusate [Colace] 100 mg PO BID #60 capsule Doxycycline Hyclate 100 mg PO BID #10 tab HYDROcodone/APAP 10-325MG [[place] 10-325] 1 tab PO Q4HR PRN #42 tab PRN Reason: Pain Ondansetron [Zofran] 4 mg PO Q8HR PRN #21 tab PRN Reason: Nausea Continue Furosemide [Lasix] 40 mg PO DAILY PRN PRN Reason: Edema Potassium Chloride [Klor-Con 20] 20 meq PO DAILY PRN PRN Reason: LASIX Escitalopram [Lexapro] 5 mg PO HS Cholecalciferol [Vitamin D3 (25 Mcg = 1000 Iu)] 1,000 unit PO DAILY Mirabegron [Myrbetriq] 50 mg PO QAM Cyclobenzaprine [Flexeril] 10 mg PO BID L.acidoph,Paracasei, B.lactis [Probiotic] 1 each PO DAILY Omeprazole [PriLOSEC] 20 mg PO QAM Gabapentin [Neurontin] 300 mg PO TID LORazepam [Ativan] 0.5 mg PO BID Biotin 5 mg PO DAILY traMADol HCL 50 mg PO Q6H PRN PRN Reason: Pain Ondansetron [Zofran] 4 mg PO Q8HR PRN PRN Reason: Nausea Discontinued Ibuprofen [Motrin Ib] 800 mg PO BID PRN PRN Reason: Pain Discharge Medication List Furosemide [Lasix] 40 mg PO DAILY PRN 04/29/17 [History] Cholecalciferol [Vitamin D3 (25 Mcg = 1000 Iu)] 1,000 unit PO DAILY 05/14/18 [History] Escitalopram [Lexapro] 5 mg PO HS 05/14/18 [History] Potassium Chloride [Klor-Con 20] 20 meq PO DAILY PRN 05/14/18 [History] Cyclobenzaprine [Flexeril] 10 mg PO BID 08/12/18 [History] L.acidoph,Paracasei, B.lactis [Probiotic] 1 each PO DAILY 08/12/18 [History] Mirabegron [Myrbetriq] 50 mg PO QAM 08/12/18 [History] Gabapentin [Neurontin] 300 mg PO TID 03/26/19 [History] LORazepam [Ativan] 0.5 mg PO BID 03/26/19 [History] Omeprazole [PriLOSEC] 20 mg PO QAM 03/26/19 [History] Biotin 5 mg PO DAILY 10/08/19 [History] Ondansetron [Zofran] 4 mg PO Q8HR PRN 10/09/22 [History] traMADol HCL 50 mg PO Q6H PRN 10/09/22 [History] Docusate [Colace] 100 mg PO BID #60 capsule 10/12/22 [Rx] Doxycycline Hyclate 100 mg PO BID #10 tab 10/12/22 [Rx] HYDROcodone/APAP 10-325MG [[place] 10-325] 1 tab PO Q4HR PRN #42 tab 10/12/22 [Rx] Ondansetron [Zofran] 4 mg PO Q8HR PRN #21 tab 10/12/22 [Rx] Follow up Appointment(s)/Referral(s): Carlos Mckeon MD [STAFF PHYSICIAN] - 10 Days Activity/Diet/Wound Care/Special Instructions: keep wound clean and dry maintain sling or arm down at side take meds as directed f/u in office may shower in 3 days if no bleeding Discharge Disposition: HOME SELF-CARE
[2022-10-12] MEDS ORDERED: ONDANSETRON 4 MG TAB PO STA (13:53)
== END 2022-10-12 14:05 | disposition home or self-care (01) ==
LOC: OR 07:49 → 4SSUR 11:17 → OR 10-12 14:05
PROVIDERS: ATTEND Orthopaedic Surgery Sports Medicine
DX: M19.012 Primary osteoarthritis, left shoulder (principal); G89.18 Other acute postprocedural pain; K21.9 Gastro-esophageal reflux disease without esophagitis; M47.812 Spondylosis without myelopathy or radiculopathy, cervical region; I89.0 Lymphedema, not elsewhere classified; M47.816 Spondylosis without myelopathy or radiculopathy, lumbar region; N32.81 Overactive bladder; Z79.899 Other long term (current) drug therapy; Z96.612 Presence of left artificial shoulder joint
CPT/HCPCS: 64415; 76942; 85025; 88300; 73020; 23472; C1776; C1713; J2250; J3370; J1100; J2765; J0690 ×3; J2405

== ENCOUNTER → 2023-08-15 | Outpatient (CLI) | payer BC ==
--- NOTE | 2023-08-16 08:46 | CTL ---
EXAMINATION TYPE: CT Low Dose Lung DATE OF EXAM ORDERED: 08/15/2023 HISTORY: . Lung cancer screening CT DLP: 128.[address] CTDI: 3.3 mGy Automated exposure control for dose reduction was used. SCREENING VISIT: COMPARISON: 08/15/2023 TECHNIQUE: Low dose computed tomography scan was performed through the chest at 1 mm thick sections a nd reconstructed images in multiple planes at 1 mm and [address] DIAGNOSTIC QUALITY: Satisfactory FINDINGS: Biapical pleural thickening. Emphysematous changes are seen. No consolidative pneumonia. There is a 3 mm nodule right upper lobe image 146 series 4. There is a 6 mm nodule along the right upper lobe axial image 168. There is a 2 mm subpleural nodule axial image 208. Additional subpleural micronodules noted. Postcholecystectomy changes seen. Hypertrophic and degenerative change of the spine. Small hiatal her leyla. The heart is enlarged and there is a trace of pericardial fluid. Aorta normal caliber. No pathologic adenopathy by noncontrast technique. Postsurgical changes left shoulder. Postsurgical changes in the cervical spine. IMPRESSION: 1. There are multiple pulmonary nodules the largest measuring 6 mm too small to characterize. 2. COPD. CT LUNG RAD AND CT CHEST RECOMMENDATION: Lung-Rad 3 Probably Benign: 6 month follow-up LDCT.
== END | disposition home or self-care (01) ==
LOC: RADCTMAIN 16:15
PROVIDERS: ATTEND Internal Medicine
DX: Z12.2 Encounter for screening for malignant neoplasm of respiratory organs (principal); J44.9 Chronic obstructive pulmonary disease, unspecified; R91.8 Other nonspecific abnormal finding of lung field; Z87.891 Personal history of nicotine dependence
CPT/HCPCS: 71271

== ENCOUNTER → 2023-09-10 | Outpatient (CLI) | payer BC ==
--- NOTE | 2023-09-11 13:34 | CA ---
Transthoracic Echo Report Name: Felicia Lai Age: 57 Gender: F : 1965 Exam Date: 09/10/2023 14:55 Exam Location: [place] [facility] Ht (in): 69 Wt (lb): 230 Ordering Physician: Zahira Gage MD Attending/Referring Phys: [employer] Susi Murphy [facility] Procedure CPT: Indications: I51.7 Cardiomegaly Cardiac Hx: Technical Quality: Fair Contrast 1: Total Dose (mL): Contrast 2: Total Dose (mL): MEASUREMENTS (Male / Female) Normal Values 2D ECHO LV Diastolic Diameter PLAX 5.2 cm 4.2 - 5.9 / 3.9 - 5.3 cm LV Systolic Diameter PLAX 3.9 cm IVS Diastolic Thickness 1.0 cm 0.6 - 1.0 / 0.6 - 0.9 cm LVPW Diastolic Thickness 1.0 cm 0.6 - 1.0 / 0.6 - 0.9 cm LV Relative Wall Thickness 0.4 LVOT Diameter 2.0 cm Ascending Aorta Diameter 3.3 cm M-MODE Aortic Root Diameter MM 2.0 cm LA Systolic Diameter MM 4.1 cm LA Ao Ratio MM 2.0 AV Cusp Separation MM 1.7 cm DOPPLER AV Peak Velocity 176.4 cm/s AV Peak Gradient 12.4 mmHg AV Mean Velocity 125.7 cm/s AV Mean Gradient 6.9 mmHg AV Velocity Time Integral 34.2 cm LVOT Peak Velocity 130.6 cm/s LVOT Peak Gradient 6.8 mmHg LVOT Velocity Time Integral 28.1 cm LVOT Stroke Volume 91.6 cm??? LVOT Stroke Volume Index 41.8 ml/m??? LVOT Cardiac Index 2999.3 cm???/min???m??? AV Area Cont Eq vti 2.7 cm??? AV Area Cont Eq pk 2.4 cm??? Mitral E Point Velocity 63.3 cm/s Mitral A Point Velocity 88.0 cm/s Mitral E to A Ratio 0.7 MV Deceleration Time 167.7 ms Right Atrial Pressure 3.0 mmHg FINDINGS Left Ventricle Mildly increased left ventricular wall thickness. Left ventricular cavity size at the upper limits of normal. Normal left ventricular systolic function with no obvious regional wall motion abnormalities. Left ventricular ejection fraction is estimated at 55%. Right Ventricle Mild right ventricular dilatation. Right Atrium Mild right atrial dilatation. Left Atrium Moderate left atrial dilatation. Mitral Valve Mitral valve thickened. Trace mitral regurgitation. Aortic Valve Trileaflet aortic valve. Trace to mild aortic regurgitation. Tricuspid Valve Structurally normal tricuspid valve. No tricuspid regurgitation. Pulmonic Valve Pulmonic valve not well visualized. Pericardium No pericardial effusion possible small fat pad Aorta Normal size aortic root and proximal ascending aorta. CONCLUSIONS Normal LV size and systolic function. No significant amantadine in the Doppler exam. No pericardial effusion. No pulmonary hypertension Previewed by: Dr. Linsey Hutton MD (Electronically Signed) Final Date: 11 September 2023 13:33
== END | disposition home or self-care (01) ==
LOC: RADECHMAIN 14:47
PROVIDERS: ATTEND Internal Medicine
DX: I51.7 Cardiomegaly (principal)
CPT/HCPCS: 93306

== ENCOUNTER → 2023-10-25 | Outpatient (CLI) | payer BC ==
--- NOTE | 2023-10-25 14:43 | MM ---
Reason for Exam: Screening (asymptomatic). Last mammogram was performed 1 year(s) and 1 month(s) ago. Patient History: Menarche at age 13. First Full-Term at age 29. Late child-bearing (after 30). Postmenopausal. Patient has history of breast feeding. Patient used Hormonal Contraceptives for 2 years. Excisional Biopsy on the Left side. 03/25/2013, Benign Core Biopsy on the left side. Paternal grandmother had breast cancer. Mother had breast cancer. Risk Values: Ekaterina 5 year model risk: 3.7%. NCI Lifetime model risk: 19.8%. Prior Study Comparison: 07/23/2018 Bilateral Diagnostic Mammogram, [facility]. 09/23/2020 Bilateral Screening Mammogram, [facility]. 09/11/2022 Bilateral MG 3D screening mammo w/cad, [facility]. Tissue Density: The breast tissue is heterogeneously dense. This may lower the sensitivity of mammography. Findings: Analyzed By CAD. Left breast: Surgical clip present. There is no suspicious group of microcalcifications or new suspicious mass. Soft tissues right breast upper aspect at 3.2 and 6.0 cm nipple on MLO view and slightly lateral on cc view. Overall Assessment: Incomplete: need additional imaging evaluation, BI-RAD 0 Management: Diagnostic Mammogram of the right breast. [facility] will attempt to contact patient to return for supplemental views and ultrasound if indicated. Patient should continue monthly self-breast exams. A clinical breast exam by your physician is recommended on an annual basis. This exam should not preclude additional follow-up of suspicious palpable abnormalities. Note on Ekaterina scores and lifetime risk: 1. A Ekaterina score greater than 3% is considered moderate risk. If this is the case, consider specialist referral to assess eligibility for a risk reducing agent. 2. If overall lifetime risk for the development of breast cancer is 20% or higher, the patient may qualify for future screening with alternating mammogram and breast MRI. Electronically signed and approved by: Damien Reis DO
== END | disposition home or self-care (01) ==
LOC: RADMAMWWP 10:07
PROVIDERS: ATTEND Internal Medicine
DX: Z12.31 Encounter for screening mammogram for malignant neoplasm of breast (principal); Z78.0 Asymptomatic menopausal state; Z80.3 Family history of malignant neoplasm of breast
CPT/HCPCS: 77063; 77067

== ENCOUNTER → 2023-11-06 | Outpatient (CLI) | payer BC ==
--- NOTE | 2023-11-06 09:59 | MM ---
Reason for Exam: Additional evaluation requested from abnormal screening. Last screening mammogram was performed less than 1 month ago. Patient History: Menarche at age 13. First Full-Term at age 29. Late child-bearing (after 30). Postmenopausal. Patient has history of breast feeding. Patient used Hormonal Contraceptives for 2 years. Excisional Biopsy on the Left side. 03/25/2013, Benign Core Biopsy on the left side. Paternal grandmother had breast cancer. Mother had breast cancer. Risk Values: Ekaterina 5 year model risk: 3.7%. NCI Lifetime model risk: 19.8%. Tissue Density: Right: The breast tissue is extremely dense which could obscure a lesion on mammography. Findings: Analyzed By CAD. Pattern appears stable. There are grouped round calcifications in the upper outer 11:00 middle position right breast. These were present from 2017 to present. Suspicious increasing calcifications are not identified. No suspicious spiculated or lobular mass is evident. Overall Assessment: Probably benign, BI-RAD 3 Management: Diagnostic Mammogram of the right breast in 6 months. A negative mammogram report should not preclude additional follow up of suspicious palpable abnormalities. Patient should continue monthly self breast exam. A clinical breast exam by your physician is recommended on an annual basis and results should be correlated with mammographic findings. Electronically signed and approved by: Herbert Moran D.O. Radiologis
== END | disposition home or self-care (01) ==
LOC: RADMAMWWP 09:31
PROVIDERS: ATTEND Internal Medicine
DX: R92.341 Mammographic extreme density, right breast (principal); Z80.3 Family history of malignant neoplasm of breast; Z78.0 Asymptomatic menopausal state
CPT/HCPCS: 77061; 77065

== ENCOUNTER → 2024-02-05 | Outpatient (CLI) | payer BC ==
--- NOTE | 2024-02-06 12:01 | CA ---
Transthoracic Echo Report Name: Felicia Lai Age: 58 Gender: F : 1965 Exam Date: 02/05/2024 16:44 Exam Location: [facility] [facility] Ht (in): 69 Wt (lb): 214 Ordering Physician: Zahira Gage MD Attending/Referring Phys: Zahira Gage MD Industrial Health Engineer EseIndu RDCS Procedure CPT: Indications: I51.7 Cardiomegaly Cardiac Hx: Technical Quality: Contrast 1: Total Dose (mL): Contrast 2: Total Dose (mL): MEASUREMENTS (Male / Female) Normal Values 2D ECHO LV Diastolic Diameter PLAX 5.2 cm 4.2 - 5.9 / 3.9 - 5.3 cm LV Systolic Diameter PLAX 3.4 cm IVS Diastolic Thickness 0.8 cm 0.6 - 1.0 / 0.6 - 0.9 cm LVPW Diastolic Thickness 1.0 cm 0.6 - 1.0 / 0.6 - 0.9 cm LV Relative Wall Thickness 0.4 LVOT Diameter 1.9 cm Aortic Root Diameter 3.0 cm LA Systolic Diameter LX 3.9 cm 3.0 - 4.0 / 2.7 - 3.8 cm LV Diastolic Volume MOD BP 117.5 cm??? 67 - 155 / 56 - 104 cm??? LV Systolic Volume MOD BP 63.8 cm??? 22 - 58 / 19 - 49 cm??? LV Ejection Fraction MOD BP 45.7 % >= 55 % LV Cardiac Index MOD BP 1704.8 cm???/min???m??? LV Diastolic Volume MOD 4C 111.1 cm??? LV Systolic Volume MOD 4C 59.4 cm??? LV Ejection Fraction MOD 4C 46.6 % LV Cardiac Index MOD 4C 1643.6 cm???/min???m??? LV Diastolic Length 4C 7.3 cm LV Systolic Length 4C 6.8 cm LV Diastolic Volume MOD 2C 115.9 cm??? LV Systolic Volume MOD 2C 66.3 cm??? LV Ejection Fraction MOD 2C 42.8 % LV Cardiac Index MOD 2C 1578.1 cm???/min???m??? LV Diastolic Length 2C 6.8 cm LV Systolic Length 2C 6.5 cm LA Volume 106.0 cm??? 18 - 58 / 22 - 52 cm??? LA Volume Index 48.1 cm???/m??? 16 - 28 cm???/m??? DOPPLER AV Peak Velocity 180.5 cm/s AV Peak Gradient 13.0 mmHg AV Mean Velocity 114.4 cm/s AV Mean Gradient 5.8 mmHg AV Velocity Time Integral 32.7 cm AI Peak Velocity 480.1 cm/s AI Peak Gradient 92.2 mmHg AI Pressure Half Time 585.2 ms LVOT Peak Velocity 115.8 cm/s LVOT Peak Gradient 5.4 mmHg LVOT Velocity Time Integral 23.2 cm LVOT Stroke Volume 65.8 cm??? LVOT Stroke Volume Index 30.9 ml/m??? LVOT Cardiac Index 2089.4 cm???/min???m??? AV Area Cont Eq vti 2.0 cm??? AV Area Cont Eq pk 1.8 cm??? MV Area PHT 5.7 cm??? MR Peak Velocity 533.4 cm/s MR Peak Gradient 113.8 mmHg Mitral E Point Velocity 93.0 cm/s Mitral A Point Velocity 126.4 cm/s Mitral E to A Ratio 0.7 MV Deceleration Time 134.2 ms PV Peak Velocity 88.8 cm/s PV Peak Gradient 3.2 mmHg FINDINGS Left Ventricle Mildly increased left ventricular diastolic volume. Moderately increased left ventricular systolic volume. Mildly decreased left ventricular ejection fraction. Left ventricular ejection fraction is estimated at 55-60 %. Normal left ventricular wall motion. Right Ventricle Mild right ventricular dilatation. Right Atrium Mild right atrial dilatation. Left Atrium Mildly increased left atrial diameter. Severely increased left atrial volume. Mildly increased left atrial area. Mitral Valve Mitral valve thickened. Mild mitral regurgitation. Aortic Valve Trace to mild aortic regurgitation. Tricuspid Valve Trace tricuspid regurgitation. Pulmonic Valve No pulmonic regurgitation. Pericardium No pericardial effusion. Aorta Normal size aortic root and proximal ascending aorta. CONCLUSIONS Left ventricle is at upper limits of normal. There is mild concentric LVH. Normal contracted a normal ejection fraction of about 55-60%. Mild right ventricular enlargement. Increased left atrial size. Mild mitral aortic and tricuspid regurgitation. No pericardial effusion Previewed by: Dr. Linsey Hutton MD (Electronically Signed) Final Date: 06 February 2024 12:00
== END | disposition home or self-care (01) ==
LOC: RADECHMAIN 16:33
PROVIDERS: ATTEND Internal Medicine
DX: I08.1 Rheumatic disorders of both mitral and tricuspid valves (principal)
CPT/HCPCS: 93306

== ENCOUNTER → 2024-02-21 | Outpatient (CLI) | payer BC ==
--- NOTE | 2024-02-26 19:24 | CTL ---
EXAMINATION TYPE: CT Low Dose Lung DATE OF EXAM: 02/21/2024 6:38 PM CLINICAL INDICATION:Female, 58 years old with history of Z12.2 LUNG CA SCREEN Z87.891 HX SMOKING; , history of tobacco use. COMPARISON: CT low-dose 08/15/2023 TECHNIQUE: CT scan of the chest obtained without contrast from approximately the lung apices through the upper abdomen. Axial, coronal and sagittal reformatted images were obtained. Low dose technique w as utilized for nodule screening purposes. CT DLP: 127.7 mGycm, Automated exposure control for dose reduction was used. CT Contrast: IV contrast used: None. Oral contrast used: None. FINDINGS: Lack of intravenous contrast and low dose technique limits the evaluation of the vascular and soft ti ssue structures. LUNGS: No evidence of pulmonary fibrosis. No evidence of focal consolidation or infiltrate. NODULES: The previously seen nodules up to 6 mm in the right upper lobe image 163 series 4, are unchanged. The re are no new or enlarging nodules of concern. PLEURA: No sizeable pleural effusion or pneumothorax. AIRWAY: Central airways are patent. LOWER NECK: No significant findings. MEDIASTINUM: No evidence of enlarged mediastinal or hilar nodes, in the limits of noncontrast exam.. HEART: Normal heart size. . VASCULATURE: Mild atherosclerotic calcifications of the aorta and branches. Ascending aorta is 3.1 C M, descending is 2.5 CM. Pulmonary trunk measures not readily measurable CM, vessels otherwise not fu rther assessed without contrast. Vessels otherwise not further assessed without contrast. SOFT TISSUES/LYMPH NODES: Unremarkable soft tissues. No axillary adenopathy. UPPER ABDOMEN: Cholecystectomy clips. MUSCULOSKELETAL: No acute osseous abnormalities. Mild degenerative changes of the thoracic spine. Mo derate degenerative disk disease L2-L3 with significant endplate sclerosis and anterior and posterior disc osteophytes. IMPRESSION: 1. Scattered tiny lung nodules, up to 6 mm in size, are unchanged compared to previous. 2. No new or enlarging nodules of concern. CT LUNG-RADS AND FOLLOWUP RECOMMENDATION: Lung-RADS Category 2, Benign. Based on imaging features or indolent behavior. Continue annual scree pamela with LDCT in 12 months. C Modifier (Personal history of lung cancer?): No. S Modifier (Other clinically significant or potentially significant findings?): No. Other significant or potentially significant abnormalities: None. Recommend smoking cessation (if current smoker), or continuation of smoking cessation (if prior smoke r). Annual screening for lung cancer with low-dose computed tomography is recommended in adults ages 55 to 77 years who have a 30 pack-year smoking history and currently smoke or have quit within the pa st 15 years. Screening should be discontinued once a person has not smoked for 15 years or develops a health problem that substantially limits life expectancy or the ability or willingness to have curat alexis lung surgery. Lung-RADS v.2021 Link Here [email or web address]
== END | disposition home or self-care (01) ==
LOC: RADCTMAIN 17:07
PROVIDERS: ATTEND Internal Medicine
DX: Z12.2 Encounter for screening for malignant neoplasm of respiratory organs (principal); R91.8 Other nonspecific abnormal finding of lung field; Z87.891 Personal history of nicotine dependence
CPT/HCPCS: 71271

== ENCOUNTER → 2024-05-14 | Outpatient (CLI) | payer BC ==
[2024-05-14 17:57] LABS: Appearance,Urine Clear (Clear); Bilirubin,Urine Negative (Negative); Blood,Urine Negative (Negative); Color,Urine Light Yellow; Glucose,Urine (UA) Negative (Negative); Ketones,Urine Negative (Negative); Leukocyte Esterase,Urine Negative (Negative); Nitrite,Urine Negative (Negative); PH, Urine 6.5 (5.0-8.0); Protein,Urine Negative (Negative); Urobilinogen,Urine <2.0 mg/dL (<2.0)
[2024-05-14 18:35] LABS: Basophils # (A) 0.03 X 10*3/uL (0.00-0.10); Basophils % (A) 0.9 %; Eosinophils # (A) 0.16 X 10*3/uL (0.04-0.35); Eosinophils % (A) 4.7 %; HCT 36.4 % (37.2-46.3); HGB 12.4 g/dL (12.0-15.0); Lymphocytes # (A) 1.44 X 10*3/uL (0.90-5.00); Lymphocytes % (A) 42.1 %; MCHC 34.1 g/dL (32.0-37.0); Mean Platelet Volume 11.1 FL (9.5-12.2); Monocytes # (A) 0.35 X 10*3/uL (0.20-1.00); Monocytes % (A) 10.2 %; NRBC Per 100 WBC 0 X 10*3/uL (0.00-0.01); Neutrophils # (A) 1.43 X 10*3/uL (1.80-7.70); Neutrophils % (A) 41.8 %; Platelet Count 204 X 10*3/uL (140-440); RDW 12.6 % (11.5-14.5); WBC 3.42 X 10*3/uL (4.50-10.00)
[2024-05-14 21:58] LABS: Amylase 42 U/L (23-121)
[2024-05-14 21:59] LABS: ALT 140 U/L (8-44); AST 30 U/L (13-35); Albumin 4.3 g/dL (3.8-4.9); Albumin/Globulin Ratio 1.95 Ratio (1.60-3.17); Alkaline Phosphatase 180 U/L (41-126); Blood Urea Nitrogen 10.2 mg/dL (9.0-27.0); Calcium 9.4 mg/dL (8.7-10.3); Carbon Dioxide 24.1 mmol/L (21.6-31.8); Chloride 108 mmol/L (96-109); Globulin 2.2 g/dL (1.6-3.3); Glucose 93 mg/dL (70-110); LDH 193 U/L (120-246); Lipase 22 U/L (14-63); Sodium 143 mmol/L (135-145); Total Bilirubin 0.3 mg/dL (0.3-1.2); Total Protein 6.5 g/dL (6.2-8.2)
== END | disposition home or self-care (01) ==
LOC: LABWHC1 15:24
PROVIDERS: ATTEND Internal Medicine
DX: E03.9 Hypothyroidism, unspecified (principal); R74.01 Elevation of levels of liver transaminase levels; R73.03 Prediabetes
CPT/HCPCS: 36415; 80053; 81003; 82150; 83036; 83605; 83615; 83690; 84439; 84443; 85025

== ENCOUNTER → 2024-05-26 | Outpatient (CLI) | payer BC ==
--- NOTE | 2024-05-26 14:12 | MM ---
Reason for Exam: Follow-up at short interval from prior study. Last screening mammogram was performed 7 month(s) ago. Patient History: Menarche at age 13. First Full-Term at age 29. Late child-bearing (after 30). Postmenopausal. Patient has history of breast feeding. Patient used Hormonal Contraceptives for 2 years. Excisional Biopsy on the Left side. 03/25/2013, Benign Core Biopsy on the left side. Paternal grandmother had breast cancer. Mother had breast cancer. Risk Values: Ekaterina 5 year model risk: 3.8%. NCI Lifetime model risk: 19.4%. Prior Study Comparison: 09/11/2022 Bilateral MG 3D screening mammo w/cad, [facility]. 10/25/2023 Bilateral MG 3D screening mammo w/cad, [facility]. 11/06/2023 Right MG 3D work up w/cad RT, [facility]. Tissue Density: Right: The breasts are extremely dense, which lowers the sensitivity of mammography. Findings: Analyzed By CAD. Stable microcalcifications upper outer right breast dating back to 2018. No masses or distortion seen. No new clusters evident. Overall Assessment: Benign, BI-RAD 2 Management: Screening Mammogram of both breasts in 6 months. . Results were given to the patient verbally at the time of exam. Patient should continue monthly self-breast exams. A clinical breast exam by your physician is recommended on an annual basis. This exam should not preclude additional follow-up of suspicious palpable abnormalities. Note on Ekaterina scores and lifetime risk: 1. A Ekaterina score greater than 3% is considered moderate risk. If this is the case, consider specialist referral to assess eligibility for a risk reducing agent. 2. If overall lifetime risk for the development of breast cancer is 20% or higher, the patient may qualify for future screening with alternating mammogram and breast MRI. Electronically signed and approved by: Hong Padilla M.D. Radiologis
== END | disposition home or self-care (01) ==
LOC: RADMAMWWP 13:42
PROVIDERS: ATTEND Obstetrics & Gynecology
DX: R92.8 Other abnormal and inconclusive findings on diagnostic imaging of breast (principal); R92.341 Mammographic extreme density, right breast; Z78.0 Asymptomatic menopausal state; Z80.3 Family history of malignant neoplasm of breast
CPT/HCPCS: 77061; 77065

== ENCOUNTER → 2024-09-16 | Outpatient (CLI) | payer BC ==
--- NOTE | 2024-09-16 15:19 | P.PAINPG ---
PQRS Measure Charge Sheet Comment: A 58 yr old female with a history of severe and chronic LBP > 3 yrs secondary to radiculopathy, spondylosis with facet arthropathy without myelopathy presents today for evaluation. Pt underwent a BL RFA L4-L5/ L5-S1 in Jun 2021 where she experienced 80% pain relief x 2 yrs s/p procedure. Pain level is provoked at 7 /10 in intensity, constant, predominantly axial, localized in the lumbar spine, achy in character without shooting pain. Pain is provoked by standing/ walking for periods > 20 min. Pain is alleviated with physician guided home exercise/ stretching plan daily since Jun 2021, heat, ice, OTC medications, repositioning and rest. Oswestry axial pain score at 26. Interventional pain procedures completed include BL RFA L3-L5 (Jun 2021), BL ilioinguinal (2020), TRUDI C7-T1 (2021) Patient is currently on Tyl Patient denies any side effects of the medication(s), denies excessive drowsiness or sleepiness, denies suicidal ideation and reports that the current pain medication is helping to control the pain and improve activities of daily living. Patient denies any motor or sensory deficits. Patient denies any fever or night sweats, denies any change in the bowel movements or urination. Physical Examination: -Constitutional: Cooperative. Not in acute distress . - Neurologic: Cranial nerve II to XII intact. No focal neurological deficits. - Psychatric: Alert & oriented x 3. Matching mood & appropriate affect. Judgment and insight intact. - Musculoskeletal: Cervical spine: Muscle bulk/ tone/ strength in the bilateral upper extremities normal Vertebral body tenderness to palpation over Spurling test positive Distraction test positive Facet loading test positive TTP Thoracic spine Muscle bulk / tone/ strength in the bilateral paraspinal muscles normal Vertebral body tender to palpation over Facet loading test positive TTP Lumbar spine: Motor bulk/ tone/ strength lower extremities , thigh and legs : 5/5 Deep tendon reflexes : Normal Knee Jerk. Normal Ankle Jerk . Vertebral body tenderness to palpation over Paige Test positive Lumbar Facet Loading Test positive BL L4-L5, L5-S1 Straight Leg Raise: positive at 30 degrees right side/ left side Gaenslen's Test positive Sacral spine : Severe tenderness over the Sacroiliac joint: right side / left side Range of motion: Flexion of the lumbar spine <60 degrees Range of motion: Extension of the lumbar spine <20 degrees Gaenslen's Test positive right side / left side Evonne test: positive right side / left side Thigh Thrust Test positive right side / left side Sacral Thrust Test positive right side / left side Imaging: MRI non contrast lumbar spine from reviewed Assessment and plan: Chronic LBP secondary to L3-L4 severe spinal stenosis, radiculopathy, spondylosis with facet arthropathy without myelopathy Recommendation of BL RFA L4-L5/ L5-S1. Risks, benefits of procedure discussed and pt verbalized understanding. Admits to anticoagulant use or medical history of diabetes. Protocol for discontinuation/ continuation of medications alona procedure discussed. Minimal anesthesia provided, if clinically indicated, consisting of Versed and Fentanyl. All questions answered. I have spent less than 30 minutes on patient care today. Dr Beverly was available by phone for the evaluation of this patient. The time was used to review the medical records including relevant urine studies and Prescription history (MAPs), review of the available imaging, evaluation and examination of the patient, coordination of care with the medical staff and if applicable referring physicians, as well as creation of the medical record PQRS Narrative: Smoking Status Former smoker Hx Alcohol Use (MH) Yes: 1 q day Home Medications: Ambulatory Orders Furosemide [Lasix] 40 mg PO DAILY PRN 04/29/17 Cholecalciferol [Vitamin D3 (25 Mcg = 1000 Iu)] 1,000 unit PO DAILY 05/14/18 Escitalopram [Lexapro] 5 mg PO HS 05/14/18 Potassium Chloride [Klor-Con 20] 20 meq PO DAILY PRN 05/14/18 Cyclobenzaprine [Flexeril] 10 mg PO BID 08/12/18 L.acidoph,Paracasei, B.lactis [Probiotic] 1 each PO DAILY 08/12/18 Mirabegron [Myrbetriq] 50 mg PO QAM 08/12/18 Gabapentin [Neurontin] 300 mg PO TID 03/26/19 LORazepam [Ativan] 0.5 mg PO BID 03/26/19 Omeprazole [PriLOSEC] 20 mg PO QAM 03/26/19 Biotin 5 mg PO DAILY 10/08/19 Ondansetron [Zofran] 4 mg PO Q8HR PRN 10/09/22 traMADol HCL 50 mg PO Q6H PRN 12/13/22 Docusate [Colace] 100 mg PO BID #60 capsule 10/12/22 Doxycycline Hyclate 100 mg PO BID #10 tab 10/12/22 HYDROcodone/APAP 10-325MG [[place] 10-325] 1 tab PO Q4HR PRN #42 tab 10/12/22 Ondansetron [Zofran] 4 mg PO Q8HR PRN #21 tab 10/12/22 Controlled Substance Measures - Controlled Substance Measures Is patient prescribed a controlled substance at discharge?: No
== END ==
LOC: PNWHC3 14:32
PROVIDERS: ATTEND Specialist
DX: M51.26 Other intervertebral disc displacement, lumbar region (principal); M47.26 Other spondylosis with radiculopathy, lumbar region; M48.061 Spinal stenosis, lumbar region without neurogenic claudication; Z88.5 Allergy status to narcotic agent; Z91.030 Bee allergy status; Z87.891 Personal history of nicotine dependence
CPT/HCPCS: 99211

== ENCOUNTER 2024-10-13 07:19 | Day surgery (SDC) | payer BC ==
[2024-10-12 11:44] VITALS: BMI 32.7
[2024-10-13 07:59] VITALS: TEMP 96.8
[2024-10-13] MEDS: ONDANSETRON 4 MG/2 ML VIAL IVP STA (08:00)
[2024-10-13] MEDS: LACTATED RINGERS 1,000 ML IV SCH (08:00)
[2024-10-13] MEDS: IV FLUID CONTINUATION 1,000 ML IV ONE ×2 (08:01→08:47)
[2024-10-13] MEDS ORDERED: fentaNYL (PF) 50 MCG/ML 2 ML AMP ONE (08:07)
[2024-10-13] MEDS ORDERED: methylPREDNISolone ACETATE 40 MG/ML 1 ML VIAL ONE (08:07)
[2024-10-13] MEDS ORDERED: ROPIVACAINE 5MG/ML 20ML VIAL ONE (08:07)
[2024-10-13] MEDS ORDERED: MIDAZOLAM 2 MG/2 ML VIAL ONE (08:07)
--- NOTE | 2024-10-13 08:47 | P.PCN ---
Date of Procedure: 10/13/24 Procedure(s) Performed: PREOPERATIVE DIAGNOSIS: 1-Lumbar Spondylosis with Facet Arthropathy without myelopathy. 2- Lumber degenerative disc disease. POSTOPERATIVE DIAGNOSIS: 1- Lumbar Spondylosis with Facet Arthropathy without myelopathy. 2- Lumber degenerative disc disease. PROCEDURES : Bilateral Radiofrequency thermocoagulation, L3 , L4 , and L5 medial branch, with fluoroscopic guidance (fluoroscopy images available in the radiology department) ( to denervate the facet joint at bilateral L4-5 ,and L5-S1 levels ). ANESTHESIA: Sedation with Versed 2 mg Fentanyl 100 mcg, ( Sedation started 08:07, end 08:39 ) EBL: Minimal PROCEDURE INDICATION: The patient with low back pain secondary to lumbar facet arthropathy who had more than 50% relief of her pain with previous diagnostic lumbar medial branch block with bupivacaine. PROCEDURE DESCRIPTION / TECHNIQUE: The patient was seen and identified in the preoperative area. Risks, benefits, complications, including but not limited to risk of infection ,bleeding , allergic reactions to the medications and no complete pain releife , and alternatives were discussed with the patient, the patient agreed to proceed with the procedure and signed the consent. IV was started. Vital signs remained stable throughout the procedure. Patient was taken to the OR and time out was completed. The patient was placed in the prone position on the procedure table. The lumber area was prepped and draped in the usual sterile fashion. . Vital signs were closely monitored during the procedure .IV sedation was used during the procedure to decrease patients anxiety. Using AP and then oblique fluoroscopy, the ``eye of the Ken dog corresponding to the connection between the superior and transverse articular processes of right L3, L4, and L5 were identified, marked, and localized with 1% lidocaine. Subsequently, a 18 -ch (VENOM ) radiofrequency cannula with a 10-mm active tip was advanced guided by fluoroscopy to each of the``eyes of the Ken dog at right L3, L4, and L5. Each site then underwent sensory testing at 50 Hz and 0 to 1 volt and motor testing at 2.5 Hz and 0 to 3 volt with local stimulation, but no radicular symptoms down the legs. Thereafter each sites underwent radiofrequency thermocoagulation at 80 degrees celsius for 90 seconds after injecting 0.5 ml of PF Ropivacaine 1ml, then after the thermocoagulation done , 1 ml of the block solution containing Depo-Medrol 20 mg and 3 ml of Ropivacaine 0.5% was injected at the right L3 , L4 , and L5 , levels after negative aspiration of CSF and blood and with no paresthesias. Cannulas were retracted while injecting lidocaine 1% until the needle is out. The same procedure was repeated at the level of Left L3, L4, and L5 levels. At the end of the procedure, the skin was cleansed and bandages were applied. COMPLICATIONS: No acute complications. DISPOSITION / PLANS: The patient was placed in a supine position and transferred to the recovery area in a stable condition for observation and was discharged from the recovery room after meeting discharge criteria. Home discharge instructions given to the patient by the staff. The patient was reexamined prior to discharge. The patient will schedule a follow up in the clinic in 2-4 weeks.
[2024-10-13 09:08] VITALS: BP 131/72; PULSE 81; RESP 18
--- NOTE | 2024-10-13 09:17 | FL ---
EXAMINATION TYPE: FL guided pain mgmt statistic DATE OF EXAM: 10/13/2024 8:52 AM COMPARISON: Pre Operative Images if available both CT/MRI or plain film CLINICAL INDICATION: Female, 58 years old with history of RF LUMBAR; TECHNIQUE: FL guided pain mgmt statistic, multiple fluoroscopic images provided for procedure. Total fluoroscopy time: 48.4 seconds Total submitted images to PACS: 7 DAP: [id number] mGym2 Gycm2 uGym2 cGycm2 or equivalent. FINDINGS: Fluoroscopic images during injection for pain management demonstrate multilevel degeneration changes throughout the spine. No evidence for fracture. No acute process identified. IMPRESSION: 1. No evidence for intraoperative complication. 2. Please see the operative/procedural note for further details. [facility], , 10/13/2024 9:15 AM
== END 2024-10-13 09:30 | disposition home or self-care (01) ==
LOC: ORPAIN 07:19
PROVIDERS: ATTEND Specialist
DX: M47.816 Spondylosis without myelopathy or radiculopathy, lumbar region (principal); Z91.030 Bee allergy status; Z88.5 Allergy status to narcotic agent
CPT/HCPCS: 64635; 64636 ×2; J2250; J2405; J3010; J2795; J1010; 99152; 99153

== ENCOUNTER → 2024-11-17 | Outpatient (CLI) | payer BC ==
--- NOTE | 2024-11-17 08:18 | US ---
EXAMINATION TYPE: US abdomen complete DATE OF EXAM: 11/17/2024 COMPARISON: CT 2020 CLINICAL INDICATION: Female, 59 years old with history of R94.5 ABNORMAL RESULTS OF LIVER FUNCTION ST UDIES; TECHNIQUE: Grayscale and color Doppler imaging of the abdomen was performed. FINDINGS: EXAM MEASUREMENTS: Liver Length: 16.6 cm CBD: 1.1 cm Spleen: 10.2 cm Right Kidney: 10.1 x 3.5 x 4.2 cm Left Kidney: 11.4 x 5.7 x 5.0 cm Pancreas: wnl Liver: mildly course echotexture Gallbladder: surgically absent Evidence for sonographic Mckeon's sign: no CBD: dilated Spleen: wnl Right Kidney: wnl Left Kidney: wnl Upper IVC: wnl Abd Aorta: wnl IMPRESSION: 1. Nonspecific pattern to the liver can be associated with mild hepatic steatosis or hepatocellular d isease. Correlate clinically. 2. Post cholecystectomy with mild extrahepatic biliary ductal dilation likely related to cholecystect jas. [facility], , 11/17/2024 8:16 AM
== END | disposition home or self-care (01) ==
LOC: RADUSWWP 07:14
PROVIDERS: ATTEND Internal Medicine Geriatric Medicine
DX: R94.5 Abnormal results of liver function studies (principal); Z90.49 Acquired absence of other specified parts of digestive tract; K76.89 Other specified diseases of liver
CPT/HCPCS: 76700

== ENCOUNTER → 2025-01-13 | Outpatient (CLI) | payer BC ==
[2025-01-13 14:45] VITALS: BP 120/76; PULSE 89; RESP 18; TEMP 98.4
--- NOTE | 2025-01-13 15:50 | P.PAINPG ---
PQRS Measure Charge Sheet Comment: A 58 yr old female with a history of severe and chronic LBP > 3 yrs secondary to radiculopathy, spondylosis with facet arthropathy without myelopathy presents today for evaluation s/p BL RFA L4-L5/ L5-S1. Pt states she experienced 50% pain relief s/p procedure. Pain level is provoked at 8 /10 in intensity, constant, predominantly axial, localized in the lumbar spine, sharp in character w shooting pain in L groin. Pain is provoked by sitting for periods > 20 min. Pain is alleviated with physician guided home exercise/ stretching plan daily since Jun 2021, heat, ice, OTC medications, repositioning and rest. Interventional pain procedures completed include BL RFA L3-L5 x2 (07/18, 10/13/24), BL ilioinguinal (2020), TRUDI C7-T1 (2021) Patient is currently on Tyl Patient denies any side effects of the medication(s), denies excessive drowsiness or sleepiness, denies suicidal ideation and reports that the current pain medication is helping to control the pain and improve activities of daily living. Patient denies any motor or sensory deficits. Patient denies any fever or night sweats, denies any change in the bowel movements or urination. Physical Examination: -Constitutional: Cooperative. Not in acute distress . - Neurologic: Cranial nerve II to XII intact. No focal neurological deficits. - Psychatric: Alert & oriented x 3. Matching mood & appropriate affect. Judgment and insight intact. - Musculoskeletal: Cervical spine: Muscle bulk/ tone/ strength in the bilateral upper extremities normal Vertebral body tenderness to palpation over Spurling test positive Distraction test positive Facet loading test positive TTP Thoracic spine Muscle bulk / tone/ strength in the bilateral paraspinal muscles normal Vertebral body tender to palpation over Facet loading test positive TTP Lumbar spine: Motor bulk/ tone/ strength lower extremities , thigh and legs : 5/5 Deep tendon reflexes : Normal Knee Jerk. Normal Ankle Jerk . Vertebral body tenderness to palpation over Paige Test positive Lumbar Facet Loading Test positive BL L4-L5, L5-S1 Straight Leg Raise: positive at 30 degrees right side/ left side Gaenslen's Test positive Sacral spine : Severe tenderness over the Sacroiliac joint: right side / left side Range of motion: Flexion of the lumbar spine <60 degrees Range of motion: Extension of the lumbar spine <20 degrees Gaenslen's Test positive right side / left side Evonne test: positive right side / left side Thigh Thrust Test positive right side / left side Sacral Thrust Test positive right side / left side Imaging: MRI non contrast lumbar spine from reviewed Assessment and plan: Chronic LBP secondary to L3-L4 severe spinal stenosis, radiculopathy, spondylosis with facet arthropathy without myelopathy Short course Harmon 7.5/325gm #18 NR Use, side effects, adverse reactions, safe storage discussed. All questions answered. I have spent less than 30 minutes on patient care today. Dr Beverly was available by phone for the evaluation of this patient. The time was used to review the medical records including relevant urine studies and Prescription history (MAPs), review of the available imaging, evaluation and examination of the patient, coordination of care with the medical staff and if applicable referring physicians, as well as creation of the medical record - Pain Location Lower Back Non-Pharmacological Interventions: Elevation, Heat, Inactivity Pharmacological Interventions: Topical Medication PQRS Narrative: Smoking Status Former smoker Hx Alcohol Use (MH) Yes: 1 q day Home Medications: Ambulatory Orders Furosemide [Lasix] 40 mg PO DAILY PRN 04/29/17 Cholecalciferol [Vitamin D3 (25 Mcg = 1000 Iu)] 1,000 unit PO DAILY 05/14/18 Escitalopram [Lexapro] 5 mg PO HS 05/14/18 Potassium Chloride [Klor-Con 20] 20 meq PO DAILY PRN 05/14/18 Cyclobenzaprine [Flexeril] 10 mg PO BID 08/12/18 L.acidoph,Paracasei, B.lactis [Probiotic] 1 each PO DAILY 08/12/18 Mirabegron [Myrbetriq] 50 mg PO QAM 08/12/18 Gabapentin [Neurontin] 300 mg PO TID 03/26/19 LORazepam [Ativan] 0.5 mg PO BID 03/26/19 Omeprazole [PriLOSEC] 20 mg PO QAM 03/26/19 Biotin 5 mg PO DAILY 10/08/19 Ondansetron [Zofran] 4 mg PO Q8HR PRN 10/09/22 traMADol HCL 50 mg PO Q6H PRN 10/09/22 Docusate [Colace] 100 mg PO BID #60 capsule 10/12/22 Atorvastatin [Lipitor] 10 mg PO HS 10/12/24 Ibuprofen [Motrin Ib] 600 mg PO Q8H PRN 10/12/24 Levothyroxine Sodium [Synthroid] 25 mcg PO DAILY 10/12/24 Tirzepatide [Zepbound] 5 mg SQ NGUYEN 10/12/24 HYDROcodone/APAP 7.5-325MG [Harmon 7.5-325] 1 tab PO Q4H PRN 3 Days #18 tab 01/13/25 Controlled Substance Measures - Controlled Substance Measures Is patient prescribed a controlled substance at discharge?: Yes When asked, does pt state using other controlled substances?: No If prescribed controlled substance>3 days was MAPS reviewed?: Prescribed <3 Days
== END ==
LOC: PNWHC3 14:30
PROVIDERS: ATTEND Specialist
DX: M47.26 Other spondylosis with radiculopathy, lumbar region (principal); M48.061 Spinal stenosis, lumbar region without neurogenic claudication; G89.29 Other chronic pain; Z88.5 Allergy status to narcotic agent; Z91.030 Bee allergy status; Z87.891 Personal history of nicotine dependence
CPT/HCPCS: 99212

== ENCOUNTER → 2025-02-26 | Outpatient (CLI) | payer BC ==
[~2025-02-26] MED LIST changes: -ACETAMINOPHEN TAB 500 MG TAB PO PRN; -DEXAMETHASONE SOD PHOSPHATE 4 MG/ML 1 ML VIAL IV ONE; +DOBUTamine DRIP for NUC MED 500 MG in DEXTROSE/WATER 1 250ML.BAG IV PRN; -GABAPENTIN 300 MG CAP PO PRN; -HYDROmorphone 0.5 MG/0.5 ML SYRINGE IVP PRN; -LACTATED RINGERS 1,000 ML IV SCH; -MELOXICAM 7.5 MG TAB PO PRN; -ONDANSETRON 4 MG/2 ML VIAL IVP ONE; -ONDANSETRON 4 MG/2 ML VIAL IVP PRN; -TRANEXAMIC ACID IN NACL,ISO-OS 1,000 MG in SALINE 1 100ML.BAG IVPB PRN
--- NOTE | 2025-02-26 15:52 | CA ---
Dobutamine Stress Echocardiogram Report Felicia Lai Age: 59 Gender: F : 1965 Exam Date: 02/26/2025 07:33 Exam Location: [facility] Ordering Physician: Zahira Gage MD Referring Physician: Zahira Gage MD Signwriter: Ledy Phan RDCS Technologist: Ht (in): 69 Wt (lb): 217 Procedure CPT: Indication: Z01.818 ENCOUNTER FOR OTHER PREPROCEDURAL EXAMINAT ICD-9 Codes: Rhythm: Patient History: CHEST PAIN, DIFFICULTY IN BREATHING, FAMILY HX OF HEART DISEASE, PRIOR SMOKER, PRIOR HEART CATH Cardiac Medications: Medications in past 24 hours: Contrast: Total Dose (mL): Stress Results Protocol: Dobutamine Peak Dose (???g/kg/min): 40 Duration (min:sec): Atropine:(mg) None Target HR: 136 Double Product: 10616 Resting HR: 72 Resting BP: 105 / 62 Peak HR: 138 Peak BP: 170 / 47 Max Predicted HR: 160 86 % Max Predicted HR Stress Summary: BP Response: Reason for Termination: Target HR Cardiac Symptoms: NO SYMPTOMS ECG Analysis Resting EKG: Stress EKG: Arrhythmia: Echo Analysis Base Echo Analysis: Low Echo Anaylsis: Peak Echo Analysis: Recovery Echo: MEASUREMENTS (Male/Female) Normal Values CONCLUSIONS Patient underwent dobutamine stress echo with infusion of dobutamine into Stage 4 for a total of 12 minutes and 59 seconds. Patient's maximum heart rate was 138 which represented 86% age-predicted maximum heart rate. Stress EKG portion: At baseline patient's EKG showed normal sinus rhythm, normal axis, no significant ST or T wave abnormalities. At peak dobutamine infusion, EKG showed no change from baseline. Stress echo portion: 2-D echocardiogram was performed in the parasternal long, personal short, apical 2 and apical four-chamber views at rest, low-dose, peak infusion and in recovery. At baseline, echocardiogram showed left ventricular ejection fraction 55% without wall motion abnormalities. With peak infusion, echocardiogram shows improvement in left ventricular ejection fraction, increase contractility, decrease in left ventricular end systolic dimension without wall motion abnormalities consistent with a normal response to dobutamine. Conclusions: 1. Normal stress EKG and echo response to dobutamine infusion without any evidence of inducible ischemia. Dr. Ang Lopez DO (Electronically Signed) Final Date: 26 Feb 2025 15:51
== END | disposition home or self-care (01) ==
LOC: RADNMMAIN 07:25
PROVIDERS: ATTEND Internal Medicine
DX: Z01.818 Encounter for other preprocedural examination (principal); R06.00 Dyspnea, unspecified; R07.9 Chest pain, unspecified; Z87.891 Personal history of nicotine dependence
CPT/HCPCS: 93351

== ENCOUNTER → 2025-02-26 | Outpatient (CLI) | payer BC ==
[2025-02-26 09:50] LABS: INR 0.9 (<1.2); Partial Thromboplastin Time 24.4 sec (22.0-30.0); Prothrombin Time 10.2 sec (10.0-12.5)
[2025-02-26 15:39] LABS: ALT 14 U/L (8-44); AST 21 U/L (13-35); Albumin 4.4 g/dL (3.8-4.9); Alkaline Phosphatase 88 U/L (41-126); BUN/Creat Ratio 18.14 Ratio (12.00-20.00); Blood Urea Nitrogen 12.7 mg/dL (9.0-27.0); Calcium 9.3 mg/dL (8.7-10.3); Carbon Dioxide 22.7 mmol/L (21.6-31.8); Chloride 106 mmol/L (96-109); Globulin 2.1 g/dL (1.6-3.3); Glucose 81 mg/dL (70-110); Potassium 3.8 mmol/L (3.5-5.5); Sodium 141 mmol/L (135-145); Total Bilirubin 0.4 mg/dL (0.3-1.2); Total Protein 6.5 g/dL (6.2-8.2)
== END | disposition home or self-care (01) ==
LOC: LABWHC1 09:08
PROVIDERS: ATTEND Orthopaedic Surgery
DX: Z01.812 Encounter for preprocedural laboratory examination (principal); Z22.322 Carrier or suspected carrier of Methicillin resistant Staphylococcus aureus; M16.11 Unilateral primary osteoarthritis, right hip
CPT/HCPCS: 36415; 80053; 85610; 85730; 86850; 86900; 86901; 87070

== ENCOUNTER 2025-03-08 05:35 | Day surgery (SDC) | payer BC ==
[2025-03-05 11:38] VITALS: BMI 32.0
[~2025-03-08 05:35] MED LIST changes: -DOBUTamine DRIP for NUC MED 500 MG in DEXTROSE/WATER 1 250ML.BAG IV PRN; +HYDROmorphone 0.5 MG/0.5 ML SYRINGE IVP PRN; +LIDOCAINE 1% (10MG/ML) FOR IV START INTRADERMA PRN; +MIDAZOLAM 2 MG/2 ML VIAL IV PRN; +TRANEXAMIC 1,000 MG/100ML-NACL 1,000 MG in SALINE 1 100ML.BAG IVPB PRN; +fentaNYL (PF) 50 MCG/ML 2 ML AMP IVP PRN
[2025-03-08] MEDS: IV FLUID CONTINUATION 1,000 ML IV ONE ×2 (06:00)
[2025-03-08 06:16] LABS: Glucose,Whole Blood 79 mg/dL (70-110)
[2025-03-08 06:24] LABS: HCT 36.4 % (37.2-46.3); HGB 12.8 g/dL (12.0-15.0); MCH 30.3 pg (27.0-32.0); MCHC 35.2 g/dL (32.0-37.0); MCV 86.3 fL (80.0-97.0); Mean Platelet Volume 9.7 fL (9.5-12.2); Platelet Count 206 10*3/uL (140-440); RBC 4.22 10*6/uL (4.10-5.20); RDW 12.9 % (11.5-14.5); WBC 4.63 10*3/uL (4.50-10.00)
[2025-03-08] MEDS: DEXAMETHASONE SOD PHOSPHATE 4 MG/ML 1 ML VIAL IV ONE (06:28)
[2025-03-08] MEDS: ACETAMINOPHEN TAB 500 MG TAB PO PRN (06:28)
[2025-03-08] MEDS: ONDANSETRON 4 MG/2 ML VIAL IVP ONE (06:28)
[2025-03-08] MEDS: GABAPENTIN 300 MG CAP PO PRN (06:28)
[2025-03-08] MEDS: MELOXICAM 7.5 MG TAB PO PRN (06:29)
[2025-03-08] MEDS: SCOPOLAMINE 1 MG/72 HR PATCH TRANSDERM ONE (06:40)
[2025-03-08] MEDS: MIDAZOLAM 2 MG/2 ML VIAL IVP ONE (06:46)
[2025-03-08] MEDS: fentaNYL (PF) 50 MCG/1 ML VIAL IVP ONE (06:46)
[2025-03-08] MEDS ORDERED: fentaNYL (PF) 50 MCG/ML 2 ML AMP ONE (07:00)
[2025-03-08] MEDS: ceFAZolin 2 GM in DEXTROSE 5% IN WATER 50 ML IVPB PRN (07:00)
[2025-03-08] MEDS ORDERED: TRANEXAMIC 1,000 MG/100ML-NACL PREMIX BAG ONE (07:00)
[2025-03-08] MEDS ORDERED: DEXAMETHASONE SOD PHOSPHATE 4 MG/ML 1 ML VIAL ONE (07:00)
[2025-03-08] MEDS ORDERED: ROPIVACAINE 5 MG/ML 30 ML VIAL ONE (07:00)
[2025-03-08] MEDS ORDERED: MIDAZOLAM 2 MG/2 ML VIAL ONE (07:00)
[2025-03-08] MEDS: ceFAZolin 1,000 MG in SODIUM CHLORIDE 0.9% 1,000 ML IRRIGATION ONE (07:00)
[2025-03-08] MEDS ORDERED: PROPOFOL 10 MG/ML 20 ML VIAL IV ONE (07:00)
[2025-03-08] MEDS ORDERED: PHENYLEPHRINE 10 MG/ML VIAL ONE (07:00)
[2025-03-08] MEDS: ROPIVACAINE 5 MG/ML 30 ML VIAL MISCELLANE ONE ×2 (07:19→08:15)
--- NOTE | 2025-03-08 07:26 | P.ANPRN ---
Procedure Note - Anesthesia - Nerve Block Performed Right Jose Francisco Single Time Out Performed: Yes (t) Date of Procedure: 03/08/25 Procedure Start Time: 06:45 Procedure Stop Time: 06:51 Location of Patient: PreOp Indication: Acute Post-Operative Pain, Requested by Surgeon Sedation Type: Sedate with meaningful contact maintained Preparation: Sterile Prep Position: Supine Needle Types: Pajunk Needle Gauge: 21 Ultrasound used to visualize needle placement: Yes Ultrasound used to observe medication spread: Yes Injectate: 0.5% Ropivacaine (see comment for volume) (30 mL +4 mg dexamethasone) Blood Aspirated: No Pain Paresthesia on Injection Noted: No Resistance on Injection: Normal Image Stored and Saved: Yes Events: Uneventful and Well Tolerated
--- NOTE | 2025-03-08 08:12 | P.OP ---
Date of Procedure: 03/08/25 Preoperative Diagnosis: Severe osteoarthritis right hip Postoperative Diagnosis: Severe osteoarthritis right hip Procedure(s) Performed: Right total hip arthroplasty with a direct anterior approach Implants: [employer] Polarstem standard size 4 with a collar [employer] R3, 3 hole hemispherical acetabular shell, 54 mm [employer] Reflection 6.5 mm cancellus screws, 20 mm 2 [employer] R3, XLPE 20 acetabular liner [employer] Oxinium femoral head 36 mm, -3 All components were press-fit. The articulation is Oxinium on polyethylene. Anesthesia: spinal Surgeon: Mikael Crisostomo Lpn [facility]n [facility]: [facility] Estimated Blood Loss (ml): 500 Pathology: none sent Condition: stable Disposition: PACU Indications for Procedure: After failure of conservative treatment we discussed the surgical and nons urgical treatment options at length. Patient wishes to proceed with a total hip arthroplasty with a direct anterior approach. Complications specific to this procedure were discussed at length, including but not limited to infection, leg length discrepancy, dislocation, nerve injury, and fracture. Covid-19 was also discussed at length with the patient, and they are aware of the current policies and procedures. The patient was given the option of delaying surgery, but they elect to proceed knowing these risks. Patient is aware of all these complications and informed consent was obtained Operative Findings: The operative findings are consistent with severe osteoarthritis of the right hip Description of Procedure: The patient was seen and evaluated in the preoperative area and the consent was reviewed. The operative site was marked with a skin marker. The patient verified the procedure and operative site. A ALEX block was placed by anesthesia in the preoperative area. The patient was then brought to the operating room and given preoperative antibiotics intravenously. 1 g of Tranexamic acid was also given intravenously. A spinal anesthetic was administered by the anesthesia department. The patient was then placed on the [place] table with the bony prominences well-padded. The hip area was then prepped with a ChloraPrep solution and draped in the usual sterile fashion. A universal timeout was then performed, which confirmed the patient's name, surgical site, ALLERGIES, and procedure being performed on the consent. Next the incision site was located at 1 cm distal and 4 cm lateral to the anterior superior iliac spine. The skin and subcutaneous tissues were sharply incised. Incision was carefully dissected down to the fascia overlying the tensor fascia ailyn muscle. This fascia was then incised in line with the muscle fibers. Care was taken to stay laterally in order to avoid injuring the lateral femoral cutaneous nerve. Next, using blunt finger dissection, the tensor fascia ailyn muscle was dissected off its investing fascia. The muscle was then carefully retracted laterally with a cobra retractor over the lateral neck of the femur. Next, the circumflex vessels were identified and cauterized using the Aquamantis device. The anterior hip capsule was then exposed. The capsule was then opened and an inverted T fashion. The retractors were then placed intracapsularly. The retractors were maintained intracapsular throughout the procedure. The proximal femur was then visualized. Fluoroscopic x-rays were then taken in order to evaluate the preoperative leg lengths. A small amount of traction was placed on the leg. The femoral neck was then osteotomized at the appropriate level above the lesser trochanter. A small wedge of bone was then removed from the remaining femoral head. Next, using a corkscrew the femoral head was removed from the acetabulum. On gross visual inspection, the femoral head had complete loss of articular cartilage and multiple periarticular osteophytes. The femoral head was then measured. Attention was then turned to the acetabulum. The acetabulum was exposed and any remaining labrum was excised. Sequential reaming of the acetabulum was performed using fluoroscopic guidance until there was a good bed of bleeding cancellus bone. When the appropriate size was reached, a trial was then placed. The position and fit of the trial was checked with fluoroscopy. The trial was then removed. Then, using fluoroscopic guidance, the final implant was impacted at 20 of anteversion and 40 of abduction, and fully seated in the acetabulum. 2 screws were then placed in the acetabulum. Again fluoroscopy was used to check position of the screws. Next, the liner was then impacted, with a 20 elevated liner located in the anterior superior quadrant. Component locking was confirmed. Attention was then directed to the femur. With the aid of the [place] table, the femur was externally rotated to approximately 130, extended, and adducted under the opposite leg. A side hook was then placed under the proximal femur, and the side hook elevator was used to elevate the proximal femur while releasing the capsule. Retractors were then placed. A capsular release was performed, as well as a release of the conjoined tendon, which afforded excellent visualization of the proximal femur. Next, a box osteotome was used to lateralize the proximal femur. A director of online merchandising was then used to locate the femoral canal. Sequential broaching was then performed with appropriate size which afforded excellent fixation in the proximal femur. A trial was then placed with appropriate head and neck, and the hip was gently reduced with the aid of the [place] table. Fluoroscopy was then used to check position of the components, as well as to evaluate the leg lengths and offset. The leg lengths and offset were measured as closely as possible to ensure stability of the hip. The hip was then gently dislocated and the trials were then removed. Final implants were then impacted and the hip was again reduced. Final fluoroscopic x-rays confirmed that the components were in anatomic position. The leg lengths and offset were measured and were found to coincide with the trial measurements. The hip was also taken through range of motion, and found to be stable. The hip was then copiously irrigated with antibiotic solution with pulsatile lavage. The hip was then irrigated with Irrisept solution. The soft tissues were then injected with a ropivacaine solution. A second dose of 1 g of Tranexamic acid was also given intravenously. The fascia was then closed with 2-0 strata fix suture. The subcutaneous tissue was closed with 3-0 Vicryl. The subcuticular tissue was closed with 3-0 moncryl suture. The skin was then closed with Exofin skin glue. After the glue and dried, and Optifoam silver impregnated dressing was applied. The patient was then transferred to the recovery room in stable condition. The stylist assistant AC Hollingsworth was required due to the complexity of surgery, and the need for skilled certified surgical assistant for positioning, draping, exposure, retraction, and closure of the wound.
--- NOTE | 2025-03-08 08:32 | FL ---
EXAMINATION TYPE: FL guidance operating room, XR Hip Limited RT DATE OF EXAM: 03/08/2025 8:22 AM COMPARISON: Pre Operative Images if available both CT/MRI or plain film CLINICAL INDICATION: Female, 59 years old with history of Rt Hip-Ant; TECHNIQUE: FL guidance operating room, XR Hip Limited RT, multiple fluoroscopic images provided for p rocedure. DAP: 0.90718 mGym2 Gycm2 uGym2 cGycm2 or equivalent. FINDINGS: Fluoroscopic images during internal fixation/arthroplasty demonstrate hardware in appropriate positio n. Hardware appears intact. No immediate complication identified. IMPRESSION: 1. No evidence for intraoperative complication. 2. Please see the operative/procedural note for further details. [facility], , 03/08/2025 8:30 AM
[2025-03-08] MEDS ORDERED: NALOXONE 0.4 MG/ML 1 ML VIAL IV PRN (08:39)
[2025-03-08] MEDS ORDERED: HYDROmorphone 1 MG/ML 1 ML SYRINGE IVP PRN (08:39)
[2025-03-08] MEDS ORDERED: HYDROmorphone 0.5 MG/0.5 ML SYRINGE IVP PRN (08:39)
[2025-03-08] MEDS ORDERED: MAGNESIUM HYDROXIDE 2,400 MG/30 ML CUP PO PRN (08:39)
[2025-03-08] MEDS ORDERED: LORazepam 0.5 MG TAB PO PRN (09:12)
--- NOTE | 2025-03-08 09:14 | XR ---
EXAMINATION TYPE: XR Hip Limited RT DATE OF EXAM: 03/08/2025 8:58 AM COMPARISON: None CLINICAL INDICATION: Female, 59 years old with history of Status post hip surgery, assess surgical al ignment; PHH, pain TECHNIQUE: XR Hip Limited RT; Frontal view FINDINGS: Post arthroplasty changes, hardware is intact, alignment is appropriate. No evidence of fra cture. Postoperative changes of the soft tissues with subcutaneous gas. No evidence of any acute osse ous pathology or joint dislocation. IMPRESSION: Hip arthroplasty with hardware intact and in appropriate alignment. No acute fracture. [facility], , 03/08/2025 9:12 AM
[2025-03-08] MEDS: SODIUM CHLORIDE 0.9% 1,000 ML IV SCH (09:29)
[2025-03-08] MEDS: ASPIRIN 325 MG TAB PO SCH (10:26)
[2025-03-08] MEDS: LACTATED RINGERS 1,000 ML IV SCH (10:26)
[2025-03-08] MEDS: HYDROcodone/APAP 7.5-325MG 1 EACH TAB PO PRN ×2 (12:15→17:02)
[2025-03-08] MEDS: ONDANSETRON 4 MG/2 ML VIAL IVP PRN (14:48)
[2025-03-08] MEDS: HYDROmorphone 0.5 MG/0.5 ML SYRINGE IVP PRN (14:49)
[2025-03-08] MEDS: ceFAZolin 2 GM in DEXTROSE 5% IN WATER 50 ML IVPB SCH (14:49)
[2025-03-08] MEDS: GABAPENTIN 300 MG CAP PO SCH (17:00)
--- NOTE | 2025-03-08 18:44 | P.CONS ---
History of Present Illness - Reason for Consult Consult date: 03/08/25 Medical management Requesting physician: Mikael Crisostomo - Chief Complaint Status post right total hip arthroplasty. - History of Present Illness HISTORY OF PRESENT ILLNESS: This is a 59-year-old female patient with a previous medical history significant for gastroesophageal reflux disease, osteoarthritis of bilateral knees and bilateral shoulder, spondylosis of the cervical spine as well as lumbar spine, history of bilateral venous stasis with significant lymphedema both lower extremities, patient underwent right total hip arthroplasty via direct anterior approach with Dr. Crisostomo, we are asked to see the patient for postoperative medical management. Patient is laying down in bed in no apparent distress, she denies any chest pain, shortness of breath, she has no abdominal pain, nausea vomiting or diarrhea at this time, she seems to be tolerating treatment very well. REVIEW OF SYSTEMS: Constitutional: No documented fever, no chills, no night sweats. No weight change. No weakness, fatigue or lethargy. No daytime sleepiness. HEENT: No headache. No blurred vision or double vision, no loss of vision. No loss of Hearing, no ringing in the ears, no dizziness. No nasal drainage or congestion. No epistaxis. No sore throat. Lungs: No shortness of breath, no cough, no sputum production. No wheezing. Reports dyspnea with activity. Cardiovascular: No chest pain, no lower extremity edema. No palpitations. No paroxysmal nocturnal dyspnea. No orthopnea. No lightheadedness or dizziness. No syncopal episodes. Abdominal: Reports no abdominal pain. No nausea, vomiting. No diarrhea. No constipation. No bloody or tarry stools reports no loss of appetite. Genitourinary: No dysuria, increased frequency, urgency. No urinary retention. Musculoskeletal: No myalgias. No muscle weakness, no gait dysfunction, no frequent falls. No back pain. No neck pain. Right hip pain. Integumentary: No wounds, no lesions. No rash or pruritus. No unusual bruising. No change in hair or nails. Neurologic: No aphasia. No facial droop. No change in mentation. No head injury. No headache. No paralysis. No paresthesia. Psychiatric: No depression. No anxiety. No mood swings. Endocrine: No abnormal blood sugars. No weight change. PAST MEDICAL HISTORY: GERD. Bilateral venous stasis with lymphedema. Spondylosis of the cervical spine and the lumbar spine. Osteoarthritis of both knees. Hyperthyroidism status post radioactive iodine. Anxiety. Obesity. Overactive bladder. Left total knee arthroplasty PAST SURGICAL HISTORY: Tubal ligation. Vocal cord nodules. Anterior cervical discectomy with fusion C4 C5 C5 and 6 Left heart catheterization 2009. Cholecystectomy. Radioactive iodine ablation for hyperthyroidism. Left shoulder surgery. Right total hip arthroplasty. SOCIAL HISTORY: Patient smoked about quarter a pack every day for about 20 years, and quit in 2006, she drinks occasionally, she denies any drug use or abuse. FAMILY HISTORY: Father at the age of 79 from sepsis he had a significant history of spondylosis of the cervical spine the lumbar spine with a chronic pain syndrome, mother is still alive with a history of hypertension, hyperlipidemia, history of irritable bowel syndrome, anxiety and depressive disorder, patient has one sister with fibromyalgia significant lymphedema both lower extremities, patient has 2 daughters no major medical problems one with SVT post-ablation therapy, mother still alive with history of hypertension, hyperlipidemia coronary artery disease as well as anxiety and depressive disorder. PHYSICAL EXAMINATION: General:59-year-old female laying down in bed in no apparent distress HEENT: Head is atraumatic, normocephalic, pupils were equal round reactive to light and recommendation, extraocular muscle movement were intact, sclera nonicteric, conjunctivae were pale, mucous membranes of the mouth are somewhat dry. Neck: Supple, no JVP, normal carotid upstroke bilaterally, no lymphadenopathy. Chest: Decreased breath sounds at the bases, few rhonchi, no expiratory wheezes, no chest wall tenderness, no intercostal retractions. Heart: First heart sound is normal, second heart sounds normal ,There is no gallop or murmur. Abdomen: Soft, nontender, nondistended, positive bowel sounds. Extremities: There is no edema no calf tenderness DP +2 bilaterally, there is a dressing to the right hip that appears to be intact. Neurologic examination: Patient is awake alert and oriented X 3, cranial nerves II-12 appear grossly intact, muscle power were 5 out of 5 in upper extremities and 5 out of 5 in bilateral lower extremities, deep tendon reflexes normal bilaterally. ASSESSMENT AND PLAN: 1. Post operative day #0 status post right total hip arthroplasty via direct anterior approach . Patient was instructed to use the incentive spirometer to reduce the incidence of atelectasis and hospital associated pneumonia, continue current pain management as outlined by orthopedic surgery, patient likely would be discharged home tomorrow morning. Continue DVT prophylaxis with aspirin 325 mg orally twice every day, bilateral knee-high LASHA hose, early ambulation, continue current pain management as outlined by orthopedic surgery as well 2. History of GERD. Continue patient on Protonix 40 mg orally once every day. 3. History of hyperthyrpodism status post radioactive iodine. Currently hypothyroid continue with levothyroxine 25 mcg orally once every day monitor the patient TSH and free T4 as an outpatient. 4. Overactive bladder. Continue patient on Myrbetriq 50 mg orally once every day. 5. Bilateral lower extremity lymphedema. Continue bilateral knee-high LASHA hose, hold diuretics while she is in the hospital 6. Anxiety disorder. Continue Lexapro 5 mg orally once every day, continue lorazepam 0.5 mg orally twice every day as needed. 7. Spondylosis of the cervical spine post anterior cervical discectomy with fusion. Stable. Continue current pain management. 8. Spondylosis of the lumbar spine status post epidural injection. 9. Thank you for the consult we will follow the patient with you Past Medical History Past Medical History: Chest Pain / Angina, GERD/Reflux, Hyperlipidemia, Oste oarthritis (OA), Sleep Apnea/CPAP/BIPAP, Thyroid Disorder Additional Past Medical History / Comment(s): BACk AND NECK PAIN, radioactive iodine tx for thyroid. uses CPAP. History of Any Multi-Drug Resistant Organisms: C-DIFF Year Discovered:: 2009 MDRO Source:: stool Past Surgical History: Cholecystectomy, Heart Catheterization, Joint Replacement, Orthopedic Surgery, Tubal Ligation Additional Past Surgical History / Comment(s): NODULES REMOVED FROM VOCAL CORDS, Pain clinic procedures, Anterior Cervical Decompression and Fusion C4-5, C5-6. PLANTAR FASCITIS SURG STONE. TOTAL RIGHT KNEE , TOTAL LEFT KNEE , LT SHOULDER SX, colonoscopy Past Anesthesia/Blood Transfusion Reactions: Motion Sickness, Postoperative Nausea & Vomiting (PONV) Additional Past Anesthesia/Blood Transfusion Reaction / Comm: No hx of blood transfuision to date. Smoking Status: Former smoker - Past Family History Father Family Medical History: Musculoskeletal Disorder Additional Family Medical History / Comment(s): Father at age 74 from sepsis with history of COPD and peripheral vascular disease. Mother Family Medical History: Cancer Additional Family Medical History / Comment(s): breast cancer Medications and Allergies Home Medications Medication Instructions Recorded Confirmed Type Furosemide [Lasix] 40 mg PO DAILY PRN 04/29/17 03/08/25 History Cholecalciferol [Vitamin D3 (25 1,000 unit PO QAM 05/14/18 03/08/25 History Mcg = 1000 Iu)] Escitalopram [Lexapro] 5 mg PO HS 05/14/18 03/08/25 History Potassium Chloride [Klor-Con 20] 20 meq PO DAILY PRN 05/14/18 03/08/25 History Cyclobenzaprine [Flexeril] 10 mg PO BID 08/12/18 03/08/25 History L.acidoph,Paracasei, B.lactis 1 each PO QAM 08/12/18 03/08/25 History [Probiotic] Mirabegron [Myrbetriq] 50 mg PO QAM 08/12/18 03/08/25 History Gabapentin [Neurontin] 300 mg PO TID 03/26/19 03/08/25 History LORazepam [Ativan] 0.5 mg PO BID PRN 03/26/19 03/08/25 History Omeprazole [PriLOSEC] 20 mg PO QAM 03/26/19 03/08/25 History Biotin 5 mg PO QAM 10/08/19 03/08/25 History Ondansetron [Zofran] 4 mg PO Q8HR PRN 10/09/22 03/08/25 History traMADol HCL 50 mg PO Q6H PRN 10/09/22 03/08/25 History Docusate [Colace] 100 mg PO BID #60 capsule 10/12/22 03/08/25 Rx Ibuprofen [Motrin Ib] 600 mg PO Q8H PRN 10/12/24 03/08/25 History Levothyroxine Sodium [Synthroid] 25 mcg PO QAM 10/12/24 03/08/25 History Tirzepatide [Zepbound] 5 mg SQ NGUYEN 10/12/24 03/08/25 History HYDROcodone/APAP 7.5-325MG [[place] 1 tab PO Q4H PRN 3 Days #18 tab 01/13/25 03/08/25 Rx 7.5-325] Aspirin 325 mg PO BID #60 tab 03/08/25 Rx HYDROcodone/APAP 7.5-325MG [[place] 1 - 2 tab PO Q6H PRN #32 tab 03/08/25 Rx 7.5-325] Sennosides [Senokot] 2 tab PO DAILY PRN #60 tablet 03/08/25 Rx Allergies Allergy/AdvReac Type Severity Reaction Status Date / Time codeine Allergy Chest Pain Verified 03/08/25 05:54 morphine Allergy Chest Pain Verified 03/08/25 05:54 venom-honey bee Allergy Anaphylaxis Verified 03/08/25 05:54 Physical Exam Vitals: Vital Signs Temp Pulse Pulse Resp BP Pulse Ox 03/08/25 09:02 78 16 100/55 100 03/08/25 08:45 78 16 97/51 100 03/08/25 08:31 98.0 F 88 16 92/54 97 03/08/25 06:50 75 16 106/70 100 03/08/25 06:05 98.0 F 76 16 117/67 100 Intake and Output 03/07/25 03/08/25 03/08/25 22:59 06:59 14:59 Intake Total 100 751 Output Total 500 Balance 100 251 Intake: IV 100 751 Output: Estimated Blood Loss 500 Other: Weight 99.3 kg Results CBC & Chem 7: 03/08/25 06:16 Labs: Abnormal Lab Results - Last 24 Hours (Table) 03/08/25 Range/Units 06:16 Hct 36.4 L (37.2-46.3) %
[2025-03-08] MEDS: DOCUSATE 100 MG CAP PO SCH (20:44)
[2025-03-08] MEDS: SENNOSIDES-DOCUSATE SODIUM 1 EACH TAB PO SCH (20:44)
[2025-03-08] MEDS: CYCLOBENZAPRINE 10 MG TAB PO SCH (20:44)
[2025-03-08] MEDS: ESCITALOPRAM 5 MG TAB PO SCH (20:44)
[2025-03-09 02:22] VITALS: BP 110/70; PULSE 81; RESP 16; TEMP 97.9
[2025-03-09] MEDS: LEVOTHYROXINE 25 MCG TAB PO SCH (05:30)
--- NOTE | 2025-03-09 07:16 | P.DS ---
Providers Expected date of discharge: 03/09/25 Attending physician: Mikael Crisostomo Consults: 03/08/25 08:39 Consult Physician Routine Consulting Provider: Zahira Gage Consult Reason/Comments: medical management Do you want consulting provider notified?: Yes Primary care physician: Zahira Gage - Discharge Diagnosis(es) (1) Osteoarthritis of right hip Current Visit: Yes Status: Acute (2) S/P total hip arthroplasty Current Visit: Yes Status: Acute Hospital Course: This is a 59-year-old female with known history of degenerative arthritis of the right hip. The patient presented for evaluation as an outpatient. After discussion and consideration patient elects to proceed with total hip arthroplasty. The patient is seen preoperatively by Dr. Crisostomo and medically cleared for surgery by their primary care physician. Patient is admitted to [facility] on 03/08/2025 for total hip arthroplasty. The procedure is performed without complication or sequelae. The patient is doing well postoperatively. Labs and vital signs are stable on day of discharge. On day of discharge patient's hip incision is healing well. There is minimal erythema. There is no drainage noted at this time. There is minimal soft tissue swelling to the hip and thigh. Patient has full foot and ankle motion without difficulty or pain. Calf is soft and nontender to palpation. Neurovascular status to the right lower extremity is intact. Patient is discharged home in good condition Please see med rec for accurate list of home medications. Plan - Discharge Summary Discharge Rx Participant: Yes New Discharge Prescriptions: New Aspirin 325 mg PO BID #60 tab HYDROcodone/APAP 7.5-325MG [[place] 7.5-325] 1 - 2 tab PO Q6H PRN #32 tab PRN Reason: Pain Sennosides [Senokot] 2 tab PO DAILY PRN #60 tablet PRN Reason: Constipation Ondansetron Odt [Zofran Odt] 1 tab PO Q8HR PRN #10 tab PRN Reason: Nausea No Action Furosemide [Lasix] 40 mg PO DAILY PRN PRN Reason: Edema Potassium Chloride [Klor-Con 20] 20 meq PO DAILY PRN PRN Reason: LASIX Escitalopram [Lexapro] 5 mg PO HS Cholecalciferol [Vitamin D3 (25 Mcg = 1000 Iu)] 1,000 unit PO QAM Mirabegron [Myrbetriq] 50 mg PO QAM Cyclobenzaprine [Flexeril] 10 mg PO BID L.acidoph,Paracasei, B.lactis [Probiotic] 1 each PO QAM Omeprazole [PriLOSEC] 20 mg PO QAM Gabapentin [Neurontin] 300 mg PO TID LORazepam [Ativan] 0.5 mg PO BID PRN PRN Reason: Anxiety Biotin 5 mg PO QAM Docusate [Colace] 100 mg PO BID #60 capsule Tirzepatide [Zepbound] 5 mg SQ NGUYEN HYDROcodone/APAP 7.5-325MG [[place] 7.5-325] 1 tab PO Q4H PRN 3 Days #18 tab PRN Reason: Pain traMADol HCL 50 mg PO Q6H PRN PRN Reason: Pain Ondansetron [Zofran] 4 mg PO Q8HR PRN PRN Reason: Nausea Ibuprofen [Motrin Ib] 600 mg PO Q8H PRN PRN Reason: Pain Levothyroxine Sodium [Synthroid] 25 mcg PO QAM Discharge Medication List Furosemide [Lasix] 40 mg PO DAILY PRN 04/29/17 [History] Cholecalciferol [Vitamin D3 (25 Mcg = 1000 Iu)] 1,000 unit PO QAM 05/14/18 [History] Escitalopram [Lexapro] 5 mg PO HS 05/14/18 [History] Potassium Chloride [Klor-Con 20] 20 meq PO DAILY PRN 05/14/18 [History] Cyclobenzaprine [Flexeril] 10 mg PO BID 08/12/18 [History] L.acidoph,Paracasei, B.lactis [Probiotic] 1 each PO QAM 08/12/18 [History] Mirabegron [Myrbetriq] 50 mg PO QAM 08/12/18 [History] Gabapentin [Neurontin] 300 mg PO TID 03/26/19 [History] LORazepam [Ativan] 0.5 mg PO BID PRN 03/26/19 [History] Omeprazole [PriLOSEC] 20 mg PO QAM 03/26/19 [History] Biotin 5 mg PO QAM 10/08/19 [History] Ondansetron [Zofran] 4 mg PO Q8HR PRN 10/09/22 [History] traMADol HCL 50 mg PO Q6H PRN 10/09/22 [History] Docusate [Colace] 100 mg PO BID #60 capsule 10/12/22 [Rx] Ibuprofen [Motrin Ib] 600 mg PO Q8H PRN 10/12/24 [History] Levothyroxine Sodium [Synthroid] 25 mcg PO QAM 10/12/24 [History] Tirzepatide [Zepbound] 5 mg SQ NGYUEN 10/12/24 [History] HYDROcodone/APAP 7.5-325MG [[place] 7.5-325] 1 tab PO Q4H PRN 3 Days #18 tab 01/13/25 [Rx] Aspirin 325 mg PO BID #60 tab 03/08/25 [Rx] HYDROcodone/APAP 7.5-325MG [[place] 7.5-325] 1 - 2 tab PO Q6H PRN #32 tab 03/08/25 [Rx] Sennosides [Senokot] 2 tab PO DAILY PRN #60 tablet 03/08/25 [Rx] Ondansetron Odt [Zofran Odt] 1 tab PO Q8HR PRN #10 tab 03/09/25 [Rx] Follow up Appointment(s)/Referral(s): Mikael Crisostomo DO [Doctor of Osteopathic Medicine] - 2 Weeks Activity/Diet/Wound Care/Special Instructions: Weightbearing as tolerated with walker. Leave dressing intact. Dressing may be removed by home care nurse or by patient in 7 days. Then change dressing twice daily until follow up. May shower with initial dressing intact and after removal. If dressing become saturated, please remove. Please take aspirin 325mg twice daily for 30 days to prevent blood clots. Recommend use of compression stockings daily until follow up to help prevent swe lling and blood clots. May remove at night before sleeping. Please follow-up with [facility] in 2 weeks and call with any questions or concerns, . Discharge Disposition: HOME WITH HOME HEALTH SERVICES
[2025-03-09] MEDS: LACTOBACILLUS ACIDOPHILUS/PECT 1 EACH CAPSULE PO SCH (08:11)
[2025-03-09] MEDS: CHOLECALCIFEROL 25 MCG (1000 IU) TABLET PO SCH (08:11)
[2025-03-09] MEDS: PANTOPRAZOLE 40 MG TABLET PO SCH (08:11)
[2025-03-09] MEDS: KETOROLAC 15 MG/ML 1 ML VIAL IVP PRN (08:11)
[2025-03-09 08:20] LABS: Basophils # (A) 0.02 X 10*3/uL (0.00-0.10); Basophils % (A) 0.4 %; Eosinophils # (A) 0.02 X 10*3/uL (0.04-0.35); Eosinophils % (A) 0.4 %; Lymphocytes # (A) 1.34 X 10*3/uL (0.90-5.00); Lymphocytes % (A) 25.1 %; MCH 29.6 pg (27.0-32.0); MCHC 33.3 g/dL (32.0-37.0); MCV 88.8 FL (80.0-97.0); Mean Platelet Volume 10.7 FL (9.5-12.2); Monocytes # (A) 0.52 X 10*3/uL (0.20-1.00); Monocytes % (A) 9.8 %; NRBC Per 100 WBC 0 X 10*3/uL (0.00-0.01); Neutrophils % (A) 63.7 %; Platelet Count 180 X 10*3/uL (140-440); RBC 3.04 X 10*6/uL (4.10-5.20); RDW 13.1 % (11.5-14.5); WBC 5.33 X 10*3/uL (4.50-10.00)
[2025-03-09] MEDS ORDERED: NON FORMULARY DRUG (Biotin [Biotin] 5 MG Capsule) PO SCH (09:00)
--- NOTE | 2025-03-10 16:29 | P.PN ---
Subjective Progress Note Date: 03/09/25 HISTORY OF PRESENT ILLNESS: This is a 59-year-old female patient with a previous medical history significant for gastroesophageal reflux disease, osteoarthritis of bilateral knees and bilateral shoulder, spondylosis of the cervical spine as well as lumbar spine, history of bilateral venous stasis with significant lymphedema both lower extremities, patient underwent right total hip arthroplasty via direct anterior approach with Dr. Crisostomo, we are asked to see the patient for postoperative medical management. Patient is laying down in bed in no apparent distress, she denies any chest beckie n, shortness of breath, she has no abdominal pain, nausea vomiting or diarrhea at this time, she seems to be tolerating treatment very well. 03/10: Patient is sitting up in recliner chair in no apparent distress, her pain is well-controlled about 2-3 out of 10, she denies any chest pain, shortness of breath, she has no abdominal pain, she did have a bowel movement, no nausea or vomiting at this time, she seems to be tolerating her pain medicine very well, patient is scheduled to be discharged home later on today, patient is medically stable at this point to be discharged continue incentive spirometer at home, continue current pain management, continue to use stool softener and increase fluid intake, follow-up with me as an outpatient. REVIEW OF SYSTEMS: Constitutional: No documented fever, no chills, no night sweats. No weight change. No weakness, fatigue or lethargy. No daytime sleepiness. HEENT: No headache. No blurred vision or double vision, no loss of vision. No loss of Hearing, no ringing in the ears, no dizziness. No nasal drainage or congestion. No epistaxis. No sore throat. Lungs: No shortness of breath, no cough, no sputum production. No wheezing. Reports dyspnea with activity. Cardiovascular: No chest pain, no lower extremity edema. No palpitations. No paroxysmal nocturnal dyspnea. No orthopnea. No lightheadedness or dizziness. No syncopal episodes. Abdominal: Reports no abdominal pain. No nausea, vomiting. No diarrhea. No constipation. No bloody or tarry stools reports no loss of appetite. Genitourinary: No dysuria, increased frequency, urgency. No urinary retention. Musculoskeletal: No myalgias. No muscle weakness, no gait dysfunction, no frequent falls. No back pain. No neck pain. Right hip pain. Integumentary: No wounds, no lesions. No rash or pruritus. No unusual bruising. No change in hair or nails. Neurologic: No aphasia. No facial droop. No change in mentation. No head injury. No headache. No paralysis. No paresthesia. Psychiatric: No depression. No anxiety. No mood swings. Endocrine: No abnormal blood sugars. No weight change. PHYSICAL EXAMINATION: General:59-year-old female laying down in bed in no apparent distress HEENT: Head is atraumatic, normocephalic, pupils were equal round reactive to light and recommendation, extraocular muscle movement were intact, sclera nonicteric, conjunctivae were pale, mucous membranes of the mouth are somewhat dry. Neck: Supple, no JVP, normal carotid upstroke bilaterally, no lymphadenopathy. Chest: Decreased breath sounds at the bases, few rhonchi, no expiratory wheezes, no chest wall tenderness, no intercostal retractions. Heart: First heart sound is normal, second heart sounds normal ,There is no gallop or murmur. Abdomen: Soft, nontender, nondistended, positive bowel sounds. Extremities: There is no edema no calf tenderness DP +2 bilaterally, there is a dressing to the right hip that appears to be intact. Neurologic examination: Patient is awake alert and oriented X 3, cranial nerves II-12 appear grossly intact, muscle power were 5 out of 5 in upper extremities and 5 out of 5 in bilateral lower extremities, deep tendon reflexes normal trisha aterally. ASSESSMENT AND PLAN: 1. Post operative day #1 status post right total hip arthroplasty via direct anterior approach . Patient was instructed to use the incentive spirometer to reduce the incidence of atelectasis and hospital associated pneumonia, continue current pain management as outlined by orthopedic surgery, patient is medically stable for discharge. 2. History of GERD. Continue patient on Protonix 40 mg orally once every day. 3. History of hyperthyrpodism status post radioactive iodine. Currently hypothyroid continue with levothyroxine 25 mcg orally once every day monitor the patient TSH and free T4 as an outpatient. 4. Overactive bladder. Continue patient on Myrbetriq 50 mg orally once every day. 5. Bilateral lower extremity lymphedema. Continue bilateral knee-high LASHA hose, hold diuretics while she is in the hospital 6. Anxiety disorder. Continue Lexapro 5 mg orally once every day, continue lorazepam 0.5 mg orally twice every day as needed. 7. Spondylosis of the cervical spine post anterior cervical discectomy with fusion. Stable. Continue current pain management. 8. Spondylosis of the lumbar spine status post epidural injection. 9. Patient is medically stable for discharge Objective - Vital Signs Vital signs: Vital Signs Temp 97.9 F 03/09/25 00:44 Pulse 81 03/09/25 00:44 Resp 16 03/09/25 00:44 BP 110/70 03/09/25 00:44 Pulse Ox 99 03/09/25 00:44 FiO2 - Labs CBC & Chem 7: 03/09/25 03:30
== END 2025-03-09 12:18 | disposition home health service (06) ==
LOC: OR 05:35 → 4SSUR 08:26 → OR 03-09 12:18
PROVIDERS: ATTEND Orthopaedic Surgery
DX: M16.11 Unilateral primary osteoarthritis, right hip (principal); M19.011 Primary osteoarthritis, right shoulder; M19.012 Primary osteoarthritis, left shoulder; M17.0 Bilateral primary osteoarthritis of knee; M47.812 Spondylosis without myelopathy or radiculopathy, cervical region; M47.816 Spondylosis without myelopathy or radiculopathy, lumbar region; I89.0 Lymphedema, not elsewhere classified; K21.9 Gastro-esophageal reflux disease without esophagitis; E03.9 Hypothyroidism, unspecified; E66.9 Obesity, unspecified; E78.5 Hyperlipidemia, unspecified; F41.9 Anxiety disorder, unspecified; N32.81 Overactive bladder; G47.30 Sleep apnea, unspecified; Z90.49 Acquired absence of other specified parts of digestive tract; Z96.643 Presence of artificial hip joint, bilateral; Z96.652 Presence of left artificial knee joint; Z82.49 Family history of ischemic heart disease and other diseases of the circulatory system; Z83.49 Family history of other endocrine, nutritional and metabolic diseases; Z83.79 Family history of other diseases of the digestive system; Z80.3 Family history of malignant neoplasm of breast; Z91.030 Bee allergy status; Z98.51 Tubal ligation status; Z88.5 Allergy status to narcotic agent; Z79.890 Hormone replacement therapy; Z79.82 Long term (current) use of aspirin; Z79.899 Other long term (current) drug therapy
CPT/HCPCS: 97161; 97166; 64473; 85025; 85027; 73501; 27130; C1776; J2250; J1100; J0690 ×2; J2405 ×2; J2795; J1885; J1171; J3010